=== PATIENT | male | born 1940 | race American Indian/Alaskan Native ===

== ENCOUNTER 2019-01-14 23:05 | Inpatient (IN) | payer MEDICARE ==
--- NOTE | 2019-01-14 23:21 | Emergency Department Report ---
ED Lower Extremity HPI - General Chief Complaint: Fall Stated Complaint: LT HIP PAIN Time Seen by Provider: 01/14/19 23:16 Source: patient, EMS Mode of arrival: Stretcher Limitations: Physical Limitation - History of Present Illness Initial Comments: 78 year-old male presents to the ED after sustaining a fall from his wheelchair. States patient reported pain to left hip. Patient ambulates using a walker and was attempting to use it when noticied patient limping. EMS was called. MD Complaint: hip injury -: hour(s) (5) Injury: Hip: Left Type of Injury: blunt Place: home Severity: moderate Improves With: immobilization Worsens With: weight bearing Context: fall Associated Symptoms: able to partially bear weight - Related Data Home Medications Medication Instructions Recorded Confirmed Last Taken Aspirin [Aspirin BABY CHEW TAB] 1 tab PO DAILY 10/27/13 01/21/14 10/29/13 Atorvastatin (Nf) [Lipitor] 1 tab PO DAILY 10/27/13 01/21/14 10/27/13 Donepezil HCl [Donepezil HCl Odt] 1 tab PO DAILY 10/27/13 01/21/14 10/27/13 Folic Acid 1 mg PO DAILY 10/27/13 01/21/14 10/29/13 Insulin Glargine,Hum.rec.anlog 10 units SC HS 10/27/13 01/21/14 10/29/13 [Lantus] Metoprolol Tartrate 1 tab PO DAILY 10/27/13 01/21/14 10/29/13 Pantoprazole [Protonix TAB] 1 tab PO DAILY 10/27/13 01/21/14 10/29/13 Thiamine Mononitrate [Vitamin B-1] 250 mg PO DAILY 10/27/13 01/21/14 10/29/13 Haloperidol 2 mg PO QHS 01/21/14 01/21/14 Unknown Allergies Allergy/AdvReac Type Severity Reaction Status Date / Time No Known Allergies Allergy Verified 10/27/13 16:35 ED Review of Systems ROS: Stated complaint: LT HIP PAIN Other details as noted in HPI Comment: All other systems reviewed and negative Musculoskeletal: as per HPI ED Past Medical Hx - Past Medical History Hx Hypertension: Yes Hx Diabetes: Yes Hx Dementia: Yes - Surgical History Past Surgical History?: No - Social History Smoking Status: Never Smoker Substance Use Type: None - Medications Home Medications: Home Medications Medication Instructions Recorded Confirmed Last Taken Type Aspirin [Aspirin BABY CHEW TAB] 1 tab PO DAILY 10/27/13 01/21/14 10/29/13 History Atorvastatin (Nf) [Lipitor] 1 tab PO DAILY 10/27/13 01/21/14 10/27/13 History Donepezil HCl [Donepezil HCl Odt] 1 tab PO DAILY 10/27/13 01/21/14 10/27/13 History Folic Acid 1 mg PO DAILY 10/27/13 01/21/14 10/29/13 History Insulin Glargine,Hum.rec.anlog 10 units SC HS 10/27/13 01/21/14 10/29/13 History [Lantus] Metoprolol Tartrate 1 tab PO DAILY 10/27/13 01/21/14 10/29/13 History Pantoprazole [Protonix TAB] 1 tab PO DAILY 10/27/13 01/21/14 10/29/13 History Thiamine Mononitrate [Vitamin B-1] 250 mg PO DAILY 10/27/13 01/21/14 10/29/13 History Haloperidol 2 mg PO QHS 01/21/14 01/21/14 Unknown History ED Physical Exam - General Limitations: Physical Limitation General appearance: alert, in no apparent distress - Head Head exam: Present: atraumatic, normocephalic - Eye Eye exam: Present: normal appearance - ENT ENT exam: Present: mucous membranes moist - Neck Neck exam: Present: normal inspection - Respiratory Respiratory exam: Present: normal lung sounds bilaterally. Absent: respiratory distress - Cardiovascular Cardiovascular Exam: Present: regular rate, normal rhythm - GI/Abdominal GI/Abdominal exam: Absent: distended - Extremities Exam Extremities exam: Present: other (mild tenderness to left hip) - Neurological Exam Neurological exam: Present: alert, altered (at baseline per , hx of head injury and CVA) - Psychiatric Psychiatric exam: Present: normal affect, normal mood - Skin Skin exam: Present: warm, dry, intact, normal color ED Course Vital Signs 01/14/19 01/14/19 01/14/19 23:15 23:31 23:45 Blood Pressure 139/76 151/82 144/74 - Consultations Consultation #1: 01/15/19 00:13 Spoke w/ dotne Schroeder. States possible OR tomorrow. ED Lower Extremity MDM - Lab Data Result diagrams: 01/14/19 23:52 - Radiology Data Radiology results: report reviewed, image reviewed - Medical Decision Making 78-year-old male presents to ED after falling from a wheelchair earlier this evening. Left hip pain reported. X-ray shows left femoral neck fracture. Spoke with Dr. Nick, orthopedic surgeon. He is aware of the patient, states he may take patient to OR tomorrow. Will admit to hospitalist for further management. - Differential Diagnosis fracture, sprain, dislocation Critical care attestation.: If time is entered above; I have spent that time in minutes in the direct care of this critically ill patient, excluding procedure time. ED Disposition Clinical Impression: Fracture of femoral neck, left Disposition: -09 OP ADMIT IP TO THIS HOSP Is pt being admited?: Yes Condition: Stable Referrals: CLYDE DAS MD [Primary Care Provider] - 3-5 Days Time of Disposition: 00:14
--- NOTE | 2019-01-15 00:07 | XRay Report ---
LEFT HIP 2 VIEWS INDICATION / CLINICAL INFORMATION: fall, pain. COMPARISON: None available. FINDINGS: Moderately displaced left femoral neck fracture. Degenerative change in the lower lumbar spine. Moder ate degenerative change in the right hip Signer Name: Juma Fuchs MD FACR Signed: 01/15/2019 12:03 AM Workstation Name: [id number]
[2019-01-15 00:13] LABS: Basophils % (Auto) 0.5 % (0.0-1.8); Eosinophils # (Auto) 0.1 K/mm3 (0.0-0.4); Eosinophils % (Auto) 0.6 % (0.0-4.3); Hematocrit 32.8 % (35.5-45.6); Hemoglobin 10.9 gm/dl (11.8-15.2); Lymphocytes # (Auto) 1.1 K/mm3 (1.2-5.4); Lymphocytes % (Auto) 10.1 % (13.4-35.0); Mean Corpuscular HGB Conc 33 % (32-34); Mean Corpuscular Volume 97 fl (84-94); Monocytes # (Auto) 0.5 K/mm3 (0.0-0.8); Monocytes % (Auto) 5.2 % (0.0-7.3); Platelet Count 206 K/mm3 (140-440); Red Cell Distribution Width 13.2 % (13.2-15.2)
[2019-01-15] MEDS ORDERED: MORPHINE IV ONE ×2 (00:18→06:00)
[2019-01-15 00:22] LABS: INR 1.22 (0.87-1.13)
[2019-01-15 00:23] LABS: Partial Thromboplastin Time 29.5 Sec. (24.2-36.6)
[2019-01-15 01:04] LABS: Calcium 9.6 mg/dL (8.4-10.2)
[2019-01-15] MEDS ORDERED: ZOFRAN IV PRN ×2 (01:16→13:38)
[2019-01-15] MEDS ORDERED: SODIUM CHLORIDE FLUSH SYRINGE 10 ML IV PRN (01:16)
[2019-01-15] MEDS ORDERED: D50W (25GM) Syringe IV PRN (01:16)
[2019-01-15] MEDS ORDERED: PERCOCET 5/325 PO PRN (01:16)
--- NOTE | 2019-01-15 01:28 | History and Physical Report ---
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 Patient slipped after he got out of a chair and fell Review of systems Constitutional: no weight loss Ears, eyes, nose, mouth and throat: no nasal congestion, no nasal discharge, no sinus pressure, no vision change, no red eye. Neck: No neck pain or rigidity. Cardiovascular: no palpitations, shortness of breath Respiratory: no cough, chest pain Gastrointestinal: no hematochezia, abdominal pain Genitourinary : no frequency , no hematuria Musculoskeletal: no joint swelling or muscle ache Integumentary: no rash, no pruritis Neurological: no parathesias, focal weakness Endocrine: no cold or heat intolerance, no polyuria or polydipsia Hematologic/Lymphatic: no easy bruising, no easy bleeding, no gland swelling Allergic/Immunologic: no urticaria, no angioedema. PAST MEDICAL HISTORY: hypertension, diabetes, dementia PAST SURGICAL HISTORY: None SOCIAL HISTORY: no tobacco, maijuana, alcohol FAMILY HISTORY: Hypertension Medications and Allergies Allergies Allergy/AdvReac Type Severity Reaction Status Date / Time No Known Allergies Allergy Verified 10/27/13 16:35 Home Medications Medication Instructions Recorded Confirmed Last Taken Type Aspirin [Aspirin BABY CHEW TAB] 1 tab PO DAILY 10/27/13 01/21/14 10/29/13 History Atorvastatin (Nf) [Lipitor] 1 tab PO DAILY 10/27/13 01/21/14 10/27/13 History Donepezil HCl [Donepezil HCl Odt] 1 tab PO DAILY 10/27/13 01/21/14 10/27/13 History Folic Acid 1 mg PO DAILY 10/27/13 01/21/14 10/29/13 History Insulin Glargine,Hum.rec.anlog 10 units SC HS 10/27/13 01/21/14 10/29/13 History [Lantus] Metoprolol Tartrate 1 tab PO DAILY 10/27/13 01/21/14 10/29/13 History Pantoprazole [Protonix TAB] 1 tab PO DAILY 10/27/13 01/21/14 10/29/13 History Thiamine Mononitrate [Vitamin B-1] 250 mg PO DAILY 10/27/13 01/21/14 10/29/13 History Haloperidol 2 mg PO QHS 01/21/14 01/21/14 Unknown History Active Meds: Active Medications Acetaminophen (Tylenol) 650 mg PO Q4H PRN PRN Reason: Pain MILD(1-3)/Fever >100.5/NIÑO Dextrose (D50w (25gm) Syringe) 50 ml IV PRN PRN PRN Reason: Hypoglycemia Enoxaparin Sodium (Lovenox) 30 mg SUB-Q QDAY [facility] Sodium Chloride (Nacl 0.45% 1000 Ml) 1,000 mls @ 75 mls/hr IV DIRECT ALPES[facility] Insulin Human Lispro (Humalog) 0 unit SUB-Q Q6HR [facility]; Protocol Ondansetron HCl (Zofran) 4 mg IV Q8H PRN PRN Reason: Nausea And Vomiting Oxycodone/Acetaminophen (Percocet 5/325) 1 tab PO Q6H PRN PRN Reason: Pain, Moderate (4-6) Sodium Chloride (Sodium Chloride Flush Syringe 10 Ml) 10 ml IV BID ALPESH Sodium Chloride (Sodium Chloride Flush Syringe 10 Ml) 10 ml IV PRN PRN PRN Reason: LINE FLUSH Exam - Physical Exam Narrative exam: General Apperance: The patient sitting in bed no acute distress HEENT: Normocephalic, atraumatic. Pupils equally round and reactive to light, extraocular movement intact, and no sclericterus or JVD or thyromegaly or n odule. Neck supple, no carotid bruit, mucous membranes moist, no exudate or erythema Heart: S1-S2, regular is rhythm Lungs: Clear to auscultation bilaterally, breathing comfortable Abdomen: Positive bowel sounds, soft, nontender, nondistended, no organomegaly Extremities: No edema cyanosis clubbing Skin: no rash, nodule, warm and dry Neuro: Cranial nerves II through XII intact, speech is fluent, motor intact , sensation intact - Constitutional Vitals: Temp Pulse Resp BP Pulse Ox 144/74 01/14/19 23:45 Results - Labs CBC & Chem 7: 01/14/19 23:52 01/14/19 23:55 Labs: Abnormal lab results 01/14/19 01/14/19 01/14/19 Range/Units 23:52 23:55 23:55 RBC 3.40 L (3.65-5.03) M/mm3 Hgb 10.9 L (11.8-15.2) gm/dl Hct 32.8 L (35.5-45.6) % MCV 97 H (84-94) fl Lymph % (Auto) 10.1 L (13.4-35.0) % Lymph # 1.1 L (1.2-5.4) K/mm3 Seg Neutrophils % 83.6 H (40.0-70.0) % Seg Neutrophils # 8.7 H (1.8-7.7) K/mm3 PT 15.1 H (12.2-14.9) Sec. INR 1.22 H (0.87-1.13) BUN 31 H (9-20) mg/dL Creatinine 1.7 H (0.8-1.5) mg/dL Glucose 223 H (75-100) mg/dL Assessment and Plan Hip xray reviewed Assessment Left hip fracture hypertension diabetes Dementia Plan Admit to medicine NPO, IV fluid, ortho was consulted to see patient Check fingersticks, sliding scale, DVT prophalaxis
[2019-01-15] MEDS: NACL 0.45% 1000 ML 1,000 ML IV SCH ×2 (04:45→21:59)
[2019-01-15] MEDS: HumaLOG SUB-Q SCH ×3 (06:01→17:12)
[2019-01-15 08:03] LABS: Basophils % (Auto) 0.4 % (0.0-1.8); Eosinophils % (Auto) 0.3 % (0.0-4.3); Hematocrit 31.1 % (35.5-45.6); Hemoglobin 10.4 gm/dl (11.8-15.2); Lymphocytes % (Auto) 10.6 % (13.4-35.0); Mean Corpuscular HGB Conc 33 % (32-34); Mean Corpuscular Volume 96 fl (84-94); Monocytes # (Auto) 0.6 K/mm3 (0.0-0.8); Platelet Count 197 K/mm3 (140-440); Red Blood Count 3.24 M/mm3 (3.65-5.03); Red Cell Distribution Width 13.3 % (13.2-15.2)
[2019-01-15 08:23] LABS: Calcium 9.3 mg/dL (8.4-10.2)
--- NOTE | 2019-01-15 12:32 | Event Note ---
Date: 01/15/19 Patient reevaluated L Hip Fracture Dr Nick consulted
[2019-01-15] MEDS: LOVENOX SUB-Q SCH (12:39)
[2019-01-15] MEDS ORDERED: ADRENALIN ONE (13:30)
[2019-01-15] MEDS ORDERED: BRIDION IV ONE (13:30)
[2019-01-15] MEDS ORDERED: Vasostrict ONE (13:31)
[2019-01-15] MEDS ORDERED: SUBLIMAZE ONE (13:32)
[2019-01-15] MEDS ORDERED: VERSED ONE (13:32)
[2019-01-15] MEDS ORDERED: DIPRIVAN 10 MG/ML IV ONE (13:33)
--- NOTE | 2019-01-15 13:37 | Anesthesia Consultation ---
Anesthesia Consult and Med Hx Date of service: 01/15/19 - Airway Anesthetic Teeth Evaluation: Poor ROM Head & Neck: Adequate Mental/Hyoid Distance: Adequate Mallampati Class: Class II Intubation Access Assessment: Good - Pulmonary Exam CTA: Yes - Cardiac Exam Cardiac Exam: RRR - Pre-Operative Health Status ASA Pre-Surgery Classification: ASA3, Emergency Proposed Anesthetic Plan: General - Pulmonary Hx Smoking: No Hx Sleep Apnea: No - Cardiovascular System Hx Hypertension: Yes - Central Nervous System CVA: Yes Hx Psychiatric Problems: No - Other Systems Hx Cancer: No
[2019-01-15] MEDS ORDERED: DILAUDID IV PRN (13:38)
--- NOTE | 2019-01-15 13:38 | Anesthesia Day of Surgery ---
Anesthesia Day of Surgery - Day of Surgery Patient Examined: Yes Patient H&P Reviewed: Yes Patient is NPO: Yes
[2019-01-15] MEDS ORDERED: ANCEF/STERILE WATER 2 GM/20 ML 2 GM/20 ML SYRINGE IV ONE (14:05)
[2019-01-15] MEDS ORDERED: MARCAINE 0.5% INFILTRATI ONE ×2 (14:37→14:52)
[2019-01-15] MEDS ORDERED: MORPHINE ONE (14:38)
[2019-01-15] MEDS ORDERED: TRANEXAMIC ACID ONE (14:38)
[2019-01-15] MEDS ORDERED: NACL 0.9% 250ML 250 ML ONE (14:39)
[2019-01-15] MEDS ORDERED: XYLOCAINE MPF 2% ONE (14:46)
[2019-01-15] MEDS ORDERED: NEO SYNEPHRINE ONE (14:46)
[2019-01-15] MEDS ORDERED: ZOFRAN ONE (14:46)
[2019-01-15] MEDS ORDERED: PHENYLEPHRINE/NS Syringe 1,000 MCG/10 ML IV ONE (14:46)
[2019-01-15] MEDS ORDERED: DECADRON ONE (14:46)
[2019-01-15] MEDS ORDERED: NACL 0.9% 250ML IV ONE (14:52)
[2019-01-15] MEDS ORDERED: MORPHINE IM ONE (14:52)
[2019-01-15] MEDS ORDERED: TRANEXAMIC ACID IV ONE (14:52)
--- NOTE | 2019-01-15 14:53 | Consultation ---
History of Present Illness - HPI Consult date: 01/15/19 Consult reason: fracture History of present illness: 78 year-old man with a history of hypertension, diabetes, dementia comes to the emergency room with complaints left hip pain. Patient slipped after he got out of a chair and fell.. She lives at home with his and uses a walker for assisted ambulation Medications and Allergies Allergies Allergy/AdvReac Type Severity Reaction Status Date / Time No Known Allergies Allergy Verified 10/27/13 16:35 Home Medications Medication Instructions Recorded Confirmed Last Taken Type Aspirin [Aspirin BABY CHEW TAB] 1 tab PO DAILY 10/27/13 01/15/19 10/29/13 History Atorvastatin (Nf) [Lipitor] 1 tab PO DAILY 10/27/13 01/15/19 10/27/13 History Donepezil HCl [Donepezil HCl Odt] 1 tab PO DAILY 10/27/13 01/15/19 10/27/13 History Folic Acid 1 mg PO DAILY 10/27/13 01/15/19 10/29/13 History Insulin Glargine,Hum.rec.anlog 10 units SC HS 10/27/13 01/15/19 10/29/13 History [Lantus] Metoprolol Tartrate 1 tab PO DAILY 10/27/13 01/15/19 10/29/13 History Pantoprazole [Protonix TAB] 1 tab PO DAILY 10/27/13 01/15/19 10/29/13 History Thiamine Mononitrate [Vitamin B-1] 250 mg PO DAILY 10/27/13 01/15/19 10/29/13 History Haloperidol 2 mg PO QHS 01/21/14 01/15/19 Unknown History Active Meds: Active Medications Acetaminophen (Tylenol) 650 mg PO Q4H PRN PRN Reason: Pain MILD(1-3)/Fever >100.5/NIÑO Dextrose (D50w (25gm) Syringe) 50 ml IV PRN PRN PRN Reason: Hypoglycemia Enoxaparin Sodium (Lovenox) 30 mg SUB-Q QDAY [facility] Last Admin: 01/15/19 12:39 Dose: Not Given Documented by: Hydromorphone HCl (Dilaudid) 0.25 mg IV Q10MIN PRN PRN Reason: Pain, Moderate (4-6) Stop: 07/28/19 23:59 Sodium Chloride (Nacl 0.45% 1000 Ml) 1,000 mls @ 75 mls/hr IV DIRECT ALPESH Last Admin: 01/15/19 04:45 Dose: 75 mls/hr Documented by: Insulin Human Lispro (Humalog) 0 unit SUB-Q Q6HR ALPESH; Protocol Last Admin: 01/15/19 12:00 Dose: Not Given Documented by: Ondansetron HCl (Zofran) 4 mg IV ONCE PRN PRN Reason: Nausea And Vomiting Oxycodone/Acetaminophen (Percocet 5/325) 1 tab PO Q6H PRN PRN Reason: Pain, Moderate (4-6) Sodium Chloride (Sodium Chloride Flush Syringe 10 Ml) 10 ml IV BID ALPESH Sodium Chloride (Sodium Chloride Flush Syringe 10 Ml) 10 ml IV PRN PRN PRN Reason: LINE FLUSH Physical Examination - Physical exam Narrative exam: At the left hip. Patient is noted to have a mild to moderate swelling proximally tender at the groin decreased passive range of motion there is internal rotation with slight loss of the length Plain x-rays of the pelvis was reviewed by me and show a displaced left femoral neck fracture Eyes: PERRL ENT: Positive: clear oral mucosa Respiratory effort: normal Respiratory: bilateral: CTA Rhythm: regular Heart Sounds: Positive: S1 & S2 General gastrointestinal: Positive: soft, non-tender, non-distended, normal bowel sounds Integumentary: clear, warm, dry Neurologic: Positive: CNII-XII intact, moves all extremities, gait normal. Negative: focal deficits - Cervical Spine Neck pain: none Tenderness with palpation: none Full ROM: yes ROM: flexion: normal ROM: extension: normal ROM: rotation right: normal ROM: rotation left: normal ROM: lateral flexion right: normal ROM: lateral flexion left: normal - Lumbar Spine Back pain: none Tenderness with palpation: none Appearance: normal Full ROM: yes ROM: flexion: normal ROM: extension: normal ROM: rotation right: normal ROM: rotation left: normal ROM: lateral flexion right: normal ROM: lateral flexion left: normal Assessment and Plan Assessment - left femoral neck fracture displaced Recommendations - since the patient does ambulate with a walker or recommendation is to proceed with a bipolar hip replacement
[2019-01-15] MEDS ORDERED: MORPHINE IV PRN (14:55)
[2019-01-15] MEDS ORDERED: NORCO 5/325 PO PRN (14:55)
[2019-01-15] MEDS ORDERED: IBUPROFEN PO PRN (14:55)
--- NOTE | 2019-01-15 14:55 | Procedure Note ---
Date of procedure: 01/15/19 Pre-op diagnosis: displaced left femoral neck fracture Post-op diagnosis: same Procedure: Bipolar hemiarthroplasty left hip Procedure The patient was brought to the or on the recovery room. Following induction and intubation by anesthesia the patient's was placed into the right lateral decubitus position at which point the left hip was prepped and draped in the usual sterile manner. A timeout procedure was done to identify the patient and the correct operative site. A lateral incision was made over the proximal femur this is taken down sharply through skin and subcutaneous the fascia was incised longitudinally next a Charley retractor was placed in the wound followingthe capsule overlying the anterior hip joint was entered using Bovie with the heparin external rotation the fracture was identified maxillary osteotomy was performed on the femoral neck this was followed by retrieval overall femoral head. Measuring the diameter a 48 mm diameter was chosen following this a proximal femur was reamed and broached to a #4 press-fit stem along with a neutral neck and a 28 mm head. PERRSERENE. Hip was then reduced taken through range of motion and found to be stable following this the trial components were removed the hip joint was then cautiously irrigated with normal saline solution. The final components were inserted beginning with the femoral stem the 28 mm head and the 48 mm bipolar cup again the hip was reduced taken through range of motion and found to be stable again the hip joint was copiously irrigated and was closed in a standard routine fashion. Positions were applied the patient tolerated the procedure there were no complications, she was sent to postanesthesia recovery in stable condition. Anesthesia: GETA Surgeon: AISHA LUCAS Temporary Data Entry Clerk: JINNY NGO Estimated blood loss: other (300 mL) Pathology: list (left femoral head) Specimen disposition: to lab Condition: stable Disposition: PACU
[2019-01-15] MEDS ORDERED: ZEMURON IV ONE (15:00)
[2019-01-15] MEDS ORDERED: SODIUM CHLORIDE FLUSH SYRINGE 10 ML IV NR (15:00)
[2019-01-15] MEDS ORDERED: QUELICIN ONE (15:00)
[2019-01-15] MEDS: SODIUM CHLORIDE FLUSH SYRINGE 10 ML IV SCH ×2 (16:08→22:00)
--- NOTE | 2019-01-15 18:41 | Post Anesthesia Evaluation ---
- Post Anesthesia Evaluation Patient Participated: Yes Airway Patent: Yes Stable Respiratory Function: Yes Nausea/Vomiting: No Temp > 96.8F: Yes Pain Manageable: Yes Adequeate Hydration: Yes Anesthesia Complications: No Block Receding Appropriately: Not Applicable Patient on Ventilator: No
[2019-01-16] MEDS: HumaLOG SUB-Q SCH ×5 (00:35→23:20)
[2019-01-16] MEDS: TYLENOL PO PRN ×2 (00:36→21:37)
[2019-01-16 01:23] LABS: Basophils % (Auto) 0.1 % (0.0-1.8); Hematocrit 31.2 % (35.5-45.6); Hemoglobin 10.4 gm/dl (11.8-15.2); Lymphocytes # (Auto) 0.7 K/mm3 (1.2-5.4); Lymphocytes % (Auto) 7.5 % (13.4-35.0); Mean Corpuscular HGB Conc 33 % (32-34); Mean Corpuscular Volume 98 fl (84-94); Monocytes # (Auto) 0.8 K/mm3 (0.0-0.8); Monocytes % (Auto) 8.5 % (0.0-7.3); Platelet Count 183 K/mm3 (140-440); Red Blood Count 3.18 M/mm3 (3.65-5.03); Red Cell Distribution Width 13.8 % (13.2-15.2)
[2019-01-16 02:15] LABS: Bilirubin,Urine NEG (Negative); Blood,Urine SM (Negative); Color,Urine Yellow (Yellow); Mucus,Urine FEW /HPF; Protein,Urine <15 mg/dL mg/dL (Negative); Urobilinogen,Urine < 2.0 mg/dL (<2.0)
[2019-01-16] MEDS: LOVENOX SUB-Q SCH (09:03)
[2019-01-16] MEDS: SODIUM CHLORIDE FLUSH SYRINGE 10 ML IV SCH ×2 (09:04→21:39)
--- NOTE | 2019-01-16 15:10 | Progress Note ---
Assessment and Plan - Patient Problems (1) Fracture of femoral neck, left Current Visit: Yes Status: Acute Qualifiers: Encounter type: subsequent encounter Plan to address problem: Hemiarthroplasty of L hip done today Rehab (2) HLD (hyperlipidemia) Current Visit: Yes Status: Chronic Qualifiers: Hyperlipidemia type: mixed hyperlipidemia Qualified Code(s): E78.2 - Mixed hyperlipidemia Plan to address problem: Cont Statins (3) Dementia Current Visit: Yes Status: Chronic Qualifiers: Dementia type: vascular dementia Plan to address problem: cont donepezil (4) IDDM (insulin dependent diabetes mellitus) Current Visit: Yes Status: Chronic Plan to address problem: Cont Lantus and coverage (5) HTN (hypertension) Current Visit: Yes Status: Chronic Qualifiers: Hypertension type: essential hypertension Qualified Code(s): I10 - Essential (primary) hypertension Plan to address problem: Cont antihypertensives (6) Agitation Current Visit: Yes Status: Chronic Plan to address problem: Haldol prn (7) Anemia Current Visit: Yes Status: Chronic Qualifiers: Anemia type: unspecified type Qualified Code(s): D64.9 - Anemia, unspecified Plan to address problem: Anemia work up (8) DVT prophylaxis Current Visit: Yes Status: Acute Plan to address problem: On scd's Subjective Date of service: 01/16/19 Principal diagnosis: left hip fracture Interval history: Bipolar hemiarthroplasty left hip today Objective - Constitutional Vitals: Vital Signs - 12hr 01/16/19 01/16/19 01/16/19 04:28 07:31 11:48 Temperature 99.7 F H 98.6 F 98.2 F Pulse Rate 88 87 89 Respiratory 20 20 20 Rate Blood Pressure 105/59 133/64 Blood Pressure 145/74 [Left] O2 Sat by Pulse 94 96 99 Oximetry General appearance: Present: no acute distress, well-nourished - EENT Eyes: PERRL, EOM intact ENT: hearing intact, clear oral mucosa Ears: bilateral: normal - Neck Neck: supple, normal ROM - Respiratory Respiratory effort: normal Respiratory: bilateral: CTA - Breasts Breasts: normal - Cardiovascular Heart rate: 78 Rhythm: regular Heart Sounds: Present: S1 & S2. Absent: gallop, rub Extremities: pulses intact, No edema, normal color, abnormal (l Hip decreased ROM) Extremity abnormal: other - Gastrointestinal General gastrointestinal: Present: soft, non-tender, non-distended, normal bowel sounds - Genitourinary Male genitourinary: normal - Integumentary Integumentary: clear, warm, dry - Musculoskeletal Musculoskeletal: 1, strength equal bilaterally - Neurologic Neurologic: moves all extremities - Psychiatric Psychiatric: memory intact, appropriate mood/affect, intact judgment & insight - Labs CBC & Chem 7: 01/16/19 00:48 01/15/19 07:42 Labs: Abnormal lab results 01/15/19 01/16/19 01/16/19 Range/Units 16:29 00:08 00:48 RBC 3.18 L (3.65-5.03) M/mm3 Hgb 10.4 L (11.8-15.2) gm/dl Hct 31.2 L (35.5-45.6) % MCV 98 H (84-94) fl MCH 33 H (28-32) pg Lymph % (Auto) 7.5 L (13.4-35.0) % [place] % (Auto) 8.5 H (0.0-7.3) % Lymph # 0.7 L (1.2-5.4) K/mm3 Seg Neutrophils % 83.9 H (40.0-70.0) % Seg Neutrophils # 8.3 H (1.8-7.7) K/mm3 POC Glucose 121 H 245 H (70-105) 01/16/19 01/16/19 Range/Units 06:00 11:53 RBC (3.65-5.03) M/mm3 Hgb (11.8-15.2) gm/dl Hct (35.5-45.6) % MCV (84-94) fl MCH (28-32) pg Lymph % (Auto) (13.4-35.0) % [place] % (Auto) (0.0-7.3) % Lymph # (1.2-5.4) K/mm3 Seg Neutrophils % (40.0-70.0) % Seg Neutrophils # (1.8-7.7) K/mm3 POC Glucose 152 H 223 H (70-105)
[2019-01-16] MEDS ORDERED: THIAMINE MONONITRATE 250 MG PO SCH (15:15)
[2019-01-16] MEDS ORDERED: DONEPEZIL HCL PO SCH (15:15)
[2019-01-16] MEDS ORDERED: FOLVITE PO SCH (16:00)
[2019-01-16] MEDS ORDERED: BABY ASPIRIN PO SCH (16:00)
--- NOTE | 2019-01-16 16:51 | Progress Note ---
Assessment and Plan Status post left bipolar hemiarthroplasty hip Doing well postop day 1 Continue physical therapy and observation Subjective Date of service: 01/16/19 Principal diagnosis: left hip fracture Interval history: No complaints noted from the patient patient's is in the role states he is doing well Objective Vital signs: Vital Signs - 12hr 01/16/19 01/16/19 07:31 11:48 Temperature 98.6 F 98.2 F Pulse Rate 87 89 Respiratory 20 20 Rate Blood Pressure 133/64 Blood Pressure 145/74 [Left] O2 Sat by Pulse 96 99 Oximetry Incision: healing, swollen, clean and dry Weight bearing status: as tolerated - Labs CBC & BMP: 01/16/19 00:48 01/15/19 07:42 Labs: Abnormal lab results 01/16/19 01/16/19 01/16/19 Range/Units 00:08 00:48 06:00 RBC 3.18 L (3.65-5.03) M/mm3 Hgb 10.4 L (11.8-15.2) gm/dl Hct 31.2 L (35.5-45.6) % MCV 98 H (84-94) fl MCH 33 H (28-32) pg Lymph % (Auto) 7.5 L (13.4-35.0) % [place] % (Auto) 8.5 H (0.0-7.3) % Lymph # 0.7 L (1.2-5.4) K/mm3 Seg Neutrophils % 83.9 H (40.0-70.0) % Seg Neutrophils # 8.3 H (1.8-7.7) K/mm3 POC Glucose 245 H 152 H (70-105) 01/16/19 Range/Units 11:53 RBC (3.65-5.03) M/mm3 Hgb (11.8-15.2) gm/dl Hct (35.5-45.6) % MCV (84-94) fl MCH (28-32) pg Lymph % (Auto) (13.4-35.0) % [place] % (Auto) (0.0-7.3) % Lymph # (1.2-5.4) K/mm3 Seg Neutrophils % (40.0-70.0) % Seg Neutrophils # (1.8-7.7) K/mm3 POC Glucose 223 H (70-105)
[2019-01-16 19:51] LABS: % Iron Saturation 5.38 %
[2019-01-16] MEDS: FOLVITE PO SCH (21:38)
[2019-01-16] MEDS: BABY ASPIRIN PO SCH (21:39)
[2019-01-16] MEDS: PROTONIX PO SCH (21:39)
[2019-01-16] MEDS: LOPRESSOR PO SCH (21:40)
[2019-01-16] MEDS: HALDOL PO SCH (21:59)
[2019-01-16] MEDS: ARICEPT PO SCH (21:59)
[2019-01-16] MEDS ORDERED: HALDOL PO SCH (22:00)
[2019-01-16] MEDS: LANTUS SUB-Q SCH (23:20)
[2019-01-17] MEDS: HumaLOG SUB-Q SCH ×3 (08:34→18:11)
[2019-01-17] MEDS: FOLVITE PO SCH (10:30)
[2019-01-17] MEDS: BABY ASPIRIN PO SCH (10:30)
[2019-01-17] MEDS: LOPRESSOR PO SCH (10:31)
[2019-01-17] MEDS: VITAMIN B-1 PO SCH (10:32)
[2019-01-17] MEDS: PROTONIX PO SCH (10:32)
[2019-01-17] MEDS: SODIUM CHLORIDE FLUSH SYRINGE 10 ML IV SCH ×2 (10:32→21:07)
[2019-01-17] MEDS: LOVENOX SUB-Q SCH (10:35)
--- NOTE | 2019-01-17 13:35 | Progress Note ---
Assessment and Plan Assessment and plan: Fracture of left femoral neck s/p bipolar hemiarthroplasty left hip on 01/15 Hypertension BP stable Monitor BP continue Metoprolol Diabetes mellitus type 2 Fingerstick q ac and hs On Lantus Dementia Hyperlipidemia Continue statin Full code status History Interval history: s/p left hip surgery after fracture mild pain surgery site Hospitalist Physical - Physical exam Narrative exam: Gen: Not in acute distress, lying in bed, HEENT: Normocephalic, atraumatic Neck: supple, no JVD Heart: S1 and S2 reg, no murmurs, rubs or gallop Lungs: Clear to auscultation, no wheeze Abd: soft, non tender, non distended, normal BS, Ext: dressing over left hip, No edema, no clubbing, no cyanosis Neuro: Awake,alert, dementia - Constitutional Vitals: Temp Pulse Resp BP Pulse Ox 98.0 F 96 H 20 108/53 96 01/17/19 11:14 01/17/19 11:14 01/17/19 11:14 01/17/19 11:14 01/17/19 11:14 General appearance: Present: no acute distress, well-nourished Results - Labs CBC & Chem 7: 01/18/19 07:13 01/15/19 07:42 Labs: Laboratory Last Values WBC 9.9 K/mm3 (4.5-11.0) 01/16/19 00:48 RBC 3.18 M/mm3 (3.65-5.03) L 01/16/19 00:48 Hgb 10.4 gm/dl (11.8-15.2) L 01/16/19 00:48 Hct 31.2 % (35.5-45.6) L 01/16/19 00:48 MCV 98 fl (84-94) H 01/16/19 00:48 MCH 33 pg (28-32) H 01/16/19 00:48 MCHC 33 % (32-34) 01/16/19 00:48 RDW 13.8 % (13.2-15.2) 01/16/19 00:48 Plt Count 183 K/mm3 (140-440) 01/16/19 00:48 Lymph % (Auto) 7.5 % (13.4-35.0) L 01/16/19 00:48 [place] % (Auto) 8.5 % (0.0-7.3) H 01/16/19 00:48 Eos % (Auto) 0.0 % (0.0-4.3) 01/16/19 00:48 Baso % (Auto) 0.1 % (0.0-1.8) 01/16/19 00:48 Lymph # 0.7 K/mm3 (1.2-5.4) L 01/16/19 00:48 [place] # 0.8 K/mm3 (0.0-0.8) 01/16/19 00:48 Eos # 0.0 K/mm3 (0.0-0.4) 01/16/19 00:48 Baso # 0.0 K/mm3 (0.0-0.1) 01/16/19 00:48 Seg Neutrophils % 83.9 % (40.0-70.0) H 01/16/19 00:48 Seg Neutrophils # 8.3 K/mm3 (1.8-7.7) H 01/16/19 00:48 PT 15.1 Sec. (12.2-14.9) H 01/14/19 23:55 INR 1.22 (0.87-1.13) H 01/14/19 23:55 APTT 29.5 Sec. (24.2-36.6) 01/14/19 23:55 Sodium 140 mmol/L (137-145) 01/15/19 07:42 Potassium 4.0 mmol/L (3.6-5.0) 01/15/19 07:42 Chloride 103.8 mmol/L (98-107) 01/15/19 07:42 Carbon Dioxide 23 mmol/L (22-30) 01/15/19 07:42 17 mmol/L 01/15/19 07:42 BUN 26 mg/dL (9-20) H 01/15/19 07:42 1.5 mg/dL (0.8-1.5) 01/15/19 07:42 Estimated GFR 55 ml/min 01/15/19 07:42 17 % 01/15/19 07:42 Glucose 139 mg/dL (75-100) H 01/15/19 07:42 POC Glucose 205 (70-105) H 01/17/19 11:23 Lactic Acid 1.60 mmol/L (0.7-2.0) 01/16/19 02:51 Calcium 9.3 mg/dL (8.4-10.2) 01/15/19 07:42 Iron 10 ug/dL (49-181) L 01/16/19 19:05 TIBC 186 mcg/dL (250-450) L 01/16/19 19:05 % Saturation 5.38 % 01/16/19 19:05 164 mg/dl (180-329) L 01/16/19 19:05 Vitamin B12 > 2000 pg/mL (211-911) H 01/16/19 19:05 Yellow (Yellow) 01/16/19 02:00 Clear (Clear) 01/16/19 02:00 5.0 (5.0-7.0) 01/16/19 02:00 Ur Specific [place] 1.017 (1.003-1.030) 01/16/19 02:00 <15 mg/dl mg/dL (Negative) 01/16/19 02:00 50 mg/dL (Negative) 01/16/19 02:00 Neg mg/dL (Negative) 01/16/19 02:00 Sm (Negative) 01/16/19 02:00 Neg (Negative) 01/16/19 02:00 Neg (Negative) 01/16/19 02:00 < 2.0 mg/dL (<2.0) 01/16/19 02:00 Ur Leukocyte Esterase Neg (Negative) 01/16/19 02:00 3.0 /HPF (0.0-6.0) 01/16/19 02:00 1.0 /HPF (0.0-6.0) 01/16/19 02:00 U Epithel Cells (Auto) 1.0 /HPF (0-13.0) 01/16/19 02:00 Few /HPF 01/16/19 02:00 Blood Type A POSITIVE 01/15/19 18:50 Antibody Screen Negative 01/15/19 18:50 Active Medications - Current Medications Current Medications: Generic Name Dose Route Start Last Admin Trade Name Freq PRN Reason Stop Dose Admin Acetaminophen 650 mg 01/15/19 01:16 01/16/19 21:37 Tylenol PO 650 mg Q4H PRN Administration Pain MILD(1-3)/Fever >100.5/NIÑO Acetaminophen/Hydrocodone Bitart 1 each 01/15/19 14:55 [place] 5/325 PO Q6H PRN Pain, Moderate (4-6) Aspirin 81 mg 01/16/19 22:00 01/17/19 10:30 Baby Aspirin PO 81 mg DAILY [facility] Administration Atorvastatin Calcium 10 mg 01/16/19 22:00 01/16/19 21:38 Lipitor PO 10 mg HS [facility] Administration Dextrose 50 ml 01/15/19 01:16 D50w (25gm) Syringe IV PRN PRN Hypoglycemia Donepezil HCl 5 mg 01/16/19 22:00 01/16/19 21:59 Aricept PO 5 mg QHS [facility] Administration Enoxaparin Sodium 40 mg 01/17/19 10:00 01/17/19 10:35 Lovenox SUB-Q 40 mg QDAY@1000 [facility] Administration Folic Acid 1 mg 01/16/19 22:00 01/17/19 10:30 Folvite PO 1 mg DAILY [facility] Administration Haloperidol 2 mg 01/16/19 22:00 01/16/19 21:59 Haldol PO 2 mg QHS [facility] Administration Sodium Chloride 1,000 mls @ 75 mls/hr 01/15/19 02:00 01/15/19 21:59 Nacl 0.45% 1000 Ml IV 75 mls/hr DIRECT [facility] Administration Ibuprofen 600 mg 01/15/19 14:55 Ibuprofen PO Q6H PRN Pain, Mild (1-3) Insulin Glargine 10 units 01/16/19 22:00 01/16/19 23:20 Lantus SUB-Q 10 units HS [facility] Administration Insulin Human Lispro 0 unit 01/15/19 06:00 01/17/19 08:34 Humalog SUB-Q Not Given Q6HR [facility] Protocol Metoprolol Tartrate 25 mg 01/16/19 16:00 01/17/19 10:31 Lopressor PO Not Given DAILY [facility] Morphine Sulfate 4 mg 01/15/19 14:55 Morphine IV Q4H PRN Pain , Severe (7-10) Ondansetron HCl 4 mg 01/15/19 13:38 Zofran IV ONCE PRN Nausea And Vomiting Oxycodone/Acetaminophen 1 tab 01/15/19 01:16 Percocet 5/325 PO Q6H PRN Pain, Moderate (4-6) Pantoprazole Sodium 40 mg 01/16/19 16:00 01/17/19 10:32 Protonix PO 40 mg DAILY [facility] Administration Sodium Chloride 10 ml 01/15/19 10:00 01/17/19 10:32 Sodium Chloride Flush Syringe 10 Ml IV 10 ml BID [facility] Administration Sodium Chloride 10 ml 01/15/19 01:16 Sodium Chloride Flush Syringe 10 Ml IV PRN PRN LINE FLUSH Thiamine HCl 100 mg 01/17/19 10:00 01/17/19 10:32 Vitamin B-1 PO 100 mg QDAY [facility] Administration Nutrition/Malnutrition Assess - Dietary Evaluation Nutrition/Malnutrition Findings: Nutrition Notes Start: 01/16/19 14:44 Freq: Status: Active Protocol: Document 01/16/19 14:44 ROSA (Rec: 01/16/19 14:46 ROSA [id number] [email or web address]) Nutrition Notes Need for Assessment generated from: broadcast operations director Initial or Follow up Brief Note Current Diagnosis Diabetes,Hypertension Other Pertinent Diagnosis (L) hip fx s/p repair Current Diet Consistent CHO Subjective/Other Information Pt screened for new onset DM, however pr diagnosed with DM > 5 yrs ago. He reports good appetite; consumed 100% of lunch today. Nutrition Intervention Revisit per MD consult or patient Sign Off request:
[2019-01-17] MEDS: HALDOL PO SCH (21:07)
[2019-01-17] MEDS: ARICEPT PO SCH (21:07)
[2019-01-17] MEDS: LANTUS SUB-Q SCH (21:08)
[2019-01-18] MEDS: HumaLOG SUB-Q SCH ×4 (02:11→20:39)
[2019-01-18 08:11] LABS: Hematocrit 23.2 % (35.5-45.6); Hemoglobin 7.9 gm/dl (11.8-15.2); Mean Corpuscular HGB Conc 34 % (32-34); Mean Corpuscular Volume 95 fl (84-94); Platelet Count 162 K/mm3 (140-440); Red Blood Count 2.43 M/mm3 (3.65-5.03); Red Cell Distribution Width 13.4 % (13.2-15.2)
[2019-01-18 09:26] LABS: BUN/Creatinine Ratio 21; Blood Urea Nitrogen 27 mg/dL (9-20); Calcium 8.5 mg/dL (8.4-10.2); Hemolysis Index 0
[2019-01-18] MEDS: LOVENOX SUB-Q SCH (10:05)
[2019-01-18] MEDS: LOPRESSOR PO SCH (10:05)
[2019-01-18] MEDS: PROTONIX PO SCH (10:05)
[2019-01-18] MEDS: BABY ASPIRIN PO SCH (10:06)
[2019-01-18] MEDS: FOLVITE PO SCH (10:06)
[2019-01-18] MEDS: VITAMIN B-1 PO SCH (10:06)
--- NOTE | 2019-01-18 10:24 | Consultation ---
History of Present Illness - Reason for Consult Consult date: 01/18/19 Fever, s/p Hip surgery Requesting physician: JINNY CARDOSO - History of Present Illness This patient is a 78-year-old man with a past medical history of hypertension, diabetes and dementia that presents to the ED on 01/14/19 with complaints of left hip pain. The patient slipped and fell getting out of a chair. On admission WBC 10.4, Creatinine 1.7, Temperature 97.2, HR 89. BP 139/76. U/A negative.Blood cultures no growth to date. Hip xray show displaced left femoral neck fracture. He underwent hemiarthroplasty of the left hip on 01/16/19. Review of Systems: General: no fever, chills, nightsweats, unintentional weight change, or change in appetite Cutaneous: no rash, pruritus Head: no headaches or injury Eyes: no changes in vision, eye pain, double vision Ears: no ear pain, ear discharge, ringing or hearing loss Nose: no nose bleeding, stuffiness Mouth & throat: no bleeding gums, no horseness, no dental problems, or swollen glands Neck: no pain, node enlargement/lumps, tyroid enlargement or tenderness Respiratory: no cough, wheezing, sputum, hemoptysis, pleuritic chest pain Cardiovascular: no chest pain, leg edema, cyanosis, PANIAGUA, orthopnea Musculoskeletal: decreased ROM left hip/leg. +left joint tenderness and minor swelling. +dressing over incision. Gastrointestinal: no nausea, vomiting, hematemesis, diarrhea, constipation, melena, bright red blood in stools, fecal incontinence, jaundice Genitourinary/Reproductive: no frequent urination, no dysuria, hematuria, incontinence Neurogical: no seizures, no headaches, no weakness, no paresthesias, no loss of speech or vision; no memory loss, no vertigo, no tremors, no numbness Psychiatric: stable mood; no excessive anxiety, sadness or moodiness Medications and Allergies Allergies Allergy/AdvReac Type Severity Reaction Status Date / Time No Known Allergies Allergy Verified 10/27/13 16:35 Home Medications Medication Instructions Recorded Confirmed Last Taken Type Aspirin [Aspirin BABY CHEW TAB] 1 tab PO DAILY 10/27/13 01/15/19 10/29/13 History Atorvastatin (Nf) [Lipitor] 1 tab PO DAILY 10/27/13 01/15/19 10/27/13 History Donepezil HCl [Donepezil HCl Odt] 1 tab PO DAILY 10/27/13 01/15/19 10/27/13 History Folic Acid 1 mg PO DAILY 10/27/13 01/15/19 10/29/13 History Insulin Glargine,Hum.rec.anlog 10 units SC 10/27/13 01/15/19 10/29/13 History [Lantus] Metoprolol Tartrate 1 tab PO DAILY 10/27/13 01/15/19 10/29/13 History Pantoprazole [Protonix TAB] 1 tab PO DAILY 10/27/13 01/15/19 10/29/13 History Thiamine Mononitrate [Vitamin B-1] 250 mg PO DAILY 10/27/13 01/15/19 10/29/13 History Haloperidol 2 mg PO QHS 01/21/14 01/15/19 Unknown History Active Meds: Active Medications Acetaminophen (Tylenol) 650 mg PO Q4H PRN PRN Reason: Pain MILD(1-3)/Fever >100.5/NIÑO Last Admin: 01/16/19 21:37 Dose: 650 mg Documented by: Acetaminophen/Hydrocodone Bitart ([place] 5/325) 1 each PO Q6H PRN PRN Reason: Pain, Moderate (4-6) Aspirin (Baby Aspirin) 81 mg PO DAILY [facility] Last Admin: 01/18/19 10:06 Dose: 81 mg Documented by: Atorvastatin Calcium (Lipitor) 10 mg PO [facility] Last Admin: 01/17/19 21:06 Dose: 10 mg Documented by: Dextrose (D50w (25gm) Syringe) 50 ml IV PRN PRN PRN Reason: Hypoglycemia Donepezil HCl (Aricept) 5 mg PO QHS [facility] Last Admin: 01/17/19 21:07 Dose: 5 mg Documented by: Enoxaparin Sodium (Lovenox) 40 mg SUB-Q QDAY@1000 [facility] Last Admin: 01/18/19 10:05 Dose: 40 mg Documented by: Folic Acid (Folvite) 1 mg PO DAILY [facility] Last Admin: 01/18/19 10:06 Dose: 1 mg Documented by: Haloperidol (Haldol) 2 mg PO QHS [facility] Last Admin: 01/17/19 21:07 Dose: 2 mg Documented by: Sodium Chloride (Nacl 0.45% 1000 Ml) 1,000 mls @ 75 mls/hr IV DIRECT [facility] Last Admin: 01/15/19 21:59 Dose: 75 mls/hr Documented by: Ibuprofen (Ibuprofen) 600 mg PO Q6H PRN PRN Reason: Pain, Mild (1-3) Insulin Glargine (Lantus) 10 units SUB-Q HS [facility] Last Admin: 01/17/19 21:08 Dose: 10 units Documented by: Insulin Human Lispro (Humalog) 0 unit SUB-Q Q6HR [facility]; Protocol Last Admin: 01/18/19 06:52 Dose: Not Given Documented by: Metoprolol Tartrate (Lopressor) 25 mg PO DAILY [facility] Last Admin: 01/18/19 10:05 Dose: 25 mg Documented by: Morphine Sulfate (Morphine) 4 mg IV Q4H PRN PRN Reason: Pain , Severe (7-10) Ondansetron HCl (Zofran) 4 mg IV ONCE PRN PRN Reason: Nausea And Vomiting Oxycodone/Acetaminophen (Percocet 5/325) 1 tab PO Q6H PRN PRN Reason: Pain, Moderate (4-6) Pantoprazole Sodium (Protonix) 40 mg PO DAILY [facility] Last Admin: 01/18/19 10:05 Dose: 40 mg Documented by: Sodium Chloride (Sodium Chloride Flush Syringe 10 Ml) 10 ml IV BID [facility] Last Admin: 01/17/19 21:07 Dose: 10 ml Documented by: Sodium Chloride (Sodium Chloride Flush Syringe 10 Ml) 10 ml IV PRN PRN PRN Reason: LINE FLUSH Thiamine HCl (Vitamin B-1) 100 mg PO QDAY [facility] Last Admin: 01/18/19 10:06 Dose: 100 mg Documented by: Physical Examination - Physical Exam Narrative exam: Constitutional: Alert, cooperative. No acute distress Head, Ears, Nose: Normocephalic, atraumatic. External ears, nose normal Eyes: Conjunctivae/corneas clear. No icterus. No ptosis. Neck: Supple, no meningeal signs Oral: dentition poor. No thrush Cardiovascular: S1, S2 normal. Respiratory: Good air entry, clear to auscultation bilaterally GI: Soft, non-tender; bowel sounds normal. No peritoneal signs Musculoskeletal: Decreased ROM left hip/leg.+dressing over incision, C/D/I Skin: No rash or abscess. Hem/Lymphatic: No palpable cervical or supraclavicular nodes. No lymphangitis Psych: Mood good. Affect normal Neurological: Awake, alert, oriented. - Constitutional Vitals: Vital Signs Temp Pulse Resp BP Pulse Ox 99.1 F 91 H 22 117/62 100 01/18/19 07:07 01/18/19 07:07 01/18/19 07:07 01/18/19 07:07 01/18/19 07:07 Temperature -Last 24 Hours Temperature 99.1 F Temperature 99.1 F Temperature 99.6 F Temperature 100.8 F Temperature 98.9 F Temperature 98.0 F Results - Labs CBC & Chem 7: 01/18/19 07:13 01/18/19 07:13 Labs: Abnormal lab results 01/17/19 01/17/19 01/17/19 Range/Units 11:23 16:52 20:34 RBC (3.65-5.03) M/mm3 Hgb (11.8-15.2) gm/dl Hct (35.5-45.6) % MCV (84-94) fl BUN (9-20) mg/dL Glucose (75-100) mg/dL POC Glucose 205 H 260 H 201 H (70-105) 01/18/19 01/18/19 01/18/19 Range/Units 07:13 07:13 07:40 RBC 2.43 L (3.65-5.03) M/mm3 Hgb 7.9 L (11.8-15.2) gm/dl Hct 23.2 L D (35.5-45.6) % MCV 95 H (84-94) fl BUN 27 H (9-20) mg/dL Glucose 153 H (75-100) mg/dL POC Glucose 160 H (70-105) Assessment and Plan Cultures: 01/16/19 Blood: no growth to date A/P: 78-year-old man with a past medical history of hypertension, diabetes and dementia that preesents to the ED on 01/14/19 with complaints of left hip pain. The patient slipped and fell getting out of a chair. Hip xray shows displaced left femoral neck fracture. He underwent hemiarthroplasty of the left hip on 01/16/19. Admitted with 1. Fevers, not on admission. Fever spike 101.0 on 01/16/19, Most likely reactive to hemiarthroplasty of the left hip. Blood cultures show on growth. UA negative. No leukocytoisis.. Fever curve trending down. . Currently not receiving antimicrobials. Will monitor closely. 2.. Left Hip Fracture: S/p hemiarthroplasty of the left hip on 01/16/19. Dr. Nick following. 3. Type 2 Diabetes Mellitus: uncontrolled 4. Dementia Recommendations: -Monitor fevers -Follow-up blood cultures [facility] M: [phone] O:[phone]
--- NOTE | 2019-01-18 13:14 | Progress Note ---
Assessment and Plan Assessment and plan: Fracture of left femoral neck s/p bipolar hemiarthroplasty left hip on 01/15 Hypertension BP stable Monitor BP continue Metoprolol Diabetes mellitus type 2 Fingerstick q ac and hs On Lantus fever Consult ID Physician Dementia Hyperlipidemia Continue statin ALESSIO from vasomotor nephropathy Now resolved Cr was 1.7 on admission Full code status History Interval history: s/p left hip surgery after fracture mild pain surgery site Fever Hospitalist Physical - Constitutional Vitals: Temp Pulse Resp BP Pulse Ox 99.1 F 91 H 22 117/62 100 01/18/19 07:07 01/18/19 07:07 01/18/19 07:07 01/18/19 07:07 01/18/19 07:07 General appearance: Present: no acute distress, well-nourished Results - Labs CBC & Chem 7: 01/18/19 07:13 01/18/19 07:13 Labs: Laboratory Last Values WBC 7.0 K/mm3 (4.5-11.0) 01/18/19 07:13 RBC 2.43 M/mm3 (3.65-5.03) L 01/18/19 07:13 Hgb 7.9 gm/dl (11.8-15.2) L 01/18/19 07:13 Hct 23.2 % (35.5-45.6) L D 01/18/19 07:13 MCV 95 fl (84-94) H 01/18/19 07:13 MCH 32 pg (28-32) 01/18/19 07:13 MCHC 34 % (32-34) 01/18/19 07:13 RDW 13.4 % (13.2-15.2) 01/18/19 07:13 Plt Count 162 K/mm3 (140-440) 01/18/19 07:13 Lymph % (Auto) 7.5 % (13.4-35.0) L 01/16/19 00:48 [place] % (Auto) 8.5 % (0.0-7.3) H 01/16/19 00:48 Eos % (Auto) 0.0 % (0.0-4.3) 01/16/19 00:48 Baso % (Auto) 0.1 % (0.0-1.8) 01/16/19 00:48 Lymph # 0.7 K/mm3 (1.2-5.4) L 01/16/19 00:48 [place] # 0.8 K/mm3 (0.0-0.8) 01/16/19 00:48 Eos # 0.0 K/mm3 (0.0-0.4) 01/16/19 00:48 Baso # 0.0 K/mm3 (0.0-0.1) 01/16/19 00:48 Seg Neutrophils % 83.9 % (40.0-70.0) H 01/16/19 00:48 Seg Neutrophils # 8.3 K/mm3 (1.8-7.7) H 01/16/19 00:48 PT 15.1 Sec. (12.2-14.9) H 01/14/19 23:55 INR 1.22 (0.87-1.13) H 01/14/19 23:55 APTT 29.5 Sec. (24.2-36.6) 01/14/19 23:55 Sodium 142 mmol/L (137-145) 01/18/19 07:13 Potassium 4.3 mmol/L (3.6-5.0) 01/18/19 07:13 Chloride 106.7 mmol/L (98-107) 01/18/19 07:13 Carbon Dioxide 27 mmol/L (22-30) 01/18/19 07:13 13 mmol/L 01/18/19 07:13 BUN 27 mg/dL (9-20) H 01/18/19 07:13 1.3 mg/dL (0.8-1.5) 01/18/19 07:13 Estimated GFR > 60 ml/min 01/18/19 07:13 21 % 01/18/19 07:13 Glucose 153 mg/dL (75-100) H 01/18/19 07:13 POC Glucose 246 (70-105) H 01/18/19 11:08 Lactic Acid 1.60 mmol/L (0.7-2.0) 01/16/19 02:51 Calcium 8.5 mg/dL (8.4-10.2) 01/18/19 07:13 Iron 10 ug/dL (49-181) L 01/16/19 19:05 TIBC 186 mcg/dL (250-450) L 01/16/19 19:05 % Saturation 5.38 % 01/16/19 19:05 164 mg/dl (180-329) L 01/16/19 19:05 Vitamin B12 > 2000 pg/mL (211-911) H 01/16/19 19:05 Yellow (Yellow) 01/16/19 02:00 Clear (Clear) 01/16/19 02:00 5.0 (5.0-7.0) 01/16/19 02:00 Ur Specific [place] 1.017 (1.003-1.030) 01/16/19 02:00 <15 mg/dl mg/dL (Negative) 01/16/19 02:00 50 mg/dL (Negative) 01/16/19 02:00 Neg mg/dL (Negative) 01/16/19 02:00 Sm (Negative) 01/16/19 02:00 Neg (Negative) 01/16/19 02:00 Neg (Negative) 01/16/19 02:00 < 2.0 mg/dL (<2.0) 01/16/19 02:00 Ur Leukocyte Esterase Neg (Negative) 01/16/19 02:00 3.0 /HPF (0.0-6.0) 01/16/19 02:00 1.0 /HPF (0.0-6.0) 01/16/19 02:00 U Epithel Cells (Auto) 1.0 /HPF (0-13.0) 01/16/19 02:00 Few /HPF 01/16/19 02:00 Blood Type A POSITIVE 01/15/19 18:50 Antibody Screen Negative 01/15/19 18:50 Active Medications - Current Medications Current Medications: Generic Name Dose Route Start Last Admin Trade Name Freq PRN Reason Stop Dose Admin Acetaminophen 650 mg 01/15/19 01:16 01/16/19 21:37 Tylenol PO 650 mg Q4H PRN Administration Pain MILD(1-3)/Fever >100.5/NIÑO Acetaminophen/Hydrocodone Bitart 1 each 01/15/19 14:55 [place] 5/325 PO Q6H PRN Pain, Moderate (4-6) Aspirin 81 mg 01/16/19 22:00 01/18/19 10:06 Baby Aspirin PO 81 mg DAILY [facility] Administration Atorvastatin Calcium 10 mg 01/16/19 22:00 01/17/19 21:06 Lipitor PO 10 mg HS [facility] Administration Dextrose 50 ml 01/15/19 01:16 D50w (25gm) Syringe IV PRN PRN Hypoglycemia Donepezil HCl 5 mg 01/16/19 22:00 01/17/19 21:07 Aricept PO 5 mg QHS [facility] Administration Enoxaparin Sodium 40 mg 01/17/19 10:00 01/18/19 10:05 Lovenox SUB-Q 40 mg QDAY@1000 [facility] Administration Folic Acid 1 mg 01/16/19 22:00 01/18/19 10:06 Folvite PO 1 mg DAILY [facility] Administration Haloperidol 2 mg 01/16/19 22:00 01/17/19 21:07 Haldol PO 2 mg QHS [facility] Administration Sodium Chloride 1,000 mls @ 75 mls/hr 01/15/19 02:00 01/15/19 21:59 Nacl 0.45% 1000 Ml IV 75 mls/hr DIRECT [facility] Administration Ibuprofen 600 mg 01/15/19 14:55 Ibuprofen PO Q6H PRN Pain, Mild (1-3) Insulin Glargine 10 units 01/16/19 22:00 01/17/19 21:08 Lantus SUB-Q 10 units HS [facility] Administration Insulin Human Lispro 0 unit 01/15/19 06:00 01/18/19 13:11 Humalog SUB-Q 3 unit Q6HR [facility] Administration Protocol Metoprolol Tartrate 25 mg 01/16/19 16:00 01/18/19 10:05 Lopressor PO 25 mg DAILY [facility] Administration Morphine Sulfate 4 mg 01/15/19 14:55 Morphine IV Q4H PRN Pain , Severe (7-10) Ondansetron HCl 4 mg 01/15/19 13:38 Zofran IV ONCE PRN Nausea And Vomiting Oxycodone/Acetaminophen 1 tab 01/15/19 01:16 Percocet 5/325 PO Q6H PRN Pain, Moderate (4-6) Pantoprazole Sodium 40 mg 01/16/19 16:00 01/18/19 10:05 Protonix PO 40 mg DAILY [facility] Administration Sodium Chloride 10 ml 01/15/19 10:00 01/17/19 21:07 Sodium Chloride Flush Syringe 10 Ml IV 10 ml BID [facility] Administration Sodium Chloride 10 ml 01/15/19 01:16 Sodium Chloride Flush Syringe 10 Ml IV PRN PRN LINE FLUSH Thiamine HCl 100 mg 01/17/19 10:00 01/18/19 10:06 Vitamin B-1 PO 100 mg QDAY [facility] Administration Nutrition/Malnutrition Assess - Dietary Evaluation Nutrition/Malnutrition Findings: Nutrition Notes Start: 01/16/19 14:44 Freq: Status: Active Protocol: Document 01/16/19 14:44 ROSA (Rec: 01/16/19 14:46 ROSA [id number] [email or web address]) Nutrition Notes Need for Assessment generated from: lens cutter Initial or Follow up Brief Note Current Diagnosis Diabetes,Hypertension Other Pertinent Diagnosis (L) hip fx s/p repair Current Diet Consistent CHO Subjective/Other Information Pt screened for new onset DM, however pr diagnosed with DM > 5 yrs ago. He reports good appetite; consumed 100% of lunch today. Nutrition Intervention Revisit per MD consult or patient Sign Off request:
[2019-01-18] MEDS: TYLENOL PO PRN (16:22)
[2019-01-18] MEDS: SODIUM CHLORIDE FLUSH SYRINGE 10 ML IV SCH (21:01)
[2019-01-18] MEDS: ARICEPT PO SCH (21:01)
[2019-01-18] MEDS: HALDOL PO SCH (21:01)
[2019-01-18] MEDS: LANTUS SUB-Q SCH (21:02)
[2019-01-19] MEDS: HumaLOG SUB-Q SCH ×4 (00:52→18:04)
[2019-01-19] MEDS: TYLENOL PO PRN (03:32)
[2019-01-19] MEDS: SODIUM CHLORIDE FLUSH SYRINGE 10 ML IV SCH ×3 (09:24→22:15)
[2019-01-19] MEDS: BABY ASPIRIN PO SCH (09:24)
[2019-01-19] MEDS: LOPRESSOR PO SCH (09:25)
[2019-01-19] MEDS: FOLVITE PO SCH (09:25)
[2019-01-19] MEDS: PROTONIX PO SCH (09:25)
[2019-01-19] MEDS: VITAMIN B-1 PO SCH (09:26)
--- NOTE | 2019-01-19 09:33 | Progress Note ---
Assessment and Plan Cultures: 01/16/19 Blood: no growth 01/18/19 Blood In progress A/P: 78-year-old man with a past medical history of hypertension, diabetes and dementia that preesents to the ED on 01/14/19 with complaints of left hip pain. The patient slipped and fell getting out of a chair. Hip xray shows displaced left femoral neck fracture. He underwent hemiarthroplasty of the left hip on 01/16/19. Admitted with 1. Fevers, not on admission. Low grade fevers continuing. Most likely reactive to hemiarthroplasty of the left hip. Blood cultures show on growth. UA negative. No leukocytoisis.. Fever curve trending down. . Currently not receiving antimicrobials. Will continue too monitor closely. 2.. Left Hip Fracture: S/p hemiarthroplasty of the left hip on 01/16/19. Dr. Nick following. 3. Type 2 Diabetes Mellitus: uncontrolled 4. Dementia Recommendations: -Monitor fevers -Follow-up repeat blood cultures -CBC ordered for tomorrow [facility] M: [phone] O:[phone] Subjective Date of service: 01/19/19 Principal diagnosis: left hip fracture Interval history: Patient seen and examined. Sitting up in Doris-chair. at bedside. No fevers or acute distress reported. Objective - Exam Narrative Exam: Constitutional: Alert, cooperative. No acute distress Head, Ears, Nose: Normocephalic, atraumatic. External ears, nose normal Eyes: Conjunctivae/corneas clear. No icterus. No ptosis. Neck: Supple, no meningeal signs Oral: dentition poor. No thrush Cardiovascular: S1, S2 normal. Respiratory: Good air entry, clear to auscultation bilaterally GI: Soft, non-tender; bowel sounds normal. No peritoneal signs Musculoskeletal: Decreased ROM left hip/leg.+dressing over incision, C/D/I Skin: No rash or abscess. Hem/Lymphatic: No palpable cervical or supraclavicular nodes. No lymphangitis Psych: Mood good. Affect normal Neurological: Awake, alert, oriented. - Constitutional Vitals: Vital Signs Temp Pulse Resp BP Pulse Ox 98.5 F 88 18 140/69 100 01/19/19 08:06 01/19/19 08:06 01/19/19 08:06 01/19/19 08:06 01/19/19 08:06 Temperature -Last 24 Hours Temperature 98.5 F Temperature 99.7 F Temperature 99.8 F Temperature 99.9 F Temperature 100.6 F Temperature 97.4 F - Labs CBC & Chem 7: 01/18/19 07:13 01/18/19 07:13 Labs: Abnormal lab results 01/18/19 01/18/19 01/18/19 Range/Units 11:08 16:33 20:51 POC Glucose 246 H 279 H 215 H (70-105) 01/19/19 Range/Units 07:34 POC Glucose 172 H (70-105)
[2019-01-19] MEDS: LOVENOX SUB-Q SCH (11:41)
--- NOTE | 2019-01-19 11:48 | Progress Note ---
Assessment and Plan Assessment and plan: Fracture of left femoral neck s/p bipolar hemiarthroplasty left hip on 01/15 Hypertension BP stable Monitor BP continue Metoprolol Diabetes mellitus type 2 Fingerstick q ac and hs On Lantus Fever may be reactive to Surgery ID Physician following No need for antibiootics Dementia Hyperlipidemia Continue statin ALESSIO from vasomotor nephropathy Now resolved Cr was 1.7 on admission Full code status Awaiting placement to SNF History Interval history: s/p left hip surgery after fracture mild pain surgery site Fever again Hospitalist Physical - Physical exam Narrative exam: Gen: Not in acute distress, lying in bed, HEENT: Normocephalic, atraumatic Neck: supple, no JVD Heart: S1 and S2 reg, no murmurs, rubs or gallop Lungs: Clear to auscultation, no wheeze Abd: soft, non tender, non distended, normal BS, Ext: dressing over left hip, No edema, no clubbing, no cyanosis Neuro: Awake,alert, dementia - Constitutional Vitals: Temp Pulse Resp BP Pulse Ox 98.5 F 88 18 140/69 100 01/19/19 08:06 01/19/19 08:06 01/19/19 08:06 01/19/19 08:06 01/19/19 08:06 General appearance: Present: no acute distress Results - Labs CBC & Chem 7: 01/18/19 07:13 01/18/19 07:13 Labs: Laboratory Last Values WBC 7.0 K/mm3 (4.5-11.0) 01/18/19 07:13 RBC 2.43 M/mm3 (3.65-5.03) L 01/18/19 07:13 Hgb 7.9 gm/dl (11.8-15.2) L 01/18/19 07:13 Hct 23.2 % (35.5-45.6) L D 01/18/19 07:13 MCV 95 fl (84-94) H 01/18/19 07:13 MCH 32 pg (28-32) 01/18/19 07:13 MCHC 34 % (32-34) 01/18/19 07:13 RDW 13.4 % (13.2-15.2) 01/18/19 07:13 Plt Count 162 K/mm3 (140-440) 01/18/19 07:13 Lymph % (Auto) 7.5 % (13.4-35.0) L 01/16/19 00:48 [place] % (Auto) 8.5 % (0.0-7.3) H 01/16/19 00:48 Eos % (Auto) 0.0 % (0.0-4.3) 01/16/19 00:48 Baso % (Auto) 0.1 % (0.0-1.8) 01/16/19 00:48 Lymph # 0.7 K/mm3 (1.2-5.4) L 01/16/19 00:48 [place] # 0.8 K/mm3 (0.0-0.8) 01/16/19 00:48 Eos # 0.0 K/mm3 (0.0-0.4) 01/16/19 00:48 Baso # 0.0 K/mm3 (0.0-0.1) 01/16/19 00:48 Seg Neutrophils % 83.9 % (40.0-70.0) H 01/16/19 00:48 Seg Neutrophils # 8.3 K/mm3 (1.8-7.7) H 01/16/19 00:48 PT 15.1 Sec. (12.2-14.9) H 01/14/19 23:55 INR 1.22 (0.87-1.13) H 01/14/19 23:55 APTT 29.5 Sec. (24.2-36.6) 01/14/19 23:55 Sodium 142 mmol/L (137-145) 01/18/19 07:13 Potassium 4.3 mmol/L (3.6-5.0) 01/18/19 07:13 Chloride 106.7 mmol/L (98-107) 01/18/19 07:13 Carbon Dioxide 27 mmol/L (22-30) 01/18/19 07:13 13 mmol/L 01/18/19 07:13 BUN 27 mg/dL (9-20) H 01/18/19 07:13 1.3 mg/dL (0.8-1.5) 01/18/19 07:13 Estimated GFR > 60 ml/min 01/18/19 07:13 21 % 01/18/19 07:13 Glucose 153 mg/dL (75-100) H 01/18/19 07:13 POC Glucose 172 (70-105) H 01/19/19 07:34 Lactic Acid 1.60 mmol/L (0.7-2.0) 01/16/19 02:51 Calcium 8.5 mg/dL (8.4-10.2) 01/18/19 07:13 Iron 10 ug/dL (49-181) L 01/16/19 19:05 TIBC 186 mcg/dL (250-450) L 01/16/19 19:05 % Saturation 5.38 % 01/16/19 19:05 164 mg/dl (180-329) L 01/16/19 19:05 Vitamin B12 > 2000 pg/mL (211-911) H 01/16/19 19:05 Yellow (Yellow) 01/16/19 02:00 Clear (Clear) 01/16/19 02:00 5.0 (5.0-7.0) 01/16/19 02:00 Ur Specific [place] 1.017 (1.003-1.030) 01/16/19 02:00 <15 mg/dl mg/dL (Negative) 01/16/19 02:00 50 mg/dL (Negative) 01/16/19 02:00 Neg mg/dL (Negative) 01/16/19 02:00 Sm (Negative) 01/16/19 02:00 Neg (Negative) 01/16/19 02:00 Neg (Negative) 01/16/19 02:00 < 2.0 mg/dL (<2.0) 01/16/19 02:00 Ur Leukocyte Esterase Neg (Negative) 01/16/19 02:00 3.0 /HPF (0.0-6.0) 01/16/19 02:00 1.0 /HPF (0.0-6.0) 01/16/19 02:00 U Epithel Cells (Auto) 1.0 /HPF (0-13.0) 01/16/19 02:00 Few /HPF 01/16/19 02:00 Blood Type A POSITIVE 01/15/19 18:50 Antibody Screen Negative 01/15/19 18:50 Active Medications - Current Medications Current Medications: Generic Name Dose Route Start Last Admin Trade Name Fredrick PRN Reason Stop Dose Admin Acetaminophen 650 mg 01/15/19 01:16 01/19/19 03:32 Tylenol PO 650 mg Q4H PRN Administration Pain MILD(1-3)/Fever >100.5/NIÑO Acetaminophen/Hydrocodone Bitart 1 each 01/15/19 14:55 [place] 5/325 PO Q6H PRN Pain, Moderate (4-6) Aspirin 81 mg 01/16/19 22:00 01/19/19 09:24 Baby Aspirin PO 81 mg DAILY ALPESH Administration Atorvastatin Calcium 10 mg 01/16/19 22:00 01/18/19 21:01 Lipitor PO 10 mg HS ALPESH Administration Dextrose 50 ml 01/15/19 01:16 D50w (25gm) Syringe IV PRN PRN Hypoglycemia Donepezil HCl 5 mg 01/16/19 22:00 01/18/19 21:01 Aricept PO 5 mg QHS ALPESH Administration Enoxaparin Sodium 40 mg 01/17/19 10:00 01/19/19 11:41 Lovenox SUB-Q 40 mg QDAY@1000 ALPESH Administration Folic Acid 1 mg 01/16/19 22:00 01/19/19 09:25 Folvite PO 1 mg DAILY ALPESH Administration Haloperidol 2 mg 01/16/19 22:00 01/18/19 21:01 Haldol PO 2 mg QHS ALPESH Administration Sodium Chloride 1,000 mls @ 75 mls/hr 01/15/19 02:00 01/15/19 21:59 Nacl 0.45% 1000 Ml IV 75 mls/hr DIRECT ALPESH Administration Ibuprofen 600 mg 01/15/19 14:55 Ibuprofen PO Q6H PRN Pain, Mild (1-3) Insulin Glargine 10 units 01/16/19 22:00 01/18/19 21:02 Lantus SUB-Q 10 units HS ALPESH Administration Insulin Human Lispro 0 unit 01/15/19 06:00 01/19/19 06:31 Humalog SUB-Q Not Given Q6HR [facility] Protocol Metoprolol Tartrate 25 mg 01/16/19 16:00 01/19/19 09:25 Lopressor PO 25 mg DAILY ALPESH Administration Morphine Sulfate 4 mg 01/15/19 14:55 Morphine IV Q4H PRN Pain , Severe (7-10) Ondansetron HCl 4 mg 01/15/19 13:38 Zofran IV ONCE PRN Nausea And Vomiting Oxycodone/Acetaminophen 1 tab 01/15/19 01:16 Percocet 5/325 PO Q6H PRN Pain, Moderate (4-6) Pantoprazole Sodium 40 mg 01/16/19 16:00 01/19/19 09:25 Protonix PO 40 mg DAILY ALPESH Administration Sodium Chloride 10 ml 01/15/19 10:00 01/19/19 09:24 Sodium Chloride Flush Syringe 10 Ml IV 10 ml BID ALPESH Administration Sodium Chloride 10 ml 01/15/19 01:16 Sodium Chloride Flush Syringe 10 Ml IV PRN PRN LINE FLUSH Thiamine HCl 100 mg 01/17/19 10:00 01/19/19 09:26 Vitamin B-1 PO 100 mg QDAY ALPESH Administration Nutrition/Malnutrition Assess - Dietary Evaluation Nutrition/Malnutrition Findings: Nutrition Notes Start: 01/16/19 14:44 Freq: Status: Active Protocol: Document 01/16/19 14:44 ROSA (Rec: 01/16/19 14:46 ROSA [id number]) Nutrition Notes Need for 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 He reports good appetite; consumed 100% of lunch today. Nutrition Intervention Revisit per MD consult or patient Sign Off request:
[2019-01-19] MEDS: ARICEPT PO SCH (22:14)
[2019-01-19] MEDS: HALDOL PO SCH (22:14)
[2019-01-19] MEDS: LANTUS SUB-Q SCH (22:14)
[2019-01-20 00:34] LABS: Basophils % (Auto) 0.7 % (0.0-1.8); Eosinophils # (Auto) 0.2 K/mm3 (0.0-0.4); Hematocrit 25.8 % (35.5-45.6); Hemoglobin 8.6 gm/dl (11.8-15.2); Lymphocytes # (Auto) 0.8 K/mm3 (1.2-5.4); Lymphocytes % (Auto) 13.4 % (13.4-35.0); Mean Corpuscular HGB Conc 33 % (32-34); Mean Corpuscular Volume 96 fl (84-94); Monocytes # (Auto) 0.7 K/mm3 (0.0-0.8); Monocytes % (Auto) 11.5 % (0.0-7.3); Platelet Count 230 K/mm3 (140-440); Red Blood Count 2.69 M/mm3 (3.65-5.03); Red Cell Distribution Width 13.6 % (13.2-15.2)
[2019-01-20] MEDS: TYLENOL PO PRN ×2 (00:42→22:48)
[2019-01-20] MEDS: HumaLOG SUB-Q SCH ×3 (00:42→15:58)
--- NOTE | 2019-01-20 09:42 | Progress Note ---
Assessment and Plan Cultures: 01/16/19 Blood: no growth 01/18/19 Blood no growth to date A/P: 78-year-old man with a past medical history of hypertension, diabetes and dementia that preesents to the ED on 01/14/19 with complaints of left hip pain. The patient slipped and fell getting out of a chair. Hip xray shows displaced left femoral neck fracture. He underwent hemiarthroplasty of the left hip on 01/16/19. Admitted with 1. Fevers, not on admission. Fever spike 101.5. Unclear etiology. Blood cultures show on growth thus far. UA negative. No leukocytoisis.. Not ventilated. No indwelling catheters. Will order venous doppler to evaluate for DVT. Repeat blood cultures. Start Cefepime. . Order Chest xray. 2.. Left Hip Fracture: S/p hemiarthroplasty of the left hip on 01/16/19. Dr. Nick following. 3. Type 2 Diabetes Mellitus: uncontrolled 4. Dementia Recommendations: -Follow-up repeat blood cultures -Order venous doppler to evaluate for DVT -Start Cefepime 2gm IV every 8 hours Order Chest Xray Order new blood cultures Dr. Medel will be rounding on Wednesday. Dr. Saba is data operations director this weekend, please call for questions [phone]. [facility] M: [phone] O:[phone] Subjective Date of service: 01/20/19 Principal diagnosis: left hip fracture Interval history: Patient seen and examined. Laying in bed. Diaphoretic. +Fevers. at bedside. Objective - Exam Narrative Exam: Constitutional: Alert, cooperative. Mild distress observed, diaphoretic. Head, Ears, Nose: Normocephalic, atraumatic. External ears, nose normal Eyes: Conjunctivae/corneas clear. No icterus. No ptosis. Neck: Supple, no meningeal signs Oral: dentition poor. No thrush Cardiovascular: S1, S2 normal. Respiratory: Good air entry, clear to auscultation bilaterally GI: Soft, non-tender; bowel sounds normal. No peritoneal signs Musculoskeletal: Decreased ROM left hip/leg.+dressing over incision, C/D/I Skin: No rash or abscess. Hem/Lymphatic: No palpable cervical or supraclavicular nodes. No lymphangitis Psych: Mood good. Affect normal Neurological: Awake, alert, oriented. - Constitutional Vitals: Vital Signs Temp Pulse Resp BP Pulse Ox 98.3 F 98 H 18 134/61 96 01/20/19 07:45 01/20/19 07:46 01/20/19 07:45 01/20/19 07:45 01/20/19 07:46 Temperature -Last 24 Hours Temperature 98.3 F Temperature 99.2 F Temperature 97.8 F - Labs CBC & Chem 7: 01/20/19 00:18 01/18/19 07:13 Labs: Abnormal lab results 01/19/19 01/19/19 01/19/19 Range/Units 12:02 16:42 22:30 RBC (3.65-5.03) M/mm3 Hgb (11.8-15.2) gm/dl Hct (35.5-45.6) % MCV (84-94) fl [place] % (Auto) (0.0-7.3) % Lymph # (1.2-5.4) K/mm3 Seg Neutrophils % (40.0-70.0) % POC Glucose 266 H 187 H 211 H (70-105) 01/20/19 01/20/19 01/20/19 Range/Units 00:18 00:45 06:37 RBC 2.69 L (3.65-5.03) M/mm3 Hgb 8.6 L (11.8-15.2) gm/dl Hct 25.8 L (35.5-45.6) % MCV 96 H (84-94) fl [place] % (Auto) 11.5 H (0.0-7.3) % Lymph # 0.8 L (1.2-5.4) K/mm3 Seg Neutrophils % 71.4 H (40.0-70.0) % POC Glucose 209 H 112 H (70-105) 01/20/19 Range/Units 08:19 RBC (3.65-5.03) M/mm3 Hgb (11.8-15.2) gm/dl Hct (35.5-45.6) % MCV (84-94) fl [place] % (Auto) (0.0-7.3) % Lymph # (1.2-5.4) K/mm3 Seg Neutrophils % (40.0-70.0) % POC Glucose 127 H (70-105)
[2019-01-20] MEDS: BABY ASPIRIN PO SCH (10:58)
[2019-01-20] MEDS: FOLVITE PO SCH (10:58)
[2019-01-20] MEDS: PROTONIX PO SCH (10:58)
[2019-01-20] MEDS: VITAMIN B-1 PO SCH (10:58)
[2019-01-20] MEDS: LOVENOX SUB-Q SCH (10:58)
[2019-01-20] MEDS: LOPRESSOR PO SCH (10:58)
--- NOTE | 2019-01-20 13:01 | Vascular Lab Report ---
DUPLEX DOPPLER LOWER EXTREMITY VEINS, LEFT INDICATION: Left lower extremity pain and swelling. Recent left hip surgery.. TECHNIQUE: Duplex doppler imaging was performed through the veins of the left lower extremity using venous compression and other maneuvers. COMPARISON: No relevant prior imaging study available. FINDINGS: Left Common femoral vein: Negative. Left Superficial femoral vein: Negative. Left Popliteal vein: Negative. Left Calf veins: Negative. Additional findings: None.. IMPRESSION: No sonographic evidence for DVT in the left lower extremity. Signer Name: Evaristo Esteban Jr, MD Signed: 01/20/2019 12:56 PM Workstation Name: [id number]
--- NOTE | 2019-01-20 13:57 | XRay Report ---
CHEST 1 VIEW INDICATION: Fever. COMPARISON: None FINDINGS: Support devices: None. Heart: Within normal limits. Lungs/Pleura: Minor linear atelectasis is noted adjacent to the right hilum. Otherwise the lungs are generally clear. No evidence for consolidation, large pleural effusion or pneumothorax. Additional findings: None. IMPRESSION: No acute findings. Minor atelectatic changes in the right lung. Signer Name: Evaristo Esteban Jr, MD Signed: 01/20/2019 1:53 PM Workstation Name: [id number]
[2019-01-20] MEDS: MAXIPIME/NS 2 GM/100 ML 2 GM/100 ML BAG IV SCH ×2 (14:26→22:53)
--- NOTE | 2019-01-20 18:52 | Progress Note ---
Assessment and Plan Assessment and plan: Fracture of left femoral neck s/p bipolar hemiarthroplasty left hip on 01/15 Hypertension BP stable Monitor BP continue Metoprolol Diabetes mellitus type 2 Fingerstick q ac and hs On Lantus Fever, recurrent Etiology unclear ID Physician following Start iv Antibiotics Dementia Hyperlipidemia Continue statin ALESSIO from vasomotor nephropathy Now resolved Cr was 1.7 on admission Full code status Awaiting placement to SNF History Interval history: s/p left hip surgery after fracture mild pain surgery site Fever recurrent Hospitalist Physical - Physical exam Narrative exam: Gen: Not in acute distress, lying in bed, HEENT: Normocephalic, atraumatic Neck: supple, no JVD Heart: S1 and S2 reg, no murmurs, rubs or gallop Lungs: Clear to auscultation, no wheeze Abd: soft, non tender, non distended, normal BS, Ext: dressing over left hip, No edema, no clubbing, no cyanosis Neuro: Awake,alert, dementia - Constitutional Vitals: Temp Pulse Resp BP Pulse Ox 101.5 F H 94 H 18 129/67 92 01/20/19 17:55 01/20/19 17:56 01/20/19 17:55 01/20/19 17:55 01/20/19 17:56 General appearance: Present: no acute distress Results - Labs CBC & Chem 7: 01/21/19 04:05 01/21/19 04:05 Labs: Laboratory Last Values WBC 5.9 K/mm3 (4.5-11.0) 01/20/19 00:18 RBC 2.69 M/mm3 (3.65-5.03) L 01/20/19 00:18 Hgb 8.6 gm/dl (11.8-15.2) L 01/20/19 00:18 Hct 25.8 % (35.5-45.6) L 01/20/19 00:18 MCV 96 fl (84-94) H 01/20/19 00:18 MCH 32 pg (28-32) 01/20/19 00:18 MCHC 33 % (32-34) 01/20/19 00:18 RDW 13.6 % (13.2-15.2) 01/20/19 00:18 Plt Count 230 K/mm3 (140-440) 01/20/19 00:18 Lymph % (Auto) 13.4 % (13.4-35.0) 01/20/19 00:18 [place] % (Auto) 11.5 % (0.0-7.3) H 01/20/19 00:18 Eos % (Auto) 3.0 % (0.0-4.3) 01/20/19 00:18 Baso % (Auto) 0.7 % (0.0-1.8) 01/20/19 00:18 Lymph # 0.8 K/mm3 (1.2-5.4) L 01/20/19 00:18 [place] # 0.7 K/mm3 (0.0-0.8) 01/20/19 00:18 Eos # 0.2 K/mm3 (0.0-0.4) 01/20/19 00:18 Baso # 0.0 K/mm3 (0.0-0.1) 01/20/19 00:18 Seg Neutrophils % 71.4 % (40.0-70.0) H 01/20/19 00:18 Seg Neutrophils # 4.2 K/mm3 (1.8-7.7) 01/20/19 00:18 PT 15.1 Sec. (12.2-14.9) H 01/14/19 23:55 INR 1.22 (0.87-1.13) H 01/14/19 23:55 APTT 29.5 Sec. (24.2-36.6) 01/14/19 23:55 Sodium 142 mmol/L (137-145) 01/18/19 07:13 Potassium 4.3 mmol/L (3.6-5.0) 01/18/19 07:13 Chloride 106.7 mmol/L (98-107) 01/18/19 07:13 Carbon Dioxide 27 mmol/L (22-30) 01/18/19 07:13 13 mmol/L 01/18/19 07:13 BUN 27 mg/dL (9-20) H 01/18/19 07:13 1.3 mg/dL (0.8-1.5) 01/18/19 07:13 Estimated GFR > 60 ml/min 01/18/19 07:13 21 % 01/18/19 07:13 Glucose 153 mg/dL (75-100) H 01/18/19 07:13 POC Glucose 210 (70-105) H 01/20/19 18:00 Lactic Acid 1.60 mmol/L (0.7-2.0) 01/16/19 02:51 Calcium 8.5 mg/dL (8.4-10.2) 01/18/19 07:13 Iron 10 ug/dL (49-181) L 01/16/19 19:05 TIBC 186 mcg/dL (250-450) L 01/16/19 19:05 % Saturation 5.38 % 01/16/19 19:05 164 mg/dl (180-329) L 01/16/19 19:05 Vitamin B12 > 2000 pg/mL (211-911) H 01/16/19 19:05 RBC Folic Acid >1000 ng/mL (>280) 01/16/19 19:05 Yellow (Yellow) 01/16/19 02:00 Clear (Clear) 01/16/19 02:00 5.0 (5.0-7.0) 01/16/19 02:00 Ur Specific [place] 1.017 (1.003-1.030) 01/16/19 02:00 <15 mg/dl mg/dL (Negative) 01/16/19 02:00 50 mg/dL (Negative) 01/16/19 02:00 Neg mg/dL (Negative) 01/16/19 02:00 Sm (Negative) 01/16/19 02:00 Neg (Negative) 01/16/19 02:00 Neg (Negative) 01/16/19 02:00 < 2.0 mg/dL (<2.0) 01/16/19 02:00 Ur Leukocyte Esterase Neg (Negative) 01/16/19 02:00 3.0 /HPF (0.0-6.0) 01/16/19 02:00 1.0 /HPF (0.0-6.0) 01/16/19 02:00 U Epithel Cells (Auto) 1.0 /HPF (0-13.0) 01/16/19 02:00 Few /HPF 01/16/19 02:00 Blood Type A POSITIVE 01/15/19 18:50 Antibody Screen Negative 01/15/19 18:50 Active Medications - Current Medications Current Medications: Generic Name Dose Route Start Last Admin Trade Name Freq PRN Reason Stop Dose Admin Acetaminophen 650 mg 01/15/19 01:16 01/20/19 00:42 Tylenol PO 650 mg Q4H PRN Administration Pain MILD(1-3)/Fever >100.5/NIÑO Acetaminophen/Hydrocodone Bitart 1 each 01/15/19 14:55 [place] 5/325 PO Q6H PRN Pain, Moderate (4-6) Aspirin 81 mg 01/16/19 22:00 01/20/19 10:58 Baby Aspirin PO 81 mg DAILY ALPESH Administration Atorvastatin Calcium 10 mg 01/16/19 22:00 01/19/19 22:18 Lipitor PO 10 mg HS ALPESH Administration Dextrose 50 ml 01/15/19 01:16 D50w (25gm) Syringe IV PRN PRN Hypoglycemia Donepezil HCl 5 mg 01/16/19 22:00 01/19/19 22:14 Aricept PO 5 mg QHS ALPESH Administration Enoxaparin Sodium 40 mg 01/17/19 10:00 01/20/19 10:58 Lovenox SUB-Q 40 mg QDAY@1000 ALPESH Administration Folic Acid 1 mg 01/16/19 22:00 01/20/19 10:58 Folvite PO 1 mg DAILY ALPESH Administration Haloperidol 2 mg 01/16/19 22:00 01/19/19 22:14 Haldol PO 2 mg QHS ALPESH Administration Sodium Chloride 1,000 mls @ 75 mls/hr 01/15/19 02:00 01/19/19 19:27 Nacl 0.45% 1000 Ml IV Infused DIRECT ALPESH Infusion Cefepime HCl 2 gm in 100 mls @ 200 mls/hr 01/20/19 14:00 01/20/19 14:26 Maxipime/Ns 2 Gm/100 Ml IV 200 mls/hr Q8HR ALPESH Administration Protocol Ibuprofen 600 mg 01/15/19 14:55 Ibuprofen PO Q6H PRN Pain, Mild (1-3) Insulin Glargine 10 units 01/16/19 22:00 01/19/19 22:14 Lantus SUB-Q 10 units HS ALPESH Administration Insulin Human Lispro 0 unit 01/15/19 06:00 01/20/19 15:58 Humalog SUB-Q 2 unit Q6HR ALPESH Administration Protocol Metoprolol Tartrate 25 mg 01/16/19 16:00 01/20/19 10:58 Lopressor PO 25 mg DAILY ALPESH Administration Morphine Sulfate 4 mg 01/15/19 14:55 Morphine IV Q4H PRN Pain , Severe (7-10) Ondansetron HCl 4 mg 01/15/19 13:38 Zofran IV ONCE PRN Nausea And Vomiting Oxycodone/Acetaminophen 1 tab 01/15/19 01:16 Percocet 5/325 PO Q6H PRN Pain, Moderate (4-6) Pantoprazole Sodium 40 mg 01/16/19 16:00 01/20/19 10:58 Protonix PO 40 mg DAILY ALPESH Administration Sodium Chloride 10 ml 01/15/19 10:00 01/19/19 22:15 Sodium Chloride Flush Syringe 10 Ml IV 10 ml BID ALPESH Administration Sodium Chloride 10 ml 01/15/19 01:16 Sodium Chloride Flush Syringe 10 Ml IV PRN PRN LINE FLUSH Thiamine HCl 100 mg 01/17/19 10:00 01/20/19 10:58 Vitamin B-1 PO 100 mg QDAY ALPESH Administration Nutrition/Malnutrition Assess - Dietary Evaluation Nutrition/Malnutrition Findings: Nutrition Notes Start: 01/16/19 14:44 Freq: Status: Active Protocol: Document 01/20/19 16:06 RM (Rec: 01/20/19 16:07 RM [id number]) Nutrition Notes Need for Assessment generated from: LOS Initial or Follow up Brief Note Height 5 ft 7 in Weight 76.2 kg [place] Body Weight (kg) 67.27 BMI 26.3 Subjective/Other Information Screened for LOS. Recorded PO intake 100% X 2 days. Nutrition Intervention Revisit per MD consult or patient Sign Off request: - Attestation Statement I have reviewed and agreed w/ Malnutrition eval & tx plan: Yes
[2019-01-20] MEDS: SODIUM CHLORIDE FLUSH SYRINGE 10 ML IV SCH (22:00)
[2019-01-20] MEDS: HALDOL PO SCH (22:41)
[2019-01-20] MEDS: ARICEPT PO SCH (22:42)
[2019-01-20] MEDS: LANTUS SUB-Q SCH (22:58)
[2019-01-21 04:38] LABS: Hemoglobin 7.9 gm/dl (11.8-15.2); Mean Corpuscular HGB Conc 33 % (32-34); Mean Corpuscular Volume 96 fl (84-94); Platelet Count 240 K/mm3 (140-440); Red Blood Count 2.51 M/mm3 (3.65-5.03); Red Cell Distribution Width 13.6 % (13.2-15.2)
[2019-01-21 04:57] LABS: BUN/Creatinine Ratio 23; Blood Urea Nitrogen 28 mg/dL (9-20); Calcium 8.8 mg/dL (8.4-10.2); Hemolysis Index 0
[2019-01-21] MEDS: MAXIPIME/NS 2 GM/100 ML 2 GM/100 ML BAG IV SCH ×4 (06:25→22:15)
--- NOTE | 2019-01-21 10:48 | Progress Note ---
Assessment and Plan Assessment and plan: Fracture of left femoral neck s/p bipolar hemiarthroplasty left hip on 01/15 Hypertension BP stable Monitor BP continue Metoprolol Diabetes mellitus type 2 Fingerstick q ac and hs On Lantus Fever, recurrent Etiology unclear ID Physician following Started on Cefepime iv by ID Physician Dementia Supportive care Hyperlipidemia Continue statin ALESSIO from vasomotor nephropathy Now resolved Full code status Awaiting placement to SNF History Interval history: s/p left hip surgery after fracture mild pain surgery site Fever recurrent Hospitalist Physical - Physical exam Narrative exam: Gen: Not in acute distress, lying in bed, HEENT: Normocephalic, atraumatic Neck: supple, no JVD Heart: S1 and S2 reg, no murmurs, rubs or gallop Lungs: Clear to auscultation, no wheeze Abd: soft, non tender, non distended, normal BS, Ext: dressing over left hip, No edema, no clubbing, no cyanosis Neuro: Awake,alert, dementia - Constitutional Vitals: Temp Pulse Resp BP Pulse Ox 97.1 F L 96 H 20 122/59 94 01/21/19 06:50 01/21/19 06:50 01/21/19 06:50 01/21/19 06:50 01/21/19 06:50 General appearance: Present: no acute distress Results - Labs CBC & Chem 7: 01/21/19 04:05 01/21/19 04:05 Labs: Laboratory Last Values WBC 6.6 K/mm3 (4.5-11.0) 01/21/19 04:05 RBC 2.51 M/mm3 (3.65-5.03) L 01/21/19 04:05 Hgb 7.9 gm/dl (11.8-15.2) L 01/21/19 04:05 Hct 24.0 % (35.5-45.6) L 01/21/19 04:05 MCV 96 fl (84-94) H 01/21/19 04:05 MCH 31 pg (28-32) 01/21/19 04:05 MCHC 33 % (32-34) 01/21/19 04:05 RDW 13.6 % (13.2-15.2) 01/21/19 04:05 Plt Count 240 K/mm3 (140-440) 01/21/19 04:05 Lymph % (Auto) 13.4 % (13.4-35.0) 01/20/19 00:18 [place] % (Auto) 11.5 % (0.0-7.3) H 01/20/19 00:18 Eos % (Auto) 3.0 % (0.0-4.3) 01/20/19 00:18 Baso % (Auto) 0.7 % (0.0-1.8) 01/20/19 00:18 Lymph # 0.8 K/mm3 (1.2-5.4) L 01/20/19 00:18 [place] # 0.7 K/mm3 (0.0-0.8) 01/20/19 00:18 Eos # 0.2 K/mm3 (0.0-0.4) 01/20/19 00:18 Baso # 0.0 K/mm3 (0.0-0.1) 01/20/19 00:18 Seg Neutrophils % 71.4 % (40.0-70.0) H 01/20/19 00:18 Seg Neutrophils # 4.2 K/mm3 (1.8-7.7) 01/20/19 00:18 PT 15.1 Sec. (12.2-14.9) H 01/14/19 23:55 INR 1.22 (0.87-1.13) H 01/14/19 23:55 APTT 29.5 Sec. (24.2-36.6) 01/14/19 23:55 Sodium 141 mmol/L (137-145) 01/21/19 04:05 Potassium 4.8 mmol/L (3.6-5.0) 01/21/19 04:05 Chloride 104.4 mmol/L (98-107) 01/21/19 04:05 Carbon Dioxide 27 mmol/L (22-30) 01/21/19 04:05 14 mmol/L 01/21/19 04:05 BUN 28 mg/dL (9-20) H 01/21/19 04:05 1.2 mg/dL (0.8-1.5) 01/21/19 04:05 Estimated GFR > 60 ml/min 01/21/19 04:05 23 % 01/21/19 04:05 Glucose 172 mg/dL (75-100) H 01/21/19 04:05 POC Glucose 175 (70-105) H 01/21/19 06:51 Lactic Acid 1.60 mmol/L (0.7-2.0) 01/16/19 02:51 Calcium 8.8 mg/dL (8.4-10.2) 01/21/19 04:05 Iron 10 ug/dL (49-181) L 01/16/19 19:05 TIBC 186 mcg/dL (250-450) L 01/16/19 19:05 % Saturation 5.38 % 01/16/19 19:05 164 mg/dl (180-329) L 01/16/19 19:05 Vitamin B12 > 2000 pg/mL (211-911) H 01/16/19 19:05 RBC Folic Acid >1000 ng/mL (>280) 01/16/19 19:05 Yellow (Yellow) 01/16/19 02:00 Clear (Clear) 01/16/19 02:00 5.0 (5.0-7.0) 01/16/19 02:00 Ur Specific [place] 1.017 (1.003-1.030) 01/16/19 02:00 <15 mg/dl mg/dL (Negative) 01/16/19 02:00 50 mg/dL (Negative) 01/16/19 02:00 Neg mg/dL (Negative) 01/16/19 02:00 Sm (Negative) 01/16/19 02:00 Neg (Negative) 01/16/19 02:00 Neg (Negative) 01/16/19 02:00 < 2.0 mg/dL (<2.0) 01/16/19 02:00 Ur Leukocyte Esterase Neg (Negative) 01/16/19 02:00 3.0 /HPF (0.0-6.0) 01/16/19 02:00 1.0 /HPF (0.0-6.0) 01/16/19 02:00 U Epithel Cells (Auto) 1.0 /HPF (0-13.0) 01/16/19 02:00 Few /HPF 01/16/19 02:00 Blood Type A POSITIVE 01/15/19 18:50 Antibody Screen Negative 01/15/19 18:50 Active Medications - Current Medications Current Medications: Generic Name Dose Route Start Last Admin Trade Name Freq PRN Reason Stop Dose Admin Acetaminophen 650 mg 01/15/19 01:16 01/20/19 22:48 Tylenol PO 650 mg Q4H PRN Administration Pain MILD(1-3)/Fever >100.5/NIÑO Acetaminophen/Hydrocodone Bitart 1 each 01/15/19 14:55 [place] 5/325 PO Q6H PRN Pain, Moderate (4-6) Aspirin 81 mg 01/16/19 22:00 01/20/19 10:58 Baby Aspirin PO 81 mg DAILY ALPESH Administration Atorvastatin Calcium 10 mg 01/16/19 22:00 01/20/19 22:42 Lipitor PO 10 mg HS ALPESH Administration Dextrose 50 ml 01/15/19 01:16 D50w (25gm) Syringe IV PRN PRN Hypoglycemia Donepezil HCl 5 mg 01/16/19 22:00 01/20/19 22:42 Aricept PO 5 mg QHS ALPESH Administration Enoxaparin Sodium 40 mg 01/17/19 10:00 01/20/19 10:58 Lovenox SUB-Q 40 mg QDAY@1000 ALPESH Administration Folic Acid 1 mg 01/16/19 22:00 01/20/19 10:58 Folvite PO 1 mg DAILY ALPESH Administration Haloperidol 2 mg 01/16/19 22:00 01/20/19 22:41 Haldol PO 2 mg QHS ALPESH Administration Sodium Chloride 1,000 mls @ 75 mls/hr 01/15/19 02:00 01/19/19 19:27 Nacl 0.45% 1000 Ml IV Infused DIRECT ALPESH Infusion Cefepime HCl 2 gm in 100 mls @ 200 mls/hr 01/20/19 14:00 01/21/19 06:25 Maxipime/Ns 2 Gm/100 Ml IV 200 mls/hr Q8HR ALPESH Administration Protocol Ibuprofen 600 mg 01/15/19 14:55 Ibuprofen PO Q6H PRN Pain, Mild (1-3) Insulin Glargine 10 units 01/16/19 22:00 01/20/19 22:58 Lantus SUB-Q 10 units HS ALPESH Administration Insulin Human Lispro 0 unit 01/15/19 06:00 01/21/19 00:00 Humalog SUB-Q 4 unit Q6HR ALPESH Administration Protocol Metoprolol Tartrate 25 mg 01/16/19 16:00 01/20/19 10:58 Lopressor PO 25 mg DAILY ALPESH Administration Morphine Sulfate 4 mg 01/15/19 14:55 Morphine IV Q4H PRN Pain , Severe (7-10) Ondansetron HCl 4 mg 01/15/19 13:38 Zofran IV ONCE PRN Nausea And Vomiting Oxycodone/Acetaminophen 1 tab 01/15/19 01:16 Percocet 5/325 PO Q6H PRN Pain, Moderate (4-6) Pantoprazole Sodium 40 mg 01/16/19 16:00 01/20/19 10:58 Protonix PO 40 mg DAILY ALPESH Administration Sodium Chloride 10 ml 01/15/19 10:00 01/20/19 22:00 Sodium Chloride Flush Syringe 10 Ml IV 10 ml BID ALPESH Administration Sodium Chloride 10 ml 01/15/19 01:16 Sodium Chloride Flush Syringe 10 Ml IV PRN PRN LINE FLUSH Thiamine HCl 100 mg 01/17/19 10:00 01/20/19 10:58 Vitamin B-1 PO 100 mg QDAY ALPESH Administration Nutrition/Malnutrition Assess - Dietary Evaluation Nutrition/Malnutrition Findings: Nutrition Notes Start: 01/16/19 14:44 Freq: Status: Active Protocol: Document 01/20/19 16:06 RM (Rec: 01/20/19 16:07 [id number]) Nutrition Notes Need for Assessment generated from: LOS Initial or Follow up Brief Note Height 5 ft 7 in Weight 76.2 kg [place] Body Weight (kg) 67.27 BMI 26.3 Subjective/Other Information Screened for LOS. Recorded PO intake 100% X 2 days. Nutrition Intervention Revisit per MD consult or patient Sign Off request:
[2019-01-21] MEDS: SODIUM CHLORIDE FLUSH SYRINGE 10 ML IV SCH ×3 (11:00→21:36)
[2019-01-21] MEDS: LOPRESSOR PO SCH (11:04)
[2019-01-21] MEDS: PROTONIX PO SCH (11:04)
[2019-01-21] MEDS: BABY ASPIRIN PO SCH (11:04)
[2019-01-21] MEDS: FOLVITE PO SCH (11:06)
[2019-01-21] MEDS: VITAMIN B-1 PO SCH (11:06)
[2019-01-21] MEDS: LOVENOX SUB-Q SCH (11:07)
[2019-01-21] MEDS: HumaLOG SUB-Q SCH ×6 (15:42→22:11)
[2019-01-21] MEDS: ARICEPT PO SCH (21:33)
[2019-01-21] MEDS: HALDOL PO SCH (21:33)
[2019-01-21] MEDS: LANTUS SUB-Q SCH (21:34)
[2019-01-21] MEDS: TYLENOL PO PRN (23:41)
[2019-01-22] MEDS: HumaLOG SUB-Q SCH ×5 (00:38→22:12)
[2019-01-22] MEDS: NACL 0.45% 1000 ML 1,000 ML IV SCH (04:05)
[2019-01-22] MEDS: MAXIPIME/NS 2 GM/100 ML 2 GM/100 ML BAG IV SCH ×3 (06:01→21:49)
[2019-01-22] MEDS: LOPRESSOR PO SCH (10:02)
[2019-01-22] MEDS: VITAMIN B-1 PO SCH (10:03)
[2019-01-22] MEDS: LOVENOX SUB-Q SCH (10:03)
[2019-01-22] MEDS: FOLVITE PO SCH (10:03)
[2019-01-22] MEDS: PROTONIX PO SCH (10:03)
[2019-01-22] MEDS: BABY ASPIRIN PO SCH (10:03)
--- NOTE | 2019-01-22 12:58 | Progress Note ---
Assessment and Plan Assessment and plan: Fracture of left femoral neck s/p bipolar hemiarthroplasty left hip on 01/15 Hypertension BP stable Monitor BP continue Metoprolol Diabetes mellitus type 2 Fingerstick q ac and hs On Lantus Fever, recurrent Had fever yesterday Etiology unclear ID Physician following Started on Cefepime iv by ID Physician Dementia Supportive care Hyperlipidemia Continue statin ALESSIO from vasomotor nephropathy Now resolved Full code status Awaiting placement to SNF History Interval history: s/p left hip surgery after fracture mild pain surgery site Fever recurrent Hospitalist Physical - Physical exam Narrative exam: Gen: Not in acute distress, lying in bed, HEENT: Normocephalic, atraumatic Neck: supple, no JVD Heart: S1 and S2 reg, no murmurs, rubs or gallop Lungs: Clear to auscultation, no wheeze Abd: soft, non tender, non distended, normal BS, Ext: dressing over left hip, No edema, no clubbing, no cyanosis Neuro: Awake,alert, dementia - Constitutional Vitals: Temp Pulse Resp BP Pulse Ox 98.9 F 86 20 131/59 96 01/22/19 12:00 01/22/19 12:00 01/22/19 12:00 01/22/19 12:00 01/22/19 12:00 General appearance: Present: no acute distress Results - Labs CBC & Chem 7: 01/21/19 04:05 01/21/19 04:05 Labs: Laboratory Last Values WBC 6.6 K/mm3 (4.5-11.0) 01/21/19 04:05 RBC 2.51 M/mm3 (3.65-5.03) L 01/21/19 04:05 Hgb 7.9 gm/dl (11.8-15.2) L 01/21/19 04:05 Hct 24.0 % (35.5-45.6) L 01/21/19 04:05 MCV 96 fl (84-94) H 01/21/19 04:05 MCH 31 pg (28-32) 01/21/19 04:05 MCHC 33 % (32-34) 01/21/19 04:05 RDW 13.6 % (13.2-15.2) 01/21/19 04:05 Plt Count 240 K/mm3 (140-440) 01/21/19 04:05 Lymph % (Auto) 13.4 % (13.4-35.0) 01/20/19 00:18 [place] % (Auto) 11.5 % (0.0-7.3) H 01/20/19 00:18 Eos % (Auto) 3.0 % (0.0-4.3) 01/20/19 00:18 Baso % (Auto) 0.7 % (0.0-1.8) 01/20/19 00:18 Lymph # 0.8 K/mm3 (1.2-5.4) L 01/20/19 00:18 [place] # 0.7 K/mm3 (0.0-0.8) 01/20/19 00:18 Eos # 0.2 K/mm3 (0.0-0.4) 01/20/19 00:18 Baso # 0.0 K/mm3 (0.0-0.1) 01/20/19 00:18 Seg Neutrophils % 71.4 % (40.0-70.0) H 01/20/19 00:18 Seg Neutrophils # 4.2 K/mm3 (1.8-7.7) 01/20/19 00:18 PT 15.1 Sec. (12.2-14.9) H 01/14/19 23:55 INR 1.22 (0.87-1.13) H 01/14/19 23:55 APTT 29.5 Sec. (24.2-36.6) 01/14/19 23:55 Sodium 141 mmol/L (137-145) 01/21/19 04:05 Potassium 4.8 mmol/L (3.6-5.0) 01/21/19 04:05 Chloride 104.4 mmol/L (98-107) 01/21/19 04:05 Carbon Dioxide 27 mmol/L (22-30) 01/21/19 04:05 14 mmol/L 01/21/19 04:05 BUN 28 mg/dL (9-20) H 01/21/19 04:05 1.2 mg/dL (0.8-1.5) 01/21/19 04:05 Estimated GFR > 60 ml/min 01/21/19 04:05 23 % 01/21/19 04:05 Glucose 172 mg/dL (75-100) H 01/21/19 04:05 POC Glucose 229 (70-105) H 01/22/19 11:11 Lactic Acid 1.60 mmol/L (0.7-2.0) 01/16/19 02:51 Calcium 8.8 mg/dL (8.4-10.2) 01/21/19 04:05 Iron 10 ug/dL (49-181) L 01/16/19 19:05 TIBC 186 mcg/dL (250-450) L 01/16/19 19:05 % Saturation 5.38 % 01/16/19 19:05 164 mg/dl (180-329) L 01/16/19 19:05 Vitamin B12 > 2000 pg/mL (211-911) H 01/16/19 19:05 RBC Folic Acid >1000 ng/mL (>280) 01/16/19 19:05 Yellow (Yellow) 01/16/19 02:00 Clear (Clear) 01/16/19 02:00 5.0 (5.0-7.0) 01/16/19 02:00 Ur Specific [place] 1.017 (1.003-1.030) 01/16/19 02:00 <15 mg/dl mg/dL (Negative) 01/16/19 02:00 50 mg/dL (Negative) 01/16/19 02:00 Neg mg/dL (Negative) 01/16/19 02:00 Sm (Negative) 01/16/19 02:00 Neg (Negative) 01/16/19 02:00 Neg (Negative) 01/16/19 02:00 < 2.0 mg/dL (<2.0) 01/16/19 02:00 Ur Leukocyte Esterase Neg (Negative) 01/16/19 02:00 3.0 /HPF (0.0-6.0) 01/16/19 02:00 1.0 /HPF (0.0-6.0) 01/16/19 02:00 U Epithel Cells (Auto) 1.0 /HPF (0-13.0) 01/16/19 02:00 Few /HPF 01/16/19 02:00 Blood Type A POSITIVE 01/15/19 18:50 Antibody Screen Negative 01/15/19 18:50 Active Medications - Current Medications Current Medications: Generic Name Dose Route Start Last Admin Trade Name Freq PRN Reason Stop Dose Admin Acetaminophen 650 mg 01/15/19 01:16 01/21/19 23:41 Tylenol PO 650 mg Q4H PRN Administration Pain MILD(1-3)/Fever >100.5/NIÑO Acetaminophen/Hydrocodone Bitart 1 each 01/15/19 14:55 [place] 5/325 PO Q6H PRN Pain, Moderate (4-6) Aspirin 81 mg 01/16/19 22:00 01/22/19 10:03 Baby Aspirin PO 81 mg DAILY ALPESH Administration Atorvastatin Calcium 10 mg 01/16/19 22:00 01/21/19 21:33 Lipitor PO 10 mg HS ALPESH Administration Dextrose 50 ml 01/15/19 01:16 D50w (25gm) Syringe IV PRN PRN Hypoglycemia Donepezil HCl 5 mg 01/16/19 22:00 01/21/19 21:33 Aricept PO 5 mg QHS ALPESH Administration Enoxaparin Sodium 40 mg 01/17/19 10:00 01/22/19 10:03 Lovenox SUB-Q 40 mg QDAY@1000 ALPESH Administration Folic Acid 1 mg 01/16/19 22:00 01/22/19 10:03 Folvite PO 1 mg DAILY ALPESH Administration Haloperidol 2 mg 01/16/19 22:00 01/21/19 21:33 Haldol PO 2 mg QHS ALPESH Administration Sodium Chloride 1,000 mls @ 75 mls/hr 01/15/19 02:00 01/22/19 04:05 Nacl 0.45% 1000 Ml IV 75 mls/hr DIRECT ALPESH Administration Cefepime HCl 2 gm in 100 mls @ 200 mls/hr 01/20/19 14:00 01/22/19 06:01 Maxipime/Ns 2 Gm/100 Ml IV 200 mls/hr Q8HR ALPESH Administration Protocol Ibuprofen 600 mg 01/15/19 14:55 Ibuprofen PO Q6H PRN Pain, Mild (1-3) Insulin Glargine 10 units 01/16/19 22:00 01/21/19 21:34 Lantus SUB-Q 10 units HS ALPESH Administration Insulin Human Lispro 0 unit 01/22/19 07:30 01/22/19 07:49 Humalog SUB-Q Not Given ACHS [facility] Protocol Metoprolol Tartrate 25 mg 01/16/19 16:00 01/22/19 10:02 Lopressor PO 25 mg DAILY ALPESH Administration Morphine Sulfate 4 mg 01/15/19 14:55 Morphine IV Q4H PRN Pain , Severe (7-10) Ondansetron HCl 4 mg 01/15/19 13:38 Zofran IV ONCE PRN Nausea And Vomiting Oxycodone/Acetaminophen 1 tab 01/15/19 01:16 Percocet 5/325 PO Q6H PRN Pain, Moderate (4-6) Pantoprazole Sodium 40 mg 01/16/19 16:00 01/22/19 10:03 Protonix PO 40 mg DAILY ALPESH Administration Sodium Chloride 10 ml 01/15/19 10:00 01/21/19 21:36 Sodium Chloride Flush Syringe 10 Ml IV 10 ml BID ALPESH Administration Sodium Chloride 10 ml 01/15/19 01:16 Sodium Chloride Flush Syringe 10 Ml IV PRN PRN LINE FLUSH Thiamine HCl 100 mg 01/17/19 10:00 01/22/19 10:03 Vitamin B-1 PO 100 mg QDAY ALPESH Administration Nutrition/Malnutrition Assess - Dietary Evaluation Nutrition/Malnutrition Findings: Nutrition Notes Start: 01/16/19 14:44 Freq: Status: Active Protocol: Document 01/20/19 16:06 RM (Rec: 01/20/19 16:07 [id number]) Nutrition Notes Need for Assessment generated from: LOS Initial or Follow up Brief Note Height 5 ft 7 in Weight 76.2 kg [place] Body Weight (kg) 67.27 BMI 26.3 Subjective/Other Information Screened for LOS. Recorded PO intake 100% X 2 days. Nutrition Intervention Revisit per MD consult or patient Sign Off request:
[2019-01-22] MEDS: SODIUM CHLORIDE FLUSH SYRINGE 10 ML IV SCH ×2 (13:37→21:55)
[2019-01-22] MEDS: ARICEPT PO SCH (21:50)
[2019-01-22] MEDS: HALDOL PO SCH (21:50)
[2019-01-22] MEDS: LANTUS SUB-Q SCH (22:11)
[2019-01-23] MEDS: NACL 0.45% 1000 ML 1,000 ML IV SCH (02:59)
[2019-01-23 04:19] LABS: Hemoglobin 6.6 gm/dl (11.8-15.2); Mean Corpuscular HGB Conc 34 % (32-34); Mean Corpuscular Volume 95 fl (84-94); Platelet Count 247 K/mm3 (140-440); Red Blood Count 2.08 M/mm3 (3.65-5.03); Red Cell Distribution Width 13.9 % (13.2-15.2)
[2019-01-23 04:38] LABS: Hematocrit 20.1 % (35.5-45.6)
[2019-01-23 04:45] LABS: Calcium 8.2 mg/dL (8.4-10.2)
[2019-01-23] MEDS: MAXIPIME/NS 2 GM/100 ML 2 GM/100 ML BAG IV SCH ×2 (05:02→21:34)
[2019-01-23 09:03] LABS: Hematocrit 20.8 % (35.5-45.6); Hemoglobin 6.9 gm/dl (11.8-15.2)
[2019-01-23] MEDS: VITAMIN B-1 PO SCH (09:30)
[2019-01-23] MEDS: LOPRESSOR PO SCH (09:30)
[2019-01-23] MEDS: BABY ASPIRIN PO SCH (09:30)
[2019-01-23] MEDS: PROTONIX PO SCH (09:30)
[2019-01-23] MEDS: FOLVITE PO SCH (09:30)
[2019-01-23] MEDS: LOVENOX SUB-Q SCH (09:31)
--- NOTE | 2019-01-23 09:41 | Progress Note ---
Assessment and Plan Cultures: 01/16/19 Blood: no growth 01/18/19 Blood no growth A/P: 78-year-old man with a past medical history of hypertension, diabetes and dementia that preesents to the ED on 01/14/19 with complaints of left hip pain. The patient slipped and fell getting out of a chair. Hip xray shows displaced left femoral neck fracture. He underwent hemiarthroplasty of the left hip on 01/16/19. Admitted with 1. Fevers, not on admission. Improved. No fever >24 hours.. Blood cultures no growth. UA negative. No leukocytoisis.. Not ventilated. No indwelling catheters. Venous doppler no sonographic evidence for DVT in the left lower extremity.. CXR no consolidation. 2.. Left Hip Fracture: S/p hemiarthroplasty of the left hip on 01/16/19. Dr. Nick following. 3. Type 2 Diabetes Mellitus: uncontrolled 4. Dementia Recommendations: -Continue Cefepime 2gm IV every 8 hours, D4 of D5 -Continue to monitor fevers [facility] M: [phone] O:[phone] Subjective Date of service: 01/23/19 Principal diagnosis: left hip fracture Interval history: Patient seen and examined. Sitting up in bed. Reports no acute distress. No fevers. Objective - Exam Narrative Exam: Constitutional: Alert, cooperative. No acute distress Head, Ears, Nose: Normocephalic, atraumatic. External ears, nose normal Eyes: Conjunctivae/corneas clear. No icterus. No ptosis. Neck: Supple, no meningeal signs Oral: dentition poor. No thrush Cardiovascular: S1, S2 normal. Respiratory: Good air entry, clear to auscultation bilaterally GI: Soft, non-tender; bowel sounds normal. No peritoneal signs Musculoskeletal: Decreased ROM left hip/leg.+dressing over incision, C/D/I Skin: No rash or abscess. Hem/Lymphatic: No palpable cervical or supraclavicular nodes. No lymphangitis Psych: Mood good. Affect normal Neurological: Awake, alert, oriented. - Constitutional Vitals: Vital Signs Temp Pulse Resp BP Pulse Ox 99.4 F 84 18 112/56 95 01/23/19 08:00 01/23/19 08:00 01/23/19 08:00 01/23/19 08:00 01/23/19 07:06 Temperature -Last 24 Hours Temperature 99.4 F Temperature 98.5 F Temperature 99.0 F Temperature 99.8 F Temperature 98.0 F Temperature 98.9 F Temperature 98.9 F - Labs CBC & Chem 7: 01/23/19 08:52 01/23/19 04:06 Labs: Abnormal lab results 01/22/19 01/22/19 01/22/19 Range/Units 11:11 16:02 21:20 RBC (3.65-5.03) M/mm3 Hgb (11.8-15.2) gm/dl Hct (35.5-45.6) % MCV (84-94) fl BUN (9-20) mg/dL Glucose (75-100) mg/dL POC Glucose 229 H 289 H 212 H (70-105) Calcium (8.4-10.2) mg/dL 01/23/19 01/23/19 01/23/19 Range/Units 04:06 04:06 07:09 RBC 2.08 L (3.65-5.03) M/mm3 Hgb 6.6 L (11.8-15.2) gm/dl Hct 20.1 L (35.5-45.6) % MCV 95 H (84-94) fl BUN 33 H (9-20) mg/dL Glucose 141 H (75-100) mg/dL POC Glucose 120 H (70-105) Calcium 8.2 L (8.4-10.2) mg/dL 01/23/19 Range/Units 08:52 RBC (3.65-5.03) M/mm3 Hgb 6.9 L (11.8-15.2) gm/dl Hct 20.8 L (35.5-45.6) % MCV (84-94) fl BUN (9-20) mg/dL Glucose (75-100) mg/dL POC Glucose (70-105) Calcium (8.4-10.2) mg/dL
[2019-01-23] MEDS ORDERED: NACL 0.9% 500 ML 500 ML IV NR (10:00)
[2019-01-23] MEDS: HumaLOG SUB-Q SCH ×4 (10:54→21:29)
[2019-01-23] MEDS ORDERED: MIRALAX 3350 PO PRN (12:04)
[2019-01-23] MEDS ORDERED: NACL 0.9% 1000 ML 1,000 ML ONE (15:19)
--- NOTE | 2019-01-23 17:36 | Progress Note ---
Assessment and Plan Assessment and plan: Patient is 78 year-old man with a history of hypertension, diabetes, dementia presented to the emergency room with complaints left hip pain. Patient slipped after he got out of a chair and fell. X ray revealed fracture left femur neck. Patient was admitted and had bipolar hemiarthroplasty left hip on 01/15/[address] Nick. Post-op he was doing well plans were being made for placement to [facility] facility. However he started having recurrent fever therefore ID physician was consulted. Blood cultures negative, UA negative. He was started on Cefepime IV. Today 01/23/19 patient had anemia hemoglobin 6.9. transfuse 1 Unit PRBC. Stool occult blood ordered. Fracture of left femoral neck s/p bipolar hemiarthroplasty left hip on 01/15 Hypertension BP stable Monitor BP continue Metoprolol Diabetes mellitus type 2 Fingerstick q ac and hs On Lantus Fever, recurrent Etiology unclear ID Physician following Started on Cefepime iv by ID Physician Blood cultures X 6 neg, UA neg Anemia Hgb 6.9 today Transfuse 1 unit PRBC. Obtain stool occult blood Dementia Supportive care Hyperlipidemia Continue statin ALESSIO from vasomotor nephropathy Now resolved Full code status Awaiting placement to SNF History Interval history: s/p left hip surgery after fracture Fever recurrent Hospitalist Physical - Physical exam Narrative exam: Gen: Not in acute distress, lying in bed, HEENT: Normocephalic, atraumatic Neck: supple, no JVD Heart: S1 and S2 reg, no murmurs, rubs or gallop Lungs: Clear to auscultation, no wheeze Abd: soft, non tender, non distended, normal BS, Ext: dressing over left hip, No edema, no clubbing, no cyanosis Neuro: Awake,alert, dementia - Constitutional Vitals: Temp Pulse Resp BP Pulse Ox 100.4 F H 69 18 114/56 94 01/23/19 16:50 01/23/19 16:50 01/23/19 16:50 01/23/19 16:50 01/23/19 16:50 General appearance: Present: no acute distress Results - Labs CBC & Chem 7: 01/23/19 08:52 01/23/19 04:06 Labs: Laboratory Last Values WBC 5.1 K/mm3 (4.5-11.0) 01/23/19 04:06 RBC 2.08 M/mm3 (3.65-5.03) L 01/23/19 04:06 Hgb 6.9 gm/dl (11.8-15.2) L 01/23/19 08:52 Hct 20.8 % (35.5-45.6) L 01/23/19 08:52 MCV 95 fl (84-94) H 01/23/19 04:06 MCH 32 pg (28-32) 01/23/19 04:06 MCHC 34 % (32-34) 01/23/19 04:06 RDW 13.9 % (13.2-15.2) 01/23/19 04:06 Plt Count 247 K/mm3 (140-440) 01/23/19 04:06 Lymph % (Auto) 13.4 % (13.4-35.0) 01/20/19 00:18 [place] % (Auto) 11.5 % (0.0-7.3) H 01/20/19 00:18 Eos % (Auto) 3.0 % (0.0-4.3) 01/20/19 00:18 Baso % (Auto) 0.7 % (0.0-1.8) 01/20/19 00:18 Lymph # 0.8 K/mm3 (1.2-5.4) L 01/20/19 00:18 [place] # 0.7 K/mm3 (0.0-0.8) 01/20/19 00:18 Eos # 0.2 K/mm3 (0.0-0.4) 01/20/19 00:18 Baso # 0.0 K/mm3 (0.0-0.1) 01/20/19 00:18 Seg Neutrophils % 71.4 % (40.0-70.0) H 01/20/19 00:18 Seg Neutrophils # 4.2 K/mm3 (1.8-7.7) 01/20/19 00:18 PT 15.1 Sec. (12.2-14.9) H 01/14/19 23:55 INR 1.22 (0.87-1.13) H 01/14/19 23:55 APTT 29.5 Sec. (24.2-36.6) 01/14/19 23:55 Sodium 137 mmol/L (137-145) 01/23/19 04:06 Potassium 4.4 mmol/L (3.6-5.0) 01/23/19 04:06 Chloride 105.1 mmol/L (98-107) 01/23/19 04:06 Carbon Dioxide 22 mmol/L (22-30) 01/23/19 04:06 14 mmol/L 01/23/19 04:06 BUN 33 mg/dL (9-20) H 01/23/19 04:06 1.4 mg/dL (0.8-1.5) 01/23/19 04:06 Estimated GFR 59 ml/min 01/23/19 04:06 24 % 01/23/19 04:06 Glucose 141 mg/dL (75-100) H 01/23/19 04:06 POC Glucose 210 (70-105) H 01/23/19 16:53 Lactic Acid 1.60 mmol/L (0.7-2.0) 01/16/19 02:51 Calcium 8.2 mg/dL (8.4-10.2) L 01/23/19 04:06 Iron 10 ug/dL (49-181) L 01/16/19 19:05 TIBC 186 mcg/dL (250-450) L 01/16/19 19:05 % Saturation 5.38 % 01/16/19 19:05 164 mg/dl (180-329) L 01/16/19 19:05 Vitamin B12 > 2000 pg/mL (211-911) H 01/16/19 19:05 RBC Folic Acid >1000 ng/mL (>280) 01/16/19 19:05 Yellow (Yellow) 01/16/19 02:00 Clear (Clear) 01/16/19 02:00 5.0 (5.0-7.0) 01/16/19 02:00 Ur Specific [place] 1.017 (1.003-1.030) 01/16/19 02:00 <15 mg/dl mg/dL (Negative) 01/16/19 02:00 50 mg/dL (Negative) 01/16/19 02:00 Neg mg/dL (Negative) 01/16/19 02:00 Sm (Negative) 01/16/19 02:00 Neg (Negative) 01/16/19 02:00 Neg (Negative) 01/16/19 02:00 < 2.0 mg/dL (<2.0) 01/16/19 02:00 Ur Leukocyte Esterase Neg (Negative) 01/16/19 02:00 3.0 /HPF (0.0-6.0) 01/16/19 02:00 1.0 /HPF (0.0-6.0) 01/16/19 02:00 U Epithel Cells (Auto) 1.0 /HPF (0-13.0) 01/16/19 02:00 Few /HPF 01/16/19 02:00 Blood Type A POSITIVE 01/23/19 10:33 Antibody Screen Negative 01/23/19 10:33 Crossmatch See Detail 01/23/19 10:33 Active Medications - Current Medications Current Medications: Generic Name Dose Route Start Last Admin Trade Name Freq PRN Reason Stop Dose Admin Acetaminophen 650 mg 01/15/19 01:16 01/21/19 23:41 Tylenol PO 650 mg Q4H PRN Administration Pain MILD(1-3)/Fever >100.5/NIÑO Acetaminophen/Hydrocodone Bitart 1 each 01/15/19 14:55 [place] 5/325 PO Q6H PRN Pain, Moderate (4-6) Aspirin 81 mg 01/16/19 22:00 01/23/19 09:30 Baby Aspirin PO 81 mg DAILY ALPESH Administration Atorvastatin Calcium 10 mg 01/16/19 22:00 01/22/19 21:50 Lipitor PO 10 mg HS ALPESH Administration Dextrose 50 ml 01/15/19 01:16 D50w (25gm) Syringe IV PRN PRN Hypoglycemia Donepezil HCl 5 mg 01/16/19 22:00 01/22/19 21:50 Aricept PO 5 mg QHS ALPESH Administration Enoxaparin Sodium 40 mg 01/17/19 10:00 01/23/19 09:31 Lovenox SUB-Q 40 mg QDAY@1000 ALPESH Administration Folic Acid 1 mg 01/16/19 22:00 01/23/19 09:30 Folvite PO 1 mg DAILY ALPESH Administration Haloperidol 2 mg 01/16/19 22:00 01/22/19 21:50 Haldol PO 2 mg QHS ALPESH Administration Sodium Chloride 1,000 mls @ 75 mls/hr 01/15/19 02:00 01/23/19 02:59 Nacl 0.45% 1000 Ml IV 75 mls/hr DIRECT ALPESH Administration Cefepime HCl 2 gm in 100 mls @ 200 mls/hr 01/23/19 22:00 Maxipime/Ns 2 Gm/100 Ml IV Q12HR ALPESH Protocol Ibuprofen 600 mg 01/15/19 14:55 Ibuprofen PO Q6H PRN Pain, Mild (1-3) Insulin Glargine 10 units 01/16/19 22:00 01/22/19 22:11 Lantus SUB-Q 10 units HS ALPESH Administration Insulin Human Lispro 0 unit 01/22/19 07:30 01/23/19 16:50 Humalog SUB-Q 2 unit ACHS ALPESH Administration Protocol Metoprolol Tartrate 25 mg 01/16/19 16:00 01/23/19 09:30 Lopressor PO 25 mg DAILY ALPESH Administration Morphine Sulfate 4 mg 01/15/19 14:55 Morphine IV Q4H PRN Pain , Severe (7-10) Ondansetron HCl 4 mg 01/15/19 13:38 Zofran IV ONCE PRN Nausea And Vomiting Oxycodone/Acetaminophen 1 tab 01/15/19 01:16 Percocet 5/325 PO Q6H PRN Pain, Moderate (4-6) Pantoprazole Sodium 40 mg 01/16/19 16:00 01/23/19 09:30 Protonix PO 40 mg DAILY ALPESH Administration Polyethylene Glycol 17 gm 01/23/19 12:04 Miralax 3350 PO BID PRN Constipation Sodium Chloride 10 ml 01/15/19 10:00 01/22/19 21:55 Sodium Chloride Flush Syringe 10 Ml IV 10 ml BID ALPESH Administration Sodium Chloride 10 ml 01/15/19 01:16 Sodium Chloride Flush Syringe 10 Ml IV PRN PRN LINE FLUSH Thiamine HCl 100 mg 01/17/19 10:00 01/23/19 09:30 Vitamin B-1 PO 100 mg QDAY ALPESH Administration Nutrition/Malnutrition Assess - Dietary Evaluation Nutrition/Malnutrition Findings: Nutrition Notes Start: 01/16/19 14:44 Freq: Status: Active Protocol: Document 01/20/19 16:06 RM (Rec: 01/20/19 16:07 RM [id number]) Nutrition Notes Need for Assessment generated from: LOS Initial or Follow up Brief Note Height 5 ft 7 in Weight 76.2 kg [place] Body Weight (kg) 67.27 BMI 26.3 Subjective/Other Information Screened for LOS. Recorded PO intake 100% X 2 days. Nutrition Intervention Revisit per MD consult or patient Sign Off request:
[2019-01-23] MEDS: ARICEPT PO SCH (21:35)
[2019-01-23] MEDS: HALDOL PO SCH (21:35)
[2019-01-23] MEDS: SODIUM CHLORIDE FLUSH SYRINGE 10 ML IV SCH (23:50)
[2019-01-24 05:31] LABS: Hemoglobin 8.2 gm/dl (11.8-15.2); Mean Corpuscular HGB Conc 34 % (32-34); Mean Corpuscular Volume 92 fl (84-94); Platelet Count 292 K/mm3 (140-440); Red Blood Count 2.63 M/mm3 (3.65-5.03); Red Cell Distribution Width 15.6 % (13.2-15.2)
[2019-01-24 05:55] LABS: BUN/Creatinine Ratio 22; Blood Urea Nitrogen 29 mg/dL (9-20); Calcium 8.6 mg/dL (8.4-10.2); Hemolysis Index 4
[2019-01-24] MEDS: HumaLOG SUB-Q SCH ×2 (08:56→12:30)
[2019-01-24] MEDS: BABY ASPIRIN PO SCH (09:04)
[2019-01-24] MEDS: LOVENOX SUB-Q SCH (09:04)
[2019-01-24] MEDS: FOLVITE PO SCH (09:04)
[2019-01-24] MEDS: VITAMIN B-1 PO SCH (09:04)
[2019-01-24] MEDS: PROTONIX PO SCH (09:04)
--- NOTE | 2019-01-24 09:34 | Progress Note ---
Assessment and Plan Cultures: 01/16/19 Blood: no growth 01/18/19 Blood no growth A/P: 78-year-old man with a past medical history of hypertension, diabetes and dementia that preesents to the ED on 01/14/19 with complaints of left hip pain. The patient slipped and fell getting out of a chair. Hip xray shows displaced left femoral neck fracture. He underwent hemiarthroplasty of the left hip on 01/16/19. Admitted with 1. Fevers, not on admission. Low grade fevers noted. Blood cultures no growth. UA negative. No leukocytoisis.. Not ventilated. No indwelling catheters. Venous doppler no sonographic evidence for DVT in the left lower extremity.. CXR no consolidation. 2.. Left Hip Fracture: S/p hemiarthroplasty of the left hip on 01/16/19. Dr. Nick following. 3. Type 2 Diabetes Mellitus: uncontrolled 4. Dementia Recommendations: -Continue Cefepime 2gm IV every 8 hours- last dose today -Continue to monitor fevers [facility] M: [phone] O:[phone] Subjective Date of service: 01/24/19 Principal diagnosis: left hip fracture Interval history: Patient seen and examined. Sitting up in bed. Reports no acute distress. Low grade fevers. Objective - Exam Narrative Exam: Constitutional: Alert, cooperative. No acute distress Head, Ears, Nose: Normocephalic, atraumatic. External ears, nose normal Eyes: Conjunctivae/corneas clear. No icterus. No ptosis. Neck: Supple, no meningeal signs Oral: dentition poor. No thrush Cardiovascular: S1, S2 normal. Respiratory: Good air entry, clear to auscultation bilaterally GI: Soft, non-tender; bowel sounds normal. No peritoneal signs Musculoskeletal: Decreased ROM left hip/leg.+dressing over incision, C/D/I Skin: No rash or abscess. Hem/Lymphatic: No palpable cervical or supraclavicular nodes. No lymphangitis Psych: Mood good. Affect normal Neurological: Awake, alert, oriented. - Constitutional Vitals: Vital Signs Temp Pulse Resp BP Pulse Ox 98.1 F 72 20 123/63 94 01/24/19 07:03 01/24/19 07:03 01/24/19 07:03 01/24/19 07:03 01/24/19 07:03 Temperature -Last 24 Hours Temperature 98.1 F Temperature 98.9 F Temperature 98.9 F Temperature 98.8 F Temperature 99.4 F Temperature 100.5 F Temperature 100.7 F Temperature 100.4 F Temperature 99 F Temperature 99.1 F Temperature 99.4 F - Labs CBC & Chem 7: 01/24/19 05:14 01/24/19 05:14 Labs: Abnormal lab results 01/23/19 01/23/19 01/23/19 Range/Units 10:33 12:11 16:53 RBC (3.65-5.03) M/mm3 Hgb (11.8-15.2) gm/dl Hct (35.5-45.6) % RDW (13.2-15.2) % Chloride (98-107) mmol/L BUN (9-20) mg/dL POC Glucose 159 H 210 H (70-105) Crossmatch See Detail 01/23/19 01/24/19 01/24/19 Range/Units 21:32 05:14 05:14 RBC 2.63 L (3.65-5.03) M/mm3 Hgb 8.2 L (11.8-15.2) gm/dl Hct 24.0 L (35.5-45.6) % RDW 15.6 H (13.2-15.2) % Chloride 110.1 H (98-107) mmol/L BUN 29 H (9-20) mg/dL POC Glucose 138 H (70-105) Crossmatch
[2019-01-24] MEDS: MAXIPIME/NS 2 GM/100 ML 2 GM/100 ML BAG IV SCH (10:00)
[2019-01-24] MEDS: SODIUM CHLORIDE FLUSH SYRINGE 10 ML IV SCH (10:05)
--- NOTE | 2019-01-24 12:57 | Discharge Summary ---
Providers - Providers Date of Admission: 01/15/19 01:16 Attending physician: MARIAN OGDEN MD 01/15/19 00:08 Consult to Physician [CONS] Stat Comment: CONSULT COMPLETED - JASON Consulting Provider: AISHA NICK Physician Instructions: Reason For Exam: hip fracture 01/15/19 14:55 Consult to Case Management [CONS] Routine Services Needed at Discharge: Home Health Services Physical Therapy DME Equipment Notified:: [employer] 01/15/19 14:57 Physical Therapy Evaluation and Treat [CONS] Routine Comment: Reason For Exam: postop evaluation Weight bearing status?: Full wt bearing Assistive devices?: Yes If so list: Walker 01/16/19 12:44 Occupational Therapy Evaluate and Treat [CONS] Routine Comment: Reason For Exam: S/P fall, weakness 01/18/19 08:18 Consult to Physician [CONS] Routine Comment: Consulting Provider: BRANDEN WATSON Physician Instructions: Reason For Exam: Fever, s/p hip surgery Primary care physician: CLYDE DAS Hospitalization Reason for admission: HIP FRACTURE Condition: Stable Hospital course: Patient is 78 year-old man with a history of hypertension, diabetes, dementia presented to the emergency room with complaints left hip pain. Patient slipped after he got out of a chair and fell. X ray revealed fracture left femur neck. Patient was admitted and had bipolar hemiarthroplasty left hip on 01/15/[address] Nick. Post-op he was doing well plans were being made for placement to [facility]. However he started having recurrent fever therefore ID physician was consulted. Blood cultures negative, UA negative. He was started on Cefepime IV. on 01/23/19 patient had anemia hemoglobin 6.9. transfuse 1 Unit PRBC. Stool occult blood ordered. Patient continued to improve with PT, although was noted to have hypoxia with sat of 86% with ambulation but improved in less than 2 mins on resting. He is approved for rehab today. Cultures remained negative and ID recommended against any further antibiotics Hypoxia with ambulation- Fracture of left femoral neck s/p bipolar hemiarthroplasty left hip on 01/15 ALESSIO from vasomotor nephropathy Now resolved Hypertension continue Metoprolol Diabetes mellitus type 2 Fingerstick q ac and hs On Lantus Fever, OF [place] ORIGIN Etiology unclear ID Physician following Started on Cefepime iv by ID Physician Blood cultures X 6 neg, UA neg Anemia Hgb 6.9 today TransfuseD 1 unit PRBC. Dementia Supportive care Hyperlipidemia Continue statin Disposition: DC/[place]-03 SN[facility] Time spent for discharge: 35 MINS Core Measure Documentation - Palliative Care Palliative Care/ Comfort Measures: Not Applicable - Core Measures Any of the following diagnoses?: none Exam - Physical Exam Narrative exam: Gen: Not in acute distress, Sitting up in a chair HEENT: Normocephalic, atraumatic Neck: supple, no JVD Heart: S1 and S2 reg, no murmurs, rubs or gallop Lungs: Clear to auscultation, no wheeze Abd: soft, non tender, non distended, normal BS, Ext: dressing over left hip, No edema, no clubbing, no cyanosis Neuro: Awake,alert, dementia - Constitutional Vitals: Temp Pulse Resp BP Pulse Ox 97.0 F L 75 20 106/45 97 01/24/19 11:34 01/24/19 11:34 01/24/19 11:34 01/24/19 11:34 01/24/19 11:34 Plan Activity: advance as tolerated, fall precautions Diet: low fat Wound: per your surgeon's advice Special Instructions: record daily weights, physical therapy, occupational therapy, other (OXYGEN nc 2lpm with extertion) Follow up with: CLYDE DAS MD [Primary Care Provider] - 3-5 Days BRANDEN WATSON MD [Staff Physician] - 7 Days AISHA NICK MD [Staff Physician] - 7 Days Prescriptions: Donepezil [Aricept] 5 mg PO QHS #30 tablet Polyethylene Glycol 3350 [Miralax 3350] 17 gm PO BID PRN #10 powd.pack PRN Reason: Constipation HYDROcodone/APAP 5-325 [[place] 5-325 mg TAB] 1 each PO Q6H PRN #14 tablet PRN Reason: Pain, Moderate (4-6)
[2019-01-24 14:26] VITALS: BP 132/57
== END 2019-01-24 15:04 | DRG 469 ==
LOC: ED 23:05 → 3B-SURG 01-15 01:16
PROVIDERS: ADMIT Internal Medicine; ATTEND Internal Medicine
PROC: 0SRS0JA Replacement of Left Hip Joint, Femoral Surface with Synthetic Substitute, Uncemented, Open Approach (ICD-10-PCS; principal; 2019-01-15)
PROC: 30233N1 Transfusion of Nonautologous Red Blood Cells into Peripheral Vein, Percutaneous Approach (ICD-10-PCS; 2019-01-23)
DX: S72.092A Other fracture of head and neck of left femur, initial encounter for closed fracture (principal); N17.0 Acute kidney failure with tubular necrosis; E11.9 Type 2 diabetes mellitus without complications; I10 Essential (primary) hypertension; W01.0XXA Fall on same level from slipping, tripping and stumbling without subsequent striking against object, initial encounter; E78.2 Mixed hyperlipidemia; F03.90 Unspecified dementia, unspecified severity, without behavioral disturbance, psychotic disturbance, mood disturbance, and anxiety; R45.1 Restlessness and agitation; D64.9 Anemia, unspecified; R09.02 Hypoxemia; R50.9 Fever, unspecified; Z82.49 Family history of ischemic heart disease and other diseases of the circulatory system; Z79.82 Long term (current) use of aspirin; Z79.899 Other long term (current) drug therapy; Z86.73 Personal history of transient ischemic attack (TIA), and cerebral infarction without residual deficits; Z79.4 Long term (current) use of insulin; Y93.89 Activity, other specified; Y92.89 Other specified places as the place of occurrence of the external cause; Y99.8 Other external cause status
CPT/HCPCS: 36415; 71045; 80048; 81001; 82140; 82607; 82747; 82962; 83550; 85014; 85018; 85025; 85027; 85610; 85730; 86850; 86900; 86901; 86920; 87040; 88304; 88311; G0378; A9270-GY; C1776; J0171; J0330; J0690; J0692; J1100; J1650; J1815; J2250; J2270; J2370; J2405; J2704; J3010; J7030; J7050; P9016

== ENCOUNTER 2019-05-29 22:17 | Inpatient (IN) | payer MEDICARE ==
[2019-05-29] MEDS ORDERED: ONDANSETRON 4 MG/2 ML INJ IV ONE (22:55)
--- NOTE | 2019-05-29 22:58 | Emergency Department Report ---
HPI - General Time Seen by Provider: 05/29/19 22:46 - HPI HPI: Room 5 The patient is 78-year-old male presenting with chief complaint nausea vomiting. Patient states his symptoms began yesterday with mild nausea and vomiting. However yesterday the patient was able to keep down food. Today the patient's been unable to keep anything down. Patient denies pain of any type including chest pain or abdominal pain. Patient denies history of fever Location: [See above] Duration: [See above] Quality: [See above] Severity: [See above] Timing: [See above] Context: [See above] Modifying factors: [See above] Associated signs and symptoms: [see above] ED Past Medical Hx - Past Medical History Hx Hypertension: Yes Hx CVA: Yes Hx Diabetes: Yes Hx Dementia: Yes - Surgical History Additional Surgical History: Hip replacement - Family History Family history: no significant - Social History Smoking Status: Former Smoker (none since 2012) Substance Use Type: None (denies illicit drug use) - Medications Home Medications: Home Medications Medication Instructions Recorded Confirmed Last Taken Type Aspirin [Aspirin BABY CHEW TAB] 1 tab PO DAILY 10/27/13 01/15/19 10/29/13 History Atorvastatin (Nf) [Lipitor] 1 tab PO DAILY 10/27/13 01/15/19 10/27/13 History Insulin Glargine,Hum.rec.anlog 10 units SC HS 10/27/13 01/15/19 10/29/13 History [Lantus] Metoprolol Tartrate 1 tab PO DAILY 10/27/13 01/15/19 10/29/13 History Pantoprazole [Protonix TAB] 1 tab PO DAILY 10/27/13 01/15/19 10/29/13 History Polyethylene Glycol 3350 [Miralax 17 gm PO BID PRN #10 powd.pack 01/24/19 Unknown Rx 3350] ED Review of Systems ROS: Stated complaint: N/V Other details as noted in HPI Constitutional: denies: fever Eyes: denies: eye pain ENT: denies: throat pain Respiratory: no symptoms reported Cardiovascular: denies: chest pain Endocrine: no symptoms reported Gastrointestinal: nausea, vomiting. denies: abdominal pain, diarrhea Genitourinary: denies: dysuria Musculoskeletal: denies: back pain Neurological: denies: headache Physical Exam - Physical Exam Physical Exam: GENERAL: The patient is well-developed well-nourished male lying on stretcher occasionally vomiting into an emesis bag HEENT: Normocephalic. Atraumatic. Extraocular motions are intact. Patient has moist mucous membranes. NECK: Supple. Trachea midline CHEST/LUNGS: Clear to auscultation. There is no respiratory distress noted. HEART/CARDIOVASCULAR: Regular. There is no tachycardia. There is no gallop rub or murmur. ABDOMEN: Abdomen is soft, nontender. Patient has normal bowel sounds. There is no abdominal distention. SKIN: There is no rash. There is no edema. There is no diaphoresis. NEURO: The patient is awake, alert, and oriented. The patient is cooperative. The patient has normal speech MUSCULOSKELETAL: There is no evidence of acute injury. ED Course - Consultations Consultation #1: 05/30/19 00:10 Nephrology paged ED Medical Decision Making - Lab Data Result diagrams: 05/29/19 23:04 05/29/19 23:04 Laboratory Tests 05/29/19 05/29/19 05/29/19 23:04 23:04 23:04 WBC 5.1 RBC 3.10 L Hgb 9.8 L Hct 30.2 L MCV 98 H MCH 32 MCHC 32 RDW 16.1 H Plt Count 183 Lymph % (Auto) 29.6 [place] % (Auto) 7.5 H Eos % (Auto) 5.6 H Baso % (Auto) 0.6 Lymph # 1.5 [place] # 0.4 Eos # 0.3 Baso # 0.0 Seg Neutrophils % 56.7 Seg Neutrophils # 2.9 VBG pH 7.155 L* Sodium 139 Potassium 6.6 H* Chloride 107.9 H Carbon Dioxide 24 Anion Gap 14 BUN 41 H Creatinine 1.6 H Estimated GFR 51 BUN/Creatinine Ratio 26 Glucose 167 H POC Glucose Calcium 9.4 Total Bilirubin < 0.20 AST 35 ALT 45 Alkaline Phosphatase 81 Total Creatine Kinase 49 L CK-MB (CK-2) 5.3 H CK-MB (CK-2) Rel Index 10.8 H Troponin T < 0.010 Total Protein 7.0 Albumin 3.9 Albumin/Globulin Ratio 1.3 Lipase 31 Urine Bilirubin Urine RBC (Auto) U Epithel Cells (Auto) 05/30/19 05/30/19 00:37 00:57 WBC RBC Hgb Hct MCV MCH MCHC RDW Plt Count Lymph % (Auto) [place] % (Auto) Eos % (Auto) Baso % (Auto) Lymph # [place] # Eos # Baso # Seg Neutrophils % Seg Neutrophils # VBG pH Sodium Potassium Chloride Carbon Dioxide Anion Gap BUN Creatinine Estimated GFR BUN/Creatinine Ratio Glucose POC Glucose 159 H Calcium Total Bilirubin AST ALT Alkaline Phosphatase Total Creatine Kinase CK-MB (CK-2) CK-MB (CK-2) Rel Index Troponin T Total Protein Albumin Albumin/Globulin Ratio Lipase Urine Bilirubin Neg Urine RBC (Auto) 1.0 U Epithel Cells (Auto) < 1.0 - EKG Data -: EKG Interpreted by [facility] EKG shows normal: sinus rhythm Rate: normal - EKG Data Interpretation: other (slightly peaked T waves inferiorly and anteriorly) - Radiology Data Radiology results: report reviewed (CT abdomen and pelvis), image reviewed (CT abdomen and pelvis) [place] [address] Cat Scan Report Signed Patient: DANNY VIEIRA MR#: [id number] 1 : 1940 Acct:[id number] Age/Sex: 78 / M ADM Date: 05/29/19 Loc: ED Attending Dr: Order ing Physician: MELINA LOPEZ MD Date of Service: 05/30/19 Procedure(s): CT abdomen pelvis wo con Accession Number(s): [id number] cc: MELINA LOPEZ MD CT ABDOMEN AND PELVIS WITHOUT CONTRAST INDICATION: Intractable nausea and vomiting. COMPARISON: No relevant prior imaging study available. TECHNIQUE: Axial, coronal and sagittal CT imaging of the abdomen and pelvis was performed without contrast. Lack of intravenous contrast limits evaluation of the vascular and solid organs. All CT scans at this location are performed using CT dose reduction for ALARA by means of automated exposure control. FINDINGS: Motion/beam hardening artifact limits this exam. LOWER CHEST: There is generalized bibasilar atelectasis. The aorta is mildly calcified with generalized coronary atherosclerosis. No additional significant abnormality. LIVER: No significant abnormality. BILIARY: Gallstones are seen without evidence of acute cholecystitis. No biliary ductal dilatation. PANCREAS: No significant abnormality. SPLEEN: No significant abnormality. ADRENALS: No significant abnormality. KIDNEYS AND URETERS: Age-appropriate mild bilateral renal atrophy is noted without an additional significant abnormality. GI TRACT: No significant abnormality of the stomach. A moderate left inguinal hernia contains fat and nondilated small bowel loops without associated inflammation. The small bowel is otherwise unremarkable. A large amount of stool is seen along the colon without an additional significant abnormality. The appendix is unremarkable. PERITONEUM: No free fluid. No free air. No fluid collection. LYMPH NODES: No significant adenopathy. VASCULATURE: The aorta is normal in caliber with mild to moderate generalized atherosclerosis. URINARY BLADDER: No significant abnormality. REPRODUCTIVE ORGANS: There is a large left hydrocele. No additional significant abnormality. ADDITIONAL FINDINGS: None. SKELETAL SYSTEM: Degenerative changes are seen throughout the spine and pelvis with osteopenia/osteoporosis. A left hip arthroplasty appears unremarkable. No acute abnormality is seen. IMPRESSION: 1. Cholelithiasis without evidence of acute cholecystitis. 2. Moderate left inguinal hernia without an acute complication. 3. Large left hydrocele. 4. Additional findings as above. Signer Name: Mono Hallman MD Signed: 05/30/2019 1:02 AM Workstation Name: [id number] Transcribed By: [place] Dictated By: Mono Hallman MD Electronically Authenticated By: Mono Hallman MD Signed Date/Time: 05/30/19101 DD/ TD/TT: - Differential Diagnosis gastritis, small bowel obstruction, pancreatitis, DKA, UTI Critical care attestation.: If time is entered above; I have spent that time in minutes in the direct care of this critically ill patient, excluding procedure time. ED Disposition Clinical Impression: Nausea & vomiting, Hyperkalemia, Renal insufficiency Disposition: 09 OP ADMIT IP TO THIS HOSP Is pt being admited?: Yes Does the pt Need Aspirin: No Condition: Fair Time of Disposition: 01:14 (hospitalist paged (Dr Samuel))
[2019-05-29] MEDS ORDERED: SODIUM CHLORIDE 0.9% 1000 ML 1,000 ML IV ONE (22:59)
[2019-05-29 23:43] LABS: Basophils % (Auto) 0.6 % (0.0-1.8); Eosinophils # (Auto) 0.3 K/mm3 (0.0-0.4); Eosinophils % (Auto) 5.6 % (0.0-4.3); Hematocrit 30.2 % (35.5-45.6); Hemoglobin 9.8 gm/dl (11.8-15.2); Lymphocytes # (Auto) 1.5 K/mm3 (1.2-5.4); Lymphocytes % (Auto) 29.6 % (13.4-35.0); Mean Corpuscular HGB Conc 32 % (32-34); Mean Corpuscular Volume 98 fl (84-94); Monocytes # (Auto) 0.4 K/mm3 (0.0-0.8); Monocytes % (Auto) 7.5 % (0.0-7.3); Platelet Count 183 K/mm3 (140-440); Red Cell Distribution Width 16.1 % (13.2-15.2)
[2019-05-29 23:54] LABS: Creatine Kinase MB 5.3 ng/mL (0.0-4.0)
[2019-05-29 23:55] LABS: Alanine Aminotransferase 45 units/L (7-56); Albumin 3.9 g/dL (3.9-5); BUN/Creatinine Ratio 26; Blood Urea Nitrogen 41 mg/dL (9-20); Calcium 9.4 mg/dL (8.4-10.2); Hemolysis Index 2
[2019-05-30] MEDS ORDERED: SODIUM BICARB 8.4% 50 MEQ/50 ML SYRINGE IV ONE (00:06)
[2019-05-30] MEDS ORDERED: SODIUM POLYSTYRENE 15 GM/60 ML ORAL LIQD PR ONE (00:06)
[2019-05-30] MEDS ORDERED: CALCIUM GLUCONATE 1,000 MG in SODIUM CHLORIDE 0.9% 100 ML IV ONE ×2 (00:06→09:00)
[2019-05-30] MEDS ORDERED: ALBUTEROL 2.5 MG/3 ML NEBU IH ONE (00:07)
[2019-05-30] MEDS ORDERED: DEXTROSE 50% IN WATER (25GM) 50 ML SYRINGE IV ONE ×2 (00:20→09:00)
[2019-05-30] MEDS ORDERED: INSULIN REGULAR, HUMAN 100 UNITS/1 ML IV ONE ×2 (00:20→09:00)
[2019-05-30 01:06] LABS: Bilirubin,Urine NEG (Negative); Blood,Urine NEG (Negative); Color,Urine Yellow (Yellow); Protein,Urine <15 mg/dL mg/dL (Negative); Urobilinogen,Urine < 2.0 mg/dL (<2.0)
--- NOTE | 2019-05-30 01:07 | Cat Scan Report ---
CT ABDOMEN AND PELVIS WITHOUT CONTRAST INDICATION: Intractable nausea and vomiting. COMPARISON: No relevant prior imaging study available. TECHNIQUE: Axial, coronal and sagittal CT imaging of the abdomen and pelvis was performed without co ntrast. Lack of intravenous contrast limits evaluation of the vascular and solid organs. All CT sca ns at this location are performed using CT dose reduction for ALARA by means of automated exposure co ntrol. FINDINGS: Motion/beam hardening artifact limits this exam. LOWER CHEST: There is generalized bibasilar atelectasis. The aorta is mildly calcified with generaliz ed coronary atherosclerosis. No additional significant abnormality. LIVER: No significant abnormality. BILIARY: Gallstones are seen without evidence of acute cholecystitis. No biliary ductal dilatation. PANCREAS: No significant abnormality. SPLEEN: No significant abnormality. ADRENALS: No significant abnormality. KIDNEYS AND URETERS: Age-appropriate mild bilateral renal atrophy is noted without an additional sign ificant abnormality. GI TRACT: No significant abnormality of the stomach. A moderate left inguinal hernia contains fat and nondilated small bowel loops without associated inflammation. The small bowel is otherwise unremarka ble. A large amount of stool is seen along the colon without an additional significant abnormality. T he appendix is unremarkable. PERITONEUM: No free fluid. No free air. No fluid collection. LYMPH NODES: No significant adenopathy. VASCULATURE: The aorta is normal in caliber with mild to moderate generalized atherosclerosis. URINARY BLADDER: No significant abnormality. REPRODUCTIVE ORGANS: There is a large left hydrocele. No additional significant abnormality. ADDITIONAL FINDINGS: None. SKELETAL SYSTEM: Degenerative changes are seen throughout the spine and pelvis with osteopenia/osteop orosis. A left hip arthroplasty appears unremarkable. No acute abnormality is seen. IMPRESSION: 1. Cholelithiasis without evidence of acute cholecystitis. 2. Moderate left inguinal hernia without an acute complication. 3. Large left hydrocele. 4. Additional findings as above. Signer Name: Moon Hallman MD Signed: 05/30/2019 1:02 AM Workstation Name: [id number]
[2019-05-30] MEDS ORDERED: ONDANSETRON 4 MG/2 ML INJ IV PRN (03:51)
[2019-05-30] MEDS ORDERED: MAGNESIUM HYDROXIDE (MOM) ORAL LIQD UDC PO PRN (03:51)
[2019-05-30] MEDS ORDERED: SODIUM BICARB 8.4% 50 MEQ/50 ML SYRINGE IV NR (08:12)
[2019-05-30] MEDS ORDERED: SODIUM POLYSTYRENE 15 GM/60 ML ORAL LIQD PO NR (08:12)
[2019-05-30] MEDS: SODIUM CHLORIDE 0.9% 1000 ML 1,000 ML IV SCH ×2 (08:15→15:54)
[2019-05-30] MEDS ORDERED: DEXTROSE 50% IN WATER (25GM) 50 ML SYRINGE IV SCH (09:16)
[2019-05-30] MEDS ORDERED: POLYETHYLENE GLYCOL 3350 17 GM POWDER PO PRN (10:00)
[2019-05-30 10:50] LABS: BUN/Creatinine Ratio 31; Blood Urea Nitrogen 40 mg/dL (9-20); Calcium 9.6 mg/dL (8.4-10.2); Hemolysis Index 11
[2019-05-30] MEDS: PANTOPRAZOLE 40 MG TAB PO SCH (11:54)
[2019-05-30] MEDS: ASPIRIN 81 MG TAB CHEW PO SCH (11:54)
[2019-05-30] MEDS: METOPROLOL TARTRATE 25 MG TAB PO SCH (11:55)
--- NOTE | 2019-05-30 11:55 | History and Physical Report ---
History of Present Illness Date of examination: 05/30/19 Date of admission: 05/30/19 03:12 Chief complaint: Nausea and Vomiting History of present illness: 78 year old male seen for intractable nausea and vomiting. He has h/o CVA, hypertension,, D/Mellitus and Dementia. He denies any fever, no chills.No diarrhea and no abdominal pain. Work up in the ER reveals hyperkalemia, dehydration and acute kidney injury. He had insulin and glucose,kayexalate and nebulizing treatment. Past History Past Medical History: diabetes, hypertension, stroke Past Surgical History: No surgical history Social history: no significant social history Family history: no significant family history Medications and Allergies Allergies Allergy/AdvReac Type Severity Reaction Status Date / Time No Known Allergies Allergy Verified 10/27/13 16:35 Home Medications Medication Instructions Recorded Confirmed Last Taken Type Aspirin [Aspirin BABY CHEW TAB] 1 tab PO DAILY 10/27/13 05/30/19 10/29/13 History Atorvastatin (Nf) [Lipitor] 1 tab PO DAILY 10/27/13 05/30/19 10/27/13 History Insulin Glargine,Hum.rec.anlog 8 units SC HS 10/27/13 05/30/19 10/29/13 History [Lantus] Metoprolol Tartrate 1 tab PO DAILY 10/27/13 05/30/19 10/29/13 History Pantoprazole [Protonix TAB] 1 tab PO DAILY 10/27/13 05/30/19 10/29/13 History Polyethylene Glycol 3350 [Miralax 17 gm PO BID PRN #10 powd.pack 01/24/19 05/30/19 Unknown Rx 3350] Active Meds: Active Medications Acetaminophen (Tylenol) 650 mg PO Q4H PRN PRN Reason: Pain MILD(1-3)/Fever >100.5/NIÑO Aspirin (Baby Aspirin) 81 mg PO DAILY ALPESH Atorvastatin Calcium (Atorvastatin) 10 mg PO QHS ALPESH Dextrose (D50w (25gm) Syringe) 50 ml IV Q30MIN PRN; Protocol PRN Reason: Hypoglycemia Dextrose (D50w (25gm) Syringe) 25 ml IV ONCE ALPESH; Protocol Stop: 05/30/19 23:59 Last Admin: 05/30/19 11:23 Dose: 25 ml Documented by: Sodium Chloride (Nacl 0.9% 1000 Ml) 1,000 mls @ 125 mls/hr IV DIRECT ALPESH Last Admin: 05/30/19 08:15 Dose: 125 mls/hr Documented by: Insulin Glargine (Lantus) 8 units SUB-Q HS ALPESH Magnesium Hydroxide (Milk Of Magnesia) 30 ml PO Q4H PRN PRN Reason: Constipation Metoprolol Tartrate (Metoprolol) 25 mg PO DAILY ALPESH Ondansetron HCl (Zofran) 4 mg IV Q8H PRN PRN Reason: Nausea And Vomiting Pantoprazole Sodium (Protonix) 40 mg PO DAILY ALPESH Pneumococcal Polyvalent Vaccine (Pneumovax 23) 0.5 ml IM .ONCE ONE Stop: 05/31/19 12:01 Polyethylene Glycol (Miralax 3350) 17 gm PO BID PRN PRN Reason: Constipation Sodium Bicarbonate (Sodium Bicarbonate 50meq Syringe) 50 meq IV ONCE NR Stop: 05/30/19 12:00 Last Admin: 05/30/19 08:52 Dose: 50 meq Documented by: Sodium Chloride (Sodium Chloride Flush Syringe 10 Ml) 10 ml IV BID ALPESH Sodium Chloride (Sodium Chloride Flush Syringe 10 Ml) 10 ml IV PRN PRN PRN Reason: LINE FLUSH Sodium Polystyrene Sulfonate (Kionex) 30 gm PO ONCE NR Stop: 05/30/19 12:00 Last Admin: 05/30/19 09:10 Dose: 30 gm Documented by: Review of Systems Gastrointestinal: nausea, vomiting Exam - Constitutional Vitals: Temp Pulse Resp BP Pulse Ox 98.2 F 71 20 112/44 99 05/30/19 07:30 05/30/19 07:30 05/30/19 07:30 05/30/19 07:30 05/30/19 07:30 General appearance: Present: no acute distress, mild distress - EENT Eyes: Present: PERRL, EOM intact ENT: hearing intact, clear oral mucosa, dentition normal - Neck Neck: Present: supple, normal ROM - Respiratory Respiratory effort: normal Respiratory: bilateral: CTA - Cardiovascular Rhythm: regular Heart Sounds: Present: S1 & S2 - Extremities Extremities: no ischemia, pulses intact Extremity abnormal: edema (trace bilateral ankle edema) Peripheral Pulses: within normal limits - Abdominal General gastrointestinal: Present: soft, non-tender - Integumentary Integumentary: Present: clear, warm, dry - Musculoskeletal Musculoskeletal: strength equal bilaterally - Psychiatric Psychiatric: appropriate mood/affect, intact judgment & insight - Neurologic Neurologic: CNII-XII intact, moves all extremities Results - Labs CBC & Chem 7: 05/29/19 23:04 05/30/19 10:08 Labs: Abnormal lab results 05/29/19 05/29/19 05/29/19 Range/Units 23:04 23:04 23:04 RBC 3.10 L (3.65-5.03) M/mm3 Hgb 9.8 L (11.8-15.2) gm/dl Hct 30.2 L (35.5-45.6) % MCV 98 H (84-94) fl RDW 16.1 H (13.2-15.2) % [place] % (Auto) 7.5 H (0.0-7.3) % Eos % (Auto) 5.6 H (0.0-4.3) % VBG pH 7.155 L* (7.320-7.420) Sodium (137-145) mmol/L Potassium 6.6 H* (3.6-5.0) mmol/L Chloride 107.9 H (98-107) mmol/L Carbon Dioxide (22-30) mmol/L BUN 41 H (9-20) mg/dL Creatinine 1.6 H (0.8-1.5) mg/dL Glucose 167 H (75-100) mg/dL POC Glucose (70-105) Total Creatine Kinase 49 L (55-170) units/L CK-MB (CK-2) 5.3 H (0.0-4.0) ng/mL CK-MB (CK-2) Rel Index 10.8 H (0-4) 05/30/19 05/30/19 05/30/19 Range/Units 00:57 04:46 10:08 RBC (3.65-5.03) M/mm3 Hgb (11.8-15.2) gm/dl Hct (35.5-45.6) % MCV (84-94) fl RDW (13.2-15.2) % [place] % (Auto) (0.0-7.3) % Eos % (Auto) (0.0-4.3) % VBG pH (7.320-7.420) Sodium 146 H D (137-145) mmol/L Potassium 6.0 H 5.5 H (3.6-5.0) mmol/L Chloride 109.9 H (98-107) mmol/L Carbon Dioxide 21 L (22-30) mmol/L BUN 40 H (9-20) mg/dL Creatinine (0.8-1.5) mg/dL Glucose 220 H (75-100) mg/dL POC Glucose 159 H (70-105) Total Creatine Kinase (55-170) units/L CK-MB (CK-2) (0.0-4.0) ng/mL CK-MB (CK-2) Rel Index (0-4) Assessment and Plan - Patient Problems (1) Nausea & vomiting Current Visit: Yes Status: Acute Plan to address problem: HE HAS BEEN PLACED ON IV ZOFRAN AND STARTED ON IV FLUID. (2) Hyperkalemia Current Visit: Yes Status: Acute Plan to address problem: Will monitor chemistry. He has had kayexalate, insulin and glucose . Nephrology consulted for follow up. (3) Renal insufficiency Current Visit: Yes Status: Acute (4) DVT prophylaxis Current Visit: No Status: Acute Plan to address problem: Placed on SQ heparin (5) Anemia Current Visit: No Status: Chronic Qualifiers: Anemia type: unspecified type Qualified Code(s): D64.9 - Anemia, unspecified Plan to address problem: Probably chronic. Will monitor CBC. (6) Full code status Current Visit: Yes Status: Acute
--- NOTE | 2019-05-30 13:15 | Consultation ---
History of Present Illness - Reason for Consult acute renal failure - History of Present Illness 78-year-old gentleman with medical history of hypertension, diabetes mellitus type 2, dementia chronic kidney disease, Hydrocele admitted with complaints of persistent nausea and vomiting unable to keep food intake down for 48 hours last significant for hyperkalemia potassium 6.6. Also finding of acute kidney injury patient has dementia unable to provide a history. no history of fevers chills. No shortness of breath and orthopnea. No associated cough Past History Past Medical History: diabetes, hypertension, stroke Past Surgical History: No surgical history Social history: no significant social history Family history: no significant family history Medications and Allergies Allergies Allergy/AdvReac Type Severity Reaction Status Date / Time No Known Allergies Allergy Verified 10/27/13 16:35 Home Medications Medication Instructions Recorded Confirmed Last Taken Type Aspirin [Aspirin BABY CHEW TAB] 1 tab PO DAILY 10/27/13 05/30/19 10/29/13 History Atorvastatin (Nf) [Lipitor] 1 tab PO DAILY 10/27/13 05/30/19 10/27/13 History Insulin Glargine,Hum.rec.anlog 8 units SC HS 10/27/13 05/30/19 10/29/13 History [Lantus] Metoprolol Tartrate 1 tab PO DAILY 10/27/13 05/30/19 10/29/13 History Pantoprazole [Protonix TAB] 1 tab PO DAILY 10/27/13 05/30/19 10/29/13 History Polyethylene Glycol 3350 [Miralax 17 gm PO BID PRN #10 powd.pack 01/24/19 05/30/19 Unknown Rx 3350] Active Meds: Active Medications Acetaminophen (Tylenol) 650 mg PO Q4H PRN PRN Reason: Pain MILD(1-3)/Fever >100.5/NIÑO Aspirin (Baby Aspirin) 81 mg PO DAILY [facility] Last Admin: 05/30/19 11:54 Dose: 81 mg Documented by: Atorvastatin Calcium (Atorvastatin) 10 mg PO QHS [facility] Dextrose (D50w (25gm) Syringe) 50 ml IV Q30MIN PRN; Protocol PRN Reason: Hypoglycemia Dextrose (D50w (25gm) Syringe) 25 ml IV ONCE ALPESH; Protocol Stop: 05/30/19 23:59 Last Admin: 05/30/19 11:23 Dose: 25 ml Documented by: Sodium Chloride (Nacl 0.9% 1000 Ml) 1,000 mls @ 125 mls/hr IV DIRECT [facility] Last Admin: 05/30/19 08:15 Dose: 125 mls/hr Documented by: Insulin Glargine (Lantus) 8 units SUB-Q HS [facility] Magnesium Hydroxide (Milk Of Magnesia) 30 ml PO Q4H PRN PRN Reason: Constipation Metoprolol Tartrate (Metoprolol) 25 mg PO DAILY [facility] Last Admin: 05/30/19 11:55 Dose: 25 mg Documented by: Ondansetron HCl (Zofran) 4 mg IV Q8H PRN PRN Reason: Nausea And Vomiting Pantoprazole Sodium (Protonix) 40 mg PO DAILY [facility] Last Admin: 05/30/19 11:54 Dose: 40 mg Documented by: Pneumococcal Polyvalent Vaccine (Pneumovax 23) 0.5 ml IM .ONCE ONE Stop: 05/31/19 12:01 Polyethylene Glycol (Miralax 3350) 17 gm PO BID PRN PRN Reason: Constipation Sodium Chloride (Sodium Chloride Flush Syringe 10 Ml) 10 ml IV BID [facility] Last Admin: 05/30/19 12:03 Dose: 10 ml Documented by: Sodium Chloride (Sodium Chloride Flush Syringe 10 Ml) 10 ml IV PRN PRN PRN Reason: LINE FLUSH Review of Systems Constitutional: no weight loss, no weight gain, no fever, no chills Ears, nose, mouth and throat: no ear pain, no ear discharge Cardiovascular: no chest pain, no orthopnea, no dyspnea on exertion, no parox ysmal nocturnal dyspnea Respiratory: no cough, no cough with sputum Gastrointestinal: abdominal pain, nausea, vomiting Genitourinary Male: no dysuria, no hematuria Rectal: no pain, no incontinence Musculoskeletal: no neck stiffness, no neck pain Integumentary: no deferred, no rash, no pruritis Neurological: no head injury, no transient paralysis Psychiatric: no anxiety, no memory loss Endocrine: no cold intolerance, no heat intolerance Exam - Vital Signs Vital signs: Vital Signs Pulse Resp BP Pulse Ox 71 16 120/60 96 05/29/19 22:57 05/29/19 22:57 05/29/19 22:57 05/29/19 22:57 - General Appearance General appearance: well-developed, well-nourished EENT: ATNC, PERRL Neck: Present: neck supple Respiratory: Clear to Ascultation Heart: regular, S1S2 Gastrointestinal: Present: normal, normoactive bowel sounds Integumentary: no rash, warm and dry Neurologic: confused, CN 3-12 intact Musculoskeletal: Absent: joint swelling Psychiatric: cooperative Results - Lab Results 05/29/19 23:04 05/30/19 10:08 Most recent lab results Calcium 9.6 mg/dL (8.4-10.2) 05/30/19 10:08 - Image Kidney/bladder ultrasound: other Assessment and Plan - Patient Problems (1) Acute kidney injury Current Visit: Yes Status: Acute Plan to address problem: Acute kidney injury Baseline creatinine about 1.2 mg/dl Continue intravenous fluids Etiology likely secondary to dehydration (2) Hyperkalemia Current Visit: Yes Status: Acute Plan to address problem: Hyperkalemia Improving Secondary to acute kidney injury Received calcium gluconate insulin and dextrose Give Kayexalate (3) Anemia Current Visit: No Status: Chronic Qualifiers: Anemia type: unspecified type Qualified Code(s): D64.9 - Anemia, unspecified Plan to address problem: Moderate anemia hemoglobin 9.8 g per DL (Monitor CBC (4) HTN (hypertension) Current Visit: No Status: Chronic Qualifiers: Hypertension type: essential hypertension Qualified Code(s): I10 - Essential (primary) hypertension Plan to address problem: Hypertension controlled continue current medications (5) Hydrocele in adult Current Visit: Yes Status: Acute Plan to address problem: Large hydrocele Urologic consultation inpatient if unable to pass urine but otherwise follow-up with urology outpatient
--- NOTE | 2019-05-30 16:25 | Event Note ---
Date: 05/30/19 Patient seen and examined admitted with ALESSIO and hyperkalemia k still >6 - ordered hyperkalemia protocol monitor BMP, nephrology following
--- NOTE | 2019-05-30 20:45 | XRay Report ---
CHEST 1 VIEW INDICATION / CLINICAL INFORMATION: CHF. COMPARISON: 01/20/2019 FINDINGS: SUPPORT DEVICES: None. HEART / MEDIASTINUM: No significant abnormality. LUNGS / PLEURA: Bilateral subsegmental atelectasis is slightly more pronounced. No pneumothorax. ADDITIONAL FINDINGS: No significant additional findings. IMPRESSION: 1. Increasing subsegmental atelectasis. Signer Name: Edward Brown MD Signed: 05/30/2019 8:40 PM Workstation Name: [id number]
[2019-05-30] MEDS: INSULIN GLARGINE 100 UNITS/ML SUB-Q SCH (21:33)
[2019-05-31] MEDS ORDERED: SODIUM CHLORIDE 0.9% 500 ML 500 ML IV ONE (00:05)
[2019-05-31] MEDS: SODIUM CHLORIDE 0.9% 1000 ML 1,000 ML IV SCH ×3 (02:23→21:28)
[2019-05-31 05:05] LABS: Basophils % (Auto) 0.2 % (0.0-1.8); Eosinophils # (Auto) 0.1 K/mm3 (0.0-0.4); Eosinophils % (Auto) 2.8 % (0.0-4.3); Hematocrit 28.6 % (35.5-45.6); Lymphocytes # (Auto) 0.8 K/mm3 (1.2-5.4); Lymphocytes % (Auto) 16.4 % (13.4-35.0); Mean Corpuscular HGB Conc 32 % (32-34); Mean Corpuscular Volume 99 fl (84-94); Monocytes # (Auto) 0.6 K/mm3 (0.0-0.8); Monocytes % (Auto) 11.1 % (0.0-7.3); Platelet Count 167 K/mm3 (140-440); Red Blood Count 2.89 M/mm3 (3.65-5.03); Red Cell Distribution Width 15.8 % (13.2-15.2)
[2019-05-31 05:13] LABS: INR 1.21 (0.87-1.13); Partial Thromboplastin Time 34.1 Sec. (24.2-36.6)
[2019-05-31 05:22] LABS: Calcium 8.8 mg/dL (8.4-10.2)
[2019-05-31] MEDS: DEXTROSE 50% IN WATER (25GM) 50 ML SYRINGE IV PRN (08:18)
[2019-05-31] MEDS ORDERED: SODIUM POLYSTYRENE 15 GM/60 ML ORAL LIQD PO NR (08:45)
[2019-05-31] MEDS ORDERED: INSULIN REGULAR, HUMAN 100 UNITS/1 ML IV NR (08:54)
[2019-05-31] MEDS ORDERED: DEXTROSE 50% IN WATER (25GM) 50 ML VIAL IV NR (08:54)
[2019-05-31] MEDS ORDERED: SODIUM BICARB 8.4% 50 MEQ/50 ML SYRINGE IV NR (08:54)
[2019-05-31] MEDS ORDERED: CALCIUM GLUCONATE 1,000 MG in SODIUM CHLORIDE 0.9% 100 ML IV ONE (09:30)
--- NOTE | 2019-05-31 10:00 | Progress Note ---
Assessment and Plan - Patient Problems (1) Acute kidney injury Current Visit: Yes Status: Acute Plan to address problem: Acute kidney injury Admission creatinine 1.6 mg/DL Baseline creatinine about 1.2 mg/dl Current creatinine 1.4 mg/DL Continue intravenous fluids Etiology likely secondary to dehydration and urinary retention overnight We'll obtain urology consultation Strict input and output (2) Hyperkalemia Current Visit: Yes Status: Acute Plan to address problem: Hyperkalemia Improving Secondary to acute kidney injury Received calcium gluconate insulin and dextrose Give Kayexalate We'll add Florinef (3) Anemia Current Visit: No Status: Chronic Qualifiers: Anemia type: unspecified type Qualified Code(s): D64.9 - Anemia, unspecified Plan to address problem: Moderate anemia hemoglobin 9.8 g per DL (Monitor CBC (4) HTN (hypertension) Current Visit: No Status: Chronic Qualifiers: Hypertension type: essential hypertension Qualified Code(s): I10 - Essential (primary) hypertension Plan to address problem: Hypertension controlled continue current medications (5) Hydrocele in adult Current Visit: Yes Status: Acute Plan to address problem: Large hydrocele and urinary retention Urologic consultation as patient's is unable to pass urine Add Flomax Subjective Interval history: 78-year-old gentleman with medical history of hypertension, diabetes mellitus type 2, dementia chronic kidney disease, Hydrocele admitted with complaints of persistent nausea and vomiting unable to keep food intake down for 48 hours last significant for hyperkalemia potassium 6.6. Also finding of acute kidney injury patient has dementia unable to provide a history. no history of fevers chills. No shortness of breath and orthopnea. No associated cough Patient with inability to void overnight also with urinary retention 600 mL of fluid removed, nursing staff Unable to Place Bill Fluids ongoing Objective - Vital Signs Vital signs: Vital Signs - 12hr 05/30/19 05/31/19 05/31/19 23:47 00:23 01:50 Temperature 98.2 F Pulse Rate 51 L 49 L 48 L Respiratory 18 18 18 Rate Blood Pressure 88/36 135/48 110/53 O2 Sat by Pulse 97 99 100 Oximetry 05/31/19 05/31/19 05/31/19 03:00 04:14 07:48 Temperature 98.5 F Pulse Rate 53 L 56 L 64 Respiratory 18 Rate Blood Pressure 138/72 96/52 O2 Sat by Pulse 100 93 Oximetry - General Appearance General appearance: well-developed, well-nourished EENT: ATNC, PERRL, mucous membranes moist Neck: no JVD Respiratory: Present: Clear to Ascultation, Decreased Breath Sounds Cardiology: regular, S1S2 Gastrointestinal: normal, normoactive bowel sounds Integumentary: no rash Neurologic: no focal deficit Musculoskeletal: deferred Psychiatric: mood/affect appropriate - Lab 05/31/19 04:15 05/31/19 04:15 Most recent lab results Calcium 8.8 mg/dL (8.4-10.2) 05/31/19 04:15 - Imaging Chest x-ray: image reviewed (review chest x-ray without edema) Medications & Allergies - Medications Allergies/Adverse Reactions: Allergies No Known Allergies Allergy (Verified 10/27/13 16:35) Home Medications: Home Medications Medication Instructions Recorded Confirmed Last Taken Type Aspirin [Aspirin BABY CHEW TAB] 1 tab PO DAILY 10/27/13 05/30/19 10/29/13 History Atorvastatin (Nf) [Lipitor] 1 tab PO DAILY 10/27/13 05/30/19 10/27/13 History Insulin Glargine,Hum.rec.anlog 8 units SC HS 10/27/13 05/30/19 10/29/13 History [Lantus] Metoprolol Tartrate 1 tab PO DAILY 10/27/13 05/30/19 10/29/13 History Pantoprazole [Protonix TAB] 1 tab PO DAILY 10/27/13 05/30/19 10/29/13 History Polyethylene Glycol 3350 [Miralax 17 gm PO BID PRN #10 powd.pack 01/24/19 05/30/19 Unknown Rx 3350] Active Medications: Generic Name Dose Route Start Last Admin Trade Name Freq PRN Reason Stop Dose Admin Acetaminophen 650 mg 05/30/19 03:51 Tylenol PO Q4H PRN Pain MILD(1-3)/Fever >100.5/NIÑO Aspirin 81 mg 05/30/19 10:00 05/30/19 11:54 Baby Aspirin PO 81 mg DAILY [facility] Administration Atorvastatin Calcium 10 mg 05/30/19 22:00 05/30/19 21:32 Atorvastatin PO Not Given QHS [facility] Dextrose 50 ml 05/30/19 03:51 05/31/19 08:18 D50w (25gm) Syringe IV 50 ml Q30MIN PRN Administration Hypoglycemia Protocol Dextrose 25 gm 05/31/19 08:54 D50w (25gm) Vial IV 05/31/19 10:30 ONCE NR Protocol Fludrocortisone Acetate 0.2 mg 05/31/19 10:00 Florinef PO QDAY [facility] Sodium Chloride 1,000 mls @ 125 mls/hr 05/30/19 04:00 05/31/19 02:23 Nacl 0.9% 1000 Ml IV 150 mls/hr DIRECT [facility] Administration Insulin Glargine 8 units 05/30/19 22:00 05/30/19 21:33 Lantus SUB-Q 8 units HS [facility] Administration Insulin Human Regular 5 units 05/31/19 08:54 Humulin R IV 05/31/19 10:00 ONCE NR Magnesium Hydroxide 30 ml 05/30/19 03:51 Milk Of Magnesia PO Q4H PRN Constipation Metoprolol Tartrate 25 mg 05/30/19 10:00 05/30/19 11:55 Metoprolol PO 25 mg DAILY [facility] Administration Ondansetron HCl 4 mg 05/30/19 03:51 Zofran IV Q8H PRN Nausea And Vomiting Pantoprazole Sodium 40 mg 05/30/19 10:00 05/30/19 11:54 Protonix PO 40 mg DAILY [facility] Administration Pneumococcal Polyvalent Vaccine 0.5 ml 05/31/19 12:00 Pneumovax 23 IM 05/31/19 12:01 .ONCE ONE Polyethylene Glycol 17 gm 05/30/19 10:00 Miralax 3350 PO BID PRN Constipation Sodium Bicarbonate 50 meq 05/31/19 08:54 Sodium Bicarbonate 50meq Syringe IV 05/31/19 10:00 ONCE NR Sodium Chloride 10 ml 05/30/19 10:00 05/30/19 21:33 Sodium Chloride Flush Syringe 10 Ml IV 10 ml BID [facility]PES[facility] Administration Sodium Chloride 10 ml 05/30/19 03:51 Sodium Chloride Flush Syringe 10 Ml IV PRN PRN LINE FLUSH Sodium Polystyrene Sulfonate 30 gm 05/31/19 08:45 Kionex PO 05/31/19 10:00 ONCE NR
[2019-05-31] MEDS: FLUDROCORTISONE 0.1 MG TAB PO SCH (10:18)
[2019-05-31] MEDS: ASPIRIN 81 MG TAB CHEW PO SCH (10:19)
[2019-05-31] MEDS: PANTOPRAZOLE 40 MG TAB PO SCH (10:19)
[2019-05-31] MEDS: METOPROLOL TARTRATE 25 MG TAB PO SCH (10:21)
[2019-05-31] MEDS ORDERED: PNEUMOCOCCAL 23 Valent 0.5 ML VIAL IM ONE (12:00)
--- NOTE | 2019-05-31 12:06 | Progress Note ---
Assessment and Plan huge sliding hernia cath placed earnest well rec gen sug eval Subjective Date of service: 05/31/19 Principal diagnosis: aur Objective - Constitutional Vitals: Vital Signs - 12hr 05/31/19 05/31/19 05/31/19 00:23 01:50 03:00 Temperature Pulse Rate 49 L 48 L 53 L Respiratory 18 18 Rate Blood Pressure 135/48 110/53 O2 Sat by Pulse 99 100 Oximetry 05/31/19 05/31/19 04:14 07:48 Temperature 98.5 F Pulse Rate 56 L 64 Respiratory 18 Rate Blood Pressure 138/72 96/52 O2 Sat by Pulse 100 93 Oximetry General appearance: Present: mild distress - Respiratory Respiratory effort: normal - Gastrointestinal General gastrointestinal: Present: soft - Genitourinary Male genitourinary: left inguinal hernia - Labs CBC & Chem 7: 05/31/19 04:15 05/31/19 04:15 Labs: Abnormal lab results 05/30/19 05/30/19 05/31/19 Range/Units 17:40 21:12 04:15 RBC 2.89 L (3.65-5.03) M/mm3 Hgb 9.0 L (11.8-15.2) gm/dl Hct 28.6 L (35.5-45.6) % MCV 99 H (84-94) fl RDW 15.8 H (13.2-15.2) % [place] % (Auto) 11.1 H (0.0-7.3) % Lymph # 0.8 L (1.2-5.4) K/mm3 PT (12.2-14.9) Sec. INR (0.87-1.13) Potassium (3.6-5.0) mmol/L Chloride (98-107) mmol/L BUN (9-20) mg/dL Glucose (75-100) mg/dL POC Glucose 198 H 180 H (70-105) 05/31/19 05/31/19 05/31/19 Range/Units 04:15 04:15 08:10 RBC (3.65-5.03) M/mm3 Hgb (11.8-15.2) gm/dl Hct (35.5-45.6) % MCV (84-94) fl RDW (13.2-15.2) % [place] % (Auto) (0.0-7.3) % Lymph # (1.2-5.4) K/mm3 PT 15.2 H (12.2-14.9) Sec. INR 1.21 H (0.87-1.13) Potassium 5.6 H (3.6-5.0) mmol/L Chloride 112.5 H (98-107) mmol/L BUN 41 H (9-20) mg/dL Glucose 47 L (75-100) mg/dL POC Glucose 51 L (70-105) 05/31/19 Range/Units 08:51 RBC (3.65-5.03) M/mm3 Hgb (11.8-15.2) gm/dl Hct (35.5-45.6) % MCV (84-94) fl RDW (13.2-15.2) % [place] % (Auto) (0.0-7.3) % Lymph # (1.2-5.4) K/mm3 PT (12.2-14.9) Sec. INR (0.87-1.13) Potassium (3.6-5.0) mmol/L Chloride (98-107) mmol/L BUN (9-20) mg/dL Glucose (75-100) mg/dL POC Glucose 159 H (70-105) Medications & Allergies - Medications Allergies/Adverse Reactions: Allergies No Known Allergies Allergy (Verified 10/27/13 16:35) Home Medications: Home Medications Medication Instructions Recorded Confirmed Last Taken Type Aspirin [Aspirin BABY CHEW TAB] 1 tab PO DAILY 10/27/13 05/30/19 10/29/13 History Atorvastatin (Nf) [Lipitor] 1 tab PO DAILY 10/27/13 05/30/19 10/27/13 History Insulin Glargine,Hum.rec.anlog 8 units SC HS 10/27/13 05/30/19 10/29/13 History [Lantus] Metoprolol Tartrate 1 tab PO DAILY 10/27/13 05/30/19 10/29/13 History Pantoprazole [Protonix TAB] 1 tab PO DAILY 10/27/13 05/30/19 10/29/13 History Polyethylene Glycol 3350 [Miralax 17 gm PO BID PRN #10 powd.pack 01/24/1905/30 Unknown Rx 3350] Active Medications: Generic Name Dose Route Start Last Admin Trade Name Freq PRN Reason Stop Dose Admin Acetaminophen 650 mg 05/30/19 03:51 Tylenol PO Q4H PRN Pain MILD(1-3)/Fever >100.5/NIÑO Aspirin 81 mg 05/30/19 10:00 05/31/19 10:19 Baby Aspirin PO 81 mg DAILY [facility] Administration Atorvastatin Calcium 10 mg 05/30/19 22:00 05/30/19 21:32 Atorvastatin PO Not Given QHS [facility] Dextrose 50 ml 05/30/19 03:51 05/31/19 08:18 D50w (25gm) Syringe IV 50 ml Q30MIN PRN Administration Hypoglycemia Protocol Fludrocortisone Acetate 0.2 mg 05/31/19 10:00 05/31/19 10:18 Florinef PO 0.2 mg QDAY [facility] Administration Sodium Chloride 1,000 mls @ 125 mls/hr 05/30/19 04:00 05/31/19 10:42 Nacl 0.9% 1000 Ml IV 150 mls/hr DIRECT [facility] Administration Insulin Glargine 8 units 05/30/19 22:00 05/30/19 21:33 Lantus SUB-Q 8 units HS [facility] Administration Magnesium Hydroxide 30 ml 05/30/19 03:51 Milk Of Magnesia PO Q4H PRN Constipation Metoprolol Tartrate 25 mg 05/30/19 10:00 05/31/19 10:21 Metoprolol PO Not Given DAILY [facility] Ondansetron HCl 4 mg 05/30/19 03:51 Zofran IV Q8H PRN Nausea And Vomiting Pantoprazole Sodium 40 mg 05/30/19 10:00 05/31/19 10:19 Protonix PO 40 mg DAILY [facility] Administration Polyethylene Glycol 17 gm 05/30/19 10:00 Miralax 3350 PO BID PRN Constipation Sodium Chloride 10 ml 05/30/19 10:00 05/31/19 10:20 Sodium Chloride Flush Syringe 10 Ml IV 10 ml BID [facility]PES[facility] Administration Sodium Chloride 10 ml 05/30/19 03:51 Sodium Chloride Flush Syringe 10 Ml IV PRN PRN LINE FLUSH
--- NOTE | 2019-05-31 16:08 | Progress Note ---
Assessment and Plan / Nausea & vomiting could be from uremia HE HAS BEEN PLACED ON IV ZOFRAN AND STARTED ON IV FLUID. / Hyperkalemia - from declining renal function Will monitor chemistry. He has had kayexalate, insulin and glucose - will reorder with sodium bicarbonate and calcium gluconate. Nephrology consulted for follow up. / ALESSIO - due to vasomotor nephropathy cont iv fluid, nephro consulted / left inguinal hernia consult GS - appears reducible now / Anemia of CD Probably chronic. Will monitor CBC. / Dementia likely vascular, cont supportive care Subjective Date of service: 05/31/19 Principal diagnosis: aur Interval history: Patient seen and examined K level still elevated, at bedside updated patient denies any chest pain, appears sleepy Objective - Constitutional Vitals: Vital Signs - 12hr 05/31/19 05/31/19 05/31/19 04:14 07:48 13:00 Temperature 98.5 F Pulse Rate 56 L 64 62 Respiratory 18 Rate Blood Pressure 138/72 96/52 O2 Sat by Pulse 100 93 Oximetry General appearance: Present: no acute distress, well-nourished - EENT Eyes: PERRL, EOM intact ENT: hearing intact, clear oral mucosa Ears: bilateral: normal - Neck Neck: supple, normal ROM - Respiratory Respiratory effort: normal Respiratory: bilateral: CTA - Cardiovascular Rhythm: regular Heart Sounds: Present: S1 & S2. Absent: gallop, rub Extremities: pulses intact, No edema, normal color, Full ROM - Gastrointestinal General gastrointestinal: Present: soft, non-distended, normal bowel sounds, other (obese) - Integumentary Integumentary: clear, warm, dry - Musculoskeletal Musculoskeletal: generalized weakness - Neurologic Neurologic: moves all extremities - Psychiatric Psychiatric: no appropriate mood/affect, no intact judgment & insight, no memory intact, cooperative - Labs CBC & Chem 7: 05/31/19 04:15 06/01/19 13:01 Labs: Abnormal lab results 05/30/19 05/30/19 05/31/19 Range/Units 17:40 21:12 04:15 RBC 2.89 L (3.65-5.03) M/mm3 Hgb 9.0 L (11.8-15.2) gm/dl Hct 28.6 L (35.5-45.6) % MCV 99 H (84-94) fl RDW 15.8 H (13.2-15.2) % [place] % (Auto) 11.1 H (0.0-7.3) % Lymph # 0.8 L (1.2-5.4) K/mm3 PT (12.2-14.9) Sec. INR (0.87-1.13) Potassium (3.6-5.0) mmol/L Chloride (98-107) mmol/L BUN (9-20) mg/dL Glucose (75-100) mg/dL POC Glucose 198 H 180 H (70-105) 05/31/19 05/31/19 05/31/19 Range/Units 04:15 04:15 08:10 RBC (3.65-5.03) M/mm3 Hgb (11.8-15.2) gm/dl Hct (35.5-45.6) % MCV (84-94) fl RDW (13.2-15.2) % [place] % (Auto) (0.0-7.3) % Lymph # (1.2-5.4) K/mm3 PT 15.2 H (12.2-14.9) Sec. INR 1.21 H (0.87-1.13) Potassium 5.6 H (3.6-5.0) mmol/L Chloride 112.5 H (98-107) mmol/L BUN 41 H (9-20) mg/dL Glucose 47 L (75-100) mg/dL POC Glucose 51 L (70-105) 05/31/19 Range/Units 08:51 RBC (3.65-5.03) M/mm3 Hgb (11.8-15.2) gm/dl Hct (35.5-45.6) % MCV (84-94) fl RDW (13.2-15.2) % [place] % (Auto) (0.0-7.3) % Lymph # (1.2-5.4) K/mm3 PT (12.2-14.9) Sec. INR (0.87-1.13) Potassium (3.6-5.0) mmol/L Chloride (98-107) mmol/L BUN (9-20) mg/dL Glucose (75-100) mg/dL POC Glucose 159 H (70-105)
[2019-05-31] MEDS: INSULIN GLARGINE 100 UNITS/ML SUB-Q SCH (22:59)
--- NOTE | 2019-06-01 00:15 | Consultation ---
ROOM #: [id number]. HISTORY OF PRESENT ILLNESS: The patient is a 78-year-old gentleman with nausea and vomiting, urinary retention, confusion, hyperkalemia, dehydration, presents for urological evaluation per the inability to place catheter. PAST MEDICAL HISTORY: Diabetes, hypertension, stroke. PAST SURGICAL HISTORY: No surgery. FAMILY HISTORY: Noncontributory. ALLERGIES: Negative. MEDICATIONS: Insulin, metoprolol, Protonix. REVIEW OF SYSTEMS: Not obtainable except through his . PHYSICAL EXAMINATION: GENERAL: He is awake. He is in some discomfort. ABDOMEN: Soft, minimally distended. No tenderness. GENITALIA: Very large sliding hernia. IMPRESSION: Retention. He had a CT scan of his abdomen and pelvis, which showed a large sliding hernia/hydrocele. Catheter was placed. Renal atrophy is noted. PLAN: Bill catheter to remain. JOB# [id number] GRACE/HOLDEN
[2019-06-01 05:06] LABS: Calcium 8.8 mg/dL (8.4-10.2)
[2019-06-01] MEDS: METOPROLOL TARTRATE 25 MG TAB PO SCH (09:03)
[2019-06-01] MEDS: ASPIRIN 81 MG TAB CHEW PO SCH (09:03)
[2019-06-01] MEDS: FLUDROCORTISONE 0.1 MG TAB PO SCH (09:03)
[2019-06-01] MEDS: PANTOPRAZOLE 40 MG TAB PO SCH (09:03)
[2019-06-01] MEDS ORDERED: SODIUM BICARB 8.4% 50 MEQ/50 ML SYRINGE IV NR (09:12)
[2019-06-01] MEDS ORDERED: DEXTROSE 50% IN WATER (25GM) 50 ML VIAL IV NR (09:12)
[2019-06-01] MEDS ORDERED: INSULIN REGULAR, HUMAN 100 UNITS/1 ML IV NR (09:30)
[2019-06-01] MEDS: DEXTROSE 50% IN WATER (25GM) 50 ML SYRINGE IV PRN (09:44)
[2019-06-01] MEDS ORDERED: CALCIUM GLUCONATE 2,000 MG in SODIUM CHLORIDE 0.9% 100 ML IV ONE (10:00)
[2019-06-01] MEDS ORDERED: SODIUM POLYSTYRENE 15 GM/60 ML ORAL LIQD PO NR (10:00)
[2019-06-01] MEDS: SODIUM CHLORIDE 0.9% 1000 ML 1,000 ML IV SCH (10:13)
[2019-06-01] MEDS ORDERED: SODIUM POLYSTYRENE 15 GM/60 ML ORAL LIQD PO SCH (12:31)
[2019-06-01 13:41] LABS: Calcium 9.3 mg/dL (8.4-10.2)
[2019-06-01] MEDS ORDERED: SODIUM CHLORIDE 0.45% 1000 ML 1,000 ML IV SCH (14:00)
[2019-06-01] MEDS ORDERED: FUROSEMIDE 20 MG/2 ML INJ IV ONE ×2 (14:00→15:30)
--- NOTE | 2019-06-01 14:41 | Consultation ---
History of Present Illness Consult date: 06/01/19 Chief complaint: hernia - History of present illness History of present illness: 79 yo m with hx of CVA presented to the hospital with intractable n/v for a few days per his . Patient is nonverbal and cannot provide any history. His n/v has resolved. He has been seen by speech therapy and has been tolerating a pureed diet and eating well. He is passing flatus and having BMs. He was found to have urinary retention and a macedo catheter was placed by urology. He has a long standing left inguinal hernia that has been present since 2005. It is not bothersome to him. His PCP Dr. Mohamud Collier was working him up to have the hernia repaired. Past History Past Medical History: diabetes, hypertension, stroke Past Surgical History: Other (Left hip surgery) Social history: no significant social history Family history: no significant family history Medications and Allergies Allergies Allergy/AdvReac Type Severity Reaction Status Date / Time No Known Allergies Allergy Verified 10/27/13 16:35 Home Medications Medication Instructions Recorded Confirmed Last Taken Type Aspirin [Aspirin BABY CHEW TAB] 1 tab PO DAILY 10/27/13 05/30/19 10/29/13 History Atorvastatin (Nf) [Lipitor] 1 tab PO DAILY 10/27/13 05/30/19 10/27/13 History Insulin Glargine,Hum.rec.anlog 8 units SC HS 10/27/13 05/30/19 10/29/13 History [Lantus] Metoprolol Tartrate 1 tab PO DAILY 10/27/13 05/30/19 10/29/13 History Pantoprazole [Protonix TAB] 1 tab PO DAILY 10/27/13 05/30/19 10/29/13 History Polyethylene Glycol 3350 [Miralax 17 gm PO BID PRN #10 powd.pack 01/24/19 05/30/19 Unknown Rx 3350] Active Meds: Active Medications Acetaminophen (Tylenol) 650 mg PO Q4H PRN PRN Reason: Pain MILD(1-3)/Fever >100.5/NIÑO Aspirin (Baby Aspirin) 81 mg PO DAILY [facility] Last Admin: 06/01/19 09:03 Dose: 81 mg Documented by: Atorvastatin Calcium (Atorvastatin) 10 mg PO QHS [facility] Last Admin: 05/31/19 22:59 Dose: 10 mg Documented by: Dextrose (D50w (25gm) Syringe) 50 ml IV Q30MIN PRN; Protocol PRN Reason: Hypoglycemia Last Admin: 06/01/19 09:44 Dose: 50 ml Documented by: Fludrocortisone Acetate (Florinef) 0.2 mg PO QDAY [facility] Last Admin: 06/01/19 09:03 Dose: 0.2 mg Documented by: Insulin Glargine (Lantus) 8 units SUB-Q HS [facility] Last Admin: 05/31/19 22:59 Dose: 8 units Documented by: Magnesium Hydroxide (Milk Of Magnesia) 30 ml PO Q4H PRN PRN Reason: Constipation Metoprolol Tartrate (Metoprolol) 25 mg PO DAILY [facility] Last Admin: 06/01/19 09:03 Dose: 25 mg Documented by: Ondansetron HCl (Zofran) 4 mg IV Q8H PRN PRN Reason: Nausea And Vomiting Pantoprazole Sodium (Protonix) 40 mg PO DAILY [facility] Last Admin: 06/01/19 09:03 Dose: 40 mg Documented by: Polyethylene Glycol (Miralax 3350) 17 gm PO BID PRN PRN Reason: Constipation Sodium Chloride (Sodium Chloride Flush Syringe 10 Ml) 10 ml IV BID [facility] Last Admin: 06/01/19 09:04 Dose: 10 ml Documented by: Sodium Chloride (Sodium Chloride Flush Syringe 10 Ml) 10 ml IV PRN PRN PRN Reason: LINE FLUSH Sodium Polystyrene Sulfonate (Kionex) 60 gm PO ONCE [facility] Stop: 06/01/19 19:00 Last Admin: 06/01/19 13:38 Dose: 30 gm Documented by: Review of Systems All systems: negative (limited ROS performed due to patient's mental status) Exam Vital Signs Pulse Resp BP Pulse Ox 71 16 120/60 96 05/29/19 22:57 05/29/19 22:57 05/29/19 22:57 05/29/19 22:57 Narrative exam: Gen: Arousable. Nonverbal. NAD CV: s1, S2+ Resp: even and unlabored Abd: soft, NT, ND. L inguinal hernia, easily reducible without skin changes or TTP. : Large L hydrocele Ext: generalized edema Results - Labs 05/31/19 04:15 06/01/19 13:01 Abnormal lab results 05/31/19 05/31/1919 Range/Units 16:58 21:09 04:16 Sodium 146 H (137-145) mmol/L Potassium 5.9 H (3.6-5.0) mmol/L Chloride 115.9 H (98-107) mmol/L BUN 42 H (9-20) mg/dL Glucose 73 L (75-100) mg/dL POC Glucose 123 H 186 H (70-105) NT-Pro-B Natriuret Pep (0-900) pg/mL 06/01/19 06/01/19 06/01/19 Range/Units 08:22 12:53 13:01 Sodium 148 H (137-145) mmol/L Potassium (3.6-5.0) mmol/L Chloride 114.4 H (98-107) mmol/L BUN 42 H (9-20) mg/dL Glucose 125 H (75-100) mg/dL POC Glucose 54 L 112 H (70-105) NT-Pro-B Natriuret Pep 1400 H (0-900) pg/mL Diabetes panel 06/01/19 06/01/19 Range/Units 04:16 13:01 Sodium 146 H 148 H (137-145) mmol/L Potassium 5.9 H 4.8 (3.6-5.0) mmol/L Chloride 115.9 H 114.4 H (98-107) mmol/L Carbon Dioxide 24 23 (22-30) mmol/L BUN 42 H 42 H (9-20) mg/dL Creatinine 1.5 1.4 (0.8-1.5) mg/dL Glucose 73 L 125 H (75-100) mg/dL Calcium 8.8 9.3 (8.4-10.2) mg/dL Calcium panel 06/01/19 06/01/19 Range/Units 04:16 13:01 Calcium 8.8 9.3 (8.4-10.2) mg/dL Pituitary panel 06/01/19 06/01/19 Range/Units 04:16 13:01 Sodium 146 H 148 H (137-145) mmol/L Potassium 5.9 H 4.8 (3.6-5.0) mmol/L Chloride 115.9 H 114.4 H (98-107) mmol/L Carbon Dioxide 24 23 (22-30) mmol/L BUN 42 H 42 H (9-20) mg/dL Creatinine 1.5 1.4 (0.8-1.5) mg/dL Glucose 73 L 125 H (75-100) mg/dL Calcium 8.8 9.3 (8.4-10.2) mg/dL Adrenal panel 06/01/19 06/01/19 Range/Units 04:16 13:01 Sodium 146 H 148 H (137-145) mmol/L Potassium 5.9 H 4.8 (3.6-5.0) mmol/L Chloride 115.9 H 114.4 H (98-107) mmol/L Carbon Dioxide 24 23 (22-30) mmol/L BUN 42 H 42 H (9-20) mg/dL Creatinine 1.5 1.4 (0.8-1.5) mg/dL Glucose 73 L 125 H (75-100) mg/dL Calcium 8.8 9.3 (8.4-10.2) mg/dL - Imaging CT scan - abdomen: report reviewed, image reviewed CT scan - pelvis: report reviewed, image reviewed Assessment and Plan 79 yo M with reducible L inguinal hernia and hydrocele Plan: 1. Hernia is reducible, without signs of obstruction and does not require urgent intervention. May follow up in surgery clinic as outpatient for elective hernia repair. is agreeable 2. Will defer hydrocele management to . If patient does have hernia repair, will need hydrocelectomy at the time of surgery 3. Pureed diet as tolerated D/W Dr. Lux Plan discussed with patient's Thank you, please call with questions.
--- NOTE | 2019-06-01 14:55 | Progress Note ---
Assessment and Plan - Patient Problems (1) Acute kidney injury Current Visit: Yes Status: Acute Plan to address problem: Acute kidney injury Admission creatinine 1.6 mg/DL Baseline creatinine about 1.2 mg/dl Current creatinine 1.4 mg/DL Continue intravenous fluids Etiology likely secondary to dehydration and urinary retention overnight Appreciate urology consultation Strict input and output (2) Hyperkalemia Current Visit: Yes Status: Acute Plan to address problem: Hyperkalemia Persistent Unclear if specimen is also hemolyzed. hyperkalemia is likely Secondary to acute kidney injury Received calcium gluconate insulin and dextrose Give Kayexalate continue Florinef Will give one dose of Lasix. (3) Anemia Current Visit: No Status: Chronic Qualifiers: Anemia type: unspecified type Qualified Code(s): D64.9 - Anemia, unsp ecified Plan to address problem: Moderate anemia hemoglobin 9.8 g per DL (Monitor CBC (4) HTN (hypertension) Current Visit: No Status: Chronic Qualifiers: Hypertension type: essential hypertension Qualified Code(s): I10 - Essential (primary) hypertension Plan to address problem: Hypertension controlled continue current medications (5) Hydrocele in adult Current Visit: Yes Status: Acute Plan to address problem: Large hydrocele ./ Large ignuinal hernia and urinary retention appreciate Urologic consultation Surgery has seen patient for Hernia as well. Will add Flomax. (6) Hypernatremia Current Visit: Yes Status: Acute Plan to address problem: Hypernatremia change saline to half normal saline repeat RFP. Subjective Principal diagnosis: aur Interval history: 78-year-old gentleman with medical history of hypertension, diabetes mellitus type 2, dementia chronic kidney disease, Hydrocele admitted with complaints of persistent nausea and vomiting unable to keep food intake down for 48 hours last significant for hyperkalemia potassium 6.6. Also finding of acute kidney injury patient has dementia unable to provide a history. no history of fevers chills. No shortness of breath and orthopnea. No associated cough Patient seen today Potassium levels remain high Has received hyperkalemia regimen Bill cath line placed with dark urine Objective - Vital Signs Vital signs: Vital Signs - 12hr 06/01/19 06/01/19 06/01/19 03:29 03:34 08:12 Temperature 97.2 F L Pulse Rate 85 85 86 Respiratory 19 Rate Blood Pressure 128/54 140/56 O2 Sat by Pulse 100 98 Oximetry 12/12/19 12/12/19 09:03 10:00 Temperature Pulse Rate 86 Respiratory 18 Rate Blood Pressure 140/56 O2 Sat by Pulse 97 Oximetry - General Appearance General appearance: well-developed, well-nourished EENT: ATNC, PERRL Neck: no JVD Respiratory: Present: Clear to Ascultation Cardiology: regular, S1S2 Gastrointestinal: normal, normoactive bowel sounds Integumentary: no rash Neurologic: alert and oriented x3, CN 3-12 intact Psychiatric: mood/affect appropriate - Lab 05/31/19 04:15 06/01/19 13:01 Most recent lab results Calcium 9.3 mg/dL (8.4-10.2) 06/01/19 13:01 - Imaging Chest x-ray: image reviewed (chest x-ray. Reviewed atelectasis without significant edema) Medications & Allergies - Medications Allergies/Adverse Reactions: Allergies No Known Allergies Allergy (Verified 10/27/13 16:35) Home Medications: Home Medications Medication Instructions Recorded Confirmed Last Taken Type Aspirin [Aspirin BABY CHEW TAB] 1 tab PO DAILY 10/27/13 05/30/19 10/29/13 History Atorvastatin (Nf) [Lipitor] 1 tab PO DAILY 10/27/13 05/30/19 10/27/13 History Insulin Glargine,Hum.rec.anlog 8 units SC HS 10/27/13 05/30/19 10/29/13 History [Lantus] Metoprolol Tartrate 1 tab PO DAILY 10/27/13 05/30/19 10/29/13 History Pantoprazole [Protonix TAB] 1 tab PO DAILY 10/27/13 05/30/19 10/29/13 History Polyethylene Glycol 3350 [Miralax 17 gm PO BID PRN #10 powd.pack 01/24/19 05/30/19 Unknown Rx 3350] Active Medications: Generic Name Dose Route Start Last Admin Trade Name Freq PRN Reason Stop Dose Admin Acetaminophen 650 mg 05/30/19 03:51 Tylenol PO Q4H PRN Pain MILD(1-3)/Fever >100.5/NIÑO Aspirin 81 mg 05/30/19 10:00 06/01/19 09:03 Baby Aspirin PO 81 mg DAILY [facility] Administration Atorvastatin Calcium 10 mg 05/30/19 22:00 05/31/19 22:59 Atorvastatin PO 10 mg QHS [facility] Administration Dextrose 50 ml 05/30/19 03:51 06/01/19 09:44 D50w (25gm) Syringe IV 50 ml Q30MIN PRN Administration Hypoglycemia Protocol Fludrocortisone Acetate 0.2 mg 05/31/19 10:00 06/01/19 09:03 Florinef PO 0.2 mg QDAY [facility] Administration Furosemide 20 mg 06/01/19 14:49 Lasix IV 06/01/19 14:50 ONCE ONE Insulin Glargine 8 units 05/30/19 22:00 05/31/19 22:59 Lantus SUB-Q 8 units HS [facility] Administration Magnesium Hydroxide 30 ml 05/30/19 03:51 Milk Of Magnesia PO Q4H PRN Constipation Metoprolol Tartrate 25 mg 05/30/19 10:00 06/01/19 09:03 Metoprolol PO 25 mg DAILY [facility] Administration Ondansetron HCl 4 mg 05/30/19 03:51 Zofran IV Q8H PRN Nausea And Vomiting Pantoprazole Sodium 40 mg 05/30/19 10:00 06/01/19 09:03 Protonix PO 40 mg DAILY [facility] Administration Polyethylene Glycol 17 gm 05/30/19 10:00 Miralax 3350 PO BID PRN Constipation Sodium Chloride 10 ml 05/30/19 10:00 06/01/19 09:04 Sodium Chloride Flush Syringe 10 Ml IV 10 ml BID [facility] Administration Sodium Chloride 10 ml 05/30/19 03:51 Sodium Chloride Flush Syringe 10 Ml IV PRN PRN LINE FLUSH Sodium Polystyrene Sulfonate 60 gm 06/01/19 12:31 06/01/19 13:38 Kionex PO 06/01/19 19:00 30 gm ONCE [facility] Administration
--- NOTE | 2019-06-01 15:02 | XRay Report ---
CHEST 1 VIEW INDICATION: Acute kidney injury. COMPARISON: 05/30/2019 FINDINGS: Limited exam with the patient's chin overlying the superior mediastinum and lung apices. Heart size i s grossly normal. Bilateral perihilar densities are unchanged since the previous exam and probably re present mild congestive changes. Segmental atelectasis is suspected in the right middle lobe. No conv incing infiltrate, pleural effusion or pneumothorax. IMPRESSION: Limited exam. Mild congestive changes and segmental atelectasis in the right middle lobe are suspect ed. Signer Name: Evaristo Esteban Jr, MD Signed: 06/01/2019 2:58 PM Workstation Name: [id number]
--- NOTE | 2019-06-01 17:14 | Progress Note ---
Assessment and Plan / Nausea & vomiting could be from uremia HE HAS BEEN PLACED ON IV ZOFRAN AND STARTED ON IV FLUID. / Hyperkalemia - from declining renal function, k 5.9 today Will monitor chemistry. He has had kayexalate, insulin and glucose - will reord er with sodium bicarbonate and calcium gluconate. Nephrology consulted for follow up. / ALESSIO - due to vasomotor nephropathy - improving cont iv fluid, nephro consulted / left inguinal hernia with hydrocele consult GS - appears reducible now /hypernatremia, cont iv fluid / Anemia of CD Probably chronic. Will monitor CBC. / Dementia likely vascular, cont supportive care /Dvt Px, heparin Subjective Date of service: 06/01/19 Principal diagnosis: aur Interval history: Patient seen and examined K level still elevated, at bedside updated patient denies any chest pain, tolerating diet Objective - Exam Narrative Exam: General appearance: Present: no acute distress, well-nourished - EENT Eyes: PERRL, EOM intact ENT: hearing intact, clear oral mucosa Ears: bilateral: normal - Neck Neck: supple, normal ROM - Respiratory Respiratory effort: normal Respiratory: bilateral: CTA - Cardiovascular Rhythm: regular Heart Sounds: Present: S1 & S2. Absent: gallop, rub Extremities: pulses intact, No edema, normal color, Full ROM - Gastrointestinal General gastrointestinal: Present: soft, non-distended, normal bowel sounds, other (obese) - Integumentary Integumentary: clear, warm, dry - Musculoskeletal Musculoskeletal: generalized weakness - Neurologic Neurologic: moves all extremities - Psychiatric Psychiatric: no appropriate mood/affect, no intact judgment & insight, no memory intact, cooperative - Constitutional Vitals: Vital Signs - 12hr 06/01/19 06/01/19 06/01/19 08:12 09:03 10:00 Pulse Rate 86 86 Respiratory 18 Rate Blood Pressure 140/56 140/56 O2 Sat by Pulse 98 97 Oximetry 06/01/19 14:58 Pulse Rate Respiratory 18 Rate Blood Pressure 142/73 O2 Sat by Pulse Oximetry - Labs CBC & Chem 7: 05/31/19 04:15 06/02/19 07:29 Labs: Abnormal lab results 05/31/19 06/01/19 06/01/19 Range/Units 21:09 04:16 08:22 Sodium 146 H (137-145) mmol/L Potassium 5.9 H (3.6-5.0) mmol/L Chloride 115.9 H (98-107) mmol/L BUN 42 H (9-20) mg/dL Glucose 73 L (75-100) mg/dL POC Glucose 186 H 54 L (70-105) NT-Pro-B Natriuret Pep (0-900) pg/mL 06/01/19 06/01/19 06/01/19 Range/Units 12:53 13:01 16:06 Sodium 148 H (137-145) mmol/L Potassium (3.6-5.0) mmol/L Chloride 114.4 H (98-107) mmol/L BUN 42 H (9-20) mg/dL Glucose 125 H (75-100) mg/dL POC Glucose 112 H 140 H (70-105) NT-Pro-B Natriuret Pep 1400 H (0-900) pg/mL
[2019-06-01] MEDS: TAMSULOSIN 0.4 MG CAP PO SCH (21:48)
[2019-06-01] MEDS: INSULIN GLARGINE 100 UNITS/ML SUB-Q SCH (21:49)
[2019-06-02 05:03] LABS: Calcium 8.9 mg/dL (8.4-10.2)
[2019-06-02] MEDS: DEXTROSE 50% IN WATER (25GM) 50 ML SYRINGE IV PRN (07:21)
--- NOTE | 2019-06-02 10:52 | Fluoroscopy Report ---
MODIFIED BARIUM SWALLOW INDICATION: evaluate swallow function/dysphagia TECHNIQUE: Swallowing was evaluated in the lateral position under direct fluoroscopy. FINDINGS: The patient was evaluated with thin liquids, puree and semisolid consistencies. Premature spillage into the vallecula and piriform sinuses was noted with all 3 consistencies. No moody dence for aspiration or penetration. IMPRESSION: Premature spillage was witnessed. No aspiration or penetration. Please correlate with th e formal report from speech therapy. Fluoroscopic time: 0.9 minutes Number of fluoroscopic images: 1 Signer Name: Evaristo Esteban Jr, MD Signed: 06/02/2019 10:48 AM Workstation Name: [id number]
[2019-06-02] MEDS: ASPIRIN 81 MG TAB CHEW PO SCH (11:05)
[2019-06-02] MEDS: PANTOPRAZOLE 40 MG TAB PO SCH (11:05)
[2019-06-02] MEDS: FLUDROCORTISONE 0.1 MG TAB PO SCH (11:06)
[2019-06-02] MEDS: METOPROLOL TARTRATE 25 MG TAB PO SCH (11:07)
--- NOTE | 2019-06-02 13:06 | Progress Note ---
Subjective Principal diagnosis: aur Interval history: Patient was seen today for follow-up on multiple renal related issues Events of this hospitalization were noted Interdisciplinary notes were also reviewed Vitals intake output medications were reviewed Past medical history: Reviewed Family, social history: Reviewed Allergies: Reviewed Physical examination General: No acute distress Vitals: Reviewed HEENT: Oral mucosa moist no icterus Neck: Supple no thyromegaly nodular mass or JVD Chest: Clear to auscultation anteriorly Heart: Regular rate and rhythm S1-S2 heard no S3-S4 Abdomen: Soft nontender no suprapubic masses no organomegaly Extremity: Dry skin less than 1+ edema Psych: No evidence of any agitation and aggression noted Derm: No petechial rash Assessment and plan: Acute kidney injury baseline creatinine is around 1.2 admitted with a creatinine of 1.6 Most likely resulting from dehydration as well as urinary retention, Current creatinine is around 1.5 which was 1.6 on 05/29/2019 Patient needs to follow up with urology monitor intake and output avoid nephrotoxic medication Hyperkalemia being monitored, potassium was 6.6 on May 29 which is currently around 3.9 and has improved We'll check a possibility as well as uric acid Anemia: Multifactorial Hypertension: To monitor and follow From renal standpoint patient's labs patient's hemoglobin was 9.0 on May 31 Hypernatremia: current sodium is 153 which was 145 on 05/31/2019 We'll continue to follow and make recommendation from renal standpoint Objective - Vital Signs Vital signs: Vital Signs - 12hr 06/02/19 06/02/19 06/02/19 04:37 05:25 08:26 Temperature 98.0 F 98.2 F Pulse Rate 85 88 Respiratory 18 18 Rate Blood Pressure 106/50 131/60 O2 Sat by Pulse 97 Oximetry 06/02/19 06/02/19 08:30 11:07 Temperature Pulse Rate 75 Respiratory 18 Rate Blood Pressure 131/60 O2 Sat by Pulse Oximetry - Lab 05/31/19 04:15 06/03/19 10:05 Most recent lab results Calcium 8.9 mg/dL (8.4-10.2) 06/02/19 04:17 Medications & Allergies - Medications Allergies/Adverse Reactions: Allergies No Known Allergies Allergy (Verified 10/27/13 16:35) Home Medications: Home Medications Medication Instructions Recorded Confirmed Last Taken Type Aspirin [Aspirin BABY CHEW TAB] 1 tab PO DAILY 10/27/13 05/30/19 10/29/13 History Atorvastatin (Nf) [Lipitor] 1 tab PO DAILY 10/27/13 05/30/19 10/27/13 History Insulin Glargine,Hum.rec.anlog 8 units SC HS 10/27/13 05/30/19 10/29/13 History [Lantus] Metoprolol Tartrate 1 tab PO DAILY 10/27/13 05/30/19 10/29/13 History Pantoprazole [Protonix TAB] 1 tab PO DAILY 10/27/13 05/30/19 10/29/13 History Polyethylene Glycol 3350 [Miralax 17 gm PO BID PRN #10 powd.pack 01/24/19 05/30/19 Unknown Rx 3350] Active Medications: Generic Name Dose Route Start Last Admin Trade Name Freq PRN Reason Stop Dose Admin Acetaminophen 650 mg 05/30/19 03:51 Tylenol PO Q4H PRN Pain MILD(1-3)/Fever >100.5/NIÑO Aspirin 81 mg 05/30/19 10:00 06/02/19 11:05 Baby Aspirin PO 81 mg DAILY [facility] Administration Atorvastatin Calcium 10 mg 05/30/19 22:00 06/01/19 21:48 Atorvastatin PO 10 mg QHS [facility] Administration Dextrose 50 ml 05/30/19 03:51 06/02/19 07:21 D50w (25gm) Syringe IV 50 ml Q30MIN PRN Administration Hypoglycemia Protocol Fludrocortisone Acetate 0.2 mg 05/31/19 10:00 06/02/19 11:06 Florinef PO 0.2 mg QDAY [facility] Administration Sodium Chloride 1,000 mls @ 50 mls/hr 06/02/19 10:00 Nacl 0.45% 1000 Ml IV DIRECT [facility] Insulin Glargine 8 units 05/30/19 22:00 06/01/19 21:49 Lantus SUB-Q Not Given HS [facility] Magnesium Hydroxide 30 ml 05/30/19 03:51 Milk Of Magnesia PO Q4H PRN Constipation Metoprolol Tartrate 25 mg 05/30/19 10:00 06/02/19 11:07 Metoprolol PO 25 mg DAILY [facility] Administration Ondansetron HCl 4 mg 05/30/19 03:51 Zofran IV Q8H PRN Nausea And Vomiting Pantoprazole Sodium 40 mg 05/30/19 10:00 06/02/19 11:05 Protonix PO 40 mg DAILY [facility] Administration Polyethylene Glycol 17 gm 05/30/19 10:00 Miralax 3350 PO BID PRN Constipation Sodium Chloride 10 ml 05/30/19 10:00 06/02/19 11:08 Sodium Chloride Flush Syringe 10 Ml IV 10 ml BID [facility] Administration Sodium Chloride 10 ml 05/30/19 03:51 Sodium Chloride Flush Syringe 10 Ml IV PRN PRN LINE FLUSH Tamsulosin HCl 0.4 mg 06/01/19 22:00 06/01/19 21:48 Flomax PO 0.4 mg QHS [facility] Administration
--- NOTE | 2019-06-02 16:07 | Progress Note ---
Assessment and Plan /hypernatremia, cont iv fluid with hypotonic saline / Hyperkalemia - from declining renal function, K level improved Will monitor chemistry. He has had kayexalate, insulin and glucose along with sodium bicarbonate and calcium gluconate. Nephrology consulted for follow up. / ALESSIO - due to vasomotor nephropathy - improving cont iv fluid, nephro consulted / Nausea & vomiting - resolved could be from uremia HE HAS BEEN PLACED ON IV ZOFRAN AND STARTED ON IV FLUID. / left inguinal hernia with hydrocele consult GS - appears reducible now / Anemia of CD Probably chronic. Will monitor CBC. / Dementia likely vascular, cont supportive care /Dvt Px, heparin Subjective Date of service: 06/02/19 Principal diagnosis: aur Interval history: Patient seen and examined K level normal but Na elevated, at bedside updated patient denies any chest pain, tolerating diet Objective - Exam Narrative Exam: General appearance: Present: no acute distress, well-nourished - EENT Eyes: PERRL, EOM intact ENT: hearing intact, clear oral mucosa Ears: bilateral: normal - Neck Neck: supple, normal ROM - Respiratory Respiratory effort: normal Respiratory: bilateral: CTA - Cardiovascular Rhythm: regular Heart Sounds: Present: S1 & S2. Absent: gallop, rub Extremities: pulses intact, No edema, normal color, Full ROM - Gastrointestinal General gastrointestinal: Present: soft, non-distended, normal bowel sounds, other (obese) - Integumentary Integumentary: clear, warm, dry - Musculoskeletal Musculoskeletal: generalized weakness - Neurologic Neurologic: moves all extremities - Psychiatric Psychiatric: no appropriate mood/affect, no intact judgment & insight, no memory intact, cooperative - Constitutional Vitals: Vital Signs - 12hr 06/02/19 06/02/19 06/02/19 04:37 05:25 08:26 Temperature 98.0 F 98.2 F Pulse Rate 85 88 Respiratory 18 18 Rate Blood Pressure 106/50 131/60 O2 Sat by Pulse 97 Oximetry 06/02/19 06/02/19 08:30 11:07 Temperature Pulse Rate 75 Respiratory 18 Rate Blood Pressure 131/60 O2 Sat by Pulse Oximetry - Labs CBC & Chem 7: 05/31/19 04:15 06/03/19 10:05 Labs: Abnormal lab results 06/01/19 06/02/19 06/02/19 Range/Units 21:03 04:17 07:16 Sodium 153 H (137-145) mmol/L Chloride 116.1 H (98-107) mmol/L Carbon Dioxide 31 H D (22-30) mmol/L BUN 40 H (9-20) mg/dL Glucose 58 L (75-100) mg/dL POC Glucose 158 H < 40 L (70-105) 06/02/19 06/02/19 Range/Units 07:29 07:47 Sodium (137-145) mmol/L Chloride (98-107) mmol/L Carbon Dioxide (22-30) mmol/L BUN (9-20) mg/dL Glucose 145 H (75-100) mg/dL POC Glucose 132 H (70-105)
[2019-06-02] MEDS: INSULIN GLARGINE 100 UNITS/ML SUB-Q SCH (22:00)
[2019-06-02] MEDS: TAMSULOSIN 0.4 MG CAP PO SCH (22:13)
[2019-06-03] MEDS: METOPROLOL TARTRATE 25 MG TAB PO SCH (09:34)
[2019-06-03] MEDS: ASPIRIN 81 MG TAB CHEW PO SCH (09:34)
[2019-06-03] MEDS: PANTOPRAZOLE 40 MG TAB PO SCH (09:34)
[2019-06-03 10:59] LABS: BUN/Creatinine Ratio 33; Blood Urea Nitrogen 39 mg/dL (9-20); Calcium 9.2 mg/dL (8.4-10.2); Hemolysis Index 13
--- NOTE | 2019-06-03 12:14 | Progress Note ---
Assessment and Plan /hypernatremia, Na 157 today cont iv fluid with hypotonic saline / Hyperkalemia - from declining renal function, K level improved Will monitor chemistry. He has had kayexalate, insulin and glucose along with sodium bicarbonate and calcium gluconate. Nephrology consulted for follow up. / ALESSIO - due to vasomotor nephropathy - improving cont iv fluid, nephro consulted / Nausea & vomiting - resolved could be from uremia HE HAS BEEN PLACED ON IV ZOFRAN AND STARTED ON IV FLUID. / left inguinal hernia with hydrocele consult GS - appears reducible now, no need for surgery / Anemia of CD Probably chronic. Will monitor CBC. / Dementia likely vascular, cont supportive care /Dvt Px, heparin Prognosis: Guarded, will cont monitor the pt, need inpt stay for hypernatremia Subjective Date of service: 06/03/19 Principal diagnosis: aur Interval history: Patient seen and examined K level normal but Na remained elevated, at bedside updated patient denies any chest pain, tolerating pureed diet Objective - Exam Narrative Exam: General appearance: Present: no acute distress, well-nourished - EENT Eyes: PERRL, EOM intact ENT: hearing intact, clear oral mucosa Ears: bilateral: normal - Neck Neck: supple, normal ROM - Respiratory Respiratory effort: normal Respiratory: bilateral: CTA - Cardiovascular Rhythm: regular Heart Sounds: Present: S1 & S2. Absent: gallop, rub Extremities: pulses intact, No edema, normal color, Full ROM - Gastrointestinal General gastrointestinal: Present: soft, non-distended, normal bowel sounds, other (obese) - Integumentary Integumentary: clear, warm, dry - Musculoskeletal Musculoskeletal: generalized weakness - Neurologic Neurologic: moves all extremities - Psychiatric Psychiatric: no appropriate mood/affect, no intact judgment & insight, no memory intact, cooperative - Constitutional Vitals: Vital Signs - 12hr 06/03/19 06/03/19 06/03/19 05:15 08:01 09:34 Temperature 98.1 F 98.3 F Pulse Rate 73 80 80 Respiratory 18 18 Rate Blood Pressure 128/68 133/70 133/70 O2 Sat by Pulse 100 78 L Oximetry - Labs CBC & Chem 7: 05/31/19 04:15 06/05/19 10:48 Labs: Abnormal lab results 12/13/19 12/13/19 12/14/19 Range/Units 17:23 20:45 01:47 Sodium (137-145) mmol/L Potassium (3.6-5.0) mmol/L Chloride (98-107) mmol/L BUN (9-20) mg/dL Glucose (75-100) mg/dL POC Glucose 226 H 252 H 115 H (70-105) 06/03/19 06/03/19 Range/Units 10:05 11:26 Sodium 157 H (137-145) mmol/L Potassium 3.3 L (3.6-5.0) mmol/L Chloride 114.9 H (98-107) mmol/L BUN 39 H (9-20) mg/dL Glucose 163 H (75-100) mg/dL POC Glucose 314 H (70-105)
[2019-06-03] MEDS: FLUDROCORTISONE 0.1 MG TAB PO SCH (12:23)
[2019-06-03] MEDS: SODIUM CHLORIDE 0.45% 1000 ML 1,000 ML IV SCH (12:23)
--- NOTE | 2019-06-03 12:35 | Progress Note ---
Subjective Principal diagnosis: aur Interval history: Patient was seen today for follow-up on multiple renal related issues Events of this hospitalization were noted patient noted to have elevated sodium and low potassium Interdisciplinary notes were also reviewed Vitals intake output medications were reviewed Past medical history: Reviewed Family, social history: Reviewed Allergies: Reviewed Physical examination General: No acute distress Vitals: Reviewed HEENT: Oral mucosa moist no icterus Neck: Supple no thyromegaly nodular mass or JVD Chest: Clear to auscultation anteriorly Heart: Regular rate and rhythm S1-S2 heard no S3-S4 Abdomen: Soft nontender no suprapubic masses no organomegaly Extremity: Dry skin less than 1+ edema Psych: No evidence of any agitation and aggression noted Derm: No petechial rash Assessment and plan: Acute kidney injury baseline creatinine is around 1.2 admitted with a creatinine of 1.6 Most likely resulting from dehydration as well as urinary retention, patient does need free water, potassium replacement Current creatinine is around 1.5 which was 1.6 on 05/29/2019 Hyperkalemia being monitored, potassium was 6.6 on May 29 which is currently around 3.9 and has improved We'll check a possibility as well as uric acid Anemia: Multifactorial Hypertension: To monitor and follow From renal standpoint patient's labs patient's hemoglobin was 9.0 on May 31 Hypernatremia: current sodium is 153 which was 145 on 05/31/2019 We'll continue to follow and make recommendation from renal standpoint Objective - Vital Signs Vital signs: Vital Signs - 12hr 06/03/19 06/03/19 06/03/19 05:15 08:01 09:34 Temperature 98.1 F 98.3 F Pulse Rate 73 80 80 Respiratory 18 18 Rate Blood Pressure 128/68 133/70 133/70 O2 Sat by Pulse 100 78 L Oximetry - Lab 05/31/19 04:15 06/03/19 10:05 Most recent lab results Calcium 9.2 mg/dL (8.4-10.2) 06/03/19 10:05 Medications & Allergies - Medications Allergies/Adverse Reactions: Allergies No Known Allergies Allergy (Verified 10/27/13 16:35) Home Medications: Home Medications Medication Instructions Recorded Confirmed Last Taken Type Aspirin [Aspirin BABY CHEW TAB] 1 tab PO DAILY 10/27/13 05/30/19 10/29/13 History Atorvastatin (Nf) [Lipitor] 1 tab PO DAILY 10/27/13 05/30/19 10/27/13 History Insulin Glargine,Hum.rec.anlog 8 units SC HS 10/27/13 05/30/19 10/29/13 History [Lantus] Metoprolol Tartrate 1 tab PO DAILY 10/27/13 05/30/19 10/29/13 History Pantoprazole [Protonix TAB] 1 tab PO DAILY 10/27/13 05/30/19 10/29/13 History Polyethylene Glycol 3350 [Miralax 17 gm PO BID PRN #10 powd.pack 01/24/19 05/30/19 Unknown Rx 3350] Active Medications: Generic Name Dose Route Start Last Admin Trade Name Freq PRN Reason Stop Dose Admin Acetaminophen 650 mg 05/30/19 03:51 Tylenol PO Q4H PRN Pain MILD(1-3)/Fever >100.5/NIÑO Aspirin 81 mg 05/30/19 10:00 06/03/19 09:34 Baby Aspirin PO 81 mg DAILY ALPESH Administration Atorvastatin Calcium 10 mg 05/30/19 22:00 06/02/19 22:13 Atorvastatin PO 10 mg QHS ALPESH Administration Dextrose 50 ml 05/30/19 03:51 06/02/19 07:21 D50w (25gm) Syringe IV 50 ml Q30MIN PRN Administration Hypoglycemia Protocol Fludrocortisone Acetate 0.2 mg 05/31/19 10:00 06/03/19 12:23 Florinef PO 0.2 mg QDAY ALPESH Administration Sodium Chloride 1,000 mls @ 50 mls/hr 06/02/19 10:00 06/03/19 12:23 Nacl 0.45% 1000 Ml IV 50 mls/hr DIRECT ALPESH Administration Insulin Human Regular 0 units 06/03/19 16:30 Humulin R SUB-Q ACHS ALPESH Protocol Magnesium Hydroxide 30 ml 05/30/19 03:51 Milk Of Magnesia PO Q4H PRN Constipation Metoprolol Tartrate 25 mg 05/30/19 10:00 06/03/19 09:34 Metoprolol PO 25 mg DAILY ALPESH Administration Ondansetron HCl 4 mg 05/30/19 03:51 Zofran IV Q8H PRN Nausea And Vomiting Pantoprazole Sodium 40 mg 05/30/19 10:00 06/03/19 09:34 Protonix PO 40 mg DAILY ALPESH Administration Polyethylene Glycol 17 gm 05/30/19 10:00 Miralax 3350 PO BID PRN Constipation Sodium Chloride 10 ml 05/30/19 10:00 06/03/19 09:35 Sodium Chloride Flush Syringe 10 Ml IV 10 ml BID ALPESH Administration Sodium Chloride 10 ml 05/30/19 03:51 Sodium Chloride Flush Syringe 10 Ml IV PRN PRN LINE FLUSH Tamsulosin HCl 0.4 mg 06/01/19 22:00 06/02/19 22:13 Flomax PO 0.4 mg QHS ALPESH Administration
[2019-06-03] MEDS: INSULIN REGULAR, HUMAN 100 UNITS/1 ML SUB-Q SCH ×2 (17:38→22:15)
[2019-06-03] MEDS: TAMSULOSIN 0.4 MG CAP PO SCH (22:13)
[2019-06-04] MEDS: SODIUM CHLORIDE 0.45% 1000 ML 1,000 ML IV SCH (07:48)
[2019-06-04] MEDS: INSULIN REGULAR, HUMAN 100 UNITS/1 ML SUB-Q SCH ×4 (07:54→21:43)
[2019-06-04] MEDS: METOPROLOL TARTRATE 25 MG TAB PO SCH (09:40)
[2019-06-04] MEDS: ASPIRIN 81 MG TAB CHEW PO SCH (09:40)
[2019-06-04] MEDS: PANTOPRAZOLE 40 MG TAB PO SCH (09:40)
[2019-06-04] MEDS: FLUDROCORTISONE 0.1 MG TAB PO SCH (09:40)
--- NOTE | 2019-06-04 11:24 | Progress Note ---
Subjective Principal diagnosis: aur Interval history: Patient was seen today for follow-up on multiple renal related issues Events of this hospitalization were noted Interdisciplinary notes were also reviewed Vitals intake output medications were reviewed Past medical history: Reviewed Family, social history: Reviewed Allergies: Reviewed Physical examination General: No acute distress Vitals: Reviewed HEENT: Oral mucosa moist no icterus Neck: Supple no thyromegaly nodular mass or JVD Chest: Clear to auscultation anteriorly Heart: Regular rate and rhythm S1-S2 heard no S3-S4 Abdomen: Soft nontender no suprapubic masses no organomegaly Extremity: Dry skin less than 1+ edema Psych: No evidence of any agitation and aggression noted Derm: No petechial rash Assessment and plan: Acute kidney injury baseline creatinine is around 1.2 admitted with a creatinine of 1.6 Patient does need a follow-up on the basic metabolic profile, possible allergy as well as uric acid, Depending on that we can consider IV hydration and his case Most likely resulting from dehydration as well as urinary retention, his creatinine was 1.6 on 05/29/2019 Patient needs to follow up with urology monitor intake and output avoid nephr otoxic medication Hyperkalemia being monitored, potassium was 6.6 on May 29 which is currently around 3.9 and has improved, currently on the low side Anemia: Multifactorial Hypertension: To monitor and follow From renal standpoint patient's labs patient's hemoglobin was 9.0 on May 31 Hypernatremia: current sodium is 157, earlier 153 which was 145 on 05/31/2019 We'll continue to follow and make recommendation from renal standpoint Objective - Vital Signs Vital signs: Vital Signs - 12hr 06/04/19 06/04/19 06/04/19 00:00 01:19 04:49 Temperature 98.0 F 98.6 F Pulse Rate 68 Respiratory 18 20 Rate Blood Pressure 125/103 145/67 Blood Pressure 141/78 [Right] O2 Sat by Pulse 99 Oximetry 06/04/19 06/04/19 08:09 08:57 Temperature 98.4 F Pulse Rate 80 79 Respiratory 18 Rate Blood Pressure 138/69 Blood Pressure [Right] O2 Sat by Pulse 100 Oximetry - Lab 05/31/19 04:15 06/03/19 10:05 Most recent lab results Calcium 9.2 mg/dL (8.4-10.2) 06/03/19 10:05 Medications & Allergies - Medications Allergies/Adverse Reactions: Allergies No Known Allergies Allergy (Verified 10/27/13 16:35) Home Medications: Home Medications Medication Instructions Recorded Confirmed Last Taken Type Aspirin [Aspirin BABY CHEW TAB] 1 tab PO DAILY 10/27/13 05/30/19 10/29/13 History Atorvastatin (Nf) [Lipitor] 1 tab PO DAILY 10/27/13 05/30/19 10/27/13 History Insulin Glargine,Hum.rec.anlog 8 units SC HS 10/27/13 05/30/19 10/29/13 History [Lantus] Metoprolol Tartrate 1 tab PO DAILY 10/27/13 05/30/19 10/29/13 History Pantoprazole [Protonix TAB] 1 tab PO DAILY 10/27/13 05/30/19 10/29/13 History Polyethylene Glycol 3350 [Miralax 17 gm PO BID PRN #10 powd.pack 01/24/19 05/30/19 Unknown Rx 3350] Active Medications: Generic Name Dose Route Start Last Admin Trade Name Freq PRN Reason Stop Dose Admin Acetaminophen 650 mg 05/30/19 03:51 Tylenol PO Q4H PRN Pain MILD(1-3)/Fever >100.5/NIÑO Aspirin 81 mg 05/30/19 10:00 06/04/19 09:40 Baby Aspirin PO 81 mg DAILY ALPESH Administration Atorvastatin Calcium 10 mg 05/30/19 22:00 06/03/19 22:13 Atorvastatin PO 10 mg QHS ALPESH Administration Dextrose 50 ml 05/30/19 03:51 06/02/19 07:21 D50w (25gm) Syringe IV 50 ml Q30MIN PRN Administration Hypoglycemia Protocol Fludrocortisone Acetate 0.2 mg 05/31/19 10:00 06/04/19 09:40 Florinef PO 0.2 mg QDAY ALPESH Administration Sodium Chloride 1,000 mls @ 50 mls/hr 06/02/19 10:00 06/04/19 07:48 Nacl 0.45% 1000 Ml IV 50 mls/hr DIRECT ALPESH Administration Insulin Human Regular 0 units 06/03/19 16:30 06/04/19 07:54 Humulin R SUB-Q Not Given ACHS ALPESH Protocol Magnesium Hydroxide 30 ml 05/30/19 03:51 Milk Of Magnesia PO Q4H PRN Constipation Metoprolol Tartrate 25 mg 05/30/19 10:00 06/04/19 09:40 Metoprolol PO 25 mg DAILY ALPESH Administration Ondansetron HCl 4 mg 05/30/19 03:51 Zofran IV Q8H PRN Nausea And Vomiting Pantoprazole Sodium 40 mg 05/30/19 10:00 06/04/19 09:40 Protonix PO 40 mg DAILY ALPESH Administration Polyethylene Glycol 17 gm 05/30/19 10:00 Miralax 3350 PO BID PRN Constipation Sodium Chloride 10 ml 05/30/19 10:00 06/04/19 09:40 Sodium Chloride Flush Syringe 10 Ml IV 10 ml BID ALPESH Administration Sodium Chloride 10 ml 05/30/19 03:51 Sodium Chloride Flush Syringe 10 Ml IV PRN PRN LINE FLUSH Tamsulosin HCl 0.4 mg 06/01/19 22:00 06/03/19 22:13 Flomax PO 0.4 mg QHS ALPESH Administration
--- NOTE | 2019-06-04 14:49 | Progress Note ---
Assessment and Plan /hypernatremia, Na 155 today cont iv fluid with hypotonic saline - will increase rate / Hyperkalemia - from declining renal function, K level improved Will monitor chemistry. He has had kayexalate, insulin and glucose along with sodium bicarbonate and calcium gluconate. Nephrology consulted for follow up. / ALESSIO - due to vasomotor nephropathy - improving cont iv fluid, nephro consulted / Nausea & vomiting - resolved could be from uremia HE HAS BEEN PLACED ON IV ZOFRAN AND STARTED ON IV FLUID. / left inguinal hernia with hydrocele consult GS - appears reducible now, no need for surgery / Anemia of CD Probably chronic. Will monitor CBC. / Dementia likely vascular, cont supportive care /Dvt Px, heparin Prognosis: Guarded, will cont monitor the pt, need inpt stay for persistent hypernatremia Subjective Date of service: 06/04/19 Principal diagnosis: aur Interval history: Patient seen and examined K level normal but Na remained elevated, at bedside updated patient denies any chest pain, tolerating pureed diet Objective - Exam Narrative Exam: General appearance: Present: no acute distress, well-nourished - EENT Eyes: PERRL, EOM intact ENT: hearing intact, clear oral mucosa Ears: bilateral: normal - Neck Neck: supple, normal ROM - Respiratory Respiratory effort: normal Respiratory: bilateral: CTA - Cardiovascular Rhythm: regular Heart Sounds: Present: S1 & S2. Absent: gallop, rub Extremities: pulses intact, No edema, normal color, Full ROM - Gastrointestinal General gastrointestinal: Present: soft, non-distended, normal bowel sounds, other (obese) - Integumentary Integumentary: clear, warm, dry - Musculoskeletal Musculoskeletal: generalized weakness - Neurologic Neurologic: moves all extremities - Psychiatric Psychiatric: no appropriate mood/affect, no intact judgment & insight, no memory intact, cooperative - Constitutional Vitals: Vital Signs - 12hr 06/04/19 06/04/19 06/04/19 04:49 08:09 08:57 Temperature 98.6 F 98.4 F Pulse Rate 68 80 79 Respiratory 20 18 Rate Blood Pressure 138/69 Blood Pressure 141/78 [Right] O2 Sat by Pulse 99 100 Oximetry 06/04/19 12:27 Temperature 98.6 F Pulse Rate 81 Respiratory 18 Rate Blood Pressure Blood Pressure 136/86 [Right] O2 Sat by Pulse 90 Oximetry - Labs CBC & Chem 7: 05/31/19 04:15 06/05/19 10:48 Labs: Abnormal lab results 06/03/19 06/03/19 06/04/19 Range/Units 16:03 20:47 11:33 POC Glucose 176 H 194 H 188 H (70-105)
[2019-06-04] MEDS ORDERED: hydrALAZINE 20 MG/1 ML INJ IV PRN (15:14)
[2019-06-04 16:29] LABS: Calcium 9.2 mg/dL (8.4-10.2)
[2019-06-04] MEDS: amLODIPine 10 MG TAB PO SCH (17:04)
[2019-06-04] MEDS: TAMSULOSIN 0.4 MG CAP PO SCH (21:40)
[2019-06-05] MEDS: SODIUM CHLORIDE 0.45% 1000 ML 1,000 ML IV SCH (04:18)
[2019-06-05] MEDS: INSULIN REGULAR, HUMAN 100 UNITS/1 ML SUB-Q SCH ×4 (08:43→22:00)
[2019-06-05] MEDS: PANTOPRAZOLE 40 MG TAB PO SCH (09:57)
[2019-06-05] MEDS: METOPROLOL TARTRATE 25 MG TAB PO SCH (09:57)
[2019-06-05] MEDS: FLUDROCORTISONE 0.1 MG TAB PO SCH (09:58)
[2019-06-05] MEDS: amLODIPine 10 MG TAB PO SCH (09:58)
[2019-06-05] MEDS: ASPIRIN 81 MG TAB CHEW PO SCH (09:58)
--- NOTE | 2019-06-05 10:14 | Progress Note ---
Assessment and Plan # Acute kidney injury: baseline creatinine is around 1.2, admitted with a creatinine of 1.6. Has improved to 1.2-1.4; ALESSIO likely in setting of dehydration and/or urinary retention - encourage po hydration - avoid nephrotoxins - would consider cessation of PPI unless indicated, due to risk of interstitial injury # Hypernatremia: free water deficit ~4L with minimal po hydration. Also on Florinef - will decrease Florinef to 0.1mg daily, then every other day - continue 1/2NS at current rate - encourage PO hydration to make up free water deficit # Hyperkalemia: improved, now borderline low likely from Florinef # HTN: BP reasonable, change Florinef as above # Anemia: likely from multifactorial causes. No indication for ESAs currently Thank you for this consult. We'll continue to follow and make recommendation from renal standpoint Subjective Date of service: 06/05/19 Principal diagnosis: aur Interval history: No acute events noted overnight. Discussed case with patient and at bedside. Patient not drinking much water inpatient. Objective - Exam Narrative Exam: General: No acute distress HEENT: Oral mucosa moist, no icterus Neck: Supple Chest: Clear to auscultation anteriorly Heart: Regular rate and rhythm, normal S1-S2 Abdomen: Soft nontender Extremity: no edema Psych: No evidence of any agitation and aggression noted Neuro: mildly alerted and unable to communicate well Derm: intact - Vital Signs Vital signs: Vital Signs - 12hr 06/05/19 06/05/19 06/05/19 00:17 03:03 05:09 Temperature 97.8 F 98.2 F Pulse Rate 78 78 Respiratory 18 18 Rate Blood Pressure 138/65 125/62 O2 Sat by Pulse 100 Oximetry 06/05/19 06/05/19 06/05/19 08:44 08:52 09:57 Temperature Pulse Rate 90 88 90 Respiratory Rate Blood Pressure 154/71 154/71 O2 Sat by Pulse 99 Oximetry 06/05/19 09:58 Temperature Pulse Rate 90 Respiratory Rate Blood Pressure 154/71 O2 Sat by Pulse Oximetry - Lab 05/31/19 04:15 06/04/19 15:28 Most recent lab results Calcium 9.2 mg/dL (8.4-10.2) 06/04/19 15:28 Medications & Allergies - Medications Allergies/Adverse Reactions: Allergies No Known Allergies Allergy (Verified 10/27/13 16:35) Home Medications: Home Medications Medication Instructions Recorded Confirmed Last Taken Type Aspirin [Aspirin BABY CHEW TAB] 1 tab PO DAILY 10/27/13 05/30/19 10/29/13 History Atorvastatin (Nf) [Lipitor] 1 tab PO DAILY 10/27/13 05/30/19 10/27/13 History Insulin Glargine,Hum.rec.anlog 8 units SC HS 10/27/13 05/30/19 10/29/13 History [Lantus] Metoprolol Tartrate 1 tab PO DAILY 10/27/13 05/30/19 10/29/13 History Pantoprazole [Protonix TAB] 1 tab PO DAILY 10/27/13 05/30/19 10/29/13 History Polyethylene Glycol 3350 [Miralax 17 gm PO BID PRN #10 powd.pack 01/24/19 05/30/19 Unknown Rx 3350] Active Medications: Generic Name Dose Route Start Last Admin Trade Name Freq PRN Reason Stop Dose Admin Acetaminophen 650 mg 05/30/19 03:51 Tylenol PO Q4H PRN Pain MILD(1-3)/Fever >100.5/NIÑO Amlodipine Besylate 10 mg 06/04/19 16:00 06/05/19 09:58 Amlodipine PO 10 mg QDAY ALPESH Administration Aspirin 81 mg 05/30/19 10:00 06/05/19 09:58 Baby Aspirin PO 81 mg DAILY ALPESH Administration Atorvastatin Calcium 10 mg 05/30/19 22:00 06/04/19 21:40 Atorvastatin PO 10 mg QHS ALPESH Administration Dextrose 50 ml 05/30/19 03:51 06/02/19 07:21 D50w (25gm) Syringe IV 50 ml Q30MIN PRN Administration Hypoglycemia Protocol Fludrocortisone Acetate 0.2 mg 05/31/19 10:00 06/05/19 09:58 Florinef PO 0.2 mg QDAY ALPESH Administration Hydralazine HCl 5 mg 06/04/19 15:14 Apresoline IV Q30MIN PRN Hypertension Sodium Chloride 1,000 mls @ 75 mls/hr 06/02/19 10:00 06/05/19 04:18 Nacl 0.45% 1000 Ml IV 50 mls/hr DIRECT ALPESH Administration Insulin Human Regular 0 units 06/03/19 16:30 06/05/19 08:43 Humulin R SUB-Q Not Given ACHS [facility] Protocol Magnesium Hydroxide 30 ml 05/30/19 03:51 Milk Of Magnesia PO Q4H PRN Constipation Metoprolol Tartrate 25 mg 05/30/19 10:00 06/05/19 09:57 Metoprolol PO 25 mg DAILY ALPESH Administration Ondansetron HCl 4 mg 05/30/19 03:51 Zofran IV Q8H PRN Nausea And Vomiting Pantoprazole Sodium 40 mg 05/30/19 10:00 06/05/19 09:57 Protonix PO 40 mg DAILY ALPESH Administration Polyethylene Glycol 17 gm 05/30/19 10:00 Miralax 3350 PO BID PRN Constipation Sodium Chloride 10 ml 05/30/19 10:00 06/05/19 09:58 Sodium Chloride Flush Syringe 10 Ml IV 10 ml BID ALPESH Administration Sodium Chloride 10 ml 05/30/19 03:51 Sodium Chloride Flush Syringe 10 Ml IV PRN PRN LINE FLUSH Tamsulosin HCl 0.4 mg 06/01/19 22:00 06/04/19 21:40 Flomax PO 0.4 mg QHS ALPESH Administration
[2019-06-05] MEDS ORDERED: FLUDROCORTISONE 0.1 MG TAB PO SCH (11:00)
[2019-06-05 11:16] LABS: BUN/Creatinine Ratio 28; Blood Urea Nitrogen 34 mg/dL (9-20); Calcium 9.1 mg/dL (8.4-10.2); Hemolysis Index 4
--- NOTE | 2019-06-05 14:13 | Progress Note ---
Assessment and Plan /hypernatremia, Na 152 today cont iv fluid with hypotonic saline with D5 1/4 NS - free water deficit ~4L with minimal po hydration. check BMP tomorrow am / Hyperkalemia - from declining renal function, K level improved Will monitor chemistry. He has had kayexalate, insulin and glucose along with sodium bicarbonate and calcium gluconate. Nephrology consulted for follow up. / ALESSIO - due to vasomotor nephropathy - improving cont iv fluid, nephro consulted / Nausea & vomiting - resolved could be from uremia HE HAS BEEN PLACED ON IV ZOFRAN AND STARTED ON IV FLUID. / left inguinal hernia with hydrocele consult GS - appears reducible now, no need for surgery / Anemia of CD Probably chronic. Will monitor CBC. / Dementia likely vascular, cont supportive care /Dvt Px, heparin Prognosis: Guarded, will cont monitor the pt, need inpt stay for persistent hypernatremia Subjective Date of service: 06/05/19 Principal diagnosis: aur Interval history: Patient seen and examined K level normal but Na remained elevated, at bedside updated patient denies any chest pain, tolerating pureed diet but has almost no oral water intake - counselled at bedside Objective - Exam Narrative Exam: General appearance: Present: no acute distress, well-nourished - EENT Eyes: PERRL, EOM intact ENT: hearing intact, clear oral mucosa Ears: bilateral: normal - Neck Neck: supple, normal ROM - Respiratory Respiratory effort: normal Respiratory: bilateral: CTA - Cardiovascular Rhythm: regular Heart Sounds: Present: S1 & S2. Absent: gallop, rub Extremities: pulses intact, No edema, normal color, Full ROM - Gastrointestinal General gastrointestinal: Present: soft, non-distended, normal bowel sounds, other (obese) - Integumentary Integumentary: clear, warm, dry - Musculoskeletal Musculoskeletal: generalized weakness - Neurologic Neurologic: moves all extremities - Psychiatric Psychiatric: no appropriate mood/affect, no intact judgment & insight, no memory intact, cooperative - Constitutional Vitals: Vital Signs - 12hr 06/05/19 06/05/19 06/05/19 03:03 05:09 08:44 Temperature 98.2 F Pulse Rate 78 90 Respiratory 18 Rate Blood Pressure 125/62 154/71 O2 Sat by Pulse 99 Oximetry 06/05/19 06/05/19 06/05/19 08:52 09:57 09:58 Temperature Pulse Rate 88 90 90 Respiratory Rate Blood Pressure 154/71 154/71 O2 Sat by Pulse Oximetry - Labs CBC & Chem 7: 06/06/19 04:30 06/06/19 04:30 Labs: Abnormal lab results 06/04/19 06/04/19 06/04/19 Range/Units 15:28 16:46 20:56 Sodium 155 H (137-145) mmol/L Potassium (3.6-5.0) mmol/L Chloride 114.8 H (98-107) mmol/L BUN 39 H (9-20) mg/dL Glucose 160 H (75-100) mg/dL POC Glucose 144 H 156 H (70-105) 06/05/19 06/05/19 Range/Units 10:48 11:42 Sodium 154 H (137-145) mmol/L Potassium 3.4 L (3.6-5.0) mmol/L Chloride 115.1 H (98-107) mmol/L BUN 34 H (9-20) mg/dL Glucose 152 H (75-100) mg/dL POC Glucose 161 H (70-105)
[2019-06-05] MEDS: POTASSIUM CHLORIDE IV SCH (15:41)
[2019-06-05] MEDS: D5W IV SCH (15:41)
[2019-06-05] MEDS: NACL IV SCH (15:41)
[2019-06-05] MEDS: ACETAMINOPHEN 325 MG TAB PO PRN (22:14)
[2019-06-05] MEDS: TAMSULOSIN 0.4 MG CAP PO SCH (22:14)
[2019-06-06] MEDS: D5W IV SCH (06:19)
[2019-06-06] MEDS: NACL IV SCH (06:19)
[2019-06-06] MEDS: POTASSIUM CHLORIDE IV SCH (06:19)
[2019-06-06 07:25] LABS: Basophils % (Auto) 0.3 % (0.0-1.8); Eosinophils % (Auto) 2.5 % (0.0-4.3); Hematocrit 23.1 % (35.5-45.6); Hemoglobin 7.3 gm/dl (11.8-15.2); Lymphocytes % (Auto) 18.1 % (13.4-35.0); Mean Corpuscular HGB Conc 32 % (32-34); Mean Corpuscular Volume 99 fl (84-94); Monocytes % (Auto) 12.6 % (0.0-7.3); Platelet Count 125 K/mm3 (140-440); Red Blood Count 2.34 M/mm3 (3.65-5.03); Red Cell Distribution Width 15.4 % (13.2-15.2)
[2019-06-06 07:26] LABS: Eosinophils # (Auto) 0.2 K/mm3 (0.0-0.4); Lymphocytes # (Auto) 1.4 K/mm3 (1.2-5.4)
[2019-06-06] MEDS: ASPIRIN 81 MG TAB CHEW PO SCH (09:04)
[2019-06-06] MEDS: ACETAMINOPHEN 325 MG TAB PO PRN ×2 (09:04→23:15)
[2019-06-06] MEDS: amLODIPine 10 MG TAB PO SCH (09:04)
[2019-06-06] MEDS: METOPROLOL TARTRATE 25 MG TAB PO SCH (09:05)
[2019-06-06] MEDS: PANTOPRAZOLE 40 MG TAB PO SCH (09:05)
[2019-06-06] MEDS: INSULIN REGULAR, HUMAN 100 UNITS/1 ML SUB-Q SCH ×4 (09:09→22:43)
[2019-06-06] MEDS ORDERED: FLUDROCORTISONE 0.1 MG TAB PO SCH (10:00)
--- NOTE | 2019-06-06 10:10 | Progress Note ---
Assessment and Plan # Acute kidney injury: baseline creatinine is around 1.2, admitted with a creatinine of 1.6. Had improved to 1.2, now increasing to 1.6; ALESSIO likely in setting of dehydration - encourage po hydration as possible - ok to continue current IVF (D5 1/4NS) - avoid nephrotoxins - would consider cessation of PPI unless otherwise indicated, due to risk of interstitial injury # Hypernatremia: free water deficit ~4L with minimal po hydration. Also on Florinef - will continue to wean off Florinef to 0.05mg daily, then every other day - continue IVF at current rate - encourage PO hydration to make up free water deficit as able # Hyperkalemia: improved, now borderline low likely from Florinef # HTN: BP reasonable, change Florinef as above # Anemia: likely from multifactorial causes. No indication for ESAs currently Thank you for this consult. We'll continue to follow and make recommendation from renal standpoint Subjective Date of service: 06/06/19 Principal diagnosis: aur Interval history: No acute events noted overnight. Discussed case with patient and at bedside. Patient not drinking much water inpatient due to swallowing concerns. Objective - Exam Narrative Exam: General: No acute distress HEENT: Oral mucosa moist, no icterus Neck: Supple Chest: Clear to auscultation anteriorly Heart: Regular rate and rhythm, normal S1-S2 Abdomen: Soft nontender Extremity: no edema Psych: No evidence of any agitation and aggression noted Neuro: mildly alerted and unable to communicate well Derm: intact - Vital Signs Vital signs: Vital Signs - 12hr 06/05/19 06/06/19 06/06/19 23:00 04:27 08:41 Temperature 101.0 F H 99.9 F H 99.9 F H Pulse Rate 88 88 96 H Respiratory 20 19 18 Rate Blood Pressure 122/61 129/54 132/51 O2 Sat by Pulse 92 94 97 Oximetry 06/06/19 06/06/19 09:04 09:05 Temperature Pulse Rate 96 H 96 H Respiratory 18 Rate Blood Pressure 132/51 132/51 O2 Sat by Pulse Oximetry - Lab 06/06/19 04:30 06/06/19 04:30 Most recent lab results Calcium 9.0 mg/dL (8.4-10.2) 06/06/19 04:30 Medications & Allergies - Medications Allergies/Adverse Reactions: Allergies No Known Allergies Allergy (Verified 05/09/14 16:35) Home Medications: Home Medications Medication Instructions Recorded Confirmed Last Taken Type Aspirin [Aspirin BABY CHEW TAB] 1 tab PO DAILY 10/27/13 05/30/19 10/29/13 History Atorvastatin (Nf) [Lipitor] 1 tab PO DAILY 10/27/13 05/30/19 10/27/13 History Insulin Glargine,Hum.rec.anlog 8 units SC HS 10/27/13 05/30/19 10/29/13 History [Lantus] Metoprolol Tartrate 1 tab PO DAILY 10/27/13 05/30/19 10/29/13 History Pantoprazole [Protonix TAB] 1 tab PO DAILY 10/27/13 05/30/19 10/29/13 History Polyethylene Glycol 3350 [Miralax 17 gm PO BID PRN #10 powd.pack 01/24/19 05/30/19 Unknown Rx 3350] Active Medications: Generic Name Dose Route Start Last Admin Trade Name Freq PRN Reason Stop Dose Admin Acetaminophen 650 mg 05/30/19 03:51 06/06/19 09:04 Tylenol PO 650 mg Q4H PRN Administration Pain MILD(1-3)/Fever >100.5/NIÑO Amlodipine Besylate 10 mg 06/04/19 16:00 06/06/19 09:04 Amlodipine PO 10 mg QDAY ALPESH Administration Aspirin 81 mg 05/30/19 10:00 06/06/19 09:04 Baby Aspirin PO 81 mg DAILY ALPESH Administration Atorvastatin Calcium 10 mg 05/30/19 22:00 06/05/19 22:14 Atorvastatin PO 10 mg QHS ALPESH Administration Dextrose 50 ml 05/30/19 03:51 06/02/19 07:21 D50w (25gm) Syringe IV 50 ml Q30MIN PRN Administration Hypoglycemia Protocol Fludrocortisone Acetate 0.1 mg 06/06/19 10:00 06/06/19 09:09 Florinef PO 0.1 mg QDAY ALPESH Administration Hydralazine HCl 5 mg 06/04/19 15:14 Apresoline IV Q30MIN PRN Hypertension Potassium Chloride 20 meq/ 1,010 mls @ 75 mls/hr 06/05/19 12:30 06/06/19 06:19 Dextrose/Sodium Chloride IV 75 mls/hr DIRECT ALPESH Administration Insulin Human Regular 0 units 06/03/19 16:30 06/06/19 09:09 Humulin R SUB-Q 1 units ACHS ALPESH Administration Protocol Magnesium Hydroxide 30 ml 05/30/19 03:51 Milk Of Magnesia PO Q4H PRN Constipation Metoprolol Tartrate 25 mg 05/30/19 10:00 06/06/19 09:05 Metoprolol PO 25 mg DAILY ALPESH Administration Ondansetron HCl 4 mg 05/30/19 03:51 06/05/19 10:17 Zofran IV 4 mg Q8H PRN Administration Nausea And Vomiting Pantoprazole Sodium 40 mg 05/30/19 10:00 06/06/19 09:05 Protonix PO 40 mg DAILY ALPESH Administration Polyethylene Glycol 17 gm 05/30/19 10:00 Miralax 3350 PO BID PRN Constipation Sodium Chloride 10 ml 05/30/19 10:00 06/06/19 09:20 Sodium Chloride Flush Syringe 10 Ml IV 10 ml BID ALPESH Administration Sodium Chloride 10 ml 05/30/19 03:51 Sodium Chloride Flush Syringe 10 Ml IV PRN PRN LINE FLUSH Tamsulosin HCl 0.4 mg 06/01/19 22:00 06/05/19 22:14 Flomax PO 0.4 mg QHS ALPESH Administration
[2019-06-06] MEDS ORDERED: SODIUM CHLORIDE 0.45% 1000 ML 1,000 ML IV SCH (11:00)
--- NOTE | 2019-06-06 13:04 | Progress Note ---
Assessment and Plan /Febrile illness, low grade - order blood cx, UA and CXR - will monitor off abx for now till we find the source /hypernatremia, Na 155 today cont iv fluid with hypotonic saline with D5 1/4 NS - free water deficit ~4L with minimal po hydration. check BMP tomorrow am, encouraged po intake / Hyperkalemia - from declining renal function, K level improved Will monitor chemistry. He has had kayexalate, insulin and glucose along with sodium bicarbonate and calcium gluconate. Nephrology consulted for follow up. / ALESSIO - due to vasomotor nephropathy - today Cr 1.6 cont iv fluid, nephro consulted / Nausea & vomiting - resolved could be from uremia HE HAS BEEN PLACED ON IV ZOFRAN AND STARTED ON IV FLUID. / left inguinal hernia with hydrocele consult GS - appears reducible now, no need for surgery / Anemia of CD Probably chronic. Will monitor CBC. Hb 7.3 today - ordered stool for occult blood /H/o COPD, on symbicort at home bid, cont to monitor / Dementia likely vascular, cont supportive care, resume home meds /Dvt Px, heparin Prognosis: Guarded, will cont monitor the pt, need inpt stay for persistent hypernatremia Subjective Date of service: 06/06/19 Principal diagnosis: aur Interval history: Patient seen and examined K level normal but Na remained elevated, at bedside updated patient denies any chest pain, spiking low grade temp Objective - Exam Narrative Exam: General appearance: Present: no acute distress, well-nourished - EENT Eyes: PERRL, EOM intact ENT: hearing intact, clear oral mucosa Ears: bilateral: normal - Neck Neck: supple, normal ROM - Respiratory Respiratory effort: normal Respiratory: bilateral: CTA - Cardiovascular Rhythm: regular Heart Sounds: Present: S1 & S2. Absent: gallop, rub Extremities: pulses intact, No edema, normal color, Full ROM - Gastrointestinal General gastrointestinal: Present: soft, non-distended, normal bowel sounds, other (obese) - Integumentary Integumentary: clear, warm, dry - Musculoskeletal Musculoskeletal: generalized weakness - Neurologic Neurologic: moves all extremities - Psychiatric Psychiatric: no appropriate mood/affect, no intact judgment & insight, no memory intact, cooperative - Constitutional Vitals: Vital Signs - 12hr 06/06/19 06/06/19 06/06/19 04:27 08:41 09:04 Temperature 99.9 F H 99.9 F H Pulse Rate 88 96 H 96 H Respiratory 19 18 18 Rate Blood Pressure 129/54 132/51 132/51 O2 Sat by Pulse 94 97 Oximetry 06/06/19 06/06/19 06/06/19 09:05 12:00 12:23 Temperature 100.2 F H Pulse Rate 96 H 81 Respiratory 22 Rate Blood Pressure 132/51 107/42 O2 Sat by Pulse 93 Oximetry - Labs CBC & Chem 7: 06/07/19 13:19 06/07/19 04:35 Labs: Abnormal lab results 06/05/19 06/05/19 06/06/19 Range/Units 16:06 21:07 04:30 RBC 2.34 L (3.65-5.03) M/mm3 Hgb 7.3 L (11.8-15.2) gm/dl Hct 23.1 L (35.5-45.6) % MCV 99 H (84-94) fl RDW 15.4 H (13.2-15.2) % Plt Count 125 L (140-440) K/mm3 [place] % (Auto) 12.6 H (0.0-7.3) % [place] # 1.0 H (0.0-0.8) K/mm3 Sodium (137-145) mmol/L Chloride (98-107) mmol/L BUN (9-20) mg/dL Creatinine (0.8-1.5) mg/dL Glucose (75-100) mg/dL POC Glucose 214 H 129 H (70-105) 06/06/19 06/06/19 06/06/19 Range/Units 04:30 08:43 12:27 RBC (3.65-5.03) M/mm3 Hgb (11.8-15.2) gm/dl Hct (35.5-45.6) % MCV (84-94) fl RDW (13.2-15.2) % Plt Count (140-440) K/mm3 [place] % (Auto) (0.0-7.3) % [place] # (0.0-0.8) K/mm3 Sodium 156 H (137-145) mmol/L Chloride 115.7 H (98-107) mmol/L BUN 47 H (9-20) mg/dL Creatinine 1.6 H (0.8-1.5) mg/dL Glucose 127 H (75-100) mg/dL POC Glucose 173 H 191 H (70-105)
--- NOTE | 2019-06-06 15:18 | XRay Report ---
CHEST 1 VIEW INDICATION: fever. COMPARISON: 06/01/2019 FINDINGS: Support devices: None. Heart: Within normal limits. Lungs/Pleura: Streaky airspace disease greatest in the right midlung may be seen with loculated fluid along the minor fissure or atelectasis. Interstitial edema shows interval improvement. There appears to be a small layering effusion on the right. Additional findings: None. IMPRESSION: 1. Interval improvement. Signer Name: Chad Harris MD Signed: 06/06/2019 3:13 PM Workstation Name: [id number]
[2019-06-06] MEDS: D5W/0.2% NACL 1,000 ML IV SCH (19:03)
[2019-06-06] MEDS: TAMSULOSIN 0.4 MG CAP PO SCH (22:43)
[2019-06-07 05:49] LABS: Basophils % (Auto) 0.4 % (0.0-1.8); Eosinophils # (Auto) 0.2 K/mm3 (0.0-0.4); Eosinophils % (Auto) 1.8 % (0.0-4.3); Hematocrit 20.8 % (35.5-45.6); Hemoglobin 6.8 gm/dl (11.8-15.2); Lymphocytes # (Auto) 1.3 K/mm3 (1.2-5.4); Lymphocytes % (Auto) 14.9 % (13.4-35.0); Mean Corpuscular HGB Conc 33 % (32-34); Mean Corpuscular Volume 99 fl (84-94); Monocytes % (Auto) 11.2 % (0.0-7.3); Platelet Count 118 K/mm3 (140-440); Red Cell Distribution Width 15.5 % (13.2-15.2)
[2019-06-07 07:05] LABS: Bilirubin,Urine NEG (Negative); Color,Urine Yellow (Yellow)
[2019-06-07 07:06] LABS: Bacteria,Urine 3+ /HPF (Negative); Blood,Urine LG (Negative); Hyaline Casts,Urine 2 /LPF; Mucus,Urine FEW /HPF; RBC,Urine > 182.0 /HPF (0.0-6.0)
[2019-06-07] MEDS: INSULIN REGULAR, HUMAN 100 UNITS/1 ML SUB-Q SCH ×4 (09:00→23:34)
[2019-06-07] MEDS: ACETAMINOPHEN 325 MG TAB PO PRN ×2 (09:35→20:58)
[2019-06-07] MEDS: METOPROLOL TARTRATE 25 MG TAB PO SCH (09:37)
[2019-06-07] MEDS: amLODIPine 10 MG TAB PO SCH (09:37)
[2019-06-07] MEDS: ASPIRIN 81 MG TAB CHEW PO SCH (09:37)
[2019-06-07] MEDS: FLUDROCORTISONE 0.1 MG TAB PO SCH (09:55)
[2019-06-07] MEDS: D5W/0.2% NACL 1,000 ML IV SCH (10:15)
--- NOTE | 2019-06-07 11:42 | Progress Note ---
Assessment and Plan # Acute kidney injury: baseline creatinine is around 1.2, admitted with a creatinine of 1.6. Had improved to 1.2, now increasing to 1.6->1.7; ALESSIO likely in setting of dehydration - encourage po hydration as possible - will change IVF to 1/2NS to provide greater renal perfusion - avoid nephrotoxins - appreciate cessation of PPI due to risk of interstitial injury # Hypernatremia: free water deficit ~4L with minimal po hydration. Also on Florinef - will continue to wean off Florinef to 0.05mg every other day, will stop after Wednesday dose - IVF as above - encourage PO hydration to make up free water deficit as able # Hyperkalemia: improved, now borderline low likely from Florinef # HTN: BP reasonable, change Florinef as above # Anemia: likely from multifactorial causes. No indication for ESAs currently, defer transfusion to primary team but would be helpful from renal perspective Thank you for this consult. We'll continue to follow and make recommendation from renal standpoint Subjective Date of service: 06/07/19 Principal diagnosis: aur Interval history: No acute events noted overnight. Discussed case with patient and at bedside. Patient not drinking much water inpatient due to swallowing concerns. brought games from home to help work on his dexterity. Objective - Exam Narrative Exam: General: No acute distress HEENT: Oral mucosa moist, no icterus Neck: Supple Chest: Clear to auscultation anteriorly Heart: Regular rate and rhythm, normal S1-S2 Abdomen: Soft nontender Extremity: no edema Psych: No evidence of any agitation and aggression noted Neuro: mildly alerted and unable to communicate well Derm: intact - Vital Signs Vital signs: Vital Signs - 12hr 06/07/19 06/07/19 04:12 09:37 Temperature 98.0 F Pulse Rate 91 H 95 H Respiratory 18 Rate Blood Pressure 108/65 122/92 O2 Sat by Pulse 85 Oximetry - Lab 06/07/19 04:35 06/07/19 04:35 Most recent lab results Calcium 9.0 mg/dL (8.4-10.2) 06/07/19 04:35 Medications & Allergies - Medications Allergies/Adverse Reactions: Allergies No Known Allergies Allergy (Verified 10/27/13 16:35) Home Medications: Home Medications Medication Instructions Recorded Confirmed Last Taken Type Aspirin [Aspirin BABY CHEW TAB] 1 tab PO DAILY 10/27/13 05/30/19 10/29/13 History Atorvastatin (Nf) [Lipitor] 1 tab PO DAILY 10/27/13 05/30/19 10/27/13 History Insulin Glargine,Hum.rec.anlog 8 units SC HS 10/27/13 05/30/19 10/29/13 History [Lantus] Metoprolol Tartrate 1 tab PO DAILY 10/27/13 05/30/19 10/29/13 History Pantoprazole [Protonix TAB] 1 tab PO DAILY 10/27/13 05/30/19 10/29/13 History Polyethylene Glycol 3350 [Miralax 17 gm PO BID PRN #10 powd.pack 01/24/19 05/30/19 Unknown Rx 3350] Active Medications: Generic Name Dose Route Start Last Admin Trade Name Freq PRN Reason Stop Dose Admin Acetaminophen 650 mg 05/30/19 03:51 06/07/19 09:35 Tylenol PO 650 mg Q4H PRN Administration Pain MILD(1-3)/Fever >100.5/NIÑO Amlodipine Besylate 10 mg 06/04/19 16:00 06/07/19 09:37 Amlodipine PO 10 mg QDAY ALPESH Administration Aspirin 81 mg 05/30/19 10:00 06/07/19 09:37 Baby Aspirin PO 81 mg DAILY ALPESH Administration Atorvastatin Calcium 10 mg 05/30/19 22:00 06/06/19 22:43 Atorvastatin PO 10 mg QHS ALPESH Administration Dextrose 50 ml 05/30/19 03:51 06/02/19 07:21 D50w (25gm) Syringe IV 50 ml Q30MIN PRN Administration Hypoglycemia Protocol Fludrocortisone Acetate 0.05 mg 06/07/19 10:00 06/07/19 09:55 Florinef PO 0.05 mg MoWeTh ALPESH Administration Hydralazine HCl 5 mg 06/04/19 15:14 Apresoline IV Q30MIN PRN Hypertension Dextrose/Sodium Chloride 1,000 mls @ 75 mls/hr 06/06/19 14:00 06/07/19 10:15 D5ns 0.2% IV 75 mls/hr DIRECT ALPESH Administration Insulin Human Regular 0 units 06/03/19 16:30 06/07/19 09:00 Humulin R SUB-Q Not Given ACHS ALPESH Protocol Magnesium Hydroxide 30 ml 05/30/19 03:51 Milk Of Magnesia PO Q4H PRN Constipation Metoprolol Tartrate 25 mg 05/30/19 10:00 06/07/19 09:37 Metoprolol PO 25 mg DAILY ALPESH Administration Ondansetron HCl 4 mg 05/30/19 03:51 06/05/19 10:17 Zofran IV 4 mg Q8H PRN Administration Nausea And Vomiting Polyethylene Glycol 17 gm 05/30/19 10:00 Miralax 3350 PO BID PRN Constipation Sodium Chloride 10 ml 05/30/19 10:00 06/07/19 09:38 Sodium Chloride Flush Syringe 10 Ml IV 10 ml BID ALPESH Administration Sodium Chloride 10 ml 05/30/19 03:51 Sodium Chloride Flush Syringe 10 Ml IV PRN PRN LINE FLUSH Tamsulosin HCl 0.4 mg 06/01/19 22:00 06/06/19 22:43 Flomax PO 0.4 mg QHS ALPESH Administration
[2019-06-07] MEDS ORDERED: D5W/0.45% NACL 1,000 ML IV SCH (12:00)
[2019-06-07 13:56] LABS: Hematocrit 21.6 % (35.5-45.6)
[2019-06-07] MEDS: levoFLOXacin 250 MG TAB PO SCH (15:13)
[2019-06-07] MEDS ORDERED: IPRATROPIUM 0.02% NEBU 2.5 ML IH PRN (15:17)
--- NOTE | 2019-06-07 15:20 | Progress Note ---
Assessment and Plan /Febrile illness, low grade - from UTI - order blood cx, UA and CXR - will start renally adjusted levaquin / Anemia of CD Probably chronic. Will monitor CBC. Hb 7.0 today - ordered stool for occult blood and anemia panel transfuse one unit today /hypernatremia, Na 153 today cont iv fluid with hypotonic saline with D5 1/4 NS - free water deficit ~4L with minimal po hydration. check BMP tomorrow am, encouraged po intake - will continue to wean off Florinef to 0.05mg every other day per renal, will stop after Wednesday dose / Hyperkalemia - from declining renal function, K level improved Will monitor chemistry. He has had kayexalate, insulin and glucose along with sodium bicarbonate and calcium gluconate. Nephrology consulted for follow up. / ALESSIO - due to vasomotor nephropathy - today Cr 1.6 cont iv fluid, nephro consulted / Nausea & vomiting - resolved could be from uremia HE HAS BEEN PLACED ON IV ZOFRAN AND STARTED ON IV FLUID. / left inguinal hernia with hydrocele consult GS - appears reducible now, no need for surgery /H/o COPD, on symbicort at home bid, cont to monitor / Dementia likely vascular, cont supportive care, resume home meds /Dvt Px, heparin Prognosis: Guarded, will cont monitor the pt, need inpt stay for persistent hypernatremia, anemia Subjective Date of service: 06/07/19 Principal diagnosis: aur Interval history: Patient seen and examined K level normal but Na remained elevated, at bedside updated patient denies any chest pain, UA suggestive for UTI hb dropped to 7.0 today Objective - Exam Narrative Exam: General appearance: Present: no acute distress, well-nourished - EENT Eyes: PERRL, EOM intact ENT: hearing intact, clear oral mucosa Ears: bilateral: normal - Neck Neck: supple, normal ROM - Respiratory Respiratory effort: normal Respiratory: bilateral: CTA - Cardiovascular Rhythm: regular Heart Sounds: Present: S1 & S2. Absent: gallop, rub Extremities: pulses intact, No edema, normal color, Full ROM - Gastrointestinal General gastrointestinal: Present: soft, non-distended, normal bowel sounds, other (obese) - Integumentary Integumentary: clear, warm, dry - Musculoskeletal Musculoskeletal: generalized weakness - Neurologic Neurologic: moves all extremities - Psychiatric Psychiatric: no appropriate mood/affect, no intact judgment & insight, no memory intact, cooperative - Constitutional Vitals: Vital Signs - 12hr 06/07/19 06/07/19 06/07/19 04:12 09:37 10:00 Temperature 98.0 F Pulse Rate 91 H 95 H Respiratory 18 18 Rate Blood Pressure 108/65 122/92 O2 Sat by Pulse 85 97 Oximetry 06/07/19 11:10 Temperature Pulse Rate 105 H Respiratory Rate Blood Pressure O2 Sat by Pulse Oximetry - Labs CBC & Chem 7: 06/08/19 04:46 06/08/19 04:46 Labs: Abnormal lab results 06/06/19 06/06/19 06/07/19 Range/Units 17:23 20:30 04:35 RBC 2.10 L (3.65-5.03) M/mm3 Hgb 6.8 L (11.8-15.2) gm/dl Hct 20.8 L (35.5-45.6) % MCV 99 H (84-94) fl RDW 15.5 H (13.2-15.2) % Plt Count 118 L (140-440) K/mm3 [place] % (Auto) 11.2 H (0.0-7.3) % [place] # 1.0 H (0.0-0.8) K/mm3 Seg Neutrophils % 71.7 H (40.0-70.0) % Sodium (137-145) mmol/L Chloride (98-107) mmol/L BUN (9-20) mg/dL Creatinine (0.8-1.5) mg/dL Glucose (75-100) mg/dL POC Glucose 137 H 214 H (70-105) Urine WBC (Auto) (0.0-6.0) /HPF 06/07/19 06/07/19 06/07/19 Range/Units 04:35 06:45 09:07 RBC (3.65-5.03) M/mm3 Hgb (11.8-15.2) gm/dl Hct (35.5-45.6) % MCV (84-94) fl RDW (13.2-15.2) % Plt Count (140-440) K/mm3 [place] % (Auto) (0.0-7.3) % [place] # (0.0-0.8) K/mm3 Seg Neutrophils % (40.0-70.0) % Sodium 153 H (137-145) mmol/L Chloride 114.1 H (98-107) mmol/L BUN 50 H (9-20) mg/dL Creatinine 1.7 H (0.8-1.5) mg/dL Glucose 106 H (75-100) mg/dL POC Glucose 138 H (70-105) Urine WBC (Auto) 149.0 H (0.0-6.0) /HPF 06/07/19 06/07/19 Range/Units 11:41 13:19 RBC (3.65-5.03) M/mm3 Hgb 7.0 L (11.8-15.2) gm/dl Hct 21.6 L (35.5-45.6) % MCV (84-94) fl RDW (13.2-15.2) % Plt Count (140-440) K/mm3 [place] % (Auto) (0.0-7.3) % [place] # (0.0-0.8) K/mm3 Seg Neutrophils % (40.0-70.0) % Sodium (137-145) mmol/L Chloride (98-107) mmol/L BUN (9-20) mg/dL Creatinine (0.8-1.5) mg/dL Glucose (75-100) mg/dL POC Glucose 229 H (70-105) Urine WBC (Auto) (0.0-6.0) /HPF
[2019-06-07] MEDS ORDERED: IPRATROPIUM 0.02% NEBU 2.5 ML IH ONE (16:00)
[2019-06-07 16:12] LABS: Iron 20 ug/dL (49-181); Total Iron Binding Capacity 174 mcg/dL (250-450)
[2019-06-07] MEDS ORDERED: SODIUM CHLORIDE 0.9% 500 ML 500 ML IV ONE (16:13)
[2019-06-07] MEDS: BUDESONIDE 0.5 MG/2 ML NEBU IH SCH (19:48)
[2019-06-07] MEDS: ARFORMOTEROL 15 MCG/2 ML NEBU IH SCH (19:48)
[2019-06-07] MEDS ORDERED: SODIUM CHLORIDE 0.9% 1000 ML 500 ML IV ONE (20:00)
[2019-06-07] MEDS ORDERED: BUDESONIDE 0.5 MG, ARFORMOTEROL NEBU 15 MCG IH SCH (20:00)
[2019-06-07] MEDS: TAMSULOSIN 0.4 MG CAP PO SCH (20:59)
[2019-06-08] MEDS: ACETAMINOPHEN 325 MG TAB PO PRN (00:15)
[2019-06-08] MEDS ORDERED: diphenhydrAMINE 50 MG/ML VIAL IV ONE (01:00)
[2019-06-08 05:53] LABS: Basophils % (Auto) 0.3 % (0.0-1.8); Eosinophils # (Auto) 0.1 K/mm3 (0.0-0.4); Eosinophils % (Auto) 0.7 % (0.0-4.3); Hemoglobin 7.8 gm/dl (11.8-15.2); Lymphocytes # (Auto) 1.4 K/mm3 (1.2-5.4); Lymphocytes % (Auto) 9.9 % (13.4-35.0); Mean Corpuscular HGB Conc 33 % (32-34); Mean Corpuscular Volume 97 fl (84-94); Monocytes % (Auto) 7.3 % (0.0-7.3); Platelet Count 138 K/mm3 (140-440); Red Blood Count 2.46 M/mm3 (3.65-5.03); Red Cell Distribution Width 15.5 % (13.2-15.2)
[2019-06-08] MEDS: ARFORMOTEROL 15 MCG/2 ML NEBU IH SCH ×2 (08:23→21:12)
[2019-06-08] MEDS: BUDESONIDE 0.5 MG/2 ML NEBU IH SCH ×2 (08:23→21:12)
[2019-06-08] MEDS: ASPIRIN 81 MG TAB CHEW PO SCH (10:20)
[2019-06-08] MEDS: levoFLOXacin 250 MG TAB PO SCH (10:20)
[2019-06-08] MEDS: amLODIPine 10 MG TAB PO SCH (10:21)
[2019-06-08] MEDS: METOPROLOL TARTRATE 25 MG TAB PO SCH (10:21)
[2019-06-08] MEDS: INSULIN REGULAR, HUMAN 100 UNITS/1 ML SUB-Q SCH ×4 (10:48→22:19)
[2019-06-08] MEDS: FLUDROCORTISONE 0.1 MG TAB PO SCH (11:31)
--- NOTE | 2019-06-08 13:35 | Progress Note ---
Assessment and Plan # Acute kidney injury: baseline creatinine is around 1.2, admitted with a creatinine of 1.6. Had improved to 1.2, now increasing to 1.6->1.7; ALESSIO likely in setting of dehydration. No labs today - encourage po hydration as possible - continue current IVF - please check labs in AM - avoid nephrotoxins - appreciate cessation of PPI due to risk of interstitial injury # Hypernatremia: free water deficit ~4L with minimal po hydration. Also on Florinef - will continue to wean off Florinef to 0.05mg every other day, will stop after Wednesday dose - IVF as above - encourage PO hydration to make up free water deficit as able # Hyperkalemia: improved, now borderline low likely from Florinef # HTN: BP at goal, change Florinef as above # Anemia: likely from multifactorial causes. No indication for ESAs currently, s/p prbcs yesterday Thank you for this consult. We'll continue to follow and make recommendation from renal standpoint Subjective Date of service: 06/08/19 Principal diagnosis: aur Interval history: No acute events noted overnight. Discussed case with patient and at bedside. Patient not drinking much water inpatient due to swallowing concerns. happy that he is more alert today. Objective - Exam Narrative Exam: General: No acute distress HEENT: Oral mucosa moist, no icterus Neck: Supple Chest: Clear to auscultation anteriorly Heart: Regular rate and rhythm, normal S1-S2 Abdomen: Soft nontender Extremity: no edema Psych: No evidence of any agitation and aggression noted Neuro: mildly alerted and unable to communicate well Derm: intact - Vital Signs Vital signs: Vital Signs - 12hr 06/08/19 06/08/19 06/08/19 01:42 01:43 01:50 Temperature 99.0 F Pulse Rate 88 89 77 Pulse Rate [ Anterior Throughout] Respiratory 20 18 Rate Respiratory Rate [Anterior Throughout] Blood Pressure 119/63 112/54 O2 Sat by Pulse 99 99 100 Oximetry 06/08/19 06/08/19 06/08/19 02:19 02:20 02:48 Temperature 98.6 F Pulse Rate 84 82 77 Pulse Rate [ Anterior Throughout] Respiratory 18 18 Rate Respiratory Rate [Anterior Throughout] Blood Pressure 121/57 112/54 O2 Sat by Pulse 100 100 100 Oximetry 06/08/19 06/08/19 06/08/19 02:50 03:21 03:22 Temperature 98.5 F 98.8 F Pulse Rate 78 78 77 Pulse Rate [ Anterior Throughout] Respiratory 18 18 Rate Respiratory Rate [Anterior Throughout] Blood Pressure 118/60 114/55 O2 Sat by Pulse 100 100 100 Oximetry 06/08/19 06/08/19 06/08/19 03:36 04:06 04:16 Temperature 98.7 F Pulse Rate 86 76 78 Pulse Rate [ Anterior Throughout] Respiratory 20 18 Rate Respiratory Rate [Anterior Throughout] Blood Pressure 133/109 114/55 O2 Sat by Pulse 94 100 100 Oximetry 06/08/19 06/08/19 06/08/19 08:00 08:11 08:12 Temperature 99.2 F Pulse Rate 83 82 Pulse Rate [ 90 Anterior Throughout] Respiratory 18 18 Rate Respiratory 17 Rate [Anterior Throughout] Blood Pressure 132/58 O2 Sat by Pulse 98 98 Oximetry 06/08/19 06/08/19 06/08/19 08:25 09:13 10:21 Temperature Pulse Rate 88 Pulse Rate [ 88 Anterior Throughout] Respiratory Rate Respiratory 21 Rate [Anterior Throughout] Blood Pressure 132/58 O2 Sat by Pulse 92 Oximetry 06/08/19 06/08/19 11:59 12:20 Temperature 98.2 F 99.2 F Pulse Rate 91 H 70 Pulse Rate [ Anterior Throughout] Respiratory 20 20 Rate Respiratory Rate [Anterior Throughout] Blood Pressure 122/82 112/51 O2 Sat by Pulse 96 97 Oximetry - Lab 06/08/19 04:46 06/08/19 04:46 Most recent lab results Calcium 9.0 mg/dL (8.4-10.2) 06/08/19 04:46 Medications & Allergies - Medications Allergies/Adverse Reactions: Allergies No Known Allergies Allergy (Verified 10/27/13 16:35) Home Medications: Home Medications Medication Instructions Recorded Confirmed Last Taken Type Aspirin [Aspirin BABY CHEW TAB] 1 tab PO DAILY 10/27/13 05/30/19 10/29/13 History Atorvastatin (Nf) [Lipitor] 1 tab PO DAILY 10/27/13 05/30/19 10/27/13 History Insulin Glargine,Hum.rec.anlog 8 units SC HS 10/27/13 05/30/19 10/29/13 History [Lantus] Metoprolol Tartrate 1 tab PO DAILY 10/27/13 05/30/1914 History Pantoprazole [Protonix TAB] 1 tab PO DAILY 10/27/13 05/30/19 10/29/13 History Polyethylene Glycol 3350 [Miralax 17 gm PO BID PRN #10 powd.pack 01/24/19 05/30/19 Unknown Rx 3350] Active Medications: Generic Name Dose Route Start Last Admin Trade Name Freq PRN Reason Stop Dose Admin Acetaminophen 650 mg 05/30/19 03:51 06/08/19 00:15 Tylenol PO 650 mg Q4H PRN Administration Pain MILD(1-3)/Fever >100.5/NIÑO Amlodipine Besylate 10 mg 06/04/19 16:00 06/08/19 10:21 Amlodipine PO 10 mg QDAY ALPESH Administration Arformoterol Tartrate 15 mcg 06/07/19 20:00 06/08/19 08:23 Brovana Nebu IH 15 mcg Q12HRT ALPESH Administration Aspirin 81 mg 05/30/19 10:00 06/08/19 10:20 Baby Aspirin PO 81 mg DAILY ALPESH Administration Atorvastatin Calcium 10 mg 05/30/19 22:00 06/07/19 20:59 Atorvastatin PO 10 mg QHS ALPESH Administration Budesonide 0.5 mg 06/07/19 20:00 06/08/19 08:23 Pulmicort IH 0.5 mg Q12HRT ALPESH Administration Dextrose 50 ml 05/30/19 03:51 06/02/19 07:21 D50w (25gm) Syringe IV 50 ml Q30MIN PRN Administration Hypoglycemia Protocol Fludrocortisone Acetate 0.05 mg 06/07/19 10:00 06/08/19 11:31 Florinef PO 0.05 mg MoWeTh ALPESH Administration Hydralazine HCl 5 mg 06/04/19 15:14 Apresoline IV Q30MIN PRN Hypertension Dextrose/Sodium Chloride 1,000 mls @ 75 mls/hr 06/07/19 12:00 06/07/19 23:34 D5/0.45ns IV 75 mls/hr DIRECT ALPESH Administration Insulin Human Regular 0 units 06/03/19 16:30 06/08/19 12:53 Humulin R SUB-Q 2 units ACHS ALPESH Administration Protocol Levofloxacin 250 mg 06/07/19 14:00 06/08/19 10:20 Levaquin PO 250 mg Q24HR ALPESH Administration Magnesium Hydroxide 30 ml 05/30/19 03:51 Milk Of Magnesia PO Q4H PRN Constipation Metoprolol Tartrate 25 mg 05/30/19 10:00 06/08/19 10:21 Metoprolol PO 25 mg DAILY ALPESH Administration Ondansetron HCl 4 mg 05/30/19 03:51 06/05/19 10:17 Zofran IV 4 mg Q8H PRN Administration Nausea And Vomiting Polyethylene Glycol 17 gm 05/30/19 10:00 Miralax 3350 PO BID PRN Constipation Sodium Chloride 10 ml 05/30/19 10:00 06/08/19 10:49 Sodium Chloride Flush Syringe 10 Ml IV 10 ml BID ALPESH Administration Sodium Chloride 10 ml 05/30/19 03:51 Sodium Chloride Flush Syringe 10 Ml IV PRN PRN LINE FLUSH Tamsulosin HCl 0.4 mg 06/01/19 22:00 06/07/19 20:59 Flomax PO 0.4 mg QHS ALPESH Administration
--- NOTE | 2019-06-08 15:46 | Cat Scan Report ---
NONENHANCED CT SCAN OF THE HEAD: INDICATION / CLINICAL INFORMATION: 79 years Male; possible CVA. TECHNIQUE: Routine CT head without contrast. All CT scans at this location are performed using CT dos e reduction for ALARA by means of automated exposure control. COMPARISON: CT scan of the brain from 02/17/2014 FINDINGS: BRAIN / INTRACRANIAL CONTENTS: No intracerebral hemorrhage; no stroke mimics No mass effect, midline shift, or acute, large territorial infarct. Chronic ischemic changes are seen in the left caudate and in both putamen. Lateral ventricles and third ventricle are enlarged, kiara red to high convexity cortical sulci (increased Manuel index). Ventriculomegaly has increased since 201 4 x 4 mm. Both temporal horn tips are dilated due to volume loss in the hippocampus. Volume loss is s een in the cerebellar vermis Periventricular low density areas are seen around the frontal horns. This was seen in the last CT sca n also. Ventriculomegaly is probably due to deep central involution and temporal horn tip dilatation probably due to volume loss in the hippocampi. CRANIOCERVICAL JUNCTION: No significant abnormality. ORBITS: No significant abnormality of visualized orbits. SINUSES / MASTOIDS: No significant abnormality of the visualized paranasal sinuses or mastoid air chon ls. ADDITIONAL FINDINGS: None. IMPRESSION: No intracerebral hemorrhage; no stroke mimics Dilated lateral ventricles and third ventricle Ventriculomegaly due to deep central involution Signer Name: Nicholas Lin MD Signed: 06/08/2019 3:42 PM Workstation Name: [id number]
--- NOTE | 2019-06-08 16:33 | Progress Note ---
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 Will monitor CBC. Hb dropped to 6.9 - ordered stool for occult blood and anemia panel and transfused one unit PRBC /hypernatremia, Na 154 today cont iv fluid with hypotonic saline with D5 1/4 NS - free water deficit ~4L with minimal po hydration. check BMP tomorrow am, encouraged po intake - will continue to wean off Florinef to 0.05mg every other day per renal, ppan to stop after Wednesday dose / Hyperkalemia - from declining renal function, K level improved Will monitor chemistry. He has had kayexalate, insulin and glucose along with sodium bicarbonate and calcium gluconate. Nephrology consulted for follow up. / ALESSIO - due to vasomotor nephropathy - today Cr 1.6 cont iv fluid, nephro consulted / Nausea & vomiting - resolved could be from uremia HE HAS BEEN PLACED ON IV ZOFRAN AND STARTED ON IV FLUID. / left inguinal hernia with hydrocele consult GS - appears reducible now, no need for surgery /H/o COPD, on symbicort at home bid, cont to monitor / Dementia likely vascular, cont supportive care, resume home meds /Dvt Px, heparin Prognosis: Guarded, will cont monitor the pt, need inpt stay for persistent hypernatremia, anemia. discussed with family. 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 Absent: gallop, rub Extremities: pulses intact, No edema, normal color, Full ROM - Gastrointestinal General gastrointestinal: Present: soft, non-distended, normal bowel sounds, other (obese) - Integumentary Integumentary: clear, warm, dry - Musculoskeletal Musculoskeletal: generalized weakness, right >L - Neurologic Neurologic: moves all extremities - Psychiatric Psychiatric: no appropriate mood/affect, no intact judgment & insight, no memory intact, cooperative - Constitutional Vitals: Vital Signs - 12hr 06/08/19 06/08/19 06/08/19 04:16 08:00 08:11 Temperature Pulse Rate 78 83 Pulse Rate [ 90 Anterior Throughout] Respiratory 18 18 Rate Respiratory 17 Rate [Anterior Throughout] Blood Pressure 114/55 O2 Sat by Pulse 100 98 Oximetry 06/08/19 06/08/19 06/08/19 08:12 08:25 09:13 Temperature 99.2 F Pulse Rate 82 Pulse Rate [ 88 Anterior Throughout] Respiratory 18 Rate Respiratory 21 Rate [Anterior Throughout] Blood Pressure 132/58 O2 Sat by Pulse 98 92 Oximetry 06/08/19 06/08/19 06/08/19 10:21 11:59 12:20 Temperature 98.2 F 99.2 F Pulse Rate 88 91 H 70 Pulse Rate [ Anterior Throughout] Respiratory 20 20 Rate Respiratory Rate [Anterior Throughout] Blood Pressure 132/58 122/82 112/51 O2 Sat by Pulse 96 97 Oximetry - Labs CBC & Chem 7: 06/09/19 05:23 06/09/19 00:53 Labs: Abnormal lab results 06/07/19 06/07/19 06/07/19 Range/Units 15:28 15:28 15:30 WBC (4.5-11.0) K/mm3 RBC (3.65-5.03) M/mm3 Hgb (11.8-15.2) gm/dl Hct (35.5-45.6) % MCV (84-94) fl RDW (13.2-15.2) % Plt Count (140-440) K/mm3 Lymph % (Auto) (13.4-35.0) % [place] # (0.0-0.8) K/mm3 Seg Neutrophils % (40.0-70.0) % Seg Neutrophils # (1.8-7.7) K/mm3 Sodium (137-145) mmol/L Chloride (98-107) mmol/L BUN (9-20) mg/dL Creatinine (0.8-1.5) mg/dL Glucose (75-100) mg/dL POC Glucose (70-105) Iron 20 L (49-181) ug/dL TIBC 174 L (250-450) mcg/dL Ferritin 518.5 H (13.0-400.0) ng/mL Crossmatch See Detail 06/07/19 06/07/19 06/08/19 Range/Units 17:03 22:30 04:46 WBC 14.3 H (4.5-11.0) K/mm3 RBC 2.46 L (3.65-5.03) M/mm3 Hgb 7.8 L (11.8-15.2) gm/dl Hct 24.0 L (35.5-45.6) % MCV 97 H (84-94) fl RDW 15.5 H (13.2-15.2) % Plt Count 138 L (140-440) K/mm3 Lymph % (Auto) 9.9 L (13.4-35.0) % [place] # 1.0 H (0.0-0.8) K/mm3 Seg Neutrophils % 81.8 H (40.0-70.0) % Seg Neutrophils # 11.7 H (1.8-7.7) K/mm3 Sodium (137-145) mmol/L Chloride (98-107) mmol/L BUN (9-20) mg/dL Creatinine (0.8-1.5) mg/dL Glucose (75-100) mg/dL POC Glucose 210 H 216 H (70-105) Iron (49-181) ug/dL TIBC (250-450) mcg/dL Ferritin (13.0-400.0) ng/mL Crossmatch 06/08/19 06/08/19 06/08/19 Range/Units 04:46 07:21 11:42 WBC (4.5-11.0) K/mm3 RBC (3.65-5.03) M/mm3 Hgb (11.8-15.2) gm/dl Hct (35.5-45.6) % MCV (84-94) fl RDW (13.2-15.2) % Plt Count (140-440) K/mm3 Lymph % (Auto) (13.4-35.0) % [place] # (0.0-0.8) K/mm3 Seg Neutrophils % (40.0-70.0) % Seg Neutrophils # (1.8-7.7) K/mm3 Sodium 154 H (137-145) mmol/L Chloride 113.4 H (98-107) mmol/L BUN 54 H (9-20) mg/dL Creatinine 1.6 H (0.8-1.5) mg/dL Glucose 113 H (75-100) mg/dL POC Glucose 119 H 201 H (70-105) Iron (49-181) ug/dL TIBC (250-450) mcg/dL Ferritin (13.0-400.0) ng/mL Crossmatch
[2019-06-08] MEDS ORDERED: LORazepam 2 MG/ML VIAL IV ONE (18:25)
--- NOTE | 2019-06-08 20:36 | Magnetic Resonance Report ---
MRI BRAIN 06/08/2019 INDICATION / CLINICAL INFORMATION: possible CVA. Right-sided weakness TECHNIQUE: Multiplanar, multisequence MR images of the brain were obtained. COMPARISON: None available. FINDINGS: BRAIN / INTRACRANIAL CONTENTS: Unenhanced MR images of the brain demonstrate no evidence of acute int racranial abnormality. Ventricles and sulci are prominent in size, consistent with diffuse cerebral atrophy, predominantly c entral. Moderate chronic white matter T2 weighted hyperintensities are present throughout the cerebra l hemispheric white matter. A few chronic lacunar changes are present in the basal ganglia bilaterall y. There is no evidence of acute ischemic injury, hemorrhage, or mass. There are no abnormal extra-axial fluid collections. EXTRACRANIAL: Mucosal thickening is present in the maxillary sinuses, right greater than left. CRANIOCERVICAL JUNCTION: No significant abnormality. VASCULAR FLOW-VOIDS: No significant abnormality. IMPRESSION: No acute abnormality. Extensive chronic and age-related changes. Signer Name: Leeroy Cheung MD Signed: 06/08/2019 8:32 PM Workstation Name: [id number]
[2019-06-08] MEDS: TAMSULOSIN 0.4 MG CAP PO SCH (21:41)
[2019-06-09 01:51] LABS: Calcium 9.5 mg/dL (8.4-10.2)
[2019-06-09 06:44] LABS: Hematocrit 24.4 % (35.5-45.6); Hemoglobin 7.9 gm/dl (11.8-15.2)
[2019-06-09] MEDS: INSULIN REGULAR, HUMAN 100 UNITS/1 ML SUB-Q SCH ×4 (08:00→21:59)
[2019-06-09] MEDS: BUDESONIDE 0.5 MG/2 ML NEBU IH SCH ×2 (08:11→19:12)
[2019-06-09] MEDS: ARFORMOTEROL 15 MCG/2 ML NEBU IH SCH ×2 (08:11→19:12)
[2019-06-09] MEDS: METOPROLOL TARTRATE 25 MG TAB PO SCH (09:36)
[2019-06-09] MEDS: ASPIRIN 81 MG TAB CHEW PO SCH (09:36)
[2019-06-09] MEDS: levoFLOXacin 250 MG TAB PO SCH (09:36)
[2019-06-09] MEDS: amLODIPine 10 MG TAB PO SCH (09:37)
--- NOTE | 2019-06-09 11:45 | Progress Note ---
Assessment and Plan # Acute kidney injury: baseline creatinine is around 1.2, admitted with a creatinine of 1.6, now at 1.4. ALESSIO likely in setting of dehydration. - encourage po hydration as possible - daily renal labs - avoid nephrotoxins - appreciate cessation of PPI due to risk of interstitial injury # Hypernatremia: free water deficit ~4L with minimal po hydration. Also on Florinef - will continue to wean off Florinef to 0.05mg every other day, will stop after Wednesday dose - will start D5W at 75cc/hr (total ~2L/24 hours) - encourage PO hydration to make up free water deficit as able # Hyperkalemia: improved, change Florinef # HTN: BP at goal, wean Florinef as above # Anemia: likely from multifactorial causes. No indication for ESAs currently, s/p prbcs 06/03 Thank you for this consult. We'll continue to follow and make recommendation from renal standpoint Subjective Date of service: 06/09/19 Principal diagnosis: aur Interval history: No acute events noted overnight. Discussed case with patient and at bedside. Patient not drinking much water inpatient due to swallowing concerns. No changes in mental status. Objective - Exam Narrative Exam: General: No acute distress HEENT: Oral mucosa moist, no icterus Neck: Supple Chest: Clear to auscultation anteriorly Heart: Regular rate and rhythm, normal S1-S2 Abdomen: Soft nontender Extremity: no edema Psych: No evidence of any agitation and aggression noted Neuro: mildly alerted and unable to communicate well Derm: intact - Vital Signs Vital signs: Vital Signs - 12hr 06/09/19 06/09/19 06/09/19 00:00 00:52 04:38 Temperature 98.0 F 98.3 F Pulse Rate 94 H 94 H 119 H Pulse Rate [ Anterior Throughout] Respiratory 18 18 Rate Respiratory Rate [Anterior Throughout] Blood Pressure 145/56 158/90 O2 Sat by Pulse 97 100 Oximetry 06/09/19 06/09/19 06/09/19 08:14 08:54 09:36 Temperature 99.1 F Pulse Rate 118 H 118 H Pulse Rate [ 88 Anterior Throughout] Respiratory 18 Rate Respiratory 18 Rate [Anterior Throughout] Blood Pressure 179/68 179/68 O2 Sat by Pulse 97 93 Oximetry 06/09/19 09:37 Temperature Pulse Rate 118 H Pulse Rate [ Anterior Throughout] Respiratory Rate Respiratory Rate [Anterior Throughout] Blood Pressure 179/68 O2 Sat by Pulse Oximetry - Lab 06/09/19 05:23 06/09/19 00:53 Most recent lab results Calcium 9.5 mg/dL (8.4-10.2) 06/09/19 00:53 Medications & Allergies - Medications Allergies/Adverse Reactions: Allergies No Known Allergies Allergy (Verified 10/27/13 16:35) Home Medications: Home Medications Medication Instructions Recorded Confirmed Last Taken Type Aspirin [Aspirin BABY CHEW TAB] 1 tab PO DAILY 10/27/13 05/30/19 10/29/13 His tory Atorvastatin (Nf) [Lipitor] 1 tab PO DAILY 10/27/13 05/30/19 10/27/13 History Insulin Glargine,Hum.rec.anlog 8 units SC HS 10/27/13 05/30/19 10/29/13 History [Lantus] Metoprolol Tartrate 1 tab PO DAILY 10/27/13 05/30/19 10/29/13 History Pantoprazole [Protonix TAB] 1 tab PO DAILY 10/27/13 05/30/19 10/29/13 History Polyethylene Glycol 3350 [Miralax 17 gm PO BID PRN #10 powd.pack 01/24/19 05/30/19 Unknown Rx 3350] Active Medications: Generic Name Dose Route Start Last Admin Trade Name Freq PRN Reason Stop Dose Admin Acetaminophen 650 mg 05/30/19 03:51 06/08/19 00:15 Tylenol PO 650 mg Q4H PRN Administration Pain MILD(1-3)/Fever >100.5/NIÑO Amlodipine Besylate 10 mg 06/04/19 16:00 06/09/19 09:37 Amlodipine PO 10 mg QDAY ALPESH Administration Arformoterol Tartrate 15 mcg 06/07/19 20:00 06/09/19 08:11 Brovana Nebu IH 15 mcg Q12HRT ALPESH Administration Aspirin 81 mg 05/30/19 10:00 06/09/19 09:36 Baby Aspirin PO 81 mg DAILY ALPESH Administration Atorvastatin Calcium 10 mg 05/30/19 22:00 06/08/19 21:41 Atorvastatin PO 10 mg QHS ALPESH Administration Budesonide 0.5 mg 06/07/19 20:00 06/09/19 08:11 Pulmicort IH 0.5 mg Q12HRT ALPESH Administration Dextrose 50 ml 05/30/19 03:51 06/02/19 07:21 D50w (25gm) Syringe IV 50 ml Q30MIN PRN Administration Hypoglycemia Protocol Fludrocortisone Acetate 0.05 mg 06/07/19 10:00 06/08/19 11:31 Florinef PO 0.05 mg MoWeTh ALPESH Administration Hydralazine HCl 5 mg 06/04/19 15:14 Apresoline IV Q30MIN PRN Hypertension Insulin Human Regular 0 units 06/03/19 16:30 06/09/19 08:00 Humulin R SUB-Q 1 units ACHS ALPESH Administration Protocol Levofloxacin 250 mg 06/07/19 14:00 06/09/19 09:36 Levaquin PO 250 mg Q24HR ALPESH Administration Magnesium Hydroxide 30 ml 05/30/19 03:51 Milk Of Magnesia PO Q4H PRN Constipation Metoprolol Tartrate 25 mg 05/30/19 10:00 06/09/19 09:36 Metoprolol PO 25 mg DAILY ALPESH Administration Ondansetron HCl 4 mg 05/30/19 03:51 06/05/19 10:17 Zofran IV 4 mg Q8H PRN Administration Nausea And Vomiting Polyethylene Glycol 17 gm 05/30/19 10:00 Miralax 3350 PO BID PRN Constipation Sodium Chloride 10 ml 05/30/19 10:00 06/09/19 09:38 Sodium Chloride Flush Syringe 10 Ml IV 10 ml BID ALPESH Administration Sodium Chloride 10 ml 05/30/19 03:51 Sodium Chloride Flush Syringe 10 Ml IV PRN PRN LINE FLUSH Tamsulosin HCl 0.4 mg 06/01/19 22:00 06/08/19 21:41 Flomax PO 0.4 mg QHS ALPESH Administration
--- NOTE | 2019-06-09 14:46 | Progress Note ---
Assessment and Plan /Right sided weakness, acute on chronic - likely worsening physical debility - had chronic weakness on right from previous CVA per the - CT/MRI head no acute findings, NEED SAM PER PT /Febrile illness, low grade - from UTI - ordered blood cx, UA and CXR - placed on renaly adjusted levaquin, d/c macedo / Anemia of CD Probably chronic. Will monitor CBC. Hb dropped to 6.9 - ordered stool for occult blood - negative and anemia panel suggestive for anemia of CD and transfused one unit PRBC /hypernatremia, Na 154 today cont iv fluid with hypotonic saline with D5 1/4 NS - free water deficit ~4L with minimal po hydration. check BMP tomorrow am, encouraged po intake - will continue to wean off Florinef to 0.05mg every other day per renal, plan to stop after today dose / Hyperkalemia - from declining renal function, K level improved Will monitor chemistry. He has had kayexalate, insulin and glucose along with sodium bicarbonate and calcium gluconate. Nephrology consulted for follow up. / ALESSIO - due to vasomotor nephropathy - today Cr 1.4 cont iv fluid, nephro consulted / Nausea & vomiting - resolved could be from uremia HE HAS BEEN PLACED ON IV ZOFRAN AND STARTED ON IV FLUID. / left inguinal hernia with hydrocele consulted GS - appears reducible now, no need for surgery /H/o COPD, on symbicort at home bid, cont to monitor / Dementia likely vascular, cont supportive care, resume home meds /Dvt Px, heparin Prognosis: Guarded, will cont monitor the pt, need inpt stay for persistent hypernatremia, alessio. discussed with family. Need SAM Brief History: 78-year-old gentleman with medical history of dementia, hypertension, diabetes mellitus type 2, dementia chronic kidney disease, Hydrocele admitted with complaints of persistent nausea and vomiting unable to keep food intake down. ER lab significant for hyperkalemia potassium 6.6, acute kidney injury. k level improved then developed hypernatremia. nephrology following. received one unit of PRBC for low h/h. c/o right sided weakness - MRI brain negative for acute stroke. Need SAM on d/c once medically stabilized. Subjective Date of service: 06/09/19 Principal diagnosis: aur Interval history: Patient seen and examined H/H stable, discussed with and patient's bother Na level still elevated Objective - Exam Narrative Exam: General appearance: Present: no acute distress, well-nourished - EENT Eyes: PERRL, EOM intact ENT: hearing intact, clear oral mucosa Ears: bilateral: normal - Neck Neck: supple, normal ROM - Respiratory Respiratory effort: normal Respiratory: bilateral: CTA - Cardiovascular Rhythm: regular Heart Sounds: Present: S1 & S2. Absent: gallop, rub Extremities: pulses intact, No edema, normal color, Full ROM - Gastrointestinal General gastrointestinal: Present: soft, non-distended, normal bowel sounds, other (obese) + hydrocele - Integumentary Integumentary: clear, warm, dry - Musculoskeletal Musculoskeletal: generalized weakness, right >L - Neurologic Neurologic: moves all extremities - Psychiatric Psychiatric: no appropriate mood/affect, no intact judgment & insight, no memory intact, cooperative - Constitutional Vitals: Vital Signs - 12hr 06/09/19 06/09/19 06/09/19 04:38 08:14 08:54 Temperature 98.3 F 99.1 F Pulse Rate 119 H 118 H Pulse Rate [ 88 Anterior Throughout] Pulse Rate [ Radial] Respiratory 18 18 Rate Respiratory 18 Rate [Anterior Throughout] Blood Pressure 158/90 179/68 O2 Sat by Pulse 100 97 93 Oximetry 06/09/19 06/09/19 06/09/19 09:36 09:37 10:00 Temperature Pulse Rate 118 H 118 H 85 Pulse Rate [ Anterior Throughout] Pulse Rate [ 85 Radial] Respiratory 18 Rate Respiratory Rate [Anterior Throughout] Blood Pressure 179/68 179/68 O2 Sat by Pulse 96 Oximetry 06/09/19 12:15 Temperature 99.2 F Pulse Rate 75 Pulse Rate [ Anterior Throughout] Pulse Rate [ Radial] Respiratory 18 Rate Respiratory Rate [Anterior Throughout] Blood Pressure 127/58 O2 Sat by Pulse 95 Oximetry - Labs CBC & Chem 7: 06/09/19 05:23 06/09/19 00:53 Labs: Abnormal lab results 06/08/19 06/08/19 06/09/19 Range/Units 17:11 22:11 00:53 Hgb (11.8-15.2) gm/dl Hct (35.5-45.6) % Sodium 155 H (137-145) mmol/L Chloride 112.8 H (98-107) mmol/L BUN 46 H (9-20) mg/dL Glucose 162 H (75-100) mg/dL POC Glucose 170 H 168 H (70-105) 06/09/19 06/09/19 Range/Units 05:23 07:56 Hgb 7.9 L (11.8-15.2) gm/dl Hct 24.4 L (35.5-45.6) % Sodium (137-145) mmol/L Chloride (98-107) mmol/L BUN (9-20) mg/dL Glucose (75-100) mg/dL POC Glucose 187 H (70-105)
[2019-06-09] MEDS: DEXTROSE 5% IN WATER 1,000 ML IV SCH (15:31)
[2019-06-09] MEDS: TAMSULOSIN 0.4 MG CAP PO SCH (21:59)
[2019-06-10 03:27] LABS: Basophils % (Auto) 0.2 % (0.0-1.8); Eosinophils # (Auto) 0.1 K/mm3 (0.0-0.4); Eosinophils % (Auto) 0.5 % (0.0-4.3); Hematocrit 24.1 % (35.5-45.6); Hemoglobin 7.7 gm/dl (11.8-15.2); Lymphocytes # (Auto) 0.9 K/mm3 (1.2-5.4); Lymphocytes % (Auto) 4.9 % (13.4-35.0); Mean Corpuscular HGB Conc 32 % (32-34); Mean Corpuscular Volume 98 fl (84-94); Monocytes # (Auto) 1.2 K/mm3 (0.0-0.8); Monocytes % (Auto) 6.8 % (0.0-7.3); Platelet Count 220 K/mm3 (140-440); Red Blood Count 2.46 M/mm3 (3.65-5.03); Red Cell Distribution Width 15.1 % (13.2-15.2)
[2019-06-10 04:30] LABS: Calcium 9.4 mg/dL (8.4-10.2)
[2019-06-10] MEDS: DEXTROSE 5% IN WATER 1,000 ML IV SCH ×3 (05:26→19:20)
[2019-06-10] MEDS: INSULIN REGULAR, HUMAN 100 UNITS/1 ML SUB-Q SCH ×4 (08:00→22:01)
[2019-06-10] MEDS: ACETAMINOPHEN 325 MG TAB PO PRN ×2 (08:11→16:53)
[2019-06-10] MEDS: ARFORMOTEROL 15 MCG/2 ML NEBU IH SCH ×2 (08:31→19:56)
[2019-06-10] MEDS: BUDESONIDE 0.5 MG/2 ML NEBU IH SCH ×2 (08:31→19:57)
[2019-06-10] MEDS: amLODIPine 10 MG TAB PO SCH (09:24)
[2019-06-10] MEDS: METOPROLOL TARTRATE 25 MG TAB PO SCH (09:24)
[2019-06-10] MEDS: ASPIRIN 81 MG TAB CHEW PO SCH (09:24)
[2019-06-10] MEDS: levoFLOXacin 250 MG TAB PO SCH (09:24)
--- NOTE | 2019-06-10 10:08 | Progress Note ---
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 Hb dropped to 6.9ordered stool for occult blood negative s/p 1 unit packed RBC transfusion Hb improved to 7.7, closely monitor --hypernatremia, Na 154 -161 cont iv fluid with hypotonic saline with D5 1/4 NS - free water deficit ~4L with minimal po hydration. check BMP tomorrow am, encouraged po intake will continue to wean off Florinef to 0.05mg every other day per renal, plan to stop after today dose --Hyperkalemia -resolved, nephrology following --ALESSIO - due to vasomotor nephropathy - today Cr 1.6 cont iv fluid, avoid nephrotoxins, nephrology following --Nausea & vomiting - resolved --left inguinal hernia with hydrocele Evaluated by GS ,appears reducible now, no need for surgery --H/o COPD, on symbicort at home bid, cont to monitor --Dementia likely vascular, cont supportive care, resume home meds --Dvt Px, heparin Prognosis: Guarded, need inpt stay for persistent hypernatremia, alessio. discussed with family. Awaiting subacute placement History Interval history: Patient seen and examined medical records reviewed Patient is critically ill looking, mild distress Patient is febrile T-max of 101.1, hyponatremic hypokalemic Awaiting placement Vital signs noted Hospitalist Physical - Constitutional Vitals: Temp Pulse Resp BP Pulse Ox 101.1 F H 94 H 20 137/60 98 06/10/19 08:03 06/10/19 09:24 06/10/19 08:55 06/10/19 09:24 06/10/19 08:31 General appearance: Present: no acute distress, well-nourished - EENT Eyes: Present: PERRL, EOM intact - Neck Neck: Present: supple, normal ROM - Respiratory Respiratory effort: normal Respiratory: bilateral: diminished, negative: rales, rhonchi, wheezing - Cardiovascular Rhythm: regular Heart Sounds: Present: S1 & S2 - Extremities Extremities: no ischemia, No edema - Abdominal General gastrointestinal: soft, non-tender, non-distended, normal bowel sounds - Integumentary Integumentary: Present: clear, warm - Psychiatric Psychiatric: appropriate mood/affect, cooperative - Neurologic Neurologic: CNII-XII intact, moves all extremities Results - Labs CBC & Chem 7: 06/10/19 02:44 06/10/19 02:44 Labs: Laboratory Last Values WBC 17.3 K/mm3 (4.5-11.0) H 06/10/19 02:44 RBC 2.46 M/mm3 (3.65-5.03) L 06/10/19 02:44 Hgb 7.7 gm/dl (11.8-15.2) L 06/10/19 02:44 Hct 24.1 % (35.5-45.6) L 06/10/19 02:44 MCV 98 fl (84-94) H 06/10/19 02:44 MCH 32 pg (28-32) 06/10/19 02:44 MCHC 32 % (32-34) 06/10/19 02:44 RDW 15.1 % (13.2-15.2) 06/10/19 02:44 Plt Count 220 K/mm3 (140-440) 06/10/19 02:44 Lymph % (Auto) 4.9 % (13.4-35.0) L 06/10/19 02:44 [place] % (Auto) 6.8 % (0.0-7.3) 06/10/19 02:44 Eos % (Auto) 0.5 % (0.0-4.3) 06/10/19 02:44 Baso % (Auto) 0.2 % (0.0-1.8) 06/10/19 02:44 Lymph # 0.9 K/mm3 (1.2-5.4) L 06/10/19 02:44 [place] # 1.2 K/mm3 (0.0-0.8) H 06/10/19 02:44 Eos # 0.1 K/mm3 (0.0-0.4) 06/10/19 02:44 Baso # 0.0 K/mm3 (0.0-0.1) 06/10/19 02:44 Add Manual Diff Complete 06/06/19 04:30 Seg Neutrophils % 87.6 % (40.0-70.0) H 06/10/19 02:44 Seg Neutrophils # 15.1 K/mm3 (1.8-7.7) H 06/10/19 02:44 PT 15.2 Sec. (12.2-14.9) H 05/31/19 04:15 INR 1.21 (0.87-1.13) H 05/31/19 04:15 APTT 34.1 Sec. (24.2-36.6) 05/31/19 04:15 VBG pH 7.155 (7.320-7.420) L* 05/29/19 23:04 Sodium 161 mmol/L (137-145) H* 06/10/19 02:44 Potassium 4.2 mmol/L (3.6-5.0) 06/10/19 02:44 Chloride 119.1 mmol/L (98-107) H 06/10/19 02:44 Carbon Dioxide 27 mmol/L (22-30) 06/10/19 02:44 Anion Gap 19 mmol/L 06/10/19 02:44 BUN 49 mg/dL (9-20) H 06/10/19 02:44 Creatinine 1.6 mg/dL (0.8-1.5) H 06/10/19 02:44 Estimated GFR 51 ml/min 06/10/19 02:44 BUN/Creatinine Ratio 31 % 06/10/19 02:44 Glucose 167 mg/dL (75-100) H 06/10/19 02:44 POC Glucose 178 (70-105) H 06/10/19 08:14 Osmolality 336 Mosm/kg 06/04/19 15:28 Lactic Acid 1.30 mmol/L (0.7-2.0) 06/01/19 13:01 Uric Acid 6.9 mg/dL (3.5-7.6) 06/04/19 15:28 Calcium 9.4 mg/dL (8.4-10.2) 06/10/19 02:44 Iron 20 ug/dL (49-181) L 06/07/19 15:28 TIBC 174 mcg/dL (250-450) L 06/07/19 15:28 Ferritin 518.5 ng/mL (13.0-400.0) H 06/07/19 15:28 Total Bilirubin < 0.20 mg/dL (0.1-1.2) 05/29/19 23:04 AST 35 units/L (5-40) 05/29/19 23:04 ALT 45 units/L (7-56) 05/29/19 23:04 Alkaline Phosphatase 81 units/L (35-129) 05/29/19 23:04 Total Creatine Kinase 49 units/L (55-170) L 05/29/19 23:04 CK-MB (CK-2) 5.3 ng/mL (0.0-4.0) H 05/29/19 23:04 CK-MB (CK-2) Rel Index 10.8 (0-4) H 05/29/19 23:04 Troponin T < 0.010 ng/mL (0.00-0.029) 05/29/19 23:04 NT-Pro-B Natriuret Pep 1400 pg/mL (0-900) H 06/01/19 13:01 Total Protein 7.0 g/dL (6.3-8.2) 05/29/19 23:04 Albumin 3.9 g/dL (3.9-5) 05/29/19 23:04 Albumin/Globulin Ratio 1.3 % 05/29/19 23:04 Lipase 31 units/L (13-60) 05/29/19 23:04 Vitamin B12 673.7 pg/mL (211-911) 06/07/19 15:28 Folate > 20 ng/mL (7.3-26.0) 06/07/19 15:28 Urine Color Yellow (Yellow) 06/07/19 06:45 Urine Turbidity Slightly-cloudy (Clear) 06/07/19 06:45 Urine pH 5.0 (5.0-7.0) 06/07/19 06:45 Ur Specific [place] 1.015 (1.003-1.030) 06/07/19 06:45 Urine Protein 100 mg/dl mg/dL (Negative) 06/07/19 06:45 Urine Glucose (UA) Neg mg/dL (Negative) 06/07/19 06:45 Urine Ketones Neg mg/dL (Negative) 06/07/19 06:45 Urine Blood Lg (Negative) 06/07/19 06:45 Urine Nitrite Neg (Negative) 06/07/19 06:45 Urine Bilirubin Neg (Negative) 06/07/19 06:45 Urine Urobilinogen 2.0 mg/dL (<2.0) 06/07/19 06:45 Ur Leukocyte Esterase Lg (Negative) 06/07/19 06:45 Urine WBC (Auto) 149.0 /HPF (0.0-6.0) H 06/07/19 06:45 Urine RBC (Auto) > 182.0 /HPF (0.0-6.0) 06/07/19 06:45 U Epithel Cells (Auto) < 1.0 /HPF (0-13.0) 05/30/19 00:37 Urine Bacteria (Auto) 3+ /HPF (Negative) 06/07/19 06:45 Hyaline Casts 2 /LPF 06/07/19 06:45 Urine Mucus Few /HPF 06/07/19 06:45 Blood Type A POSITIVE 06/07/19 15:30 Antibody Screen Negative 06/07/19 15:30 Crossmatch See Detail 06/07/19 15:30 Active Medications - Current Medications Current Medications: Generic Name Dose Route Start Last Admin Trade Name Freq PRN Reason Stop Dose Admin Acetaminophen 650 mg 05/30/19 03:51 06/10/19 08:11 Tylenol PO 650 mg Q4H PRN Administration Pain MILD(1-3)/Fever >100.5/NIÑO Amlodipine Besylate 10 mg 06/04/19 16:00 06/10/19 09:24 Amlodipine PO 10 mg QDAY ALPESH Administration Arformoterol Tartrate 15 mcg 06/07/19 20:00 06/10/19 08:31 Brovana Nebu IH 15 mcg Q12HRT ALPESH Administration Aspirin 81 mg 05/30/19 10:00 06/10/19 09:24 Baby Aspirin PO 81 mg DAILY ALPESH Administration Atorvastatin Calcium 10 mg 05/30/19 22:00 06/09/19 21:59 Atorvastatin PO 10 mg QHS ALPESH Administration Budesonide 0.5 mg 06/07/19 20:00 06/10/19 08:31 Pulmicort IH 0.5 mg Q12HRT ALPESH Administration Dextrose 50 ml 05/30/19 03:51 06/02/19 07:21 D50w (25gm) Syringe IV 50 ml Q30MIN PRN Administration Hypoglycemia Protocol Hydralazine HCl 5 mg 06/04/19 15:14 Apresoline IV Q30MIN PRN Hypertension Dextrose 1,000 mls @ 75 mls/hr 06/09/19 12:00 06/10/19 05:26 D5w IV 75 mls/hr DIRECT ALPESH Administration Insulin Human Regular 0 units 06/03/19 16:30 06/10/19 08:00 Humulin R SUB-Q 1 units ACHS ALPESH Administration Protocol Levofloxacin 250 mg 06/07/19 14:00 06/10/19 09:24 Levaquin PO 250 mg Q24HR ALPESH Administration Magnesium Hydroxide 30 ml 05/30/19 03:51 Milk Of Magnesia PO Q4H PRN Constipation Metoprolol Tartrate 25 mg 05/30/19 10:00 06/10/19 09:24 Metoprolol PO 25 mg DAILY ALPESH Administration Ondansetron HCl 4 mg 05/30/19 03:51 06/05/19 10:17 Zofran IV 4 mg Q8H PRN Administration Nausea And Vomiting Polyethylene Glycol 17 gm 05/30/19 10:00 Miralax 3350 PO BID PRN Constipation Sodium Chloride 10 ml 05/30/19 10:00 06/10/19 09:26 Sodium Chloride Flush Syringe 10 Ml IV 10 ml BID ALPESH Administration Sodium Chloride 10 ml 05/30/19 03:51 Sodium Chloride Flush Syringe 10 Ml IV PRN PRN LINE FLUSH Tamsulosin HCl 0.4 mg 06/01/19 22:00 06/09/19 21:59 Flomax PO 0.4 mg QHS ALPESH Administration Nutrition/Malnutrition Assess - Dietary Evaluation Nutrition/Malnutrition Findings: Nutrition Notes Start: 05/30/19 12:36 Freq: Status: Active Protocol: Document 06/08/19 09:52 CT (Rec: 06/08/19 10:01 CT [id number]) Co-Sign 06/08/19 09:52 LP Nutrition Notes Initial or Follow up Reassessment Current Diagnosis Acute Kidney Injury,Diabetes, Hypertension,Hyperlipidemia Other Pertinent Diagnosis dementia, femur fracture Current Diet Mechanical soft, ground meats and nectar thickened liquids. Labs/Tests Na 156 BUN 54 Cr 1.6 Glu 113 Pertinent Medications Pulmicort Humulin D5 1/2NS 75 ml/hr Height 5 ft 7 in Weight 82.5 kg [place] Body Weight (kg) 67.27 BMI 28.5 Weight change and time frame wt changed noted likely d/t edema Weight Status Overweight Subjective/Other Information Added nectar thick liquids to diet order. Pt stated mechanical soft diet is good and working for him. Pt stated he has a good appetite. Pt has a hard time talking but can nod head. Pt stated he ate half of his dinner the previous night and noted pt did not eat breakfast this am. Assisted pt with drinking Glucerna. Per physical assessment pt had bilat reduced break and load operator strength, edema and skin risk of 15. Percent of energy/protein needs met: 74% energy / 66% protein Difficulty In Swallowing,Chewing Food Allergy No Current % PO Fair (50-74%) Minimum of two criteria Yes Body Fat Depletion Moderate depletion (severe) Muscle Mass Moderate Depletion (severe) Fluid Accumulation Mild (non-severe) Reduced [employer] Strength Measurably Reduced (severe) #1 Nutrition Diagnosis Malnutrition As Evidenced by Signs and Symptoms bilat reduced break and load operator strength and mild fluid accumulation Diagnosis Progress(for reassessment Worsened documentation) Is patient on ventilator? No Is Patient Ambulatory and/or Out of Bed No REE-([facility]-confined to bed) 6310.304 Calculation Used for Recommendations [facility] Additional Notes Protein needs: 94-118g (1.2-1. 5 g/kg/day) Fluid needs: per MD Nutrition Intervention Change Diet Order: Continue mechanical soft, add consistent carb/cardiac modification Add Supplement/Snack (indicate name/kcal Glucerna BID /protein ) Provides kCal: 440 Provides Protein (gm) 20 Goal #1 Meet >75% of energy and protein needs Anticipated Discharge Needs: Mechanical Soft cardiac/ consistent CHO with ONS PRN Follow-Up By: 06/12/19 Additional Comments Follow up for PO/ONS intakes
--- NOTE | 2019-06-10 10:49 | Progress Note ---
Assessment and Plan # Acute kidney injury: baseline creatinine is around 1.2, admitted with a creatinine of 1.6, and stable. ALESSIO likely in setting of dehydration. - encourage po hydration as possible - daily renal labs - avoid nephrotoxins - appreciate cessation of PPI due to risk of interstitial injury # Hypernatremia: free water deficit ~4L with minimal po hydration. Also on Florinef -continue d5w, increase rete - encourage PO hydration to make up free water deficit as able # Hyperkalemia: improved, change Florinef # HTN: BP at goal, wean Florinef as above # Anemia: likely from multifactorial causes. No indication for ESAs currently, s/p prbcs 06/03 Subjective Date of service: 06/10/19 Principal diagnosis: hypernatremia Interval history: resting in bed Objective - Exam Narrative Exam: General: No acute distress HEENT: Oral mucosa moist, no icterus Neck: Supple Chest: Clear to auscultation anteriorly Heart: Regular rate and rhythm, normal S1-S2 Abdomen: Soft nontender Extremity: no edema Psych: No evidence of any agitation and aggression noted Neuro: mildly alerted and unable to communicate well Derm: intact - Vital Signs Vital signs: Vital Signs - 12hr 06/09/19 06/10/19 06/10/19 23:39 04:00 04:08 Temperature 97.9 F 98.2 F Pulse Rate 105 H 101 H 95 H Pulse Rate [ Anterior Throughout] Respiratory 18 18 Rate Respiratory Rate [Anterior Throughout] Blood Pressure 157/82 131/59 O2 Sat by Pulse 97 90 Oximetry 06/10/19 06/10/19 06/10/19 07:58 08:03 08:31 Temperature 101.1 F H Pulse Rate 89 Pulse Rate [ Anterior Throughout] Respiratory 20 18 Rate Respiratory Rate [Anterior Throughout] Blood Pressure 137/60 O2 Sat by Pulse 96 98 Oximetry 06/10/19 06/10/19 08:55 09:24 Temperature Pulse Rate 94 H Pulse Rate [ 94 H Anterior Throughout] Respiratory Rate Respiratory 20 Rate [Anterior Throughout] Blood Pressure 137/60 O2 Sat by Pulse Oximetry - Lab 06/10/19 02:44 06/10/19 02:44 Most recent lab results Calcium 9.4 mg/dL (8.4-10.2) 06/10/19 02:44 Medications & Allergies - Medications Allergies/Adverse Reactions: Allergies No Known Allergies Allergy (Verified 10/27/13 16:35) Home Medications: Home Medications Medication Instructions Recorded Confirmed Last Taken Type Aspirin [Aspirin BABY CHEW TAB] 1 tab PO DAILY 10/27/13 05/30/19 10/29/13 History Atorvastatin (Nf) [Lipitor] 1 tab PO DAILY 10/27/13 05/30/19 10/27/13 History Insulin Glargine,Hum.rec.anlog 8 units SC HS 10/27/13 05/30/19 10/29/13 History [Lantus] Metoprolol Tartrate 1 tab PO DAILY 10/27/13 05/30/19 10/29/13 History Pantoprazole [Protonix TAB] 1 tab PO DAILY 10/27/13 05/30/19 10/29/13 History Polyethylene Glycol 3350 [Miralax 17 gm PO BID PRN #10 powd.pack 01/24/19 05/30/19 Unknown Rx 3350] Active Medications: Generic Name Dose Route Start Last Admin Trade Name Freq PRN Reason Stop Dose Admin Acetaminophen 650 mg 05/30/19 03:51 06/10/19 08:11 Tylenol PO 650 mg Q4H PRN Administration Pain MILD(1-3)/Fever >100.5/NIÑO Amlodipine Besylate 10 mg 06/04/19 16:00 06/10/19 09:24 Amlodipine PO 10 mg QDAY ALPESH Administration Arformoterol Tartrate 15 mcg 06/07/19 20:00 06/10/19 08:31 Brovana Nebu IH 15 mcg Q12HRT ALPESH Administration Aspirin 81 mg 05/30/19 10:00 06/10/19 09:24 Baby Aspirin PO 81 mg DAILY ALPESH Administration Atorvastatin Calcium 10 mg 05/30/19 22:00 06/09/19 21:59 Atorvastatin PO 10 mg QHS ALPESH Administration Budesonide 0.5 mg 06/07/19 20:00 06/10/19 08:31 Pulmicort IH 0.5 mg Q12HRT ALPESH Administration Dextrose 50 ml 05/30/19 03:51 06/02/19 07:21 D50w (25gm) Syringe IV 50 ml Q30MIN PRN Administration Hypoglycemia Protocol Hydralazine HCl 5 mg 06/04/19 15:14 Apresoline IV Q30MIN PRN Hypertension Dextrose 1,000 mls @ 75 mls/hr 06/09/19 12:00 06/10/19 05:26 D5w IV 75 mls/hr DIRECT ALPESH Administration Insulin Human Regular 0 units 06/03/19 16:30 06/10/19 08:00 Humulin R SUB-Q 1 units ACHS ALPESH Administration Protocol Levofloxacin 250 mg 06/07/19 14:00 06/10/19 09:24 Levaquin PO 250 mg Q24HR ALPESH Administration Magnesium Hydroxide 30 ml 05/30/19 03:51 Milk Of Magnesia PO Q4H PRN Constipation Metoprolol Tartrate 25 mg 05/30/19 10:00 06/10/19 09:24 Metoprolol PO 25 mg DAILY ALPESH Administration Ondansetron HCl 4 mg 05/30/19 03:51 06/05/19 10:17 Zofran IV 4 mg Q8H PRN Administration Nausea And Vomiting Polyethylene Glycol 17 gm 05/30/19 10:00 Miralax 3350 PO BID PRN Constipation Sodium Chloride 10 ml 05/30/19 10:00 06/10/19 09:26 Sodium Chloride Flush Syringe 10 Ml IV 10 ml BID ALPESH Administration Sodium Chloride 10 ml 05/30/19 03:51 Sodium Chloride Flush Syringe 10 Ml IV PRN PRN LINE FLUSH Tamsulosin HCl 0.4 mg 06/01/19 22:00 06/09/19 21:59 Flomax PO 0.4 mg QHS ALPESH Administration
[2019-06-10] MEDS: TAMSULOSIN 0.4 MG CAP PO SCH (21:55)
[2019-06-11] MEDS: DEXTROSE 5% IN WATER 1,000 ML IV SCH ×2 (02:32→09:56)
[2019-06-11] MEDS: INSULIN REGULAR, HUMAN 100 UNITS/1 ML SUB-Q SCH ×4 (08:24→22:42)
[2019-06-11 09:25] LABS: Basophils # (Auto) 0.1 K/mm3 (0.0-0.1); Basophils % (Auto) 0.7 % (0.0-1.8); Eosinophils # (Auto) 0.3 K/mm3 (0.0-0.4); Eosinophils % (Auto) 2.6 % (0.0-4.3); Hematocrit 22.8 % (35.5-45.6); Hemoglobin 7.1 gm/dl (11.8-15.2); Lymphocytes # (Auto) 1.1 K/mm3 (1.2-5.4); Mean Corpuscular HGB Conc 31 % (32-34); Mean Corpuscular Volume 101 fl (84-94); Monocytes # (Auto) 0.7 K/mm3 (0.0-0.8); Monocytes % (Auto) 6.2 % (0.0-7.3); Platelet Count 249 K/mm3 (140-440); Red Blood Count 2.25 M/mm3 (3.65-5.03); Red Cell Distribution Width 15.7 % (13.2-15.2)
[2019-06-11] MEDS: ARFORMOTEROL 15 MCG/2 ML NEBU IH SCH ×2 (09:25→21:07)
[2019-06-11] MEDS: BUDESONIDE 0.5 MG/2 ML NEBU IH SCH ×2 (09:26→21:06)
[2019-06-11 09:52] LABS: Albumin 2.4 g/dL (3.9-5); Calcium 8.6 mg/dL (8.4-10.2)
[2019-06-11] MEDS: METOPROLOL TARTRATE 25 MG TAB PO SCH (09:57)
[2019-06-11] MEDS: levoFLOXacin 250 MG TAB PO SCH (09:57)
[2019-06-11] MEDS: amLODIPine 10 MG TAB PO SCH (09:57)
[2019-06-11] MEDS: ASPIRIN 81 MG TAB CHEW PO SCH (09:57)
[2019-06-11] MEDS ORDERED: FUROSEMIDE 40 MG/4 ML INJ IV ONE (10:00)
[2019-06-11] MEDS ORDERED: D5W/0.45% NACL 1,000 ML IV SCH (11:00)
--- NOTE | 2019-06-11 14:34 | Progress Note ---
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 Hb dropped to 6.9ordered stool for occult blood negative s/p 1 unit packed RBC transfusion Hb improved to 7.7, closely monitor --hypernatremia, resolved Na 154 -161-148-145 cont iv fluid with hypotonic saline with D5 1/4 NS Nephrology is following- free water deficit ~4L with minimal po hydration. check BMP tomorrow am, encouraged po intake, will continue to wean off Florinef to 0.05mg every other day per renal, plan to stop after today dose --Hyperkalemia -resolved, nephrology following --ALESSIO - due to vasomotor nephropathy -resolved cont iv fluid, avoid nephrotoxins, nephrology following --Nausea & vomiting - resolved --left inguinal hernia with hydrocele Evaluated by GS ,appears reducible now, no need for surgery --H/o COPD, on symbicort at home bid, cont to monitor --Dementia: likely vascular, cont supportive care, resume home meds --Dvt Px, heparin Prognosis: Guarded, need inpt stay for persistent hypernatremia, alessio. discussed with family. Awaiting subacute placement History Interval history: Patient seen and examined medical records reviewed Clinically no change No new overnight events reported by the nursing staff Patient is comfortable Vital signs noted Hospitalist Physical - Constitutional Vitals: Temp Pulse Resp BP Pulse Ox 99.8 F H 77 18 133/54 98 06/11/19 11:50 06/11/19 11:48 06/11/19 11:48 06/11/19 11:48 06/11/19 11:48 General appearance: Present: no acute distress, well-nourished - EENT Eyes: Present: PERRL, EOM intact - Neck Neck: Present: supple, normal ROM - Respiratory Respiratory effort: normal Respiratory: bilateral: diminished, negative: rales, rhonchi, wheezing - Cardiovascular Rhythm: regular Heart Sounds: Present: S1 & S2 - Extremities Extremities: no ischemia, No edema - Abdominal General gastrointestinal: soft, non-tender, non-distended, normal bowel sounds - Integumentary Integumentary: Present: clear, warm - Psychiatric Psychiatric: appropriate mood/affect - Neurologic Neurologic: CNII-XII intact, moves all extremities Results - Labs CBC & Chem 7: 06/11/19 09:00 06/11/19 09:00 Labs: Laboratory Last Values WBC 10.7 K/mm3 (4.5-11.0) 06/11/19 09:00 RBC 2.25 M/mm3 (3.65-5.03) L 06/11/19 09:00 Hgb 7.1 gm/dl (11.8-15.2) L 06/11/19 09:00 Hct 22.8 % (35.5-45.6) L 06/11/19 09:00 MCV 101 fl (84-94) H 06/11/19 09:00 MCH 32 pg (28-32) 06/11/19 09:00 MCHC 31 % (32-34) L 06/11/19 09:00 RDW 15.7 % (13.2-15.2) H 06/11/19 09:00 Plt Count 249 K/mm3 (140-440) 06/11/19 09:00 Lymph % (Auto) 10.0 % (13.4-35.0) L 06/11/19 09:00 Darke % (Auto) 6.2 % (0.0-7.3) 06/11/19 09:00 Eos % (Auto) 2.6 % (0.0-4.3) 06/11/19 09:00 Baso % (Auto) 0.7 % (0.0-1.8) 06/11/19 09:00 Lymph # 1.1 K/mm3 (1.2-5.4) L 06/11/19 09:00 Darke # 0.7 K/mm3 (0.0-0.8) 06/11/19 09:00 Eos # 0.3 K/mm3 (0.0-0.4) 06/11/19 09:00 Baso # 0.1 K/mm3 (0.0-0.1) 06/11/19 09:00 Add Manual Diff Complete 06/06/19 04:30 Seg Neutrophils % 80.5 % (40.0-70.0) H 06/11/19 09:00 Seg Neutrophils # 8.6 K/mm3 (1.8-7.7) H 06/11/19 09:00 PT 15.2 Sec. (12.2-14.9) H 05/31/19 04:15 INR 1.21 (0.87-1.13) H 05/31/19 04:15 APTT 34.1 Sec. (24.2-36.6) 05/31/19 04:15 VBG pH 7.155 (7.320-7.420) L* 05/29/19 23:04 Sodium 145 mmol/L (137-145) 06/11/19 09:00 Potassium 4.2 mmol/L (3.6-5.0) 06/11/19 09:00 Chloride 106.6 mmol/L (98-107) 06/11/19 09:00 Carbon Dioxide 25 mmol/L (22-30) 06/11/19 09:00 Anion Gap 18 mmol/L 06/11/19 09:00 BUN 47 mg/dL (9-20) H 06/11/19 09:00 Creatinine 1.5 mg/dL (0.8-1.5) 06/11/19 09:00 Estimated GFR 55 ml/min 06/11/19 09:00 BUN/Creatinine Ratio 31 % 06/11/19 09:00 Glucose 256 mg/dL (75-100) H 06/11/19 09:00 POC Glucose 128 (70-105) H 06/11/19 12:18 Osmolality 336 Mosm/kg 06/04/19 15:28 Lactic Acid 1.30 mmol/L (0.7-2.0) 06/01/19 13:01 Uric Acid 6.9 mg/dL (3.5-7.6) 06/04/19 15:28 Calcium 8.6 mg/dL (8.4-10.2) 06/11/19 09:00 Magnesium 2.10 mg/dL (1.7-2.3) 06/11/19 09:00 Iron 20 ug/dL (49-181) L 06/07/19 15:28 TIBC 174 mcg/dL (250-450) L 06/07/19 15:28 Ferritin 518.5 ng/mL (13.0-400.0) H 06/07/19 15:28 Total Bilirubin 0.30 mg/dL (0.1-1.2) 06/11/19 09:00 AST 11 units/L (5-40) 06/11/19 09:00 ALT 11 units/L (7-56) 06/11/19 09:00 Alkaline Phosphatase 54 units/L (35-129) 06/11/19 09:00 Total Creatine Kinase 49 units/L (55-170) L 05/29/19 23:04 CK-MB (CK-2) 5.3 ng/mL (0.0-4.0) H 05/29/19 23:04 CK-MB (CK-2) Rel Index 10.8 (0-4) H 05/29/19 23:04 Troponin T < 0.010 ng/mL (0.00-0.029) 05/29/19 23:04 NT-Pro-B Natriuret Pep 1400 pg/mL (0-900) H 06/01/19 13:01 Total Protein 5.8 g/dL (6.3-8.2) L 06/11/19 09:00 Albumin 2.4 g/dL (3.9-5) L 06/11/19 09:00 Albumin/Globulin Ratio 0.7 % 06/11/19 09:00 Lipase 31 units/L (13-60) 05/29/19 23:04 Vitamin B12 673.7 pg/mL (211-911) 06/07/19 15:28 Folate > 20 ng/mL (7.3-26.0) 06/07/19 15:28 Urine Color Yellow (Yellow) 06/07/19 06:45 Urine Turbidity Slightly-cloudy (Clear) 06/07/19 06:45 Urine pH 5.0 (5.0-7.0) 06/07/19 06:45 Ur Specific [place] 1.015 (1.003-1.030) 06/07/19 06:45 Urine Protein 100 mg/dl mg/dL (Negative) 06/07/19 06:45 Urine Glucose (UA) Neg mg/dL (Negative) 06/07/19 06:45 Urine Ketones Neg mg/dL (Negative) 06/07/19 06:45 Urine Blood Lg (Negative) 06/07/19 06:45 Urine Nitrite Neg (Negative) 06/07/19 06:45 Urine Bilirubin Neg (Negative) 06/07/19 06:45 Urine Urobilinogen 2.0 mg/dL (<2.0) 06/07/19 06:45 Ur Leukocyte Esterase Lg (Negative) 06/07/19 06:45 Urine WBC (Auto) 149.0 /HPF (0.0-6.0) H 06/07/19 06:45 Urine RBC (Auto) > 182.0 /HPF (0.0-6.0) 06/07/19 06:45 U Epithel Cells (Auto) < 1.0 /HPF (0-13.0) 05/30/19 00:37 Urine Bacteria (Auto) 3+ /HPF (Negative) 06/07/19 06:45 Hyaline Casts 2 /LPF 06/07/19 06:45 Urine Mucus Few /HPF 06/07/19 06:45 Blood Type A POSITIVE 06/07/19 15:30 Antibody Screen Negative 06/07/19 15:30 Crossmatch See Detail 06/07/19 15:30 Active Medications - Current Medications Current Medications: Generic Name Dose Route Start Last Admin Trade Name Freq PRN Reason Stop Dose Admin Acetaminophen 650 mg 05/30/19 03:51 06/10/19 16:53 Tylenol PO 650 mg Q4H PRN Administration Pain MILD(1-3)/Fever >100.5/NIÑO Amlodipine Besylate 10 mg 06/04/19 16:00 06/11/19 09:57 Amlodipine PO 10 mg QDAY ALPESH Administration Arformoterol Tartrate 15 mcg 06/07/19 20:00 06/11/19 09:25 Brovana Nebu IH 15 mcg Q12HRT ALPESH Administration Aspirin 81 mg 05/30/19 10:00 06/11/19 09:57 Baby Aspirin PO 81 mg DAILY ALPESH Administration Atorvastatin Calcium 10 mg 05/30/19 22:00 06/10/19 21:55 Atorvastatin PO 10 mg QHS ALPESH Administration Budesonide 0.5 mg 06/07/19 20:00 06/11/19 09:26 Pulmicort IH 0.5 mg Q12HRT ALPESH Administration Dextrose 50 ml 05/30/19 03:51 06/02/19 07:21 D50w (25gm) Syringe IV 50 ml Q30MIN PRN Administration Hypoglycemia Protocol Hydralazine HCl 5 mg 06/04/19 15:14 Apresoline IV Q30MIN PRN Hypertension Dextrose/Sodium Chloride 1,000 mls @ 75 mls/hr 06/11/19 11:00 06/11/19 12:22 D5/0.45ns IV 75 mls/hr DIRECT ALPESH Administration Insulin Human Regular 0 units 06/03/19 16:30 06/11/19 12:15 Humulin R SUB-Q Not Given ACHS [facility] Protocol Levofloxacin 250 mg 06/07/19 14:00 06/11/19 09:57 Levaquin PO 250 mg Q24HR ALPESH Administration Magnesium Hydroxide 30 ml 05/30/19 03:51 Milk Of Magnesia PO Q4H PRN Constipation Metoprolol Tartrate 25 mg 05/30/19 10:00 06/11/19 09:57 Metoprolol PO 25 mg DAILY ALPESH Administration Ondansetron HCl 4 mg 05/30/19 03:51 06/05/19 10:17 Zofran IV 4 mg Q8H PRN Administration Nausea And Vomiting Polyethylene Glycol 17 gm 05/30/19 10:00 Miralax 3350 PO BID PRN Constipation Sodium Chloride 10 ml 05/30/19 10:00 06/11/19 10:03 Sodium Chloride Flush Syringe 10 Ml IV 10 ml BID ALPESH Administration Sodium Chloride 10 ml 05/30/19 03:51 Sodium Chloride Flush Syringe 10 Ml IV PRN PRN LINE FLUSH Tamsulosin HCl 0.4 mg 06/01/19 22:00 06/10/19 21:55 Flomax PO 0.4 mg QHS ALPESH Administration Nutrition/Malnutrition Assess - Dietary Evaluation Nutrition/Malnutrition Findings: Nutrition Notes Start: 05/30/19 12:36 Freq: Status: Active Protocol: Document 06/11/19 13:39 LM (Rec: 06/11/19 13:52 LM -[email or web address]) Nutrition Notes Initial or Follow up Reassessment Current Diagnosis Acute Kidney Injury,Diabetes, Hypertension,Hyperlipidemia Other Pertinent Diagnosis dementia, femur fracture Current Diet Pureed with nectar thick liquids Labs/Tests Na 145 BG 256 BUN 47 Pertinent Medications Humulin Height 5 ft 7 in Weight 81.8 kg [place] Body Weight (kg) 67.27 BMI 28.2 Weight Status Overweight Subjective/Other Information Pt diet changed to Pureed. Per pt pt is eating 100% and has good appetite. Noticed Glucerna ordered for pt. Pts stated pt has not been drinking Glucerna because it is not [place] thick. concerned about pt's thirst and stated the nectar thickened water is not enough. Discussed thickener packets with and getting more thickened liquids. Percent of energy/protein needs met: 100%/81% Burn Absent Trauma Absent Difficulty In Swallowing,Chewing Food Allergy No Current % PO Good (75-100%) Minimum of two criteria Yes Body Fat Depletion Moderate depletion (severe) Muscle Mass Moderate Depletion (severe) Fluid Accumulation Mild (non-severe) Reduced [employer] Strength Measurably Reduced (severe) #1 Nutrition Diagnosis Malnutrition Diagnosis Progress(for reassessment Continues documentation) Is patient on ventilator? No Is Patient Ambulatory and/or Out of Bed No REE-([facility]-confined to bed) [phone] Calculation Used for Recommendations [facility] Additional Notes Protein needs: 94-118g (1.2-1. 5 g/kg/day) Fluid needs: per MD Nutrition Intervention Change Diet Order: Continue pureed with nectar liquids Add Supplement/Snack (indicate name/kcal D/C Glucerna /protein ) Goal #1 Meet >75% of energy and protein needs Anticipated Discharge Needs: Unable to determine at this time Follow-Up By: 06/19/19 Additional Comments F/U for PO intakes, diet advancement
[2019-06-11] MEDS: TAMSULOSIN 0.4 MG CAP PO SCH (22:41)
[2019-06-12] MEDS: ARFORMOTEROL 15 MCG/2 ML NEBU IH SCH ×2 (08:21→20:36)
[2019-06-12] MEDS: BUDESONIDE 0.5 MG/2 ML NEBU IH SCH ×2 (08:21→20:36)
[2019-06-12] MEDS: INSULIN REGULAR, HUMAN 100 UNITS/1 ML SUB-Q SCH ×4 (11:01→22:00)
[2019-06-12] MEDS: METOPROLOL TARTRATE 25 MG TAB PO SCH (11:02)
[2019-06-12] MEDS: ASPIRIN 81 MG TAB CHEW PO SCH (11:02)
[2019-06-12] MEDS: amLODIPine 10 MG TAB PO SCH (11:02)
[2019-06-12] MEDS: levoFLOXacin 250 MG TAB PO SCH (11:02)
--- NOTE | 2019-06-12 12:04 | Discharge Summary ---
Providers - Providers Date of Admission: 05/30/19 03:12 Date of discharge: 06/12/19 Attending physician: JUSTINA GIRARD 05/30/19 00:19 Consult to Physician [CONS] Urgent Comment: Consulting Provider: DREW NERI Physician Instructions: Reason For Exam: renal insufficiency, hyperkalemia 05/30/19 15:39 Speech Therapy Evaluation and Treat [CONS] Routine Reason For Exam: difficulty swallowing 05/31/19 09:54 Consult to Physician [CONS] Routine Comment: Consulting Provider: ROSS SHERIFF Physician Instructions: Reason For Exam: large hydrocele with urinary retention. 05/31/19 16:06 Consult to Physician [CONS] Routine Comment: Consulting Provider: MARTHA LÓPEZ Physician Instructions: Reason For Exam: inguinal hernia 06/01/19 14:06 Physical Therapy Evaluation and Treat [CONS] Routine Comment: Reason For Exam: placement 06/08/19 05:40 Consult to Wound/ET Nurse [CONS] Routine Reason For Exam: wound eval Primary care physician: CLYDE DAS Hospitalization Condition: Fair Disposition: DC/[place]-06 HOME [facility] Time spent for discharge: 32 min Core Measure Documentation - Palliative Care Palliative Care/ Comfort Measures: Not Applicable - Core Measures Any of the following diagnoses?: none Exam - Constitutional Vitals: Temp Pulse Resp BP Pulse Ox 98.9 F 99 H 20 129/55 100 06/12/19 03:19 06/12/19 08:21 06/12/19 08:21 06/12/19 03:19 06/12/19 09:39 General appearance: Present: no acute distress, well-nourished - EENT Eyes: Present: PERRL. Absent: scleral icterus - Neck Neck: Present: supple, normal ROM - Respiratory Respiratory effort: normal Respiratory: bilateral: diminished, negative: rales, rhonchi, wheezing - Cardiovascular Rhythm: regular Heart Sounds: Present: S1 & S2 - Extremities Extremities: no ischemia, No edema - Abdominal General gastrointestinal: Present: soft, non-tender, non-distended, normal bowel sounds - Integumentary Integumentary: Present: clear, warm - Musculoskeletal Musculoskeletal: generalized weakness - Psychiatric Psychiatric: cooperative - Neurologic Neurologic: other (Residual weakness) Plan Activity: fall precautions Diet: advance as tolerated, other (Pured diet) Special Instructions: physical therapy Additional Instructions: Fall precautions. Aspiration precautions. Do not remove Bill catheter Follow up with: ROSS SHERIFF MD [Staff Physician] - 7 Days CLYDE DAS MD [Primary Care Provider] - 7 Days MARTHA LÓPEZ DO [Staff Physician] - 7 Days Prescriptions: amLODIPine 10 mg PO QDAY #30 tablet Aspirin [Aspirin BABY CHEW TAB] 1 tab PO DAILY #30 AtorvaSTATin 10 mg PO QHS #30 tablet Tamsulosin [Flomax] 0.4 mg PO QHS #30 capsule levoFLOXacin [Levaquin TAB] 250 mg PO Q24HR #2 tablet
--- NOTE | 2019-06-12 12:16 | Progress Note ---
Assessment and Plan # Acute kidney injury: baseline creatinine is around 1.2, admitted with a creatinine of 1.6, now stable at 1.4/1.5. ALESSIO likely in setting of dehydration. - encourage po hydration as possible - daily renal labs - avoid nephrotoxins - appreciate cessation of PPI due to risk of interstitial injury # Hypernatremia: improving off Florinef and IV D5W - weaned off Florinef - would hold IVF given anticipated discharge and follow up labs - encourage PO hydration to make up free water deficit as able - will arrange close follow up in outpatient clinic # Hyperkalemia: improved # HTN: BP at goal # Anemia: likely from multifactorial causes. No indication for ESAs currently, s/p prbcs 06/03 Thank you for this consult. We'll continue to follow and make recommendation from renal standpoint Subjective Date of service: 06/12/19 Principal diagnosis: hypernatremia Interval history: No acute events noted overnight. Discussed case with patient and at bedside. Patient not drinking much water inpatient due to swallowing concerns. No changes in mental status. Objective - Exam Narrative Exam: General: No acute distress HEENT: Oral mucosa moist, no icterus Neck: Supple Chest: Clear to auscultation anteriorly Heart: Regular rate and rhythm, normal S1-S2 Abdomen: Soft, nontender Extremity: no edema Psych: No evidence of any agitation and aggression noted Neuro: mildly alerted and unable to communicate well Derm: intact - Vital Signs Vital signs: Vital Signs - 12hr 06/12/19 06/12/19 06/12/19 03:19 08:21 09:39 Temperature 98.9 F Pulse Rate 73 Pulse Rate [ 99 H Anterior Throughout] Respiratory 18 Rate Respiratory 20 Rate [Anterior Throughout] Blood Pressure 129/55 O2 Sat by Pulse 99 100 Oximetry - Lab 06/11/19 09:00 06/12/19 10:05 Most recent lab results Calcium 8.6 mg/dL (8.4-10.2) 06/11/19 09:00 Magnesium 2.10 mg/dL (1.7-2.3) 06/11/19 09:00 Medications & Allergies - Medications Allergies/Adverse Reactions: Allergies No Known Allergies Allergy (Verified 10/27/13 16:35) Home Medications: Home Medications Medication Instructions Recorded Confirmed Last Taken Type Metoprolol Tartrate 1 tab PO DAILY 05/0905/30/19 10/29/13 History Pantoprazole [Protonix TAB] 1 tab PO DAILY 10/27/13 05/30/19 10/29/13 History Polyethylene Glycol 3350 [Miralax 17 gm PO BID PRN #10 powd.pack 01/24/19 05/30/19 Unknown Rx 3350] Aspirin [Aspirin BABY CHEW TAB] 1 tab PO DAILY #30 06/12/19 Unknown Rx AtorvaSTATin 10 mg PO QHS #30 tablet 06/12/19 Unknown Rx Tamsulosin [Flomax] 0.4 mg PO QHS #30 capsule 06/12/19 Unknown Rx amLODIPine 10 mg PO QDAY #30 tablet 06/12/19 Unknown Rx levoFLOXacin [Levaquin TAB] 250 mg PO Q24HR #2 tablet 06/12/19 Unknown Rx Active Medications: Generic Name Dose Route Start Last Admin Trade Name Freq PRN Reason Stop Dose Admin Acetaminophen 650 mg 05/30/19 03:51 06/10/19 16:53 Tylenol PO 650 mg Q4H PRN Administration Pain MILD(1-3)/Fever >100.5/NIÑO Amlodipine Besylate 10 mg 06/04/19 16:00 06/12/19 11:02 Amlodipine PO 10 mg QDAY ALPESH Administration Arformoterol Tartrate 15 mcg 06/07/19 20:00 06/12/19 08:21 Brovana Nebu IH 15 mcg Q12HRT ALPESH Administration Aspirin 81 mg 05/30/19 10:00 06/12/19 11:02 Baby Aspirin PO 81 mg DAILY ALPESH Administration Atorvastatin Calcium 10 mg 05/30/19 22:00 06/11/19 22:41 Atorvastatin PO 10 mg QHS ALPESH Administration Budesonide 0.5 mg 06/07/19 20:00 06/12/19 08:21 Pulmicort IH 0.5 mg Q12HRT ALPESH Administration Dextrose 50 ml 05/30/19 03:51 06/02/19 07:21 D50w (25gm) Syringe IV 50 ml Q30MIN PRN Administration Hypoglycemia Protocol Hydralazine HCl 5 mg 06/04/19 15:14 Apresoline IV Q30MIN PRN Hypertension Dextrose/Sodium Chloride 1,000 mls @ 75 mls/hr 06/11/19 11:00 06/11/19 12:22 D5/0.45ns IV 75 mls/hr DIRECT ALPESH Administration Insulin Human Regular 0 units 06/03/19 16:30 06/12/19 11:01 Humulin R SUB-Q Not Given ACHS [facility] Protocol Levofloxacin 250 mg 06/07/19 14:00 06/12/19 11:02 Levaquin PO 250 mg Q24HR ALPESH Administration Magnesium Hydroxide 30 ml 05/30/19 03:51 Milk Of Magnesia PO Q4H PRN Constipation Metoprolol Tartrate 25 mg 05/30/19 10:00 06/12/19 11:02 Metoprolol PO 25 mg DAILY ALPESH Administration Ondansetron HCl 4 mg 05/30/19 03:51 06/05/19 10:17 Zofran IV 4 mg Q8H PRN Administration Nausea And Vomiting Polyethylene Glycol 17 gm 05/30/19 10:00 Miralax 3350 PO BID PRN Constipation Sodium Chloride 10 ml 05/30/19 10:00 06/12/19 11:02 Sodium Chloride Flush Syringe 10 Ml IV 10 ml BID ALPESH Administration Sodium Chloride 10 ml 05/30/19 03:51 Sodium Chloride Flush Syringe 10 Ml IV PRN PRN LINE FLUSH Tamsulosin HCl 0.4 mg 06/01/19 22:00 06/11/19 22:41 Flomax PO 0.4 mg QHS ALPESH Administration
--- NOTE | 2019-06-12 17:30 | Progress Note ---
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 Hb dropped to 6.9ordered stool for occult blood negative s/p 1 unit packed RBC transfusion Hb improved to 7.7, closely monitor --hypernatremia, resolved Na 154 -161-148-145 cont iv fluid with hypotonic saline with D5 1/4 NS Nephrology is following- free water deficit ~4L with minimal po hydration. check BMP tomorrow am, encouraged po intake, will continue to wean off Florinef to 0.05mg every other day per renal, plan to stop after today dose --Hyperkalemia -resolved, nephrology following --ALESSIO - due to vasomotor nephropathy -resolved cont iv fluid, avoid nephrotoxins, nephrology following --Nausea & vomiting - resolved --left inguinal hernia with hydrocele Evaluated by GS ,appears reducible now, no need for surgery --H/o COPD, on symbicort at home bid, cont to monitor --Dementia: likely vascular, cont supportive care, resume home meds --Dvt Px, heparin Prognosis: Guarded, Awaiting subacute placement The patient's discussed with case management And indicated that they did not want subacute placement Want to be discharged home with home health History Interval history: Patient seen and examined medical records reviewed Patient was initially discharged, however patient and family appealed the discharge Hence discharge is held Patient feels much better no new complaints Vital signs reviewed Hospitalist Physical - Constitutional Vitals: Temp Pulse Resp BP Pulse Ox 98.9 F 85 20 129/55 100 06/12/19 03:19 06/12/19 10:00 06/12/19 08:21 06/12/19 03:19 06/12/19 09:39 General appearance: Present: no acute distress, well-nourished - EENT Eyes: Present: PERRL, EOM intact - Neck Neck: Present: supple, normal ROM - Respiratory Respiratory effort: normal Respiratory: bilateral: diminished, negative: rales, rhonchi, wheezing - Cardiovascular Rhythm: regular Heart Sounds: Present: S1 & S2 - Extremities Extremities: no ischemia, No edema - Abdominal General gastrointestinal: soft, non-tender, non-distended, normal bowel sounds - Integumentary Integumentary: Present: clear, warm - Psychiatric Psychiatric: appropriate mood/affect, cooperative, other (confused at times) - Neurologic Neurologic: other (residual weakness) Results - Labs CBC & Chem 7: 06/11/19 09:00 06/12/19 10:05 Labs: Laboratory Last Values WBC 10.7 K/mm3 (4.5-11.0) 06/11/19 09:00 RBC 2.25 M/mm3 (3.65-5.03) L 06/11/19 09:00 Hgb 7.1 gm/dl (11.8-15.2) L 06/11/19 09:00 Hct 22.8 % (35.5-45.6) L 06/11/19 09:00 MCV 101 fl (84-94) H 06/11/19 09:00 MCH 32 pg (28-32) 06/11/19 09:00 MCHC 31 % (32-34) L 06/11/19 09:00 RDW 15.7 % (13.2-15.2) H 06/11/19 09:00 Plt Count 249 K/mm3 (140-440) 06/11/19 09:00 Lymph % (Auto) 10.0 % (13.4-35.0) L 06/11/19 09:00 Dickenson % (Auto) 6.2 % (0.0-7.3) 06/11/19 09:00 Eos % (Auto) 2.6 % (0.0-4.3) 06/11/19 09:00 Baso % (Auto) 0.7 % (0.0-1.8) 06/11/19 09:00 Lymph # 1.1 K/mm3 (1.2-5.4) L 06/11/19 09:00 Dickenson # 0.7 K/mm3 (0.0-0.8) 06/11/19 09:00 Eos # 0.3 K/mm3 (0.0-0.4) 06/11/19 09:00 Baso # 0.1 K/mm3 (0.0-0.1) 06/11/19 09:00 Add Manual Diff Complete 06/06/19 04:30 Seg Neutrophils % 80.5 % (40.0-70.0) H 06/11/19 09:00 Seg Neutrophils # 8.6 K/mm3 (1.8-7.7) H 06/11/19 09:00 PT 15.2 Sec. (12.2-14.9) H 05/31/19 04:15 INR 1.21 (0.87-1.13) H 05/31/19 04:15 APTT 34.1 Sec. (24.2-36.6) 05/31/19 04:15 VBG pH 7.155 (7.320-7.420) L* 05/29/19 23:04 Sodium 145 mmol/L (137-145) 06/12/19 10:05 Potassium 4.2 mmol/L (3.6-5.0) 06/11/19 09:00 Chloride 106.6 mmol/L (98-107) 06/11/19 09:00 Carbon Dioxide 25 mmol/L (22-30) 06/11/19 09:00 Anion Gap 18 mmol/L 06/11/19 09:00 BUN 47 mg/dL (9-20) H 06/11/19 09:00 Creatinine 1.5 mg/dL (0.8-1.5) 06/11/19 09:00 Estimated GFR 55 ml/min 06/11/19 09:00 BUN/Creatinine Ratio 31 % 06/11/19 09:00 Glucose 256 mg/dL (75-100) H 06/11/19 09:00 POC Glucose 188 (70-105) H 06/12/19 17:17 Osmolality 336 Mosm/kg 06/04/19 15:28 Lactic Acid 1.30 mmol/L (0.7-2.0) 06/01/19 13:01 Uric Acid 6.9 mg/dL (3.5-7.6) 06/04/19 15:28 Calcium 8.6 mg/dL (8.4-10.2) 06/11/19 09:00 Magnesium 2.10 mg/dL (1.7-2.3) 06/11/19 09:00 Iron 20 ug/dL (49-181) L 06/07/19 15:28 TIBC 174 mcg/dL (250-450) L 06/07/19 15:28 Ferritin 518.5 ng/mL (13.0-400.0) H 06/07/19 15:28 Total Bilirubin 0.30 mg/dL (0.1-1.2) 06/11/19 09:00 AST 11 units/L (5-40) 06/11/19 09:00 ALT 11 units/L (7-56) 06/11/19 09:00 Alkaline Phosphatase 54 units/L (35-129) 06/11/19 09:00 Total Creatine Kinase 49 units/L (55-170) L 05/29/19 23:04 CK-MB (CK-2) 5.3 ng/mL (0.0-4.0) H 05/29/19 23:04 CK-MB (CK-2) Rel Index 10.8 (0-4) H 05/29/19 23:04 Troponin T < 0.010 ng/mL (0.00-0.029) 05/29/19 23:04 NT-Pro-B Natriuret Pep 1400 pg/mL (0-900) H 06/01/19 13:01 Total Protein 5.8 g/dL (6.3-8.2) L 06/11/19 09:00 Albumin 2.4 g/dL (3.9-5) L 06/11/19 09:00 Albumin/Globulin Ratio 0.7 % 06/11/19 09:00 Lipase 31 units/L (13-60) 05/29/19 23:04 Vitamin B12 673.7 pg/mL (211-911) 06/07/19 15:28 Folate > 20 ng/mL (7.3-26.0) 06/07/19 15:28 Urine Color Yellow (Yellow) 06/07/19 06:45 Urine Turbidity Slightly-cloudy (Clear) 06/07/19 06:45 Urine pH 5.0 (5.0-7.0) 06/07/19 06:45 Ur Specific [place] 1.015 (1.003-1.030) 06/07/19 06:45 Urine Protein 100 mg/dl mg/dL (Negative) 06/07/19 06:45 Urine Glucose (UA) Neg mg/dL (Negative) 06/07/19 06:45 Urine Ketones Neg mg/dL (Negative) 06/07/19 06:45 Urine Blood Lg (Negative) 06/07/19 06:45 Urine Nitrite Neg (Negative) 06/07/19 06:45 Urine Bilirubin Neg (Negative) 06/07/19 06:45 Urine Urobilinogen 2.0 mg/dL (<2.0) 06/07/19 06:45 Ur Leukocyte Esterase Lg (Negative) 06/07/19 06:45 Urine WBC (Auto) 149.0 /HPF (0.0-6.0) H 06/07/19 06:45 Urine RBC (Auto) > 182.0 /HPF (0.0-6.0) 06/07/19 06:45 U Epithel Cells (Auto) < 1.0 /HPF (0-13.0) 05/30/19 00:37 Urine Bacteria (Auto) 3+ /HPF (Negative) 06/07/19 06:45 Hyaline Casts 2 /LPF 06/07/19 06:45 Urine Mucus Few /HPF 06/07/19 06:45 Blood Type A POSITIVE 06/07/19 15:30 Antibody Screen Negative 06/07/19 15:30 Crossmatch See Detail 06/07/19 15:30 Active Medications - Current Medications Current Medications: Generic Name Dose Route Start Last Admin Trade Name Freq PRN Reason Stop Dose Admin Acetaminophen 650 mg 05/30/19 03:51 06/10/19 16:53 Tylenol PO 650 mg Q4H PRN Administration Pain MILD(1-3)/Fever >100.5/NIÑO Amlodipine Besylate 10 mg 06/04/19 16:00 06/12/19 11:02 Amlodipine PO 10 mg QDAY ALPESH Administration Arformoterol Tartrate 15 mcg 06/07/19 20:00 06/12/19 08:21 Brovana Nebu IH 15 mcg Q12HRT ALPESH Administration Aspirin 81 mg 05/30/19 10:00 06/12/19 11:02 Baby Aspirin PO 81 mg DAILY ALPESH Administration Atorvastatin Calcium 10 mg 05/30/19 22:00 06/11/19 22:41 Atorvastatin PO 10 mg QHS ALPESH Administration Budesonide 0.5 mg 06/07/19 20:00 06/12/19 08:21 Pulmicort IH 0.5 mg Q12HRT ALPESH Administration Dextrose 50 ml 05/30/19 03:51 06/02/19 07:21 D50w (25gm) Syringe IV 50 ml Q30MIN PRN Administration Hypoglycemia Protocol Hydralazine HCl 5 mg 06/04/19 15:14 Apresoline IV Q30MIN PRN Hypertension Insulin Human Regular 0 units 06/03/19 16:30 06/12/19 16:18 Humulin R SUB-Q Not Given ACHS ALPESH Protocol Levofloxacin 250 mg 06/07/19 14:00 06/12/19 11:02 Levaquin PO 250 mg Q24HR ALPESH Administration Magnesium Hydroxide 30 ml 05/30/19 03:51 Milk Of Magnesia PO Q4H PRN Constipation Metoprolol Tartrate 25 mg 05/30/19 10:00 06/12/19 11:02 Metoprolol PO 25 mg DAILY ALPESH Administration Ondansetron HCl 4 mg 05/30/19 03:51 06/05/19 10:17 Zofran IV 4 mg Q8H PRN Administration Nausea And Vomiting Polyethylene Glycol 17 gm 05/30/19 10:00 Miralax 3350 PO BID PRN Constipation Sodium Chloride 10 ml 05/30/19 10:00 06/12/19 11:02 Sodium Chloride Flush Syringe 10 Ml IV 10 ml BID ALPESH Administration Sodium Chloride 10 ml 05/30/19 03:51 Sodium Chloride Flush Syringe 10 Ml IV PRN PRN LINE FLUSH Tamsulosin HCl 0.4 mg 06/01/19 22:00 06/11/19 22:41 Flomax PO 0.4 mg QHS ALPESH Administration Nutrition/Malnutrition Assess - Dietary Evaluation Nutrition/Malnutrition Findings: Nutrition Notes Start: 05/30/19 12:36 Freq: Status: Active Protocol: Document 06/11/19 13:39 LM (Rec: 06/11/19 13:52 LM [id number]) Nutrition Notes Initial or Follow up Reassessment Current Diagnosis Acute Kidney Injury,Diabetes, Hypertension,Hyperlipidemia Other Pertinent Diagnosis dementia, femur fracture Current Diet Pureed with nectar thick liquids Labs/Tests Na 145 BG 256 BUN 47 Pertinent Medications Humulin Height 5 ft 7 in Weight 81.8 kg Hendricks Body Weight (kg) 67.27 BMI 28.2 Weight Status Overweight Subjective/Other Information Pt diet changed to Pureed. Per pt pt is eating 100% and has good appetite. Noticed Glucerna ordered for pt. Pts stated pt has not been drinking Glucerna because it is not [place] thick. concerned about pt's thirst and stated the nectar thickened water is not enough. Discussed thickener packets with and getting more thickened liquids. Percent of energy/protein needs met: 100%/81% Burn Absent Trauma Absent Difficulty In Swallowing,Chewing Food Allergy No Current % PO Good (75-100%) Minimum of two criteria Yes Body Fat Depletion Moderate depletion (severe) Muscle Mass Moderate Depletion (severe) Fluid Accumulation Mild (non-severe) Reduced Cleaning [place] Strength Measurably Reduced (severe) #1 Nutrition Diagnosis Malnutrition Diagnosis Progress(for reassessment Continues documentation) Is patient on ventilator? No Is Patient Ambulatory and/or Out of Bed No REE-([facility]-confined to bed) [phone] Calculation Used for Recommendations [facility] Additional Notes Protein needs: 94-118g (1.2-1. 5 g/kg/day) Fluid needs: per MD Nutrition Intervention Change Diet Order: Continue pureed with nectar liquids Add Supplement/Snack (indicate name/kcal D/C Glucerna /protein ) Goal #1 Meet >75% of energy and protein needs Anticipated Discharge Needs: Unable to determine at this time Follow-Up By: 06/19/19 Additional Comments F/U for PO intakes, diet advancement
[2019-06-12] MEDS: TAMSULOSIN 0.4 MG CAP PO SCH (23:02)
[2019-06-13] MEDS: INSULIN REGULAR, HUMAN 100 UNITS/1 ML SUB-Q SCH ×4 (08:42→23:06)
[2019-06-13] MEDS: BUDESONIDE 0.5 MG/2 ML NEBU IH SCH ×2 (08:56→20:37)
[2019-06-13] MEDS: ARFORMOTEROL 15 MCG/2 ML NEBU IH SCH ×2 (08:56→20:37)
[2019-06-13] MEDS: ASPIRIN 81 MG TAB CHEW PO SCH (09:31)
[2019-06-13] MEDS: amLODIPine 10 MG TAB PO SCH (09:31)
[2019-06-13] MEDS: METOPROLOL TARTRATE 25 MG TAB PO SCH (09:31)
[2019-06-13] MEDS: levoFLOXacin 250 MG TAB PO SCH (09:31)
--- NOTE | 2019-06-13 10:13 | Progress Note ---
Assessment and Plan # Acute kidney injury: baseline creatinine is around 1.2, admitted with a creatinine of 1.6, and stable. ALESSIO likely in setting of dehydration. - encourage po hydration as possible - daily renal labs - avoid nephrotoxins - appreciate cessation of PPI due to risk of interstitial injury # Hypernatremia: -free water deficit ~4L with minimal po hydration. Also on Florinef -continue d5w, - encourage PO hydration to make up free water deficit as able # Hyperkalemia: improved, change Florinef # HTN: BP at goal, wean Florinef as above # Anemia: likely from multifactorial causes. No indication for ESAs currently, s/p prbcs 06/03 Subjective Date of service: 06/13/19 Principal diagnosis: hypernatremia Interval history: resting in bed Objective - Exam Narrative Exam: General: No acute distress HEENT: Oral mucosa moist, no icterus Neck: Supple Chest: Clear to auscultation anteriorly Heart: Regular rate and rhythm, normal S1-S2 Abdomen: Soft nontender Extremity: no edema Psych: No evidence of any agitation and aggression noted Neuro: mildly alerted and unable to communicate well Derm: intact - Vital Signs Vital signs: Vital Signs - 12hr 06/12/19 06/13/19 06/13/19 22:33 03:38 08:59 Temperature 98.9 F 99.3 F Pulse Rate 101 H 80 Pulse Rate [ 84 Anterior Throughout] Respiratory 20 18 Rate Respiratory 18 Rate [Anterior Throughout] Blood Pressure 139/65 138/55 O2 Sat by Pulse 92 94 Oximetry 06/13/19 09:00 Temperature Pulse Rate Pulse Rate [ Anterior Throughout] Respiratory Rate Respiratory Rate [Anterior Throughout] Blood Pressure O2 Sat by Pulse 99 Oximetry - Lab 06/11/19 09:00 06/12/19 10:05 Most recent lab results Calcium 8.6 mg/dL (8.4-10.2) 06/11/19 09:00 Magnesium 2.10 mg/dL (1.7-2.3) 06/11/19 09:00 Medications & Allergies - Medications Allergies/Adverse Reactions: Allergies No Known Allergies Allergy (Verified 10/27/13 16:35) Home Medications: Home Medications Medication Instructions Recorded Confirmed Last Taken Type Metoprolol Tartrate 1 tab PO DAILY 10/27/13 05/30/19 10/29/13 History Pantoprazole [Protonix TAB] 1 tab PO DAILY 10/27/13 05/30/19 10/29/13 History Polyethylene Glycol 3350 [Miralax 17 gm PO BID PRN #10 powd.pack 01/24/19 05/30/19 Unknown Rx 3350] Aspirin [Aspirin BABY CHEW TAB] 1 tab PO DAILY #30 06/12/19 Unknown Rx AtorvaSTATin 10 mg PO QHS #30 tablet 06/12/19 Unknown Rx Tamsulosin [Flomax] 0.4 mg PO QHS #30 capsule 06/12/19 Unknown Rx amLODIPine 10 mg PO QDAY #30 tablet 06/12/19 Unknown Rx levoFLOXacin [Levaquin TAB] 250 mg PO Q24HR #2 tablet 06/12/19 Unknown Rx Active Medications: Generic Name Dose Route Start Last Admin Trade Name Freq PRN Reason Stop Dose Admin Acetaminophen 650 mg 05/30/19 03:51 06/10/19 16:53 Tylenol PO 650 mg Q4H PRN Administration Pain MILD(1-3)/Fever >100.5/NIÑO Amlodipine Besylate 10 mg 06/04/19 16:00 06/13/19 09:31 Amlodipine PO 10 mg QDAY ALPESH Administration Arformoterol Tartrate 15 mcg 06/07/19 20:00 06/13/19 08:56 Brovana Nebu IH 15 mcg Q12HRT ALPESH Administration Aspirin 81 mg 05/30/19 10:00 06/13/19 09:31 Baby Aspirin PO 81 mg DAILY ALPESH Administration Atorvastatin Calcium 10 mg 05/30/19 22:00 06/12/19 23:02 Atorvastatin PO 10 mg QHS ALPESH Administration Budesonide 0.5 mg 06/07/19 20:00 06/13/19 08:56 Pulmicort IH 0.5 mg Q12HRT ALPESH Administration Dextrose 50 ml 05/30/19 03:51 06/02/19 07:21 D50w (25gm) Syringe IV 50 ml Q30MIN PRN Administration Hypoglycemia Protocol Hydralazine HCl 5 mg 06/04/19 15:14 Apresoline IV Q30MIN PRN Hypertension Insulin Human Regular 0 units 06/03/19 16:30 06/13/19 08:42 Humulin R SUB-Q Not Given ACHS ALPESH Protocol Levofloxacin 250 mg 06/07/19 14:00 06/13/19 09:31 Levaquin PO 250 mg Q24HR ALPESH Administration Magnesium Hydroxide 30 ml 05/30/19 03:51 Milk Of Magnesia PO Q4H PRN Constipation Metoprolol Tartrate 25 mg 05/30/19 10:00 06/13/19 09:31 Metoprolol PO 25 mg DAILY ALPESH Administration Ondansetron HCl 4 mg 05/30/19 03:51 06/05/19 10:17 Zofran IV 4 mg Q8H PRN Administration Nausea And Vomiting Polyethylene Glycol 17 gm 05/30/19 10:00 Miralax 3350 PO BID PRN Constipation Sodium Chloride 10 ml 05/30/19 10:00 06/13/19 09:31 Sodium Chloride Flush Syringe 10 Ml IV 10 ml BID ALPESH Administration Sodium Chloride 10 ml 05/30/19 03:51 Sodium Chloride Flush Syringe 10 Ml IV PRN PRN LINE FLUSH Tamsulosin HCl 0.4 mg 06/01/19 22:00 06/12/19 23:02 Flomax PO 0.4 mg QHS ALPESH Administration
[2019-06-13] MEDS: DEXTROSE 5% IN WATER 1,000 ML IV SCH (12:55)
--- NOTE | 2019-06-13 14:36 | Progress Note ---
Assessment and Plan /Right sided weakness, acute on chronic - likely worsening physical debility - had chronic weakness on right from previous CVA per the - CT/MRI head no acute findings, NEED SAM PER PT - waiting on accepting facility /Febrile illness, low grade - from UTI - ordered blood cx, UA and CXR - placed on renaly adjusted levaquin, d/c m[place]o / Anemia of CD Probably chronic. Will monitor CBC. Hb dropped to 6.9 - ordered stool for occult blood - negative and anemia panel suggestive for anemia of CD and transfused one unit PRBC /hypernatremia, resolved Placed on iv fluid with hypotonic saline with D5 1/4 NS - as free water deficit was ~4L with minimal po hydration. will reduce iv fluid, encouraged po intake - wean off Florinef per renal / Hyperkalemia - from declining renal function, K level improved Will monitor chemistry. He has had kayexalate, insulin and glucose along with sodium bicarbonate and calcium gluconate. Nephrology consulted for follow up. / ALESSIO - due to vasomotor nephropathy cont iv fluid, nephro consulted / Nausea & vomiting - resolved could be from uremia HE HAS BEEN PLACED ON IV ZOFRAN AND STARTED ON IV FLUID. 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 ER lab significant for hyperkalemia potassium 6.6, acute kidney injury. k level improved then developed hypernatremia. nephrology following. received one unit of PRBC for low h/h. c/o right sided weakness - MRI brain negative for acute stroke. Need SAM on d/c but may be a fee required and family not sure they can pay that. willing to take patient home with HH but daughters refuses, family appealed discharge. Subjective Date of service: 06/13/19 Principal diagnosis: hypernatremia Interval history: Patient seen and examined H/H stable, discussed with and patient's daughters at bedside Family appealed the discharge Objective - Exam Narrative Exam: General appearance: Present: no acute distress, well-nourished - EENT Eyes: PERRL, EOM intact ENT: hearing intact, clear oral mucosa Ears: bilateral: normal - Neck Neck: supple, normal ROM - Respiratory Respiratory effort: normal Respiratory: bilateral: CTA - Cardiovascular Rhythm: regular Heart Sounds: Present: S1 & S2. Absent: gallop, rub Extremities: pulses intact, No edema, normal color, Full ROM - Gastrointestinal General gastrointestinal: Present: soft, non-distended, normal bowel sounds, other (obese) + hydrocele - Integumentary Integumentary: clear, warm, dry Noted small penile ulcer in between shaft and glans penis - Musculoskeletal Musculoskeletal: generalized weakness, right >L - Neurologic Neurologic: moves all extremities - Psychiatric Psychiatric: no appropriate mood/affect, no intact judgment & insight, no memory intact, cooperative - Constitutional Vitals: Vital Signs - 12hr 06/13/19 06/13/19 06/13/19 03:38 08:59 09:00 Temperature 99.3 F Pulse Rate 80 Pulse Rate [ 84 Anterior Throughout] Respiratory 18 Rate Respiratory 18 Rate [Anterior Throughout] Blood Pressure 138/55 O2 Sat by Pulse 94 99 Oximetry 06/13/19 10:31 Temperature Pulse Rate 84 Pulse Rate [ Anterior Throughout] Respiratory Rate Respiratory Rate [Anterior Throughout] Blood Pressure O2 Sat by Pulse Oximetry - Labs CBC & Chem 7: 06/11/19 09:00 06/12/19 10:05 Labs: Abnormal lab results 06/12/19 06/12/19 06/13/19 Range/Units 17:17 20:45 08:36 POC Glucose 188 H 254 H 154 H (70-105) 06/13/19 Range/Units 12:12 POC Glucose 201 H (70-105)
[2019-06-13] MEDS: TAMSULOSIN 0.4 MG CAP PO SCH (21:45)
[2019-06-14] MEDS: INSULIN REGULAR, HUMAN 100 UNITS/1 ML SUB-Q SCH ×4 (07:30→22:50)
[2019-06-14] MEDS: BUDESONIDE 0.5 MG/2 ML NEBU IH SCH ×2 (07:50→20:31)
[2019-06-14] MEDS: ARFORMOTEROL 15 MCG/2 ML NEBU IH SCH ×2 (07:50→20:31)
[2019-06-14] MEDS: METOPROLOL TARTRATE 25 MG TAB PO SCH (09:59)
[2019-06-14] MEDS: ASPIRIN 81 MG TAB CHEW PO SCH (09:59)
[2019-06-14] MEDS: amLODIPine 10 MG TAB PO SCH (09:59)
--- NOTE | 2019-06-14 10:23 | Progress Note ---
Assessment and Plan # Acute kidney injury: baseline creatinine is around 1.2, admitted with a creatinine of 1.6, and stable. ALESSIO likely in setting of dehydration. - encourage po hydration as possible - daily renal labs - avoid nephrotoxins - appreciate cessation of PPI due to risk of interstitial injury # Hypernatremia: -free water deficit ~4L with minimal po hydration. -continue d5w, - encourage PO hydration to make up free water deficit as able # Hyperkalemia: improved, change Florinef # HTN: BP at goal, wean Florinef as above # Anemia: likely from multifactorial causes. No indication for ESAs currently, s/p prbcs 06/03 Subjective Date of service: 06/14/19 Principal diagnosis: hypernatremia Interval history: resting in bed Objective - Exam Narrative Exam: General: No acute distress HEENT: Oral mucosa moist, no icterus Neck: Supple Chest: Clear to auscultation anteriorly Heart: Regular rate and rhythm, normal S1-S2 Abdomen: Soft nontender Extremity: no edema Psych: No evidence of any agitation and aggression noted Neuro: mildly alerted and unable to communicate well Derm: intact - Vital Signs Vital signs: Vital Signs - 12hr 06/13/19 06/14/19 06/14/19 23:46 00:27 03:55 Temperature 98.9 F Pulse Rate 77 72 Pulse Rate [ Anterior Throughout] Respiratory 18 20 Rate Respiratory Rate [Anterior Throughout] Blood Pressure 132/54 120/52 O2 Sat by Pulse 98 100 Oximetry 06/14/19 06/14/19 06/14/19 03:58 07:40 07:51 Temperature 98.8 F 98.5 F Pulse Rate 79 Pulse Rate [ 79 Anterior Throughout] Respiratory 19 Rate Respiratory 20 Rate [Anterior Throughout] Blood Pressure 151/53 O2 Sat by Pulse 97 Oximetry 06/14/19 07:52 Temperature Pulse Rate Pulse Rate [ Anterior Throughout] Respiratory Rate Respiratory Rate [Anterior Throughout] Blood Pressure O2 Sat by Pulse 100 Oximetry - Lab 06/11/19 09:00 06/12/19 10:05 Most recent lab results Calcium 8.6 mg/dL (8.4-10.2) 06/11/19 09:00 Magnesium 2.10 mg/dL (1.7-2.3) 06/11/19 09:00 Medications & Allergies - Medications Allergies/Adverse Reactions: Allergies No Known Allergies Allergy (Verified 10/27/13 16:35) Home Medications: Home Medications Medication Instructions Recorded Confirmed Last Taken Type Metoprolol Tartrate 1 tab PO DAILY 10/27/13 05/30/19 10/29/13 History Pantoprazole [Protonix TAB] 1 tab PO DAILY 10/27/13 05/30/19 10/29/13 History Polyethylene Glycol 3350 [Miralax 17 gm PO BID PRN #10 powd.pack 01/24/19 05/30/19 Unknown Rx 3350] Aspirin [Aspirin BABY CHEW TAB] 1 tab PO DAILY #30 06/12/19 Unknown Rx AtorvaSTATin 10 mg PO QHS #30 tablet 06/12/19 Unknown Rx Tamsulosin [Flomax] 0.4 mg PO QHS #30 capsule 06/12/19 Unknown Rx amLODIPine 10 mg PO QDAY #30 tablet 06/12/19 Unknown Rx levoFLOXacin [Levaquin TAB] 250 mg PO Q24HR #2 tablet 06/12/19 Unknown Rx Active Medications: Generic Name Dose Route Start Last Admin Trade Name Freq PRN Reason Stop Dose Admin Acetaminophen 650 mg 05/30/19 03:51 06/10/19 16:53 Tylenol PO 650 mg Q4H PRN Administration Pain MILD(1-3)/Fever >100.5/NIÑO Amlodipine Besylate 10 mg 06/04/19 16:00 06/14/19 09:59 Amlodipine PO 10 mg QDAY ALPESH Administration Arformoterol Tartrate 15 mcg 06/07/19 20:00 06/14/19 07:50 Brovana Nebu IH 15 mcg Q12HRT ALPESH Administration Aspirin 81 mg 05/30/19 10:00 06/14/19 09:59 Baby Aspirin PO 81 mg DAILY ALPESH Administration Atorvastatin Calcium 10 mg 05/30/19 22:00 06/13/19 21:45 Atorvastatin PO 10 mg QHS ALPESH Administration Budesonide 0.5 mg 06/07/19 20:00 06/14/19 07:50 Pulmicort IH 0.5 mg Q12HRT ALPESH Administration Dextrose 50 ml 05/30/19 03:51 06/02/19 07:21 D50w (25gm) Syringe IV 50 ml Q30MIN PRN Administration Hypoglycemia Protocol Hydralazine HCl 5 mg 06/04/19 15:14 Apresoline IV Q30MIN PRN Hypertension Dextrose 1,000 mls @ 42 mls/hr 06/13/19 11:00 06/13/19 12:55 D5w IV 42 mls/hr DIRECT ALPESH Administration Insulin Human Regular 0 units 06/03/19 16:30 06/14/19 07:30 Humulin R SUB-Q Not Given ACHS ALPESH Protocol Metoprolol Tartrate 25 mg 05/30/19 10:00 06/14/19 09:59 Metoprolol PO 25 mg DAILY ALPESH Administration Ondansetron HCl 4 mg 05/30/19 03:51 06/05/19 10:17 Zofran IV 4 mg Q8H PRN Administration Nausea And Vomiting Polyethylene Glycol 17 gm 05/30/19 10:00 Miralax 3350 PO BID PRN Constipation Sodium Chloride 10 ml 05/30/19 10:00 06/14/19 09:59 Sodium Chloride Flush Syringe 10 Ml IV 10 ml BID ALPESH Administration Sodium Chloride 10 ml 05/30/19 03:51 Sodium Chloride Flush Syringe 10 Ml IV PRN PRN LINE FLUSH Tamsulosin HCl 0.4 mg 06/01/19 22:00 06/13/19 21:45 Flomax PO 0.4 mg QHS ALPESH Administration
--- NOTE | 2019-06-14 13:45 | Progress Note ---
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 Will monitor CBC. Hb dropped to 6.9 - ordered stool for occult blood - negative and anemia panel suggestive for anemia of CD and transfused one unit PRBC / Hyperkalemia - from declining renal function, K level improved Will monitor chemistry. He has had kayexalate, insulin and glucose along with sodium bicarbonate and calcium gluconate. Nephrology consulted for follow up. / ALESSIO - due to vasomotor nephropathy cont iv fluid, nephro consulted / Nausea & vomiting - resolved could be from uremia HE HAS BEEN PLACED ON IV ZOFRAN AND STARTED ON IV FLUID. 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 ER lab significant for hyperkalemia potassium 6.6, acute kidney injury. k level improved then developed hypernatremia. nephrology following. received one unit of PRBC for low h/h. c/o right sided weakness - MRI brain negative for acute stroke. Need SAM on d/c but may be a fee required and family not sure they can pay that. willing to take patient home with HH but daughters refuses, family appealed discharge. Subjective Date of service: 06/14/19 Principal diagnosis: hypernatremia Interval history: Patient seen and examined discussed with Family appealed the discharge Na level up again Objective - Exam Narrative Exam: General appearance: Present: no acute distress, well-nourished - EENT Eyes: PERRL, EOM intact ENT: hearing intact, clear oral mucosa Ears: bilateral: normal - Neck Neck: supple, normal ROM - Respiratory Respiratory effort: normal Respiratory: bilateral: CTA - Cardiovascular Rhythm: regular Heart Sounds: Present: S1 & S2. Absent: gallop, rub Extremities: pulses intact, No edema, normal color, Full ROM - Gastrointestinal General gastrointestinal: Present: soft, non-distended, normal bowel sounds, other (obese) + hydrocele - Integumentary Integumentary: clear, warm, dry Noted small penile ulcer in between shaft and glans penis - Musculoskeletal Musculoskeletal: generalized weakness, right >L - Neurologic Neurologic: moves all extremities - Psychiatric Psychiatric: no appropriate mood/affect, no intact judgment & insight, no memory intact, cooperative - Constitutional Vitals: Vital Signs - 12hr 06/14/19 06/14/19 06/14/19 03:55 03:58 07:40 Temperature 98.8 F 98.5 F Pulse Rate 72 79 Pulse Rate [ Anterior Throughout] Respiratory 20 19 Rate Respiratory Rate [Anterior Throughout] Blood Pressure 120/52 151/53 O2 Sat by Pulse 100 97 Oximetry 06/14/19 06/14/19 07:51 07:52 Temperature Pulse Rate Pulse Rate [ 79 Anterior Throughout] Respiratory Rate Respiratory 20 Rate [Anterior Throughout] Blood Pressure O2 Sat by Pulse 100 Oximetry - Labs CBC & Chem 7: 06/15/19 07:29 06/15/19 07:29 Labs: Abnormal lab results 06/13/19 06/13/19 06/14/19 Range/Units 16:31 21:35 07:52 POC Glucose 248 H 233 H 182 H (70-105) 06/14/19 Range/Units 12:03 POC Glucose 226 H (70-105)
[2019-06-14] MEDS: DEXTROSE 5% IN WATER 1,000 ML IV SCH (16:17)
[2019-06-14 17:20] LABS: BUN/Creatinine Ratio 25; Blood Urea Nitrogen 32 mg/dL (9-20); Calcium 8.9 mg/dL (8.4-10.2); Hemolysis Index 3
[2019-06-14] MEDS: TAMSULOSIN 0.4 MG CAP PO SCH (22:50)
[2019-06-14] MEDS: ACETAMINOPHEN 325 MG TAB PO PRN (23:46)
[2019-06-15 08:10] LABS: Basophils # (Auto) 0.1 K/mm3 (0.0-0.1); Basophils % (Auto) 0.8 % (0.0-1.8); Eosinophils # (Auto) 0.2 K/mm3 (0.0-0.4); Eosinophils % (Auto) 3.2 % (0.0-4.3); Hematocrit 21.7 % (35.5-45.6); Lymphocytes # (Auto) 0.8 K/mm3 (1.2-5.4); Lymphocytes % (Auto) 13.5 % (13.4-35.0); Mean Corpuscular HGB Conc 32 % (32-34); Mean Corpuscular Volume 100 fl (84-94); Monocytes # (Auto) 0.8 K/mm3 (0.0-0.8); Monocytes % (Auto) 12.4 % (0.0-7.3); Platelet Count 464 K/mm3 (140-440); Red Blood Count 2.18 M/mm3 (3.65-5.03); Red Cell Distribution Width 14.9 % (13.2-15.2)
[2019-06-15 08:27] LABS: BUN/Creatinine Ratio 27; Blood Urea Nitrogen 30 mg/dL (9-20); Calcium 8.8 mg/dL (8.4-10.2); Hemolysis Index 2
[2019-06-15] MEDS: INSULIN REGULAR, HUMAN 100 UNITS/1 ML SUB-Q SCH ×4 (08:30→22:28)
[2019-06-15] MEDS: ARFORMOTEROL 15 MCG/2 ML NEBU IH SCH ×2 (09:39→19:47)
[2019-06-15] MEDS: BUDESONIDE 0.5 MG/2 ML NEBU IH SCH ×2 (09:39→19:42)
[2019-06-15] MEDS: ASPIRIN 81 MG TAB CHEW PO SCH (10:59)
[2019-06-15] MEDS: amLODIPine 10 MG TAB PO SCH (10:59)
[2019-06-15] MEDS: METOPROLOL TARTRATE 25 MG TAB PO SCH (10:59)
[2019-06-15] MEDS: DEXTROSE 5% IN WATER 1,000 ML IV SCH ×2 (11:15→19:59)
--- NOTE | 2019-06-15 16:23 | Progress Note ---
Assessment and Plan /hypernatremia, resolved but up again patient has free water deficit as he has minimal po hydration. 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 Will monitor CBC. Hb dropped to 6.9 - ordered stool for occult blood - negative and anemia panel suggestive for anemia of CD and transfused one unit PRBC / Hyperkalemia - from declining renal function, K level improved Will monitor chemistry. He has had kayexalate, insulin and glucose along with sodium bicarbonate and calcium gluconate. Nephrology consulted for follow up. / ALESSIO - due to vasomotor nephropathy cont iv fluid, nephro consulted / Nausea & vomiting - resolved could be from uremia HE HAS BEEN PLACED ON IV ZOFRAN AND STARTED ON IV FLUID. 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 ER lab significant for hyperkalemia potassium 6.6, acute kidney injury. k level improved then developed hypernatremia. nephrology following. received one unit of PRBC for low h/h. c/o right sided weakness - MRI brain negative for acute stroke. Need SAM on d/c but may be a fee required and family not sure they can pay that. willing to take patient home with HH but daughters refuses, family appealed discharge. Subjective Date of service: 06/15/19 Principal diagnosis: hypernatremia Interval history: Patient seen and examined discussed with Family appealed the discharge Na level up again, started on iv fluid Objective - Exam Narrative Exam: General appearance: Present: no acute distress, well-nourished - EENT Eyes: PERRL, EOM intact ENT: hearing intact, clear oral mucosa Ears: bilateral: normal - Neck Neck: supple, normal ROM - Respiratory Respiratory effort: normal Respiratory: bilateral: CTA - Cardiovascular Rhythm: regular Heart Sounds: Present: S1 & S2. Absent: gallop, rub Extremities: pulses intact, No edema, normal color, Full ROM - Gastrointestinal General gastrointestinal: Present: soft, non-distended, normal bowel sounds, other (obese) + hydrocele - Integumentary Integumentary: clear, warm, dry Noted small penile ulcer in between shaft and glans penis - Musculoskeletal Musculoskeletal: generalized weakness, right >L - Neurologic Neurologic: moves all extremities - Psychiatric Psychiatric: no appropriate mood/affect, no intact judgment & insight, no memory intact, cooperative - Constitutional Vitals: Vital Signs - 12hr 06/15/19 06/15/19 06/15/19 05:46 05:51 08:00 Temperature 100.2 F H Pulse Rate 89 Pulse Rate [ 79 Anterior Throughout] Respiratory 20 Rate Respiratory 20 Rate [Anterior Throughout] Blood Pressure 141/58 O2 Sat by Pulse 100 Oximetry 06/15/19 06/15/19 09:41 10:00 Temperature Pulse Rate Pulse Rate [ Anterior Throughout] Respiratory 18 Rate Respiratory Rate [Anterior Throughout] Blood Pressure O2 Sat by Pulse 100 Oximetry - Labs CBC & Chem 7: 06/15/19 07:29 06/16/19 04:42 Labs: Abnormal lab results 06/14/19 06/14/19 06/15/19 Range/Units 16:25 21:28 07:29 RBC 2.18 L (3.65-5.03) M/mm3 Hgb 7.0 L (11.8-15.2) gm/dl Hct 21.7 L (35.5-45.6) % MCV 100 H (84-94) fl Plt Count 464 H (140-440) K/mm3 [place] % (Auto) 12.4 H (0.0-7.3) % Lymph # 0.8 L (1.2-5.4) K/mm3 Seg Neutrophils % 70.1 H (40.0-70.0) % Sodium 147 H (137-145) mmol/L Chloride 107.1 H (98-107) mmol/L BUN 32 H (9-20) mg/dL Glucose 223 H (75-100) mg/dL POC Glucose 224 H (70-105) 06/15/19 06/15/19 06/15/19 Range/Units 07:29 08:19 12:00 RBC (3.65-5.03) M/mm3 Hgb (11.8-15.2) gm/dl Hct (35.5-45.6) % MCV (84-94) fl Plt Count (140-440) K/mm3 [place] % (Auto) (0.0-7.3) % Lymph # (1.2-5.4) K/mm3 Seg Neutrophils % (40.0-70.0) % Sodium 149 H (137-145) mmol/L Chloride 109.5 H (98-107) mmol/L BUN 30 H (9-20) mg/dL Glucose 176 H (75-100) mg/dL POC Glucose 177 H 225 H (70-105)
--- NOTE | 2019-06-15 16:39 | Progress Note ---
Assessment and Plan - Patient Problems (1) Acute kidney injury Current Visit: Yes Status: Acute Plan to address problem: Acute kidney injuryresolved Admission creatinine 1.6 mg/DL Baseline creatinine about 1.2 mg/dl Current creatinine 1.1mg/DL Continue intravenous fluids Etiology likely secondary to dehydration Bill has been removed. Initial concern for urinary retention currently on Flomax Strict input and output (2) Hyperkalemia Current Visit: Yes Status: Acute Plan to address problem: Hyperkalemia now resolved received Florinef continue free water replacement Lasix when necessary for edema (3) Anemia Current Visit: No Status: Chronic Qualifiers: Anemia type: unspecified type Qualified Code(s): D64.9 - Anemia, u nspecified Plan to address problem: Moderate anemia hemoglobin 9.8 g per DL (Monitor CBC (4) HTN (hypertension) Current Visit: No Status: Chronic Qualifiers: Hypertension type: essential hypertension Qualified Code(s): I10 - Essential (primary) hypertension Plan to address problem: Hypertension controlled continue current medications (5) Hypernatremia Current Visit: Yes Status: Acute Plan to address problem: Hypernatremia continue hypotonic solution 5% dextrose water @125 cc per hour repeat RFP. we will sign off Thank you for this consult Subjective Principal diagnosis: hypernatremia Interval history: 78-year-old gentleman with medical history of hypertension, diabetes mellitus type 2, dementia chronic kidney disease, Hydrocele admitted with complaints of persistent nausea and vomiting unable to keep food intake down for 48 hours last significant for hyperkalemia potassium 6.6. Also finding of acute kidney injury patient has dementia unable to provide a history. no history of fevers chills. No shortness of breath and orthopnea. No associated cough Patient seen today Bill has been removed has lower extremity edema continue free water replacement Objective - Vital Signs Vital signs: Vital Signs - 12hr 06/15/19 06/15/19 06/15/19 05:46 05:51 08:00 Temperature 100.2 F H Pulse Rate 89 Pulse Rate [ 79 Anterior Throughout] Respiratory 20 Rate Respiratory 20 Rate [Anterior Throughout] Blood Pressure 141/58 O2 Sat by Pulse 100 Oximetry 06/15/19 06/15/19 09:41 10:00 Temperature Pulse Rate Pulse Rate [ Anterior Throughout] Respiratory 18 Rate Respiratory Rate [Anterior Throughout] Blood Pressure O2 Sat by Pulse 100 Oximetry - General Appearance General appearance: appears stated age, chronically ill EENT: ATNC, PERRL Neck: no JVD Respiratory: Present: Decreased Breath Sounds Cardiology: regular, S1S2 Gastrointestinal: normal, normoactive bowel sounds Integumentary: no rash Neurologic: CN 3-12 intact Psychiatric: mood/affect appropriate - Lab 06/15/19 07:29 06/15/19 07:29 Most recent lab results Calcium 8.8 mg/dL (8.4-10.2) 06/15/19 07:29 Magnesium 2.10 mg/dL (1.7-2.3) 06/11/19 09:00 - Imaging Chest x-ray: image reviewed (reviewed Chest x-ray without edema) Medications & Allergies - Medications Allergies/Adverse Reactions: Allergies No Known Allergies Allergy (Verified 10/27/13 16:35) Home Medications: Home Medications Medication Instructions Recorded Confirmed Last Taken Type Metoprolol Tartrate 1 tab PO DAILY 10/27/13 05/30/19 10/29/13 History Pantoprazole [Protonix TAB] 1 tab PO DAILY 10/27/13 05/30/19 10/29/13 History Polyethylene Glycol 3350 [Miralax 17 gm PO BID PRN #10 powd.pack 01/24/19 05/30/19 Unknown Rx 3350] Aspirin [Aspirin BABY CHEW TAB] 1 tab PO DAILY #30 06/12/19 Unknown Rx AtorvaSTATin 10 mg PO QHS #30 tablet 06/12/19 Unknown Rx Tamsulosin [Flomax] 0.4 mg PO QHS #30 capsule 06/12/19 Unknown Rx amLODIPine 10 mg PO QDAY #30 tablet 06/12/19 Unknown Rx levoFLOXacin [Levaquin TAB] 250 mg PO Q24HR #2 tablet 06/12/19 Unknown Rx Active Medications: Generic Name Dose Route Start Last Admin Trade Name Freq PRN Reason Stop Dose Admin Acetaminophen 650 mg 05/30/19 03:51 06/14/19 23:46 Tylenol PO 650 mg Q4H PRN Administration Pain MILD(1-3)/Fever >100.5/NIÑO Amlodipine Besylate 10 mg 06/04/19 16:00 06/15/19 10:59 Amlodipine PO 10 mg QDAY ALPESH Administration Arformoterol Tartrate 15 mcg 06/07/19 20:00 12/26/19 09:39 Brovana Nebu IH Not Given Q12HRT ALPESH Aspirin 81 mg 05/30/19 10:00 06/15/19 10:59 Baby Aspirin PO 81 mg DAILY ALPESH Administration Atorvastatin Calcium 10 mg 05/30/19 22:00 06/14/19 22:50 Atorvastatin PO 10 mg QHS ALPESH Administration Budesonide 0.5 mg 06/07/19 20:00 06/15/19 09:39 Pulmicort IH 0.5 mg Q12HRT ALPESH Administration Dextrose 50 ml 05/30/19 03:51 06/02/19 07:21 D50w (25gm) Syringe IV 50 ml Q30MIN PRN Administration Hypoglycemia Protocol Enoxaparin Sodium 40 mg 06/15/19 22:00 Enoxaparin SUB-Q QDAY@2200 ALPESH Hydralazine HCl 5 mg 06/04/19 15:14 Apresoline IV Q30MIN PRN Hypertension Dextrose 1,000 mls @ 125 mls/hr 06/15/19 09:00 06/15/19 11:15 D5w IV 125 mls/hr DIRECT ALPESH Administration Insulin Human Regular 0 units 06/03/19 16:30 06/15/19 13:07 Humulin R SUB-Q 2 units ACHS ALPESH Administration Protocol Metoprolol Tartrate 25 mg 05/30/19 10:00 06/15/19 10:59 Metoprolol PO 25 mg DAILY ALPESH Administration Ondansetron HCl 4 mg 05/30/19 03:51 06/05/19 10:17 Zofran IV 4 mg Q8H PRN Administration Nausea And Vomiting Polyethylene Glycol 17 gm 05/30/19 10:00 06/15/19 16:09 Miralax 3350 PO 17 gm BID PRN Administration Constipation Sodium Chloride 10 ml 05/30/19 10:00 06/15/19 10:59 Sodium Chloride Flush Syringe 10 Ml IV 10 ml BID ALPESH Administration Sodium Chloride 10 ml 05/30/19 03:51 Sodium Chloride Flush Syringe 10 Ml IV PRN PRN LINE FLUSH Tamsulosin HCl 0.4 mg 06/01/19 22:00 06/14/19 22:50 Flomax PO 0.4 mg QHS ALPESH Administration
[2019-06-15] MEDS ORDERED: ENOXAPARIN 40 MG/0.4 ML INJ SUB-Q SCH (22:00)
[2019-06-15] MEDS: TAMSULOSIN 0.4 MG CAP PO SCH (22:27)
[2019-06-16] MEDS: DEXTROSE 5% IN WATER 1,000 ML IV SCH (03:48)
[2019-06-16 05:58] LABS: BUN/Creatinine Ratio 25; Blood Urea Nitrogen 25 mg/dL (9-20); Calcium 8.7 mg/dL (8.4-10.2); Hemolysis Index 13
[2019-06-16] MEDS: INSULIN REGULAR, HUMAN 100 UNITS/1 ML SUB-Q SCH ×3 (07:15→16:34)
[2019-06-16] MEDS: BUDESONIDE 0.5 MG/2 ML NEBU IH SCH (08:32)
[2019-06-16] MEDS: ARFORMOTEROL 15 MCG/2 ML NEBU IH SCH (08:32)
[2019-06-16] MEDS: ASPIRIN 81 MG TAB CHEW PO SCH (09:49)
[2019-06-16] MEDS: METOPROLOL TARTRATE 25 MG TAB PO SCH (09:50)
[2019-06-16] MEDS: amLODIPine 10 MG TAB PO SCH (09:50)
--- NOTE | 2019-06-16 11:29 | Progress Note ---
Assessment and Plan /Recurrent hypernatremia, patient has free water deficit as he has minimal po hydration. 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 Will monitor CBC. Hb dropped to 6.9 - ordered stool for occult blood - negative and anemia panel suggestive for anemia of CD and transfused one unit PRBC / Hyperkalemia - from declining renal function, K level improved Will monitor chemistry. He has had kayexalate, insulin and glucose along with sodium bicarbonate and calcium gluconate. Nephrology consulted for follow up. / ALESSIO - due to vasomotor nephropathy cont iv fluid, nephro consulted / Nausea & vomiting - resolved could be from uremia HE HAS BEEN PLACED ON IV ZOFRAN AND STARTED ON IV FLUID. 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 ER lab significant for hyperkalemia potassium 6.6, acute kidney injury. k level improved then developed hypernatremia. nephrology following. received one unit of PRBC for low h/h. c/o right sided weakness - MRI brain negative for acute stroke. Need SAM on d/c but may be a fee required and family not sure they can pay that. willing to take patient home with but daughters refuses, family appealed discharge. Subjective Date of service: 06/16/19 Principal diagnosis: hypernatremia Objective - Exam Narrative Exam: General appearance: Present: no acute distress, well-nourished - EENT Eyes: PERRL, EOM intact ENT: hearing intact, clear oral mucosa Ears: bilateral: normal - Neck Neck: supple, normal ROM - Respiratory Respiratory effort: normal Respiratory: bilateral: CTA - Cardiovascular Rhythm: regular Heart Sounds: Present: S1 & S2. Absent: gallop, rub Extremities: pulses intact, No edema, normal color, Full ROM - Gastrointestinal General gastrointestinal: Present: soft, non-distended, normal bowel sounds, other (obese) + hydrocele - Integumentary Integumentary: clear, warm, dry Noted small penile ulcer in between shaft and glans penis - Musculoskeletal Musculoskeletal: generalized weakness, right >L - Neurologic Neurologic: moves all extremities - Psychiatric Psychiatric: no appropriate mood/affect, no intact judgment & insight, no memory intact, cooperative - Constitutional Vitals: Vital Signs - 12hr 06/16/19 06/16/19 06/16/19 03:26 07:11 08:30 Temperature 98.5 F 98.0 F Pulse Rate 70 78 Pulse Rate [ 73 Anterior Throughout] Respiratory 20 20 Rate Respiratory 20 Rate [Anterior Throughout] Blood Pressure 130/60 115/76 O2 Sat by Pulse 97 96 Oximetry 06/16/19 06/16/19 08:45 09:50 Temperature Pulse Rate 80 Pulse Rate [ Anterior Throughout] Respiratory Rate Respiratory Rate [Anterior Throughout] Blood Pressure 147/58 O2 Sat by Pulse 96 Oximetry - Labs CBC & Chem 7: 06/15/19 07:29 06/16/19 04:42 Labs: Abnormal lab results 06/15/19 06/15/19 06/16/19 Range/Units 12:00 16:42 04:42 BUN 25 H (9-20) mg/dL Glucose 193 H (75-100) mg/dL POC Glucose 225 H 202 H (70-105) 06/16/19 06/16/19 Range/Units 07:21 11:34 BUN (9-20) mg/dL Glucose (75-100) mg/dL POC Glucose 234 H 254 H (70-105)
[2019-06-16 15:14] VITALS: BP 124/54
--- NOTE | 2019-06-16 16:35 | Discharge Summary ---
Providers - Providers Date of Admission: 05/30/19 03:12 Date of discharge: 06/16/19 Attending physician: LARRY PALAFOX 05/30/19 00:19 Consult to Physician [CONS] Urgent Comment: Consulting Provider: DREW NERI Physician Instructions: Reason For Exam: renal insufficiency, hyperkalemia 05/30/19 15:39 Speech Therapy Evaluation and Treat [CONS] Routine Reason For Exam: difficulty swallowing 05/31/19 09:54 Consult to Physician [CONS] Routine Comment: Consulting Provider: ROSS SHERIFF Physician Instructions: Reason For Exam: large hydrocele with urinary retention. 05/31/19 16:06 Consult to Physician [CONS] Routine Comment: Consulting Provider: MARTHA LÓPEZ Physician Instructions: Reason For Exam: inguinal hernia 06/01/19 14:06 Physical Therapy Evaluation and Treat [CONS] Routine Comment: Reason For Exam: placement 06/08/19 05:40 Consult to Wound/ET Nurse [CONS] Routine Reason For Exam: wound eval 06/13/19 17:35 Consult to Wound/ET Nurse [CONS] Routine Reason For Exam: wound eval of penis 06/14/19 13:45 Consult to Wound/ET Nurse [CONS] Routine Reason For Exam: wound eval Primary care physician: CLYDE DAS Hospitalization Condition: Fair Pertinent studies: Brain MRI, head CT, abdominal pelvis CT Chest x-ray, barium swallow study Hospital course: 78-year-old gentleman with medical history of dementia, hypertension, diabetes mellitus type 2, dementia chronic kidney disease, Hydrocele admitted with complaints of persistent nausea and vomiting unable to keep food intake down. ER lab significant for hyperkalemia potassium 6.6, acute kidney injury. k level improved then developed hypernatremia. nephrology following. received one unit of PRBC for low h/h. c/o right sided weakness - MRI brain negative for acute stroke. Need SAM on d/c but may be a fee required and family not sure they can pay that. willing to take patient home with but daughters refuses, family appealed discharge. Patient was having recurrent hypernatremia due to free water deficit as he was having very minimal by mouth water intake. Encouraged multiple times and explained to and family member for necessity of water intake. Patient was not also able to fully participate with the rehabilitation. Several discussion made with the and daughters and his brother. Finally the patient's and family decided to take patient home with hospice. Patient was then discharged home with hospice in stable condition. Discharge diagnosis and Mx: /Recurrent hypernatremia, patient has free water deficit as he has minimal po hydration. 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 Will monitor CBC. Hb dropped to 6.9 - ordered stool for occult blood - negative and anemia panel suggestive for anemia of CD and transfused one unit PRBC / Hyperkalemia - from declining renal function, K level improved Will monitor chemistry. He has had kayexalate, insulin and glucose along with sodium bicarbonate and calcium gluconate. Nephrology consulted for follow up. / ALESSIO - due to vasomotor nephropathy cont iv fluid, nephro consulted / Nausea & vomiting - resolved could be from uremia HE HAS BEEN PLACED ON IV ZOFRAN AND STARTED ON IV FLUID. 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 Absent: gallop, rub Extremities: pulses intact, No edema, normal color, Full ROM - Gastrointestinal General gastrointestinal: Present: soft, non-distended, normal bowel sounds, other (obese) + hydrocele - Integumentary Integumentary: clear, warm, dry Noted small penile ulcer in between shaft and glans penis - Musculoskeletal Musculoskeletal: generalized weakness, right >L - Neurologic Neurologic: moves all extremities - Psychiatric Psychiatric: no appropriate mood/affect, no intact judgment & insight, no memory intact, cooperative Disposition: DC-50 TO HOSPICE (HOME) Time spent for discharge: 34 minutes Exam - Constitutional Vitals: Temp Pulse Resp BP Pulse Ox 98.5 F 78 20 124/54 91 06/16/19 13:53 06/16/19 13:53 06/16/19 13:53 06/16/19 13:53 06/16/19 13:53 Plan Activity: up only with assistance, fall precautions Weight Bearing Status: Non-Weight Bearing Diet: other (pured diet with thickened liquid) Wound: keep clean and dry Follow up with: ROSS SHERIFF MD [Staff Physician] - 7 Days CLYDE DAS MD [Primary Care Provider] - 7 Days MARTHA LÓPEZ DO [Staff Physician] - 7 Days Prescriptions: AtorvaSTATin 10 mg PO QHS #30 tablet Tamsulosin [Flomax] 0.4 mg PO QHS #30 capsule amLODIPine 10 mg PO QDAY #30 tablet Aspirin [Aspirin BABY CHEW TAB] 1 tab PO DAILY #30 levoFLOXacin [Levaquin TAB] 250 mg PO Q24HR #2 tablet
== END 2019-06-16 19:45 | disposition hospice, home (50) | DRG 683 ==
LOC: ED 22:17 → 4A 05-30 03:12 → 2B-ACE 06-15 16:55
PROVIDERS: ADMIT Internal Medicine Geriatric Medicine; ATTEND Internal Medicine
PROC: 3E0234Z Introduction of Serum, Toxoid and Vaccine into Muscle, Percutaneous Approach (ICD-10-PCS; principal; 2019-05-31)
PROC: 30233N1 Transfusion of Nonautologous Red Blood Cells into Peripheral Vein, Percutaneous Approach (ICD-10-PCS; 2019-06-08)
DX: N17.0 Acute kidney failure with tubular necrosis (principal); N39.0 Urinary tract infection, site not specified; I69.351 Hemiplegia and hemiparesis following cerebral infarction affecting right dominant side; E87.0 Hyperosmolality and hypernatremia; F03.90 Unspecified dementia, unspecified severity, without behavioral disturbance, psychotic disturbance, mood disturbance, and anxiety; E87.5 Hyperkalemia; N43.2 Other hydrocele; E86.0 Dehydration; D63.1 Anemia in chronic kidney disease; K40.90 Unilateral inguinal hernia, without obstruction or gangrene, not specified as recurrent; J44.9 Chronic obstructive pulmonary disease, unspecified; N48.5 Ulcer of penis; D64.9 Anemia, unspecified; Z23 Encounter for immunization; Z87.891 Personal history of nicotine dependence; Z79.82 Long term (current) use of aspirin; Z79.4 Long term (current) use of insulin; Z79.899 Other long term (current) drug therapy
CPT/HCPCS: 36415; 70450; 70551; 71045; 74176; 74230; 80048; 80053; 81001; 82140; 82270; 82550; 82553; 82607; 82728; 82747; 82805; 82947; 82962; 83550; 83690; 83735; 83880; 83930; 84132; 84295; 84484; 84550; 85014; 85018; 85025; 85610; 85730; 86850; 86900; 86901; 86920; 87040; 87086; 87116; 90732; 93005; 93010; 94640; 94760; 96365; 96375; G0378; A9270-GY; J0610; J1200; J1650; J1815; J1940; J2405; J3480; J7030; J7040; J7070; P9016